=== PATIENT | male | born 1990 ===

== ENCOUNTER 2017-09-01 06:45 | Inpatient (IN) | payer OTHER ==
[2017-09-01] MEDS ORDERED: Lactated Ringer's 1,000 ML IV STA (07:32)
[2017-09-01] MEDS ORDERED: Iohexol 240 (50 ml) ONE (07:39)
[2017-09-01 08:02] LABS: BASO # 0.01 K/mm3 (0.0-2.0); BASO % 0.1 % (0.0-3.0); EOS % 0.1 % (1.5-5.0); GRAN # 10.67 (1.4-6.5); GRAN % 87.9 % (50.0-68.0); HEMOGLOBIN 13.2 g/dL (14.0-18.0); LYMPH # 0.3 (1.2-3.4); LYMPH % 2.6 % (22.0-35.0); MEAN CELL VOLUME 85.5 fl (80.0-105.0); MEAN CORPUSCULAR HEMOGLOBIN 29.1 pg (25.0-35.0); MEAN PLATELET VOLUME 10.6 fl (7.0-11.0); MONO # 1.1 (0.1-0.6); MONO % 9.3 % (1.0-6.0); PLATELET COUNT 178 10^3/uL (120.0-450.0); RBC 4.54 10^6/uL (3.5-6.1); WHITE BLOOD COUNT 12.1 10^3/ul (4.5-11.0)
--- NOTE | 2017-09-01 08:29 | ED PDOC ---
Arrival/HPI - General Chief Complaint: Medical Clearance Time Seen by Provider: 09/01/17 07:32 Historian: Patient - History of Present Illness Narrative History of Present Illness (Text): 09/01/17 08:26 27 year old male, whose past medical history includes MR and questionable kidney problems, who's brought in to the emergency department by his mother for vomiting that began 2 days ago. Patient is non-verbal and offers no complaints. As per mother, patient had a fever of 101 yesterday and went to the PMD. Patient was prescribed antibiotics with no relief. As per mother, denies any blood in urine or blood in stool and also reports patient's behavior is normal. ROS and PE limited due to patient being non-verbal. PMD: Dr. Zunilda Bone [facility] Director: Dr. Sneha Manley. Time/Duration: Other (2 days) Symptom Onset: Sudden Symptom Course: Unchanged Activities at Onset: Light Context: Home Past Medical History - Provider Review Nursing Documentation Reviewed: Yes - Cardiac Hx Cardiac Disorders: No - Pulmonary Hx Respiratory Disorders: No - Neurological Hx Neurological Disorder: No Other/Comment: autism/down's syndrome/non verbal - HEENT Hx HEENT Disorder: No - Renal Hx Renal Failure: Yes - Endocrine/Metabolic Hx Endocrine Disorders: No - Hematological/Oncological Hx Blood Disorders: No - Integumentary Hx Dermatological Disorder: No - Musculoskeletal/Rheumatological Hx Musculoskeletal Disorders: No - Gastrointestinal Hx Gastrointestinal Disorders: No - Genitourinary/Gynecological Hx Genitourinary Disorders: No - Psychiatric Hx Psychophysiologic Disorder: No Hx Substance Use: No - Surgical History Other/Comment: ureteral obs Family/Social History - Physician Review Nursing Documentation Reviewed: Yes Family/Social History: No Known Family HX Smoking Status: Never Smoked Hx Alcohol Use: No Hx Substance Use: No Allergies/Home Meds Allergies/Adverse Reactions: Allergies No Known Allergies Allergy (Verified 09/01/17 07:00) Home Medications: Home Meds Medication Instructions Recorded Confirmed Amoxicillin/Potassium Clav 600 mg PO BID 09/01/17 09/01/17 [Amox-Clav 600-42.9 mg/5 ml Carleen] Sodium Chloride 0.65% [[place] 45 50 ml NS DAILY 09/01/17 09/01/17 Ml] metroNIDAZOLE [Flagyl] 250 mg PO TID 09/01/17 09/01/17 Review of Systems - Physician Review All systems were reviewed & negative as marked: Yes - Review of Systems Systems not reviewed;Unavailable: Other (Non-verbal) Constitutional: Fevers Gastrointestinal: Vomiting Physical Exam - Physical Exam Physical Exam Limitations: Other (non-verbal) Vital Signs Reviewed: Yes Vital Signs Temp Pulse Resp BP Pulse Ox 09/01/17 12:14 103 H 18 89/56 L 97 09/01/17 11:00 106 H 16 108/49 L 100 09/01/17 09:00 104 H 18 86/56 L 100 09/01/17 07:32 78 18 95/56 L 99 09/01/17 07:00 97.4 F L 98 H 18 74/40 L 96 Temperature: Afebrile Blood Pressure: Hypotensive Pulse: Regular Respiratory Rate: Normal Appearance: Positive for: Well-Appearing, Non-Toxic, Comfortable Pain Distress: None Mental Status: Positive for: other (Baseline as per mother) - Systems Exam Head: Present: Atraumatic, Normocephalic Pupils: Present: PERRL Extroacular Muscles: Present: EOMI Conjunctiva: Present: Normal Mouth: Present: Moist Mucous Membranes Respiratory/Chest: Present: Clear to Auscultation, Good Air Exchange. No: Respiratory Distress, Accessory Muscle Use Cardiovascular: Present: Regular Rate and Rhythm, Normal S1, S2. No: Murmurs Abdomen: Present: Normal Bowel Sounds. No: Distention Medical Decision Making ED Course and Treatment: 09/01/17 08:27 Impression: 27 year old male presents as per mother vomiting for the past 2 days associated with a fever. Plan: -- CT ABD PO & IV Contrast -- Labs -- Lactated Ringer's 1,000ml IV -- Pepcid -- Zofran Inj -- Urinalysis -- Urine Culture -- EKG -- Reassess and disposition Progress Notes: 09/01/17 08:39 Discussed lab results with mother who reports questionable kidney problems and has seen a carboy filler 2 days ago, Dr. Sneha Manley. 09/01/17 08:57 EKG shows NSR at 91 BPM with normal axis, rhythms, and intervals in the PAC. Interpreted by me. Discussed case with carboy filler Dr. Eloy Melvin who is aware and agrees with the plan. Discussed case with IR Dr. Maher who is aware and agrees with the plan. 09/01/17 09:[address] Ram Resident who is aware and agrees with the plan. Patient will be admitted for Renal Failure, Hyperkalemia, and UTI. PROCEDURE: CT Abdomen and Pelvis without intravenous contrast Dictator : Xu Singletary MD Report Date : 09/01/2017 10:58:15 IMPRESSION: There is massive hydronephrosis of the right kidney and hydroureter. The right kidney measures 26 cm in height by 14 cm wide by 15 cm AP. The distal ureter measures 2.8 cm in diameter. There is no significant renal cortex seen on the right. 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 There is also severe hydronephrosis of the left kidney. There is a thin rim of cortex measuring approximately 12 mm in thickness. The distal left ureter measures 16 mm in diameter. - Critical Care Critical Care Minutes: 60 minutes - Lab Interpretations Lab Results: 09/01/17 07:45 09/01/17 07:45 Lab Results 09/01/17 09:20: Urine Color Yellow, Urine Appearance Cloudy, Urine pH 7.0, Ur Specific [place] 1.020, Urine Protein 100 H, Urine Glucose (UA) Negative, Urine Ketones Negative, Urine Blood Large H, Urine Nitrate Negative, Urine Bilirubin Negative, Urine Urobilinogen 0.2, Ur Leukocyte Esterase Moderate H, Urine RBC 1 - 3, Urine WBC Tntc, Ur Epithelial Cells 0 - 2, Urine Bacteria Large 09/01/17 07:45: Total Creatine Kinase 27 L 09/01/17 07:45: Sodium 127 L, Potassium 7.4 H*, Chloride 92 L, Carbon Dioxide 17 L, Anion Gap 26 H, BUN 126 H*, Creatinine 11.4 H*, Est GFR ( Amer) 7, Est GFR (Non-Af Amer) 5, Random Glucose 83, Calcium 7.6 L, Total Bilirubin 0.7, AST 21, ALT 29, Alkaline Phosphatase 65, Total Protein 7.5, Albumin 3.4, Globulin 4.2, Albumin/Globulin Ratio 0.8 L, Amylase < 30 L, Lipase 19 L 09/01/17 07:45: WBC 12.1 H, RBC 4.54, Hgb 13.2 L, Hct 38.8 L, MCV 85.5, MCH 29.1 , MCHC 34.0, RDW 14.0, Plt Count 178, MPV 10.6, Gran % 87.9 H, Lymph % (Auto) 2.6 L, [place] % (Auto) 9.3 H, Eos % (Auto) 0.1 L, Baso % (Auto) 0.1, Gran # 10.67 H, Lymph # 0.3 L, [place] # 1.1 H, Eos # 0.0, Baso # 0.01, Neutrophils % (Manual) 54, Band Neutrophils % 28 H*, Lymphocytes % (Manual) 7 L, Monocytes % (Manual) 11 H, Platelet Evaluation Normal I have reviewed the lab results: Yes - RAD Interpretation Radiology Orders: 09/01/17 08:41 ABD & PELVIS W/O PO OR IV CONT [CT] Stat 09/01/17 08:44 CHEST PORTABLE [RAD] Stat - EKG Interpretation Interpreted by ED Physician: Yes Type: 12 lead EKG - Medication Orders Current Medication Orders: Meropenem 500 mg/ Sodium (Chloride) 50 mls @ 100 mls/hr IVPB Q12 TONY PRN Reason: Protocol Stop: 09/08/17 22:01 Sodium Bicarbonate 150 meq/ (Dextrose) 1,150 mls @ 200 mls/hr IV .Q5H45M TONY Pantoprazole Sodium (Protonix Inj) 40 mg IVP DAILY TONY Discontinued Medications Calcium Gluconate (Calcium Gluconate Iv) 1,000 mg IVP ONCE ONE Stop: 09/01/17 09:58 Last Admin: 09/01/17 10:25 Dose: 1,000 mg IVP Administration Document 09/01/17 10:25 JOL (Rec: 09/01/17 10:25 JOL [id number]) Charges for Administration # of IVP Administrations 1 Dextrose (Dextrose 50% Inj) 50 ml IVP STAT STA Stop: 09/01/17 09:58 Last Admin: 09/01/17 10:25 Dose: 50 ml IVP Administration Document 09/01/17 10:25 JOL (Rec: 09/01/17 10:25 JOL [id number]) Charges for Administration # of IVP Administrations 1 Famotidine (Pepcid) 20 mg IVP STAT STA Stop: 09/01/17 07:33 Last Admin: 09/01/17 07:54 Dose: 20 mg IVP Administration Document 09/01/17 07:54 JOL (Rec: 09/01/17 07:54 JOL [id number]) Charges for Administration # of IVP Administrations 1 Lactated Ringer's (Lactated Ringer's) 1,000 mls @ 1,000 mls/hr IV BOLUS STA Stop: 09/01/17 08:31 Last Admin: 09/01/17 07:54 Dose: 1,000 mls/hr eMAR Start Stop Document 09/01/17 07:54 JOL (Rec: 09/01/17 07:54 JOL [id number]) Intravenous Solution Start Date 09/01/17 Start Time 07:54 End Date 09/01/17 End time 08:54 Total Infusion Time 60 Sodium Chloride (Sodium Chloride 0.9%) 1,000 mls @ 999 mls/hr IV .Q1H1M STA Stop: 09/01/17 11:04 Last Admin: 09/01/17 11:20 Dose: 999 mls/hr eMAR Start Stop Document 09/01/17 11:20 JOL (Rec: 09/01/17 11:59 JOL [id number]) Intravenous Solution Start Date 09/01/17 Start Time 11:20 End Date 09/01/17 End time 12:20 Total Infusion Time 60 Ceftriaxone Sodium (Rocephin 1 Gram Ivpb) 1 gm in 100 mls @ 200 mls/hr IVPB STAT STA Stop: 09/01/17 10:43 Last Admin: 09/01/17 11:33 Dose: Meropenem 500 mg/ Sodium (Chloride) 50 mls @ 100 mls/hr IVPB Q12 TONY PRN Reason: Protocol Stop: 09/01/17 11:14 Meropenem 500 mg/ Sodium (Chloride) 100 mls @ 100 mls/hr IVPB Q12 TONY PRN Reason: Protocol Stop: 09/01/17 11:44 Last Admin: 09/01/17 11:34 Dose: 100 mls/hr eMAR Start Stop Document 09/01/17 11:34 JOL (Rec: 09/01/17 11:34 JOL [id number]) Intravenous Solution Start Date 09/01/17 Start Time 11:34 End Date 09/01/17 End time 12:34 Total Infusion Time 60 Vancomycin HCl (Vancomycin 1gm) 1 gm in 250 mls @ 167 mls/hr IVPB STAT STA PRN Reason: Protocol Stop: 09/01/17 15:27 Insulin Human Regular (Humulin R) 6 units IVP STAT STA Stop: 09/01/17 09:58 Last Admin: 09/01/17 10:25 Dose: 6 units IVP Administration Document 09/01/17 10:25 JOL (Rec: 09/01/17 10:25 JOL [id number]) Charges for Administration # of IVP Administrations 1 Ondansetron HCl (Zofran Inj) 4 mg IVP STAT STA Stop: 09/01/17 07:33 Last Admin: 09/01/17 07:54 Dose: 4 mg IVP Administration Document 09/01/17 07:54 JOL (Rec: 09/01/17 07:54 JOL [id number]) Charges for Administration # of IVP Administrations 1 Pneumococcal Polyvalent Vaccine (Pneumovax 23 Vaccine) 0.5 ml IM .ONCE ONE Stop: 09/01/17 14:58 Sodium Bicarbonate (Sodium Bicarbonate 8.4% (50 Meq) Syringe) 50 meq IVP STAT STA Stop: 09/01/17 10:01 Last Admin: 09/01/17 10:25 Dose: 50 meq IVP Administration Document 09/01/17 10:25 JOL (Rec: 09/01/17 10:25 JOL [id number]) Charges for Administration # of IVP Administrations 1 Sodium Polystyrene Sulfonate (Kayexalate Susp) 30 gm PO STAT STA Stop: 09/01/17 09:58 Last Admin: 09/01/17 10:25 Dose: 30 gm - Scribe Statement The provider has reviewed the documentation as recorded by the Paddy Pelaez Provider Scribe Attestation: All medical record entries made by the Scribashley were at my direction and personally dictated by me. I have reviewed the chart and agree that the record accurately reflects my personal performance of the history, physical exam, medical decision making, and the department course for this patient. I have also personally directed, reviewed, and agree with the discharge instructions and disposition. Disposition/Present on Arrival - Present on Arrival Any Indicators Present on Arrival: No History of DVT/PE: No History of Uncontrolled Diabetes: No Urinary Catheter: No History of Decub. Ulcer: No History Surgical Site Infection Following: None - Disposition Have Diagnosis and Disposition been Completed?: Yes Diagnosis: Renal failure, Hyperkalemia, Cystitis Disposition: HOSPITALIZED Disposition Time: 11:00 Condition: SERIOUS
[2017-09-01 08:34] LABS: ALB/GLOB RATIO 0.8 (1.1-1.8); ALBUMIN 3.4 g/dL (3.0-4.8); ALT/SGPT 29 U/L (7-56); AMYLASE < 30 U/L (35-125); AST/SGOT 21 U/L (17-59); BLOOD UREA NITROGEN 126 mg/dL (7-21); CALCIUM 7.6 mg/dL (8.4-10.5); LIPASE 19 U/L (23-300)
[2017-09-01 08:37] LABS: LYMPHOCYTE 7 % (22.0-35.0); MONOCYTE 11 % (1.0-6.0); NEUTROPHIL 54 % (50.0-70.0)
[2017-09-01 08:38] LABS: PLATELET ESTIMATE NORMAL (NORMAL)
[2017-09-01 08:39] LABS: BAND 28 % (0-2)
[2017-09-01 09:26] LABS: GFR AFRICAN-AMERICAN 7; GFR NON-AFRICAN AMERICAN 5
[2017-09-01 09:28] LABS: URINE APPEARANCE CLOUDY (CLEAR); URINE BILIRUBIN NEGATIVE (NEGATIVE); URINE BLOOD LARGE (NEGATIVE); URINE COLOR YELLOW (YELLOW); URINE GLUCOSE (UA) NEGATIVE (NEGATIVE); URINE LEUKOCYTE ESTERASE MODERATE Leu/uL (NEGATIVE); URINE NITRATE NEGATIVE (NEGATIVE); URINE PROTEIN 100 mg/dL (<30 mg/dL); URINE UROBILINOGEN 0.2 E.U./dL (<1 E.U./dL)
[2017-09-01 09:37] LABS: URINE BACTERIA LARGE (NEG); URINE EPITHELIAL CELLS 0 - 2 /hpf (0-5); URINE WBC TNTC /hpf (0-6)
--- NOTE | 2017-09-01 09:53 | RAD ---
HISTORY: r/o infiltrate COMPARISON: No prior. FINDINGS: LUNGS: No active pulmonary disease. PLEURA: No significant pleural effusion identified, no pneumothorax apparent. CARDIOVASCULAR: Normal. OSSEOUS STRUCTURES: No significant abnormalities. VISUALIZED UPPER ABDOMEN: Normal. OTHER FINDINGS: None. IMPRESSION: No active disease.
[2017-09-01] MEDS ORDERED: Insulin Regular 1 UNITS/0.01 ML ML IVP STA (09:57)
[2017-09-01] MEDS ORDERED: Dextrose 50% SYRINGE Inj (50 ml) IVP STA (09:57)
[2017-09-01] MEDS ORDERED: Sod Polystyrene Sulf 15 gm/60 ml Susp PO STA (09:57)
[2017-09-01] MEDS ORDERED: Sodium Bicarbonate (8.4%) 50 Meq Syringe IVP STA (10:00)
[2017-09-01] MEDS ORDERED: Sodium Chloride 0.9% 1,000 ML IV STA ×2 (10:04→21:33)
[2017-09-01] MEDS ORDERED: cefTRIAXone (Rocephin) 1 gm Inj IVPB STA (10:08)
[2017-09-01] MEDS ORDERED: cefTRIAXone 1 GM/100 ML BAG IVPB STA (10:14)
[2017-09-01] MEDS ORDERED: Meropenem 500 MG in Sodium Chloride 0.9% 50 ML IVPB SCH ×2 (10:45→22:00)
[2017-09-01] MEDS ORDERED: Meropenem 500 MG in Sodium Chloride 0.9% 100 ML IVPB SCH (10:45)
--- NOTE | 2017-09-01 10:55 | CP.PCM.CON ---
History of Present Illness - History of Present Illness History of Present Illness: Critical Care Consult Note- Dr. Castro 27M w/ pmhx of Down's, Chronic obstructive uropathy, renal insufficiency presents [place] [facility] w/ nausea, vomiting, and abdominal pain for 2 days. Patient is aphasic, history was received from mother sitting at bedside. Emesis described as dark coffee ground, stool is liquid green. Denies bright red blood per rectum, blood in stool, or emesis. Patient has not had symptoms like this before. 3 days prior, patient was seen by PMD. Medical provider was unable to palpate abdomen due to patient being uncomfortable in too much pain. yesterday patient had a fever of 101.0. Denies current: Chills, chest pain, heart palpitations shortness of breath, numbness/tingling in extremities, vision changes, headaches PMH: Chronic obstructive Uropathy, renal insufficiency PSH: Urology procedure x2 by Dr. Campos (2000) (2017) ALL: NKDA SocialHx: Lives at home w/ mother. Denies ETOH, tobacco, recreational drug use PMD: Dr. Bone- [facility] Nephro: Dr. Darden Urology: Dr. Andres Review of Systems - Review of Systems All systems: reviewed and no additional remarkable complaints except - Constitutional Constitutional: As Per HPI Past Patient History - Past Social History Smoking Status: Never Smoked - CARDIAC Hx Cardiac Disorders: No - PULMONARY Hx Respiratory Disorders: No - NEUROLOGICAL Hx Neurological Disorder: No Other/Comment: autism/down's syndrome/non verbal - HEENT Hx HEENT Problems: No - RENAL Hx Renal Failure: Yes - ENDOCRINE/METABOLIC Hx Endocrine Disorders: No - HEMATOLOGICAL/ONCOLOGICAL Hx Blood Disorders: No - INTEGUMENTARY Hx Dermatological Problems: No - MUSCULOSKELETAL/RHEUMATOLOGICAL Hx Musculoskeletal Disorders: No - GASTROINTESTINAL Hx Gastrointestinal Disorders: No - GENITOURINARY/GYNECOLOGICAL Hx Genitourinary Disorders: No - PSYCHIATRIC Hx Psychophysiologic Disorder: No Hx Substance Use: No - SURGICAL HISTORY Other/Comment: ureteral obs Meds Allergies/Adverse Reactions: Allergies Allergy/AdvReac Type Severity Reaction Status Date / Time No Known Allergies Allergy Verified 09/01/17 07:00 - Medications Medications: Current Medications Sodium Chloride (Sodium Chloride 0.9%) 1,000 mls @ 999 mls/hr IV .Q1H1M STA Stop: 09/01/17 11:04 Meropenem 500 mg/ Sodium (Chloride) 100 mls @ 100 mls/hr IVPB Q12 TONY PRN Reason: Protocol Stop: 09/01/17 11:44 Physical Exam - Constitutional Appears: Non-toxic, No Acute Distress Additional comments: non-verbal - Head Exam Additional comments: frontal bossing - Eye Exam Eye Exam: EOMI - ENT Exam ENT Exam: Mucous Membranes Moist - Neck Exam Neck exam: Positive for: Normal Inspection - Respiratory Exam Respiratory Exam: NORMAL BREATHING PATTERN. absent: Accessory Muscle Use, Respiratory Distress - Cardiovascular Exam Cardiovascular Exam: +S1, +S2. absent: Bradycardia, Tachycardia - GI/Abdominal Exam Additional comments: unable to perform due to patient refusal - Rectal Exam Rectal Exam: Deferred - Extremities Exam Extremities exam: Positive for: normal inspection. Negative for: calf tenderness - Back Exam Additional comments: pt refused - Neurological Exam Neurological exam: Alert - Skin Skin Exam: Intact, Warm Results - Vital Signs Recent Vital Signs: Last Vital Signs Temp 97.4 F L 09/01/17 07:00 Pulse 78 09/01/17 07:32 Resp 18 09/01/17 07:32 BP 95/56 L 09/01/17 07:32 Pulse Ox 99 09/01/17 07:32 - Labs Result Diagrams: 09/01/17 07:45 09/01/17 13:00 Assessment & Plan - Assessment and Plan (Free Text) Assessment: 27M chronic obstructive uropathy, complicated UTI, Urosepsis, hyperkalemia CT Scan: Hydronephrosis of R. Kidney & Hydroureter. L hydronephrosis Plan: Neuro - no focal deficets, moves extremities spontaneously - maintain normothermia Cardio - hemodynamically stable - Maintain MAP > 65 - Repeat EKG to determine no cardiac arrythmia Pulm - maintain Saturation GI - Hyperkalemia- Kayexalate Endocrine: - maintain euglycemia 140-180 Renal - hyperkalemia - temporary dialysis catheter placement by IR - Nephrostomy tube placed by IR ID - c/s Daniela - UTI Merrem Heme - c/s: Dr. Garrett possible AVF creation - Left UE limb restriction
--- NOTE | 2017-09-01 10:59 | CT ---
PROCEDURE: CT Abdomen and Pelvis without intravenous contrast HISTORY: vomiting/abdominal pain with bandemia COMPARISON: None. TECHNIQUE: Without contrast.. Contrast Dose: Radiation dose: Total exam DLP = 536 mGy-cm. This CT exam was performed using one or more of the following dose reduction techniques: Automated exposure control, adjustment of the mA and/or kV according to patient size, and/or use of iterative reconstruction technique. FINDINGS: LOWER THORAX: Unremarkable. LIVER: The right lobe of the liver is compressed by the enlarged right kidney GALLBLADDER AND BILE DUCTS: Unremarkable. PANCREAS: Unremarkable. No gross lesion or ductal dilatation. SPLEEN: Unremarkable. ADRENALS: Unremarkable. No mass. KIDNEYS AND URETERS: There is massive hydronephrosis of the right kidney and hydroureter. The right kidney measures 26 cm in height by 14 cm wide by 15 cm AP. The distal ureter measures 2.8 cm in diameter. There is no significant renal cortex seen on the right. 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 There is also severe hydronephrosis of the left kidney. There is a thin rim of cortex measuring approximately 12 mm in thickness. The distal left ureter measures 16 mm in diameter. VASCULATURE: Unremarkable. No aortic aneurysm. BOWEL: Unremarkable. No obstruction. No gross mural thickening. APPENDIX: Unremarkable. Normal appendix. PERITONEUM: Unremarkable. No free fluid. No free air. LYMPH NODES: Unremarkable. No enlarged lymph nodes. BLADDER: There is a moderate amount of mural thickening in the bladder REPRODUCTIVE: Unremarkable. BONES: No acute fracture. OTHER FINDINGS: Findings were discussed with Dr. Hurley at 11 a.m. IMPRESSION: There is massive hydronephrosis of the right kidney and hydroureter. The right kidney measures 26 cm in height by 14 cm wide by 15 cm AP. The distal ureter measures 2.8 cm in diameter. There is no significant renal cortex seen on the right. 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 There is also severe hydronephrosis of the left kidney. There is a thin rim of cortex measuring approximately 12 mm in thickness. The distal left ureter measures 16 mm in diameter.
[2017-09-01] MEDS ORDERED: Sodium Chloride 0.9% 1,000 ML IV SCH (11:00)
--- NOTE | 2017-09-01 11:37 | CP.PCM.HP ---
History of Present Illness - History of Present Illness History of Present Illness: cc: nausea/vomiting/diarrhea HPI: Patient is a 27yo male with past medical history of Down syndrome, obstructive uropathy, renal insufficiency who presented to [facility] accompanied by his mother with report of abdominal pain associated with nausea and vomiting for 2 days. Patient is nonverbal and history was obtained from mother. Per her reports, patient had multiple episodes of dark-colored emesis and multiple loose bowel movements for 2 days and had been seen by his PMD who had prescribed him augmentin and flagyl with instructions to come to the ER should his condition get worse. She reports that he has had a history of renal insufficiency for many years and was being seen by Dr. Jez Darden ( nephrology) for this issue. She also reports a history of obstruction uropathy for which he had prior urological procedures with Dr. Campos. Due to patient' s nonverbal status, unable to obtain 12point review of systems. Mother reports no prior symptoms like this in the past. PMHx: chronic obstructive uropathy, down syndrome, nonverbal, renal insufficiency PSHx: Urology procedure x2 by Dr. Campos (2000, 2016) Allergies: NKDA Medications: Denies any home medications Social Hx: Lives at home w/ mother who is his primary cylinder inspector and tester; No history of tobacco, alcohol or illicit drug use Family Hx: Mother: Asthma, Hypertension; Father: denies PMD: Dr. Bone- [facility] Nephro: Dr. Darden Urology: Dr. Andres Present on Admission - Present on Admission Any Indicators Present on Admission: No Past Patient History - Past Social History Smoking Status: Never Smoked - CARDIAC Hx Cardiac Disorders: No - PULMONARY Hx Respiratory Disorders: No - NEUROLOGICAL Hx Neurological Disorder: No Other/Comment: autism/down's syndrome/non verbal - HEENT Hx HEENT Problems: No - RENAL Hx Renal Failure: Yes - ENDOCRINE/METABOLIC Hx Endocrine Disorders: No - HEMATOLOGICAL/ONCOLOGICAL Hx Blood Disorders: No - INTEGUMENTARY Hx Dermatological Problems: No - MUSCULOSKELETAL/RHEUMATOLOGICAL Hx Musculoskeletal Disorders: No - GASTROINTESTINAL Hx Gastrointestinal Disorders: No - GENITOURINARY/GYNECOLOGICAL Hx Genitourinary Disorders: No - PSYCHIATRIC Hx Psychophysiologic Disorder: No Hx Substance Use: No - SURGICAL HISTORY Other/Comment: ureteral obs Meds Allergies/Adverse Reactions: Allergies Allergy/AdvReac Type Severity Reaction Status Date / Time No Known Allergies Allergy Verified 09/01/17 07:00 Physical Exam - Head Exam Head Exam: ATRAUMATIC, NORMOCEPHALIC - Eye Exam Eye Exam: EOMI, PERRL - ENT Exam ENT Exam: Mucous Membranes Moist - Respiratory Exam Respiratory Exam: Clear to Auscultation Bilateral. absent: Rales, Rhonchi, Wheezes - Cardiovascular Exam Cardiovascular Exam: RRR, +S1, +S2. absent: Gallop, Rubs - GI/Abdominal Exam GI & Abdominal Exam: Soft, Tenderness. absent: Distended, Firm, Guarding, Rebound - Extremities Exam Extremities exam: Positive for: normal inspection. Negative for: pedal edema - Neurological Exam Neurological exam: Alert Additional comments: nonverbal - Skin Skin Exam: Dry, Intact, Normal Color, Warm Results - Vital Signs Recent Vital Signs: Last Vital Signs Temp 97.4 F L 09/01/17 07:00 Pulse 78 09/01/17 07:32 Resp 18 09/01/17 07:32 BP 95/56 L 09/01/17 07:32 Pulse Ox 99 09/01/17 07:32 - Labs Result Diagrams: 09/01/17 07:45 09/01/17 07:45 Labs: Laboratory Results - last 24 hr 09/01/17 11:22 POC Glucose (mg/dL) 125 H Assessment & Plan - Assessment and Plan (Free Text) Plan: 27yo male with history of renal insufficiency, obstructive uropathy, down syndrome presents with reports of nausea/vomiting/diarrhea found to be in renal failure with multiple electrolyte abnormalities as well as sepsis secondary to UTI 1. End stage renal disease -BUN/Cr is 126/11.4 with no prior baseline for comparison with multiple electrolyte abnormalities -CT Abd/Pelvis reviewed which revealed massive hydronephrosis of the right kidney and hydroureter as well as hydronephrosis of the left kidney; findings consistent with longstanding obstructive uropathy -Case discussed with Dr. Lyons - nephrology; permacath to be placed by Dr. Gunnar POOLE with plan for dialysis either today or tomorrow -Urology consulted for obstructive uropathy - Dr. Andres -Surgery consulted for AV fistula for permanent dialysis -ICU consulted - Dr. Castro -Continue with normal saline @ 100cc/hr -Zelaya catheter insertion -Monitor I's and O's, daily weight -Avoid nephrotoxic agents -Hepatitis panel and PTH pending 2. Hyperkalemia -EKG reviewed; normal sinus rhythm with no acute ST-T wave changes -Patient was given D50, insulin, kayexalate and calcium gluconate for hyperkalemia of 7.1; repeat BMP ordered this afternoon 3. Sepsis secondary to UTI -leukocytosis with bandemia, however afebrile -blood and urine cultures pending -procalcitonin pending -Started on meropenem as per ID recommendations -ID consulted - Dr. Booth -Given fluid bolus in the ED due to hypotension -Started on normal saline @ 100cc/hr -Urology consulted 4. GI/DVT prophylaxis -protonix/SCD's Patient seen and case discussed/reviewed with attending, Dr. Ram
--- NOTE | 2017-09-01 11:39 | CP.PCM.CON ---
History of Present Illness - History of Present Illness History of Present Illness: Initial Nephrology Consultation: Assessment: critical likely ESRD by now with b/l massive hydronephrosis and loss of renal cortex Hyperkalemia and acidosis UTI with hypotension, sepsis hx of MR Plan renal replacement therapy initiation indicated. considering loss of most of renal cortex on imaging and long standing hx of CKD as per mother, don't anticipate significant renal recovery even if obstruction is relieved. d/w mother about need of HD, pros/cons, risks/benefits, she understands and agreed, consented. No ACEI/ARB due to hyperkalemia and low BP Monitor Input/Output, daily weights and renal function with basic metabolic panel urology and ID consulted please consult IR to obtain IV dialysis access (permacath). also surgery eval for AVF placement before d/c will plan for HD hopefully by tomorrow, once access in place medical management of hyperkalemia in meantime IVF resus with normal saline instead of LR britt catheter Check for 25-OH vitamin D, iPTH, phosphorus level, Check Hep B and Hep C serology Dose meds/antibiotics for reduced GFR<10. Avoid fleets enema/magnesium based laxatives. Avoid nephrotoxins/NSAIDs/ iodinated contrast (unless needed emergently) Glycemic control Further work up/management as per primary team Thanks for allowing me to participate in care of your patient. Will follow patient with you. Please call if any Qs. 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 she has been seeing butter grader Dr Darden and urologist as well. pt was brought to ER with c/o fever for 2 days. found to have severe renal failure and hypotension hence renal consulted No obvious episodes of low BP. ROS: pt unable to provide due to MR Physical Examination: General Appearance: Comfortable, in no acute respiratory distress, mostly co- operative . Vitals reviewed and noted as below Head; Atraumatic, normocephalic ENT: no ulcers no thrush. Tongue is midline. Oropharynx: no rash or ulcers. EYES: Pupils are equal, round and reactive to light accommodation. Eye muscles and extraocular movement intact. Sclera is anicteric. Neck; supple no lymphadenopathy, no thyromegaly or bruit Lungs: Normal respiratory rate/effort. Breath sounds bilateral equal and clear Heart: Normal rate. s1s2 normal. No rub or gallop. Extremities: no edema. No varicose veins Neurological: Patient is alert, awake Skin: Warm and dry. Normal turgor. No rash. Palpitation: Normal elasticity for age Abdomen: Abdomen is soft. Bowel sounds +. There is no abdominal tenderness, no guarding/rigidity no organomegaly Psych: no insight MSK: no joint tenderness or swelling. Digits and nails normal, no deformity : palpable kidneys Labs/imaging reviewed. Past medical history, past surgical history, family history, social history, allergy reviewed and noted as below Family hx: no hx of CKD. Rest non-contributory Past Patient History - Past Social History Smoking Status: Never Smoked - CARDIAC Hx Cardiac Disorders: No - PULMONARY Hx Respiratory Disorders: No - NEUROLOGICAL Hx Neurological Disorder: No Other/Comment: autism/down's syndrome/non verbal - HEENT Hx HEENT Problems: No - RENAL Hx Renal Failure: Yes - ENDOCRINE/METABOLIC Hx Endocrine Disorders: No - HEMATOLOGICAL/ONCOLOGICAL Hx Blood Disorders: No - INTEGUMENTARY Hx Dermatological Problems: No - MUSCULOSKELETAL/RHEUMATOLOGICAL Hx Musculoskeletal Disorders: No - GASTROINTESTINAL Hx Gastrointestinal Disorders: No - GENITOURINARY/GYNECOLOGICAL Hx Genitourinary Disorders: No - PSYCHIATRIC Hx Psychophysiologic Disorder: No Hx Substance Use: No - SURGICAL HISTORY Other/Comment: ureteral obs Meds Allergies/Adverse Reactions: Allergies Allergy/AdvReac Type Severity Reaction Status Date / Time No Known Allergies Allergy Verified 09/01/17 07:00 - Medications Medications: Current Medications Meropenem 500 mg/ Sodium (Chloride) 100 mls @ 100 mls/hr IVPB Q12 TONY PRN Reason: Protocol Stop: 09/01/17 11:44 Sodium Chloride (Sodium Chloride 0.9%) 1,000 mls @ 100 mls/hr IV .Q10H TONY Results - Vital Signs Recent Vital Signs: Last Vital Signs Temp 97.4 F L 09/01/17 07:00 Pulse 78 09/01/17 07:32 Resp 18 09/01/17 07:32 BP 95/56 L 09/01/17 07:32 Pulse Ox 99 09/01/17 07:32 - Labs Result Diagrams: 09/01/17 07:45 09/01/17 07:45 Labs: Laboratory Results - last 24 hr 09/01/17 11:22 POC Glucose (mg/dL) 125 H
[2017-09-01 12:38] LABS: VENOUS BLOOD GAS BASE EXCESS -11.1 mmol/L (0.0-2.0); VENOUS BLOOD GAS PO2 41 mm/Hg (30-55)
[2017-09-01 12:44] LABS: VENOUS BLOOD PH 7.19 (7.32-7.43)
--- NOTE | 2017-09-01 13:08 | CP.PCM.CON ---
<Darius Benítez - Last Filed: 09/01/17 21:03> History of Present Illness - History of Present Illness History of Present Illness: Surgery Consult Note. Dr. Garrett History obtained from Mother due patient nonverbal at baseline. 27yo M with PMHx of Down Syndrome, Autism, chronic obstructive uropathy brought in to the ED for evaluation by mother due to nausea, vomiting, decreased appetite, fever and diarrhea at home. He has had multiple dark episodes of emesis with loose bowel movements for the past [address] Abd/Pelvis in the ED with evidence of severe bilateral hydroureter and hydronephrosis, obstructive uropathy. Labs with evidence of severe renal insufficiency and electrolyte abnormalities. Surgery consulted for evaluation for possible AVF during this hospital admission. Patient has been seeing a mold cooler as outpatient (Dr. Darden) who has stated the need for long-term dialysis soon. Patient has also been seeing Urologist, Dr. Chelsy Andres. 12 Point ROS unobtainable due to patient's baseline condition PMHx: Down Syndrome, Autims, Chronic Obstructive Uropathy PSHx: Cystoscopy. Denies abdominal surgeries Social Hx: Lives at home with mother. Denies Tobacco, Denies ETOH, Denies illicit drugs NKDA Review of Systems - Review of Systems Systems not reviewed;Unavailable: Other (Baseline non-verbal due Down Syndrome/ Autism) Past Patient History - Past Social History Smoking Status: Never Smoked - CARDIAC Hx Cardiac Disorders: No - PULMONARY Hx Respiratory Disorders: No - NEUROLOGICAL Hx Neurological Disorder: No Other/Comment: autism/down's syndrome/non verbal - HEENT Hx HEENT Problems: No - RENAL Hx Renal Failure: Yes - ENDOCRINE/METABOLIC Hx Endocrine Disorders: No - HEMATOLOGICAL/ONCOLOGICAL Hx Blood Disorders: No - INTEGUMENTARY Hx Dermatological Problems: No - MUSCULOSKELETAL/RHEUMATOLOGICAL Hx Musculoskeletal Disorders: No - GASTROINTESTINAL Hx Gastrointestinal Disorders: No - GENITOURINARY/GYNECOLOGICAL Hx Genitourinary Disorders: No - PSYCHIATRIC Hx Psychophysiologic Disorder: No Hx Substance Use: No - SURGICAL HISTORY Other/Comment: ureteral obs Meds Allergies/Adverse Reactions: Allergies Allergy/AdvReac Type Severity Reaction Status Date / Time No Known Allergies Allergy Verified 09/01/17 07:00 - Medications Medications: Current Medications Sodium Chloride (Sodium Chloride 0.9%) 1,000 mls @ 100 mls/hr IV .Q10H TONY Pantoprazole Sodium (Protonix Inj) 40 mg IVP DAILY TONY Physical Exam - Constitutional Appears: Non-toxic, No Acute Distress - Head Exam Head Exam: ATRAUMATIC, NORMAL INSPECTION, NORMOCEPHALIC - Eye Exam Eye Exam: EOMI - ENT Exam ENT Exam: Mucous Membranes Moist - Respiratory Exam Respiratory Exam: NORMAL BREATHING PATTERN. absent: Accessory Muscle Use, Respiratory Distress - Cardiovascular Exam Cardiovascular Exam: RRR, +S1, +S2. absent: JVD - GI/Abdominal Exam GI & Abdominal Exam: Guarding (voluntary guarding. Diffuse tenderness to palpation), Soft. absent: Firm, Rigid - Extremities Exam Extremities exam: Positive for: normal inspection. Negative for: calf tenderness - Neurological Exam Neurological exam: Alert Additional comments: baseline non-verbal. Alert, awake - Skin Skin Exam: Dry, Intact, Normal Color, Warm Results - Vital Signs Recent Vital Signs: Last Vital Signs Temp 97.4 F L 09/01/17 07:00 Pulse 103 H 09/01/17 12:14 Resp 18 09/01/17 12:14 BP 89/56 L 09/01/17 12:14 Pulse Ox 97 09/01/17 12:14 - Labs Result Diagrams: 09/01/17 07:45 09/01/17 19:31 Labs: Laboratory Results - last 24 hr 09/01/17 09/01/17 11:22 12:20 pO2 41 VBG pH 7.19 L* VBG pCO2 44.0 VBG HCO3 16.8 L VBG Total CO2 18.2 L VBG O2 Sat (Calc) 77.4 H VBG Base Excess -11.1 L VBG Potassium 5.8 H Sodium 127.0 L Chloride 98.0 Glucose 71 L Lactate 2.6 H FiO2 21.0 POC Glucose (mg/dL) 125 H Venous Blood Potassium 5.8 H Assessment & Plan - Assessment and Plan (Free Text) Assessment: 27yo M with Chronic Renal Insufficiency secondary to obstructive uropathy. Surgery consulted for AVF creation. - Will plan for AVF creation early next week - Continue medical maximization as per Primary, Nephrology, and ICU teams - Temp HD access by IR team - Left arm precautions - f/u vein mapping Further recs as per Dr. Tami Benítez PGY1 surgery pager: [phone] <TamiMarcello - Last Filed: 09/04/17 23:41> Meds - Medications Medications: Current Medications Calcium Acetate (Phoslo) 667 mg PO WM [facility] Last Admin: 09/04/17 16:01 Dose: Not Given Carvedilol (Coreg) 3.125 mg PO BID [facility] Last Admin: 09/04/17 17:13 Dose: Not Given Ergocalciferol (Drisdol 50,000 Intl Units Cap) 1 cap PO Q7D [facility] Last Admin: 09/02/17 09:28 Dose: 1 cap Ferrous Gluconate (Fergon) 324 mg PO TID [facility] Last Admin: 09/04/17 17:19 Dose: 324 mg Dobutamine HCl/Dextrose (Dobutamine/Dextrose 5% 500mg/250ml) 500 mg in 250 mls @ 3.98 mls/hr IV .Q24H PRN; Protocol; 2.5 MCG/KG/MIN PRN Reason: TITRATE PER PROTOCOL Ceftriaxone Sodium (Rocephin 2 Gm Ivpb) 2 gm in 100 mls @ 100 mls/hr IVPB DAILY [facility] PRN Reason: Protocol Last Admin: 09/04/17 13:21 Dose: 100 mls/hr Midodrine (Proamatine) 10 mg PO TID [facility] Last Admin: 09/04/17 17:19 Dose: 10 mg Pantoprazole Sodium (Protonix Inj) 40 mg IVP DAILY [facility] Last Admin: 09/04/17 10:07 Dose: 40 mg Vitamin B Complex/Vit C/Folic Acid (Nephro-Will) 1 tab PO 0800 [facility] Last Admin: 09/04/17 10:06 Dose: 1 tab Results - Vital Signs Recent Vital Signs: Last Vital Signs Temp 97.7 F 09/04/17 16:55 Pulse 92 H 09/04/17 18:00 Resp 20 09/04/17 16:55 BP 109/73 09/04/17 16:55 Pulse Ox 96 09/04/17 16:55 - Labs Result Diagrams: 09/04/17 05:12 09/04/17 05:12 Labs: Laboratory Results - last 24 hr 09/04/17 09/04/17 05:12 05:12 WBC 31.6 H* RBC 3.66 Hgb 10.5 L Hct 30.9 L MCV 84.4 MCH 28.7 MCHC 34.0 RDW 13.8 Plt Count 85 L MPV 11.3 H Gran % 88.4 H Lymph % (Auto) 3.6 L Ballard % (Auto) 7.8 H Eos % (Auto) 0.0 L Baso % (Auto) 0.2 Gran # 27.91 H Lymph # 1.2 Ballard # 2.5 H Eos # 0.0 Baso # 0.05 Sodium 138 Potassium 4.4 Chloride 104 Carbon Dioxide 27 Anion Gap 11 BUN 46 H Creatinine 3.5 H Est GFR ( Amer) 26 Est GFR (Non-Af Amer) 21 Random Glucose 99 Calcium 7.9 L Phosphorus 4.0 Magnesium 1.8 Total Bilirubin 0.3 AST 69 H D ALT 89 H Alkaline Phosphatase 95 Total Protein 4.9 L Albumin 2.0 L Globulin 2.8 Albumin/Globulin Ratio 0.7 L Assessment & Plan - Assessment and Plan (Free Text) Assessment: Patient was seen and examined by me. I agree with assessment and plan as per resident's note.
[2017-09-01 13:47] LABS: CALCIUM 7.1 mg/dL (8.4-10.5)
[2017-09-01] MEDS ORDERED: Vancomycin 1gm in NS 250ml 1 GM/250 ML BAG IVPB STA (13:58)
--- NOTE | 2017-09-01 14:00 | CON ---
DATE: 09/01/2017 HISTORY OF PRESENT ILLNESS: This is a 27-year-old gentleman with history of chronic obstructive uropathy and renal insufficiency who presented to [facility] with nausea, vomiting, and abdominal pain for 2 days. The patient is aphasic, however, most of the history is received from the mother who is at the bedside. Abdominal pain is described by her as sharp diffuse, no alleviating or no aggravating factors. It was getting progressively worse. Emesis is described as bilious. Stool is liquid green. No fever, no chills, no sweats. No constipation. PAST MEDICAL HISTORY: Renal insufficiency and chronic obstructive uropathy. PAST SURGICAL HISTORY: Urology procedure x2 by Dr. Andres. ALLERGIES: NKDA. SOCIAL HISTORY: The patient lives at home with mother. Denies alcohol abuse, tobacco or recreational drug use. MEDICATIONS AT HOME: Flagyl, amoxicillin, and clavulanate. REVIEW OF SYSTEMS: Review of 12-organ system other than mentioned in history of present illness is negative. PHYSICAL EXAMINATION: VITAL SIGNS: Blood pressure 95/56, heart rate 78, temperature 97.4, respiratory rate 18, and oxygen saturations 99% on room air. ENT: Head and neck atraumatic. LUNGS: Clear to auscultation bilaterally. HEART: Regular rate and rhythm. S1 and S2 normal. ABDOMEN: Soft, diffusely tender, but no peritoneal signs. MUSCULOSKELETAL: No C/C/E. NEUROLOGIC: The patient moves all extremities spontaneously. SKIN: Moist. PSYCHIATRIC: The patient is not communicative. LABORATORY DATA: Sodium 127, potassium 7.4, chloride 92, carbon dioxide 17, BUN 126, creatinine 11.4, glucose 125, AST 21, ALT 29, and albumin 3.4. WBC 12.1, hemoglobin 13.2, and platelet count 178. Urine positive for leukocyte esterase, but negative for nitrites, WBCs are too numerous to be counted. The patient received ceftriaxone and was started on 100 mL/hour of normal saline as well. CAT scan of the abdomen and pelvis revealed massive hydronephrosis of the right kidney and hydroureter. The right kidney measures 26 cm in height x 14 cm wide x 15 cm AP. The distal ureter measures 2.8 cm in diameter. There is no significant renal cortex seen in the right. 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 There is also severe hydronephrosis of the left kidney. There is a thin rim of cortex measuring approximately 12 mm in thickness. The distal left ureter measures 16 mm in diameter. ASSESSMENT AND PLAN: This is a 27-year-old gentleman who presented with urinary tract infection/pyelonephritis in the setting of [id number] obstructive uropathy, complicated by significant hyperkalemia and metabolic acidosis. At present time, we will proceed with percutaneous nephrostomy bilaterally. Antibiotics and septic workup were initiated in the Emergency Room. We will continue with fluid resuscitation. We will continue with measures to correct electrolytes. The patient will be going to ICU for further management and monitoring. Blood, urine culture, and procalcitonin were ordered. IR (Dr. Maher), active directory architect Dr. Andres were consulted. I will continue to target euvolemia, euglycemia, and normothermia and oxygen saturation more than 90%. We will avoid lactated Ringer due to concern for hyperkalemia. We will check ABG with lactic acid and we will trend lactic acid level as well. The patient will be on DVT and GI prophylaxis. Primary team called GI consult for nausea, vomiting, and diarrhea. Most likely, those symptoms relate to reactive irritation of GI tract by severely dilated right kidney addendum: Zelaya catheter attempted but only minimal amount of urine obtained from Zelaya. Dr. Maher placed b/l PC nephrostomy to drain infected urine, patient came back to ICU-->hypotensive despite bicarb drip at 200 cc/hr and 2L total IVF bolus. Repeat VBG with lactic acid is pending. Levophed started at 5 mcg/min. Stress dose steroids and vasopressin are added. CVL will be attempted. Meropenem and Vanco were started by ID service. Will repeat BMP ccm time 40 min Otilio Castro MD ANTOINETTE
--- NOTE | 2017-09-01 14:36 | CARD ---
APPROVED REPORT EKG Measurement Heart [id number] HI [id number] <Conclusion> Normal sinus rhythm Normal ECG
[2017-09-01 14:56] VITALS: BMI 22.8
[2017-09-01] MEDS ORDERED: Influenza Vaccine 60 mcg/0.5 mL SYR (4YR UP) IM ONE (14:57)
[2017-09-01] MEDS ORDERED: Pneumococcal 23-Valent Vaccine IM ONE (14:57)
[2017-09-01] MEDS ORDERED: Midazolam 2 MG/2 ML VIAL ONE ×3 (15:05→15:57)
[2017-09-01] MEDS ORDERED: Lidocaine 2% Inj (20ml) ONE (15:05)
[2017-09-01] MEDS ORDERED: HEPARIN SODIUM/NS 2,000 ML IV ONE (15:06)
[2017-09-01] MEDS ORDERED: Iodixanol 320 MG/ML 100 ML BOTTLE IV ONE (15:06)
[2017-09-01] MEDS ORDERED: DiphenhydrAMINE 50 mg/ml Inj ONE (15:30)
--- NOTE | 2017-09-01 15:44 | CP.PCM.CON ---
<Amberly Avitia - Last Filed: 09/01/17 15:44> History of Present Illness - History of Present Illness History of Present Illness: Seen and examined earlier this afternoon in the chart was reviewed. Request for GI consult is for abdominal pain. HPI: This is a 27-year-old male with a past medical history of Down syndrome, patient is accompanied by his mother who gives patients medical history, the patient is nonverbal. The patient has history of chronic renal failure, chronic obstructive uropathy , his mother reports that they recently moved from [place] in April 2017 and prior to leaving he had a cystoscopy that was reported to be normal. The patient recently seen body builder apprentice Dr. Darden,he and had blood work done to follow-up kidney functions. The patient was brought to the emergency room by his mother for complaints of vomiting and diarrhea 2 days. No reports of hematemesis,melena or bright red blood per rectum. The mother denies any hematuria. The patient also had a fever of 101 yesterday and went to PCP, was prescribed antibiotics of Augmentin and Flagyl. Was told to go ER if symptoms worsen. On admission the patient had a CT scan of abdomen and pelvis, report reviewed, [facility]. Findings on CT were right kidney with massive right hydronephrosis and hydroureter, left kidney hydronephrosis, right lower lobe compressed by and large right kidney. Bowel, gallbladder unremarkable, no lymph nodes. PMHx: chronic obstructive uropathy, down syndrome, nonverbal, renal insufficiency PSHx: cystoscopy Allergies: NKDA Medications: reviewed as per MAR Social Hx: Lives at home w/ mother who is his primary audio visual project manager; No history of tobacco, alcohol or illicit drug use Family Hx: Mother: Asthma, Hypertension; Father: denies ROS: Unable to review with patient, nonverbal, see HPI Past Patient History - Past Social History Smoking Status: Never Smoked - CARDIAC Hx Cardiac Disorders: No - PULMONARY Hx Respiratory Disorders: No - NEUROLOGICAL Hx Neurological Disorder: No Other/Comment: autism/down's syndrome/non verbal - HEENT Hx HEENT Problems: No - RENAL Hx Renal Failure: Yes - ENDOCRINE/METABOLIC Hx Endocrine Disorders: No - HEMATOLOGICAL/ONCOLOGICAL Hx Blood Disorders: No - INTEGUMENTARY Hx Dermatological Problems: No - MUSCULOSKELETAL/RHEUMATOLOGICAL Hx Musculoskeletal Disorders: No - GASTROINTESTINAL Hx Gastrointestinal Disorders: No - GENITOURINARY/GYNECOLOGICAL Hx Genitourinary Disorders: No - PSYCHIATRIC Hx Psychophysiologic Disorder: No Hx Substance Use: No - SURGICAL HISTORY Other/Comment: ureteral obs Meds Allergies/Adverse Reactions: Allergies Allergy/AdvReac Type Severity Reaction Status Date / Time No Known Allergies Allergy Verified 09/01/17 07:00 - Medications Medications: Current Medications Meropenem 500 mg/ Sodium (Chloride) 50 mls @ 100 mls/hr IVPB Q12 TONY PRN Reason: Protocol Stop: 09/08/17 22:01 Vancomycin HCl (Vancomycin 1gm) 1 gm in 250 mls @ 167 mls/hr IVPB STAT STA PRN Reason: Protocol Stop: 09/01/17 15:27 Sodium Bicarbonate 150 meq/ (Dextrose) 1,150 mls @ 200 mls/hr IV .Q5H45M TONY Pantoprazole Sodium (Protonix Inj) 40 mg IVP DAILY TONY Physical Exam - Constitutional Appears: No Acute Distress - Eye Exam Eye Exam: Normal appearance. absent: Scleral icterus - ENT Exam ENT Exam: Mucous Membranes Moist - Neck Exam Neck exam: Positive for: Normal Inspection - Respiratory Exam Respiratory Exam: Decreased Breath Sounds, NORMAL BREATHING PATTERN. absent: Rales, Wheezes, Respiratory Distress - Cardiovascular Exam Cardiovascular Exam: +S1, +S2 - GI/Abdominal Exam GI & Abdominal Exam: Normal Bowel Sounds, Soft, Tenderness. absent: Guarding, Rebound - Extremities Exam Extremities exam: Positive for: pedal pulses present. Negative for: calf tenderness, pedal edema - Neurological Exam Neurological exam: Alert (awake alert and nonverbal) - Skin Skin Exam: Dry, Warm Results - Vital Signs Recent Vital Signs: Last Vital Signs Temp 97.4 F L 09/01/17 14:31 Pulse 122 H 09/01/17 14:31 Resp 26 H 09/01/17 14:31 BP 101/44 L 09/01/17 14:31 Pulse Ox 97 09/01/17 12:14 - Labs Result Diagrams: 09/01/17 07:45 09/01/17 13:00 Labs: Laboratory Results - last 24 hr 09/01/17 09/01/17 09/01/17 11:22 12:20 13:00 pO2 41 VBG pH 7.19 L* VBG pCO2 44.0 VBG HCO3 16.8 L VBG Total CO2 18.2 L VBG O2 Sat (Calc) 77.4 H VBG Base Excess -11.1 L VBG Potassium 5.8 H Sodium 127.0 L 132 Chloride 98.0 100 Glucose 71 L Lactate 2.6 H FiO2 21.0 Potassium 5.7 H* D Carbon Dioxide 16 L Anion Gap 21 H BUN 116 H Creatinine 10.2 H* Est GFR ( Amer) 8 Est GFR (Non-Af Amer) 6 POC Glucose (mg/dL) 125 H Random Glucose 68 L Calcium 7.1 L Venous Blood Potassium 5.8 H Assessment & Plan - Assessment and Plan (Free Text) Assessment: Assessment: Chronic renal insufficiency History obstructive uropathy Abdominal pain, likely secondary to severe hydronephrosis/UTI Sepsis Hyperkalemia Diarrhea, rule out C. difficile Plan: Continue GI prophylaxis Renal plan for dialysis, patient is for permanent catheter insertion with IR On IV antibiotics meropenem Request for C. difficile As per renal, ID Thank you for this consult and for allowing us to participate in your patient's care, further recommendations based upon clinical course. Seen and discussed with Dr. Rodriguez. <Lisa Rodriguez V - Last Filed: 09/01/17 22:04> Meds - Medications Medications: Current Medications Ergocalciferol (Drisdol 50,000 Intl Units Cap) 1 cap PO Q7D TONY Hydrocortisone Sodium Succinate (Solu-Cortef) 50 mg IVP Q6H TONY Meropenem 500 mg/ Sodium (Chloride) 50 mls @ 100 mls/hr IVPB Q12 TONY PRN Reason: Protocol Stop: 09/08/17 22:01 Sodium Bicarbonate 150 meq/ (Dextrose) 1,150 mls @ 200 mls/hr IV .Q5H45M TONY Last Admin: 09/01/17 17:27 Dose: 200 mls/hr Vasopressin 20 units/ Dextrose 101 mls @ 9.09 mls/hr IV .Q11H7M TONY; 0.03 U/MIN PRN Reason: Protocol Phenylephrine HCl 40 mg/ (Sodium Chloride) 254 mls @ 38.1 mls/hr IV .Q6H40M PRN ; Protocol; 100 MCG/MIN PRN Reason: TITRATE PER MD ORDER Sodium Chloride (Sodium Chloride 0.9%) 1,000 mls @ 999 mls/hr IV .Q1H1M STA Stop: 09/01/17 22:33 Pantoprazole Sodium (Protonix Inj) 40 mg IVP DAILY TONY Results - Vital Signs Recent Vital Signs: Last Vital Signs Temp 97.4 F L 09/01/17 14:31 Pulse 122 H 09/01/17 14:31 Resp 26 H 09/01/17 14:31 BP 101/44 L 09/01/17 14:31 Pulse Ox 97 09/01/17 12:14 - Labs Result Diagrams: 09/01/17 07:45 09/01/17 19:31 Labs: Laboratory Results - last 24 hr 09/01/17 09/01/17 09/01/17 11:22 12:20 13:00 pO2 41 VBG pH 7.19 L* VBG pCO2 44.0 VBG HCO3 16.8 L VBG Total CO2 18.2 L VBG O2 Sat (Calc) 77.4 H VBG Base Excess -11.1 L VBG Potassium 5.8 H Sodium 127.0 L 132 Chloride 98.0 100 Glucose 71 L Lactate 2.6 H FiO2 21.0 Potassium 5.7 H* D Carbon Dioxide 16 L Anion Gap 21 H BUN 116 H Creatinine 10.2 H* Est GFR ( Amer) 8 Est GFR (Non-Af Amer) 6 POC Glucose (mg/dL) 125 H Random Glucose 68 L Calcium 7.1 L 25-OH Vitamin D Total Venous Blood Potassium 5.8 H Hep Bs Antigen Hep Bs Antibody Hep B Core IgM Ab Hepatitis C Antibody 09/01/17 09/01/17 09/01/17 13:00 13:00 13:00 pO2 VBG pH VBG pCO2 VBG HCO3 VBG Total CO2 VBG O2 Sat (Calc) VBG Base Excess VBG Potassium Sodium Chloride Glucose Lactate FiO2 Potassium Carbon Dioxide Anion Gap BUN Creatinine Est GFR ( Amer) Est GFR (Non-Af Amer) POC Glucose (mg/dL) Random Glucose Calcium 25-OH Vitamin D Total 14.7 L Venous Blood Potassium Hep Bs Antigen Negative Hep Bs Antibody Negative Hep B Core IgM Ab Negative Hepatitis C Antibody Negative 09/01/17 09/01/17 09/01/17 19:31 19:31 21:00 pO2 60 H VBG pH 7.29 L VBG pCO2 28.0 L VBG HCO3 13.5 L VBG Total CO2 14.4 L VBG O2 Sat (Calc) 93.6 H VBG Base Excess -11.6 L VBG Potassium 5.8 H Sodium 131.0 L 130 L Chloride 103.0 104 Glucose 55 L Lactate 2.8 H FiO2 21.0 Potassium 5.7 H* Carbon Dioxide 14 L Anion Gap 18 BUN 117 H Creatinine 9.6 H* Est GFR ( Amer) 8 Est GFR (Non-Af Amer) 7 POC Glucose (mg/dL) 105 Random Glucose 57 L Calcium 6.3 L* 25-OH Vitamin D Total Venous Blood Potassium 5.8 H Hep Bs Antigen Hep Bs Antibody Hep B Core IgM Ab Hepatitis C Antibody Attending/Attestation - Attestation I have personally seen and examined this patient.: Yes I have fully participated in the care of the patient.: Yes I have reviewed all pertinent clinical information: Yes Notes (Text): This is an addendum to GI consult report dictated by Amberly Avitia APN.The patient was seen and examined earlier. Medical records, lab studies, imagings were reviewed. Last 24 hours events reviewed. Agreed with the above treatment plan as outlined in Amberly Avitia APN's notes the with the addition of the following patient was seen in the evaluated earlier in the emergency room Patient's mother was at bedside CT scan was reviewed Discussed with the ER attending and the technical publications manager Follow up the stool studies Continue the antibiotics as per ID Significantly elevated pro-calcitonin level Thank you very much for allowing us to participate in the care of the patient. We'll continue to closely follow up his care and suggest further management based on the clinical course 09/01/17 22:01
[2017-09-01] MEDS ORDERED: Dexmedetomidine HCl 4mcg/ml 400 MCG/100 ML BOTTLE ONE (15:46)
[2017-09-01] MEDS ORDERED: NOREPINEPHRINE BIT/0.9 % NACL 4 MG/250 ML BAG IV ONE (15:56)
[2017-09-01] MEDS ORDERED: Phenylephrine 10 mg/ml Inj ONE (15:59)
[2017-09-01] MEDS: Sodium Bicarbonate 8.4% 150 MEQ in Dextrose 5% In Water 1,000 ML IV SCH (17:27)
--- NOTE | 2017-09-01 17:29 | CP.PCM.CON ---
History of Present Illness - History of Present Illness History of Present Illness: 27 year old male with PMH of mental disability, down syndrome, history of renal failure was brought in by his mother because of 2 days of vomiting and loose bowel movement. As per the mother, the patient also developed fever of 101 F at home. There was no note of coughing, no convulsions, no loss of consciousness. In the ED, there was noted of severe renal failure and CT scan of the abdomen and pelvis is showing enlarged and cystic right kidney. There is also noted of increased WBC's in the urine. He was given 2 doses of PO antibiotics yesterday by his PMD. Infectious Diseases consult is requested to further evaluate and manage. Review of Systems - Review of Systems All systems: reviewed and no additional remarkable complaints except (as per HPI ) Past Patient History - Past Social History Smoking Status: Never Smoked - CARDIAC Hx Cardiac Disorders: No - PULMONARY Hx Respiratory Disorders: No - NEUROLOGICAL Hx Neurological Disorder: No Other/Comment: autism/down's syndrome/non verbal - HEENT Hx HEENT Problems: No - RENAL Hx Renal Failure: Yes - ENDOCRINE/METABOLIC Hx Endocrine Disorders: No - HEMATOLOGICAL/ONCOLOGICAL Hx Blood Disorders: No - INTEGUMENTARY Hx Dermatological Problems: No - MUSCULOSKELETAL/RHEUMATOLOGICAL Hx Musculoskeletal Disorders: No - GASTROINTESTINAL Hx Gastrointestinal Disorders: No - GENITOURINARY/GYNECOLOGICAL Hx Genitourinary Disorders: No - PSYCHIATRIC Hx Psychophysiologic Disorder: No Hx Substance Use: No - SURGICAL HISTORY Other/Comment: ureteral obs Meds Allergies/Adverse Reactions: Allergies Allergy/AdvReac Type Severity Reaction Status Date / Time No Known Allergies Allergy Verified 09/01/17 07:00 - Medications Medications: Current Medications Sodium Chloride (Sodium Chloride 0.9%) 1,000 mls @ 999 mls/hr IV .Q1H1M STA Stop: 09/01/17 11:04 Ceftriaxone Sodium (Rocephin 1 Gram Ivpb) 1 gm in 100 mls @ 200 mls/hr IVPB STAT STA Stop: 09/01/17 10:43 Meropenem 500 mg/ Sodium (Chloride) 50 mls @ 100 mls/hr IVPB Q12 TONY PRN Reason: Protocol Stop: 09/01/17 11:14 Physical Exam - Constitutional Appears: Younger Than Stated Age, Chronically Ill - Head Exam Head Exam: NORMAL INSPECTION - ENT Exam ENT Exam: Mucous Membranes Moist - Neck Exam Neck exam: Negative for: Meningismus - Respiratory Exam Respiratory Exam: Decreased Breath Sounds - Cardiovascular Exam Cardiovascular Exam: +S1, +S2 - GI/Abdominal Exam GI & Abdominal Exam: Soft. absent: Tenderness Results - Vital Signs Recent Vital Signs: Last Vital Signs Temp 97.4 F L 09/01/17 07:00 Pulse 78 09/01/17 07:32 Resp 18 09/01/17 07:32 BP 95/56 L 09/01/17 07:32 Pulse Ox 99 09/01/17 07:32 - Labs Result Diagrams: 09/01/17 07:45 09/01/17 13:00 Assessment & Plan - Assessment and Plan (Free Text) Plan: Assessment Systemic Inflammatory Response Syndrome, consider sepsis due to UTI in a patient with hydronephrosis and hyroureter mental disability down syndrome history of renal failure Plan Gave a dose of IV Vanco and started Merrem pending blood cx, urine cx; reviewed CT A/P; patient to get catheter to relieve hydronephrosis will monitor clinically
[2017-09-01 18:18] LABS: HEPATITIS B SURFACE AG NEGATIVE (NEGATIVE)
[2017-09-01 18:23] LABS: HEPATITIS B CORE AB Negative (NEGATIVE)
[2017-09-01 18:35] LABS: HEPATITIS C ANTIBODY Negative (NEGATIVE)
--- NOTE | 2017-09-01 19:04 | VASCULAR ---
PROCEDURE: 1. Bilateral percutaneous nephrostomy tube placement HISTORY: Chronic bilateral hydronephrosis with renal failure. Possible pyonephrosis. Needs bilateral percutaneous nephrostomy tubes. PHYSICIAN(S): Magno Maher MD. TECHNIQUE: The relative risks and indications of the procedure were explained to the patient's mother and consent obtained. The patient was placed prone on the arteriogram table and the back and flank prepped and draped in the usual sterile fashion. Conscious sedation and monitoring were provided throughout the procedure by a nurse. A single pass with a 21-gauge needle was performed and the left renal pelvis was entered. Slightly turbid urine was aspirated. Contrast was injected and a limited left nephrostogram performed. There is severe left hydronephrosis present. A 2nd puncture site was selected for tube placement. The area was anesthetized with lidocaine. A single puncture with an 18 gauge needle was performed. A 0.035 wire was coiled in the left renal pelvis. Sequential dilatation was performed with placement of 12 [place] left nephrostomy tube. The tube was flushed and secured. Next the right kidney was addressed. A single puncture with a 21 gauge needle was performed. Turbid foul-smelling urine was aspirated. A limited amount of contrast was injected. A second site was selected for tube placement. An 18 gauge needle was advanced into the massively dilated right collecting system. 0.035 guidewire was coiled in the right renal pelvis. The tract was dilated and a 12 [place] right nephrostomy tube placed. The tube was secured. The patient tolerated the procedure well. FINDINGS: There is severe left hydronephrosis and massive right hydronephrosis present. The ureters are not adequately opacified to delineate the point of obstruction. By CT evaluation, the ureters are dilated to the bladder. No obvious obstructing stone or mass is seen. IMPRESSION: 1.Successful bilateral nephrostomy tube placement. 2. Massively dilated right collecting system and severely dilated left collecting system. 3. Right pyonephrosis. Possible left pyonephrosis. Urine specimens were sent for culture
--- NOTE | 2017-09-01 19:08 | PCM.SEPTIC ---
Sepsis Progress Note - Reassessment Type Reassessment Type: Non-invasive reassessment - Non Invasive Reassessment Were the most recent vital sign reviewed: Yes Vital Sign (Latest): Temp Pulse Resp BP Pulse Ox 97.4 F L 122 H 26 H 101/44 L 97 09/01/17 14:31 09/01/17 14:31 09/01/17 14:31 09/01/17 14:31 09/01/17 12:14 Cardiovascular: Yes: Regular Rate, Rhythm Respiratory: Yes: Normal Breath Sounds Capillary Refill: Delayed Pulses: Decreased Radial, Decreased Dorsalis Pedis, Decreased Posterior Tibialis Skin: Normal Color
--- NOTE | 2017-09-01 19:09 | VASCULAR ---
PROCEDURE: Ultrasound fluoroscopically placed temporary right IJ dialysis catheter CLINICAL HISTORY: Renal failure. Sepsis. Needs dialysis PHYSICIAN(S): Magno Maher M.D. TECHNIQUE: The relative risks and indications for the procedure were explained to the patient's mother and consent obtained. The right neck was prepped and draped in the usual sterile fashion. 1% Xylocaine was used to anesthetize the skin and soft tissues. Under direct ultrasound guidance, the right internal jugular vein was punctured with a micropuncture set. A 0.035 guidewire was advanced centrally. Sequential dilatation was performed with placement of a 20 cm temporary dialysis catheter. Both ports aspirate and inject easily. The catheter was secured and flushed. The patient tolerated the procedure well. The tip of the catheter is in the right atrium. IMPRESSION: 1. Ultrasound and fluoroscopically guided temporary right IJ dialysis catheter
[2017-09-01 19:34] LABS: VENOUS BLOOD GAS BASE EXCESS -11.6 mmol/L (0.0-2.0); VENOUS BLOOD GAS PO2 60 mm/Hg (30-55); VENOUS BLOOD PH 7.29 (7.32-7.43)
[2017-09-01 19:48] LABS: CALCIUM 6.3 mg/dL (8.4-10.5)
--- NOTE | 2017-09-01 20:56 | PCM.PROC ---
Procedures Attestation:: I certify that I have explained the specified Operation(s) or Procedure(s), risks, benefits and reasonable alternatives to the Patient and/or other person responsible. The opportunity was given to ask questions and all questions answered - Central Line Placement Left Femoral Triple Lumen Catheter Pt. Placed on Pulse Ox Monitor: Yes Central Line Prep: Chlorhexidine-Alcohol Combination Local Anesthesia Used: Lidocaine 1% Amount of Anesthesia Used (mls): 3 Ultrasound Used for Placement: Yes Central Line Lumen Inserted: triple Central Line Length: 20 cm Post Procedure: Sutured in Place, Good Blood Return, All Ports Aspirated, Flushed, Capped, Sterile Dressing Applied Secured by: Suture Post procedure dressing: Clear vapor permeable, Chlorhexidine disc (Biopatch) Patient Tolerated Procedure: Well, No Complications Immediate Complications: None
[2017-09-01] MEDS: Vasopressin 20 UNITS in Dextrose 5% In Water 100 ML IV SCH (21:00)
[2017-09-01 22:29] LABS: CALCIUM 5.6 mg/dL (8.4-10.5)
[2017-09-02] MEDS: Sodium Bicarbonate 8.4% 150 MEQ in Dextrose 5% In Water 1,000 ML IV SCH (01:31)
[2017-09-02 01:51] LABS: VENOUS BLOOD GAS BASE EXCESS -14.4 mmol/L (0.0-2.0); VENOUS BLOOD GAS PO2 54 mm/Hg (30-55)
[2017-09-02 01:54] LABS: VENOUS BLOOD PH 7.16 (7.32-7.43)
--- NOTE | 2017-09-02 03:00 | CON ---
DATE: 09/01/2017. TIME: 05:23 p.m. CHIEF COMPLAINT/HISTORY OF PRESENT ILLNESS: This is 27-year-old man with Down syndrome, who presents with renal failure, nausea, and vomiting. He has been seen in the past by Dr. Andres. CT scan today demonstrates massive right hydronephrosis and severe left hydronephrosis. The ureters can be traced at the UVJ. The bladder is circumferentially thickened. No obstructing stones are seen. The plan is for bilateral nephrostomy tubes. Given his presentation and possibility for obstructive pyelonephrosis. Very little renal cortex is noted bilaterally. It is uncertain whether the patient will regain significant renal function. Once he has improved, further evaluation of the lower tracts can be performed by Urology as indicated. The temporary dialysis catheter will be placed. If his renal function does not improve, this can be transitioned to a tunnel catheter. The situation was discussed in detail with the patient's mother. Magno Maher MD MTDD
[2017-09-02] MEDS: Vasopressin 20 UNITS in Dextrose 5% In Water 100 ML IV SCH ×3 (06:33→18:22)
[2017-09-02 07:12] LABS: BASO # 0.02 K/mm3 (0.0-2.0); BASO % 0.1 % (0.0-3.0); GRAN # 23.94 (1.4-6.5); GRAN % 95.5 % (50.0-68.0); LYMPH # 0.4 (1.2-3.4); LYMPH % 1.6 % (22.0-35.0); MEAN CELL VOLUME 84.7 fl (80.0-105.0); MEAN CORPUSCULAR HEMOGLOBIN 28.1 pg (25.0-35.0); MEAN CORPUSCULAR HGB CONC 33.1 g/dl (31.0-37.0); MEAN PLATELET VOLUME 11.7 fl (7.0-11.0); MONO # 0.7 (0.1-0.6); MONO % 2.8 % (1.0-6.0); RBC 3.92 10^6/uL (3.5-6.1); RED CELL DISTRIBUTION WIDTH 14.1 % (11.5-14.5)
[2017-09-02 07:26] LABS: INR 1.59 (0.93-1.08); PARTIAL THROMBOPLASTIN TIME 32.4 Seconds (25.1-36.5); PROTHROMBIN TIME 18.4 SECONDS (9.4-12.5)
[2017-09-02 07:30] LABS: VENOUS BLOOD GAS BASE EXCESS -11.3 mmol/L (0.0-2.0); VENOUS BLOOD GAS PO2 58 mm/Hg (30-55)
[2017-09-02 07:33] LABS: VENOUS BLOOD PH 7.17 (7.32-7.43)
[2017-09-02 07:38] LABS: WHITE BLOOD COUNT 25.1 10^3/ul (4.5-11.0)
[2017-09-02] MEDS ORDERED: DOBUTamine 500mg/250ml D5W 500 MG/250 ML BAG IV PRN (07:48)
[2017-09-02] MEDS ORDERED: Albuterol-Ipratrop 3 mg / 0.5 (3 ml) UD ONE (08:03)
[2017-09-02 08:06] LABS: ALB/GLOB RATIO 0.8 (1.1-1.8); CALCIUM 5.8 mg/dL (8.4-10.5); MAGNESIUM 1.2 mg/dL (1.7-2.2)
[2017-09-02 08:12] LABS: VENOUS BLOOD GAS BASE EXCESS -9.3 mmol/L (0.0-2.0); VENOUS BLOOD GAS PO2 36 mm/Hg (30-55); VENOUS BLOOD PH 7.26 (7.32-7.43)
[2017-09-02 08:37] LABS: CALCIUM 5.9 mg/dL (8.4-10.5)
[2017-09-02] MEDS ORDERED: Albuterol-Ipratrop 3 mg / 0.5 (3 ml) UD IH ONE (08:37)
--- NOTE | 2017-09-02 09:18 | PN ---
DATE: 09/02/2017 SUBJECTIVE: The patient is seen and examined at bedside. His mental status unchanged. He is poorly communicative. He is on norepinephrine 15 mcg per minute, vasopressin 0.03 units per minute, bicarb drip was just stopped (the patient has bilateral vascular congestion on chest x-ray). PHYSICAL EXAMINATION: VITAL SIGNS: Heart rate 107, oxygen saturation 96% on room air, respiratory rate 27, blood pressure 95/59. ENT: Head and neck atraumatic. LUNGS: Some wheezes and crackles bilaterally. HEART: Regular rate and rhythm. S1, S2 normal. ABDOMEN: Soft, nontender, nondistended. MUSCULOSKELETAL: Trace bilateral pedal and ankle edema. SKIN: Color moist. PSYCH: The patient has underlying diagnosis of mental retardation. Of note, left percutaneous drainage got 300 mL out and right 900 mL out overnight. Chest x-ray showed increased bilateral vascular congestion. MEDICATIONS: Dobutamine 2.5 mcg/kg/minute (preliminary echocardiogram revealed severe left ventricular systolic dysfunction), hydrocortisone 50 mg IV q. 6 h., meropenem, norepinephrine, Protonix, vasopressin. LABORATORY DATA: WBC 25.1, hemoglobin 11, platelet count 124. Sodium 133, potassium 6.1, BUN 101, creatinine 8.9. Calcium 5.8, AST 160, ALT 82. ASSESSMENT AND PLAN: This is 27-year-old gentleman with history of Down syndrome who was admitted to ICU yesterday with septic shock secondary to urinary tract infection with multiorgan system failure. CT scan of the abdomen, pelvis revealed severe bilateral hydronephrosis, and the patient now is status post bilateral percutaneous nephrostomies. At present time, the patient is on meropenem and received one dose of vancomycin yesterday. He is on hemodynamic support with norepinephrine 15 mcg per minute, vasopressin 0.03 units per minute and stress dose steroids, hydrocortisone 50 mg IV q. 6 h. Septic workup is in progress including blood, urine culture, procalcitonin. The patient was just found to have severe left ventricular systolic dysfunction. Formal echocardiogram, however is pending. If confirmed--cardiology consult will be requested. Ischemic etiology is less likely as patient is 27 yo, but possible, septic cardiomyopathy is more of possibility--nevertheless whether or not to proceed with coronary angio--will be deferred to cardiology service. Dobutamine 2.5 mcg/kg/minute started, IV fluids stopped. The patient's renal insufficiency as well as hyperkalemia worsened again which combined with fluid overload based on chest x-ray and severe left ventricle systolic dysfunction, may necessitate renal replacement therapy at present time. Nephrology consult is on board and timing of initiation thereof will be deferred to Nephrology service. We will continue target blood glucose within 140-180 range according to night sugar trial. We will maintain mean arterial pressure more than 65. We will continue with DVT, GI prophylaxis. We will continue with head of bed elevated more than 35 degrees. Aspiration precaution. Addendum: Patient tolerated HD well, NE weaned down to 5 mcg/min, patient tolerated oral diet well. Formal Echo done, report is pending ccm time 40 min Otilio Castro MD ANTOINETTE
[2017-09-02] MEDS: Ergocalciferol 50,000 Intl Units Cap PO SCH (09:28)
--- NOTE | 2017-09-02 09:30 | RAD ---
HISTORY: critcal- on pressors COMPARISON: 09/01/2017 FINDINGS: LUNGS: Increasing vascular congestion and perihilar infiltrates consistent with CHF. PLEURA: No significant pleural effusion identified, no pneumothorax apparent. CARDIOVASCULAR: Normal. OSSEOUS STRUCTURES: No significant abnormalities. VISUALIZED UPPER ABDOMEN: Normal. OTHER FINDINGS: Right-sided dialysis catheter IMPRESSION: Increasing CHF
--- NOTE | 2017-09-02 10:08 | CP.PCM.PN ---
<Mateo Hinds - Last Filed: 09/02/17 10:05> Subjective - Date & Time of Evaluation Date of Evaluation: 09/02/17 Time of Evaluation: 07:30 - Subjective Subjective: General Surgery - Dr. Garrett Patient seen and examined this AM at bedside. Over night patient noted to have continued hypotensive, tachycardic, diminished renal function. Patient placed on pressors and closely monitored in ICU. Patient has limited communication secondary to downs syndrome and acute illness, unable to obtain ROS. Objective - Vital Signs/Intake and Output Vital Signs (last 24 hours): Temp Pulse Resp BP Pulse Ox 97.4 F L 95 H 24 103/60 100 09/01/17 14:31 09/02/17 02:14 09/02/17 02:14 09/02/17 06:33 09/02/17 02:14 Intake and Output: 09/02/17 09/02/17 06:59 18:59 Intake Total 516 2775 Output Total 1200 Balance 516 1575 - Medications Medications: Current Medications Calcium Acetate (Phoslo) 1,334 mg PO WM [facility] Ergocalciferol (Drisdol 50,000 Intl Units Cap) 1 cap PO Q7D [facility] Last Admin: 09/02/17 09:28 Dose: 1 cap Hydrocortisone Sodium Succinate (Solu-Cortef) 50 mg IVP Q6H [facility] Last Admin: 09/02/17 08:10 Dose: 50 mg Vasopressin 20 units/ Dextrose 101 mls @ 9.09 mls/hr IV .Q11H7M [facility]ON[facility]; 0.03 U/MIN PRN Reason: Protocol Last Admin: 09/02/17 06:33 Dose: 9.09 mls/hr Norepinephrine Bitartrate 8 mg (/ Sodium Chloride) 258 mls @ 7.74 mls/hr IV .Q24H PRN; Protocol; 4 MCG/MIN PRN Reason: TITRATE PER MD ORDER Last Admin: 09/02/17 08:31 Dose: 15 mcg/min, 29.02 mls/hr Dobutamine HCl/Dextrose (Dobutamine/Dextrose 5% 500mg/250ml) 500 mg in 250 mls @ 3.98 mls/hr IV .Q24H PRN; Protocol; 2.5 MCG/KG/MIN PRN Reason: TITRATE PER PROTOCOL Meropenem 500 mg/ Sodium (Chloride) 100 mls @ 100 mls/hr IVPB Q12 [facility] PRN Reason: Protocol Stop: 09/08/17 22:01 Pantoprazole Sodium (Protonix Inj) 40 mg IVP DAILY [facility] Last Admin: 09/02/17 09:28 Dose: 40 mg - Labs Labs: 09/02/17 06:30 09/02/17 08:00 PT 18.4 SECONDS (9.4-12.5) H 09/02/17 06:30 INR 1.59 (0.93-1.08) H 09/02/17 06:30 APTT 32.4 Seconds (25.1-36.5) 09/02/17 06:30 - Head Exam Head Exam: ATRAUMATIC - Eye Exam Eye Exam: EOMI - ENT Exam ENT Exam: Mucous Membranes Moist - Respiratory Exam Respiratory Exam: Wheezes, NORMAL BREATHING PATTERN - Cardiovascular Exam Cardiovascular Exam: REGULAR RHYTHM, +S1, +S2 - GI/Abdominal Exam GI & Abdominal Exam: Soft, Normal Bowel Sounds. absent: Distended, Tenderness - Extremities Exam Extremities Exam: Normal Capillary Refill. absent: Calf Tenderness - Neurological Exam Neurological Exam: Alert, Awake - Psychiatric Exam Additional comments: baseline MR - Skin Skin Exam: Dry, Intact, Normal Color. absent: Rash Assessment and Plan - Assessment and Plan (Free Text) Assessment: 27yo M with down syndrome admitted for urosepsis noted to have chronic renal insufficiency secondary to obstructive uropathy. Patient to have AVF placement with surgical team within next week Plan: - Will plan for AVF creation early next week - Continue medical maximization as per Primary, Nephrology, and ICU teams - Shiley placed by IR - Left arm precautions - GI/DVT prophylaxis - f/u vein mapping - Will discuss with Dr. Tami Hinds PGY1 <Marcello Garrett - Last Filed: 09/04/17 23:46> Objective - Vital Signs/Intake and Output Vital Signs (last 24 hours): Temp Pulse Resp BP Pulse Ox 97.7 F 92 H 20 109/73 96 09/04/17 16:55 09/04/17 18:00 09/04/17 16:55 09/04/17 16:55 09/04/17 16:55 Intake and Output: 09/04/17 09/05/17 18:59 06:59 Intake Total 600 360 Balance 600 360 - Medications Medications: Current Medications Calcium Acetate (Phoslo) 667 mg PO WM [facility] Last Admin: 09/04/17 16:01 Dose: Not Given Carvedilol (Coreg) 3.125 mg PO BID [facility] Last Admin: 09/04/17 17:13 Dose: Not Given Ergocalciferol (Drisdol 50,000 Intl Units Cap) 1 cap PO Q7D [facility] Last Admin: 09/02/17 09:28 Dose: 1 cap Ferrous Gluconate (Fergon) 324 mg PO TID [facility] Last Admin: 09/04/17 17:19 Dose: 324 mg Dobutamine HCl/Dextrose (Dobutamine/Dextrose 5% 500mg/250ml) 500 mg in 250 mls @ 3.98 mls/hr IV .Q24H PRN; Protocol; 2.5 MCG/KG/MIN PRN Reason: TITRATE PER PROTOCOL Ceftriaxone Sodium (Rocephin 2 Gm Ivpb) 2 gm in 100 mls @ 100 mls/hr IVPB DAILY [facility] PRN Reason: Protocol Last Admin: 09/04/17 13:21 Dose: 100 mls/hr Midodrine (Proamatine) 10 mg PO TID [facility] Last Admin: 09/04/17 17:19 Dose: 10 mg Pantoprazole Sodium (Protonix Inj) 40 mg IVP DAILY [facility] Last Admin: 09/04/17 10:07 Dose: 40 mg Vitamin B Complex/Vit C/Folic Acid (Nephro-Will) 1 tab PO 0800 [facility] Last Admin: 09/04/17 10:06 Dose: 1 tab - Labs Labs: 09/04/17 05:12 09/04/17 05:12 PT 18.4 SECONDS (9.4-12.5) H 09/02/17 06:30 INR 1.59 (0.93-1.08) H 09/02/17 06:30 APTT 32.4 Seconds (25.1-36.5) 09/02/17 06:30 Assessment and Plan - Assessment and Plan (Free Text) Plan: Patient was seen and examined by me. I agree with assessment and plan as per resident's note.
--- NOTE | 2017-09-02 11:11 | CP.PCM.PN ---
<Amberly Avitia - Last Filed: 09/02/17 11:11> Subjective - Date & Time of Evaluation Date of Evaluation: 09/02/17 Time of Evaluation: 09:15 - Subjective Subjective: S&E at bedside, chart reviewed. S/P bilateral nephrostomy tubes yesterday. Currently going to get dialysis. Mother at beside, patient is nonverbal, unable to express complaints per mother, no acute distress, awake sitting up in bed. Patient hypotensive and tachycardic, on Dobutamine drip. Objective - Vital Signs/Intake and Output Vital Signs (last 24 hours): Temp Pulse Resp BP Pulse Ox 97.4 F L 95 H 24 103/60 100 09/01/17 14:31 09/02/17 02:14 09/02/17 02:14 09/02/17 06:33 09/02/17 02:14 Intake and Output: 09/02/17 09/02/17 06:59 18:59 Intake Total 516 2775 Output Total 1200 Balance 516 1575 - Medications Medications: Current Medications Calcium Acetate (Phoslo) 1,334 mg PO WM TONY Ergocalciferol (Drisdol 50,000 Intl Units Cap) 1 cap PO Q7D [facility] Last Admin: 09/02/17 09:28 Dose: 1 cap Hydrocortisone Sodium Succinate (Solu-Cortef) 50 mg IVP Q6H [facility] Last Admin: 09/02/17 08:10 Dose: 50 mg Vasopressin 20 units/ Dextrose 101 mls @ 9.09 mls/hr IV .Q11H7M [facility]ON[facility]; 0.03 U/MIN PRN Reason: Protocol Last Admin: 09/02/17 06:33 Dose: 9.09 mls/hr Norepinephrine Bitartrate 8 mg (/ Sodium Chloride) 258 mls @ 7.74 mls/hr IV .Q24H PRN; Protocol; 4 MCG/MIN PRN Reason: TITRATE PER MD ORDER Last Admin: 09/02/17 08:31 Dose: 15 mcg/min, 29.02 mls/hr Dobutamine HCl/Dextrose (Dobutamine/Dextrose 5% 500mg/250ml) 500 mg in 250 mls @ 3.98 mls/hr IV .Q24H PRN; Protocol; 2.5 MCG/KG/MIN PRN Reason: TITRATE PER PROTOCOL Meropenem 500 mg/ Sodium (Chloride) 100 mls @ 100 mls/hr IVPB Q12 [facility] PRN Reason: Protocol Stop: 09/08/17 22:01 Pantoprazole Sodium (Protonix Inj) 40 mg IVP DAILY [facility] Last Admin: 09/02/17 09:28 Dose: 40 mg - Labs Labs: 09/02/17 06:30 09/02/17 08:00 PT 18.4 SECONDS (9.4-12.5) H 09/02/17 06:30 INR 1.59 (0.93-1.08) H 09/02/17 06:30 APTT 32.4 Seconds (25.1-36.5) 09/02/17 06:30 - Constitutional Appears: No Acute Distress - Eye Exam Eye Exam: Normal appearance. absent: Scleral icterus - ENT Exam ENT Exam: Mucous Membranes Dry - Neck Exam Neck Exam: Normal Inspection - Respiratory Exam Respiratory Exam: Clear to Ausculation Bilateral, NORMAL BREATHING PATTERN. absent: Respiratory Distress - Cardiovascular Exam Cardiovascular Exam: +S1, +S2 - GI/Abdominal Exam GI & Abdominal Exam: Soft, Tenderness (nonverbal, but motioning hand away, as per mother he was examined this am and he did not push examiner hand away), Normal Bowel Sounds. absent: Guarding, Rebound - Extremities Exam Extremities Exam: absent: Calf Tenderness - Neurological Exam Neurological Exam: Alert, Awake (nonverbal) - Skin Skin Exam: Dry, Warm Assessment and Plan - Assessment and Plan (Free Text) Assessment: Assessment: Sepsis/urosepsis Chronic Renal Failure, started on dialysis History obstructive uropathy S/p Bilateral Nephrostomy tube Abdominal pain, likely secondary to severe hydronephrosis/UTI Hyperkalemia Diarrhea, rule out C. difficile Plan: Continue GI prophylaxis On IV antibiotics meropenem pending stool C. difficile on Dobutamine drip on Vasopressin urine culture results pending plans for AVF placement, timing as per surgery As per ICU team,renal, ID Seen and discussed with Dr. Rodriguez. <Lisa Rodriguez V - Last Filed: 09/02/17 23:53> Objective - Vital Signs/Intake and Output Vital Signs (last 24 hours): Temp Pulse Resp BP Pulse Ox 97.8 F 96 H 26 H 112/75 98 09/02/17 21:00 09/02/17 22:40 09/02/17 22:40 09/02/17 22:00 09/02/17 22:40 Intake and Output: 09/02/17 09/03/17 18:59 06:59 Intake Total 3920 Output Total 2410 Balance 1510 - Medications Medications: Current Medications Calcium Acetate (Phoslo) 1,334 mg PO WM [facility] Last Admin: 09/02/17 18:25 Dose: 1,334 mg Ergocalciferol (Drisdol 50,000 Intl Units Cap) 1 cap PO Q7D [facility] Last Admin: 09/02/17 09:28 Dose: 1 cap Hydrocortisone Sodium Succinate (Solu-Cortef) 50 mg IVP Q6H [facility] Last Admin: 09/02/17 22:17 Dose: 50 mg Vasopressin 20 units/ Dextrose 101 mls @ 9.09 mls/hr IV .Q11H7M [facility]ONY; 0.03 U/MIN PRN Reason: Protocol Last Admin: 09/02/17 18:22 Dose: Not Given Norepinephrine Bitartrate 8 mg (/ Sodium Chloride) 258 mls @ 7.74 mls/hr IV .Q24H PRN; Protocol; 4 MCG/MIN PRN Reason: TITRATE PER MD ORDER Last Titration: 09/02/17 13:45 Dose: 5 mcg/min, 9.67 mls/hr Dobutamine HCl/Dextrose (Dobutamine/Dextrose 5% 500mg/250ml) 500 mg in 250 mls @ 3.98 mls/hr IV .Q24H PRN; Protocol; 2.5 MCG/KG/MIN PRN Reason: TITRATE PER PROTOCOL Meropenem 500 mg/ Sodium (Chloride) 100 mls @ 100 mls/hr IVPB Q12 [facility] PRN Reason: Protocol Stop: 09/08/17 22:01 Last Admin: 09/02/17 22:07 Dose: 100 mls/hr Pantoprazole Sodium (Protonix Inj) 40 mg IVP DAILY [facility] Last Admin: 09/02/17 09:28 Dose: 40 mg Vitamin B Complex/Vit C/Folic Acid (Nephro-Will) 1 tab PO 0800 [facility] - Labs Labs: 09/02/17 06:30 09/02/17 08:00 PT 18.4 SECONDS (9.4-12.5) H 09/02/17 06:30 INR 1.59 (0.93-1.08) H 09/02/17 06:30 APTT 32.4 Seconds (25.1-36.5) 09/02/17 06:30 Attending/Attestation - Attestation I have personally seen and examined this patient.: Yes I have fully participated in the care of the patient.: Yes I have reviewed all pertinent clinical information, including history, physical exam and plan: Yes Notes (Text): This is an addendum to GI progress report dictated by Amberly Avitia APN.The patient was seen and examined earlier. Medical records, lab studies, imagings were reviewed. Last 24 hours events reviewed. Agreed with the above treatment plan as outlined in Amberly Avitia APN's notes the with the addition of the following patient's mother was at bedside at the time of examination Status post gastrostomy Abdomen soft minimal tenderness on deep palpation Follow-up LFT,stool studies 09/02/17 23:50
--- NOTE | 2017-09-02 11:26 | CP.PCM.PN ---
Subjective - Date & Time of Evaluation Date of Evaluation: 09/02/17 Time of Evaluation: 10:50 - Subjective Subjective: Patient had dialysis catheter placed yesterday as well as bilateral renal catheters. Had to be placed on pressors yesterday and still on pressors. Undergoing dialysis currently. No fevers overnight. Objective - Vital Signs/Intake and Output Vital Signs (last 24 hours): Temp Pulse Resp BP Pulse Ox 97.4 F L 95 H 24 103/60 100 09/01/17 14:31 09/02/17 02:14 09/02/17 02:14 09/02/17 06:33 09/02/17 02:14 Intake and Output: 09/02/17 09/02/17 06:59 18:59 Intake Total 516 2775 Output Total 1200 Balance 516 1575 - Medications Medications: Current Medications Calcium Acetate (Phoslo) 1,334 mg PO WM TONY Ergocalciferol (Drisdol 50,000 Intl Units Cap) 1 cap PO Q7D [facility] Last Admin: 09/02/17 09:28 Dose: 1 cap Hydrocortisone Sodium Succinate (Solu-Cortef) 50 mg IVP Q6H [facility] Last Admin: 09/02/17 08:10 Dose: 50 mg Vasopressin 20 units/ Dextrose 101 mls @ 9.09 mls/hr IV .Q11H7M [facility]ON[facility]; 0.03 U/MIN PRN Reason: Protocol Last Admin: 09/02/17 06:33 Dose: 9.09 mls/hr Norepinephrine Bitartrate 8 mg (/ Sodium Chloride) 258 mls @ 7.74 mls/hr IV .Q24H PRN; Protocol; 4 MCG/MIN PRN Reason: TITRATE PER MD ORDER Last Admin: 09/02/17 08:31 Dose: 15 mcg/min, 29.02 mls/hr Dobutamine HCl/Dextrose (Dobutamine/Dextrose 5% 500mg/250ml) 500 mg in 250 mls @ 3.98 mls/hr IV .Q24H PRN; Protocol; 2.5 MCG/KG/MIN PRN Reason: TITRATE PER PROTOCOL Meropenem 500 mg/ Sodium (Chloride) 100 mls @ 100 mls/hr IVPB Q12 [facility] PRN Reason: Protocol Stop: 09/08/17 22:01 Pantoprazole Sodium (Protonix Inj) 40 mg IVP DAILY [facility] Last Admin: 09/02/17 09:28 Dose: 40 mg - Labs Labs: 09/02/17 06:30 09/02/17 08:00 PT 18.4 SECONDS (9.4-12.5) H 09/02/17 06:30 INR 1.59 (0.93-1.08) H 09/02/17 06:30 APTT 32.4 Seconds (25.1-36.5) 09/02/17 06:30 - Constitutional Appears: Chronically Ill - Head Exam Head Exam: NORMAL INSPECTION - ENT Exam ENT Exam: Mucous Membranes Moist - Neck Exam Neck Exam: absent: Meningismus Additional comments: right IJ dialysis catheter in place - Respiratory Exam Respiratory Exam: Decreased Breath Sounds - Cardiovascular Exam Cardiovascular Exam: +S1, +S2 - GI/Abdominal Exam GI & Abdominal Exam: Soft. absent: Tenderness Additional comments: bilateral renal catheters in place Assessment and Plan - Assessment and Plan (Free Text) Plan: Assessment Systemic Inflammatory Response Syndrome, consider severe sepsis / septic shock due to UTI in a patient with hydronephrosis and hydroureter and acute on chronic renal failure mental disability down syndrome history of renal failure Plan Gave a dose of IV Vanco and continue Merrem pending urine cx; blood cx are negative; reviewed CT A/P; patient to get catheter to relieve hydronephrosis will continue to monitor clinically
--- NOTE | 2017-09-02 11:56 | CP.PCM.PN ---
Subjective - Date & Time of Evaluation Date of Evaluation: 09/02/17 Time of Evaluation: 09:30 - Subjective Subjective: Vimal Kidd PGY1 IM Progress Note for Dr. Ram Service Patient was seen and examined at bedside in ICU. mother is bedside. patient is non-verbal, cannot offer ROS but is at baseline. patient is currently receiving dialysis through R chest catheter. Mother endorses that patient is doing better and has not had n/v/d overnight. Objective - Vital Signs/Intake and Output Vital Signs (last 24 hours): Temp Pulse Resp BP Pulse Ox 97.4 F L 95 H 24 103/60 100 09/01/17 14:31 09/02/17 02:14 09/02/17 02:14 09/02/17 06:33 09/02/17 02:14 Intake and Output: 09/02/17 09/02/17 06:59 18:59 Intake Total 516 2775 Output Total 1200 Balance 516 1575 - Medications Medications: Current Medications Calcium Acetate (Phoslo) 1,334 mg PO WM [facility] Ergocalciferol (Drisdol 50,000 Intl Units Cap) 1 cap PO Q7D [facility] Last Admin: 09/02/17 09:28 Dose: 1 cap Hydrocortisone Sodium Succinate (Solu-Cortef) 50 mg IVP Q6H [facility] Last Admin: 09/02/17 08:10 Dose: 50 mg Vasopressin 20 units/ Dextrose 101 mls @ 9.09 mls/hr IV .Q11H7M [facility]ON[facility]; 0.03 U/MIN PRN Reason: Protocol Last Admin: 09/02/17 06:33 Dose: 9.09 mls/hr Norepinephrine Bitartrate 8 mg (/ Sodium Chloride) 258 mls @ 7.74 mls/hr IV .Q24H PRN; Protocol; 4 MCG/MIN PRN Reason: TITRATE PER MD ORDER Last Admin: 09/02/17 08:31 Dose: 15 mcg/min, 29.02 mls/hr Dobutamine HCl/Dextrose (Dobutamine/Dextrose 5% 500mg/250ml) 500 mg in 250 mls @ 3.98 mls/hr IV .Q24H PRN; Protocol; 2.5 MCG/KG/MIN PRN Reason: TITRATE PER PROTOCOL Meropenem 500 mg/ Sodium (Chloride) 100 mls @ 100 mls/hr IVPB Q12 [facility] PRN Reason: Protocol Stop: 09/08/17 22:01 Pantoprazole Sodium (Protonix Inj) 40 mg IVP DAILY [facility] Last Admin: 09/02/17 09:28 Dose: 40 mg - Labs Labs: 09/02/17 06:30 09/02/17 08:00 PT 18.4 SECONDS (9.4-12.5) H 09/02/17 06:30 INR 1.59 (0.93-1.08) H 09/02/17 06:30 APTT 32.4 Seconds (25.1-36.5) 09/02/17 06:30 - Constitutional Appears: Well, Non-toxic, No Acute Distress, Other (non-verbal) - Head Exam Head Exam: ATRAUMATIC, NORMAL INSPECTION, NORMOCEPHALIC - Eye Exam Eye Exam: EOMI, PERRL - ENT Exam ENT Exam: Mucous Membranes Moist, Normal Exam - Neck Exam Neck Exam: Normal Inspection - Respiratory Exam Respiratory Exam: NORMAL BREATHING PATTERN. absent: Rales, Wheezes, Respiratory Distress - Cardiovascular Exam Cardiovascular Exam: Tachycardia, REGULAR RHYTHM, +S1, +S2 - GI/Abdominal Exam GI & Abdominal Exam: Soft, Tenderness (R sided ), Normal Bowel Sounds. absent: Guarding, Rebound - Extremities Exam Extremities Exam: Full ROM - Back Exam Back Exam: NORMAL INSPECTION Additional comments: b/l nephrostomy tubes in place, draining - Neurological Exam Neurological Exam: Altered (non-verbal) - Psychiatric Exam Psychiatric exam: Normal Affect, Normal Mood - Skin Skin Exam: Normal Color, Warm - Additional Findings Additional findings: TLC in place Assessment and Plan - Assessment and Plan (Free Text) Assessment: 27 yo male with history of renal insufficiency, obstructive uropathy, down syndrome presents with reports of nausea/vomiting/diarrhea found to be in renal failure with multiple electrolyte abnormalities requiring emergent nephrostomy tube placement and dialysis as well as sepsis secondary to UTI requiring vasopressor therapy. In ICU day #2. Plan: 1. End stage renal disease and electorlyte abnormalities requiring dialysis and ICU monitoring - dialysis started via temporary dialysis catheter - nephrostomy tubes places by IR - IR consulted, recs appreciated - Neprhology consulted, recs appreciated - Urology consulted, recs appreciated - Surgery consulted, recs appreciated - ICU consulted, recs appreciated - CT Abd/Pelvis reviewed which revealed massive hydronephrosis of the right kidney and hydroureter as well as hydronephrosis of the left kidney; findings consistent with longstanding obstructive uropathy - continue phoslo for hypocalcemia and disrsdol for vit d deficiency - Zelaya catheter insertion - Monitor I's and O's, daily weight - Avoid nephrotoxic agents - Hepatitis panel and PTH pending 2. Sepsis secondary to UTI - SIRS + criteria (leukocytosis with bandemia and tachycardia, however remains afebrile) - requiring vasopressor therapy: dobutamine 2.5, norepinephrine 4, vasopressor 0.03, and slou-cortef - blood cultures pending - urine culture growing Gram neg moni - procalcitonin elevated - cont meropenem as per ID recommendations - ID consulted, recs appreciated - Urology consulted, recs appreciated 3. abd pain/transaminitis - lipase not elevated - hep panel negative - GI consulted, recs appreciated 4. Hyperkalemia - EKG in ED reviewed; normal sinus rhythm with no acute ST-T wave changes - will continue to monitor for any changes 5. GI/DVT prophylaxis - protonix/SCD's Patient was seen, examined and discussed with attending, Dr. Leanna Kidd PGY1 Pager # [phone]
--- NOTE | 2017-09-02 13:00 | PCM.URO ---
Urology Progress Note - Objective Lab Studies: Reviewed (renal failure and sepsis no gu intervention for now will follow along and discuss stents) Lab Results Last 24 Hours: Laboratory Results - last 24 hr 09/01/17 09/01/17 09/01/17 13:00 13:00 13:00 WBC RBC Hgb Hct MCV MCH MCHC RDW Plt Count MPV Gran % Lymph % (Auto) [place] % (Auto) Eos % (Auto) Baso % (Auto) Gran # Lymph # [place] # Eos # Baso # PT INR APTT pO2 VBG pH VBG pCO2 VBG HCO3 VBG Total CO2 VBG O2 Sat (Calc) VBG Base Excess VBG Potassium Glucose Lactate FiO2 Sodium 132 Potassium 5.7 H* D Chloride 100 Carbon Dioxide 16 L Anion Gap 21 H BUN 116 H Creatinine 10.2 H* Est GFR ( Amer) 8 Est GFR (Non-Af Amer) 6 POC Glucose (mg/dL) Random Glucose 68 L Lactic Acid Calcium 7.1 L Phosphorus Magnesium Total Bilirubin AST ALT Alkaline Phosphatase Total Protein Albumin Globulin Albumin/Globulin Ratio 25-OH Vitamin D Total Venous Blood Potassium Hep Bs Antigen Negative Hep Bs Antibody Negative Hep B Core IgM Ab Negative Hepatitis C Antibody Negative 09/01/17 09/01/17 09/01/17 13:00 19:31 19:31 WBC RBC Hgb Hct MCV MCH MCHC RDW Plt Count MPV Gran % Lymph % (Auto) [place] % (Auto) Eos % (Auto) Baso % (Auto) Gran # Lymph # [place] # Eos # Baso # PT INR APTT pO2 60 H VBG pH 7.29 L VBG pCO2 28.0 L VBG HCO3 13.5 L VBG Total CO2 14.4 L VBG O2 Sat (Calc) 93.6 H VBG Base Excess -11.6 L VBG Potassium 5.8 H Glucose 55 L Lactate 2.8 H FiO2 21.0 Sodium 131.0 L 130 L Potassium 5.7 H* Chloride 103.0 104 Carbon Dioxide 14 L Anion Gap 18 BUN 117 H Creatinine 9.6 H* Est GFR ( Amer) 8 Est GFR (Non-Af Amer) 7 POC Glucose (mg/dL) Random Glucose 57 L Lactic Acid Calcium 6.3 L* Phosphorus Magnesium Total Bilirubin AST ALT Alkaline Phosphatase Total Protein Albumin Globulin Albumin/Globulin Ratio 25-OH Vitamin D Total 14.7 L Venous Blood Potassium 5.8 H Hep Bs Antigen Hep Bs Antibody Hep B Core IgM Ab Hepatitis C Antibody 09/01/17 09/01/17 09/01/17 21:00 22:05 22:05 WBC RBC Hgb Hct MCV MCH MCHC RDW Plt Count MPV Gran % Lymph % (Auto) [place] % (Auto) Eos % (Auto) Baso % (Auto) Gran # Lymph # [place] # Eos # Baso # PT INR APTT pO2 VBG pH VBG pCO2 VBG HCO3 VBG Total CO2 VBG O2 Sat (Calc) VBG Base Excess VBG Potassium Glucose Lactate FiO2 Sodium 132 Potassium 4.6 Chloride 107 Carbon Dioxide 13 L Anion Gap 17 BUN 104 H Creatinine 8.6 H* Est GFR ( Amer) 9 Est GFR (Non-Af Amer) 8 POC Glucose (mg/dL) 105 Random Glucose 65 L Lactic Acid 3.3 H Calcium 5.6 L* Phosphorus Magnesium Total Bilirubin AST ALT Alkaline Phosphatase Total Protein Albumin Globulin Albumin/Globulin Ratio 25-OH Vitamin D Total Venous Blood Potassium Hep Bs Antigen Hep Bs Antibody Hep B Core IgM Ab Hepatitis C Antibody 09/02/17 09/02/17 09/02/17 00:55 06:30 06:30 WBC 25.1 H* D RBC 3.92 Hgb 11.0 L D Hct 33.2 L MCV 84.7 MCH 28.1 MCHC 33.1 RDW 14.1 Plt Count 124 MPV 11.7 H Gran % 95.5 H Lymph % (Auto) 1.6 L [place] % (Auto) 2.8 Eos % (Auto) 0.0 L Baso % (Auto) 0.1 Gran # 23.94 H Lymph # 0.4 L [place] # 0.7 H Eos # 0.0 Baso # 0.02 PT INR APTT pO2 54 VBG pH 7.16 L* VBG pCO2 38.0 L VBG HCO3 13.5 L VBG Total CO2 14.7 L VBG O2 Sat (Calc) 88.6 H VBG Base Excess -14.4 L VBG Potassium 4.9 Glucose 120 H Lactate 4.0 H* FiO2 21.0 Sodium 132.0 133 Potassium 6.1 H* D Chloride 105.0 102 Carbon Dioxide 18 L Anion Gap 20 BUN 101 H Creatinine 8.9 H* Est GFR ( Amer) 9 Est GFR (Non-Af Amer) 7 POC Glucose (mg/dL) Random Glucose 172 H Lactic Acid Calcium 5.8 L* Phosphorus 8.2 H Magnesium 1.2 L Total Bilirubin 1.1 AST 160 H D ALT 82 H Alkaline Phosphatase 45 Total Protein 4.6 L Albumin 2.0 L Globulin 2.6 Albumin/Globulin Ratio 0.8 L 25-OH Vitamin D Total Venous Blood Potassium 4.9 Hep Bs Antigen Hep Bs Antibody Hep B Core IgM Ab Hepatitis C Antibody 09/02/17 09/02/17 09/02/17 06:30 06:30 08:00 WBC RBC Hgb Hct MCV MCH MCHC RDW Plt Count MPV Gran % Lymph % (Auto) [place] % (Auto) Eos % (Auto) Baso % (Auto) Gran # Lymph # [place] # Eos # Baso # PT 18.4 H INR 1.59 H APTT 32.4 pO2 58 H VBG pH 7.17 L* VBG pCO2 47.0 VBG HCO3 17.1 L VBG Total CO2 18.5 L VBG O2 Sat (Calc) 91.7 H VBG Base Excess -11.3 L VBG Potassium 6.3 H* Glucose 180 H Lactate 4.5 H* FiO2 21.0 Sodium 131.0 L 133 Potassium 5.8 H* Chloride 101.0 103 Carbon Dioxide 17 L Anion Gap 19 BUN 101 H Creatinine 8.7 H* Est GFR ( Amer) 9 Est GFR (Non-Af Amer) 7 POC Glucose (mg/dL) Random Glucose 161 H Lactic Acid Calcium 5.9 L* Phosphorus Magnesium Total Bilirubin AST ALT Alkaline Phosphatase Total Protein Albumin Globulin Albumin/Globulin Ratio 25-OH Vitamin D Total Venous Blood Potassium 6.3 H* Hep Bs Antigen Hep Bs Antibody Hep B Core IgM Ab Hepatitis C Antibody 09/02/17 08:00 WBC RBC Hgb Hct MCV MCH MCHC RDW Plt Count MPV Gran % Lymph % (Auto) [place] % (Auto) Eos % (Auto) Baso % (Auto) Gran # Lymph # [place] # Eos # Baso # PT INR APTT pO2 36 VBG pH 7.26 L VBG pCO2 38.0 L VBG HCO3 17.1 L VBG Total CO2 18.3 L VBG O2 Sat (Calc) 73.0 H VBG Base Excess -9.3 L VBG Potassium 5.9 H Glucose 169 H Lactate 4.1 H* FiO2 21.0 Sodium 131.0 L Potassium Chloride 101.0 Carbon Dioxide Anion Gap BUN Creatinine Est GFR ( Amer) Est GFR (Non-Af Amer) POC Glucose (mg/dL) Random Glucose Lactic Acid Calcium Phosphorus Magnesium Total Bilirubin AST ALT Alkaline Phosphatase Total Protein Albumin Globulin Albumin/Globulin Ratio 25-OH Vitamin D Total Venous Blood Potassium 5.9 H Hep Bs Antigen Hep Bs Antibody Hep B Core IgM Ab Hepatitis C Antibody Intake & Output: Intake & Output 09/01/17 09/02/17 09/02/17 18:59 06:59 18:59 Intake Total 9793 601 0154 Output Total 1150 1200 Balance 783 504 7550 Weight 117 lb Intake: IV 7455 487 3096 Left Antecubital 90 90 Right Antecubital 1400 2400 Oral 0 0 Output: Drainage 1150 1200 Left 200 300 Right 950 900 Stool 0 Other: Voiding Method Diaper Vital Signs: Vital Signs - 24 hr 09/01/17 09/01/17 09/01/17 14:31 20:00 20:10 Temperature 97.4 F L Pulse Rate 122 H 131 H 128 H Pulse Rate [ 122 H Apical] Respiratory 26 H 15 19 Rate Blood Pressure 101/44 L O2 Sat by Pulse 100 99 Oximetry 09/01/17 09/01/17 09/01/17 20:20 20:30 20:36 Temperature Pulse Rate 127 H 128 H 121 H Pulse Rate [ Apical] Respiratory 26 H 22 23 Rate Blood Pressure 76/32 L O2 Sat by Pulse 97 95 97 Oximetry 09/01/17 09/01/17 09/01/17 20:40 20:41 20:45 Temperature Pulse Rate 118 H 120 H 118 H Pulse Rate [ Apical] Respiratory 22 23 21 Rate Blood Pressure 69/36 L 63/31 L O2 Sat by Pulse 97 98 97 Oximetry 09/01/17 09/01/17 09/01/17 20:50 20:59 21:00 Temperature Pulse Rate 115 H 117 H Pulse Rate [ Apical] Respiratory 22 32 H Rate Blood Pressure 59/30 L O2 Sat by Pulse 96 96 Oximetry 09/01/17 09/01/17 09/01/17 21:07 21:10 21:14 Temperature Pulse Rate 119 H 122 H 121 H Pulse Rate [ Apical] Respiratory 28 H 16 21 Rate Blood Pressure 70/36 L O2 Sat by Pulse 96 98 95 Oximetry 09/01/17 09/01/1718 21:15 21:20 21:30 Temperature Pulse Rate 120 H 120 H 117 H Pulse Rate [ Apical] Respiratory 21 27 H 21 Rate Blood Pressure 69/36 L 60/35 L O2 Sat by Pulse 94 L 96 Oximetry 09/01/17 09/01/17 09/01/17 21:40 21:45 21:50 Temperature Pulse Rate 123 H 123 H 117 H Pulse Rate [ Apical] Respiratory 20 23 21 Rate Blood Pressure 63/45 L O2 Sat by Pulse 98 97 97 Oximetry 09/01/17 09/01/17 09/01/17 22:00 22:10 22:15 Temperature Pulse Rate 125 H 111 H 108 H Pulse Rate [ Apical] Respiratory 25 H 30 H 22 Rate Blood Pressure 75/39 L 52/28 L O2 Sat by Pulse 95 94 L 94 L Oximetry 09/01/17 09/01/17 09/01/17 22:20 22:30 22:40 Temperature Pulse Rate 90 115 H 112 H Pulse Rate [ Apical] Respiratory 25 H 23 21 Rate Blood Pressure 70/45 L O2 Sat by Pulse 99 94 L 100 Oximetry 09/01/17 09/01/17 09/01/17 22:45 22:50 22:54 Temperature Pulse Rate 116 H 113 H 107 H Pulse Rate [ Apical] Respiratory 24 19 20 Rate Blood Pressure 67/45 L 99/61 L O2 Sat by Pulse 100 100 100 Oximetry 09/01/17 09/01/17 09/01/17 23:00 23:10 23:15 Temperature Pulse Rate 116 H 115 H 120 H Pulse Rate [ Apical] Respiratory 23 27 H 31 H Rate Blood Pressure 78/51 L 98/33 L O2 Sat by Pulse 98 92 L 96 Oximetry 09/01/17 09/01/17 09/01/17 23:20 23:30 23:40 Temperature Pulse Rate 103 H 121 H 109 H Pulse Rate [ Apical] Respiratory 23 27 H 17 Rate Blood Pressure 106/59 L O2 Sat by Pulse 93 L 90 L 94 L Oximetry 09/01/17 09/01/17 09/01/17 23:44 23:45 23:49 Temperature Pulse Rate 100 H 106 H 101 H Pulse Rate [ Apical] Respiratory 22 24 22 Rate Blood Pressure 89/59 L 100/71 O2 Sat by Pulse 94 L 94 L 95 Oximetry 09/01/17 09/02/17 09/02/17 23:50 00:00 00:10 Temperature Pulse Rate 118 H 110 H 116 H Pulse Rate [ Apical] Respiratory 23 23 20 Rate Blood Pressure 94/51 L O2 Sat by Pulse 92 L 91 L 90 L Oximetry 09/02/17 09/02/17 09/02/17 00:16 00:17 00:20 Temperature Pulse Rate 115 H 105 H 115 H Pulse Rate [ Apical] Respiratory 25 H 25 H 24 Rate Blood Pressure 84/30 L O2 Sat by Pulse 96 100 Oximetry 09/02/17 09/02/17 09/02/17 00:30 00:40 00:45 Temperature Pulse Rate 112 H 106 H 101 H Pulse Rate [ Apical] Respiratory 26 H 24 25 H Rate Blood Pressure 86/44 L 108/68 O2 Sat by Pulse 100 100 100 Oximetry 09/02/17 09/02/17 09/02/17 00:50 01:00 01:10 Temperature Pulse Rate 103 H 94 H 108 H Pulse Rate [ Apical] Respiratory 23 22 25 H Rate Blood Pressure 116/68 O2 Sat by Pulse 99 97 91 L Oximetry 09/02/17 09/02/17 09/02/17 01:16 01:20 01:30 Temperature Pulse Rate 113 H 102 H 98 H Pulse Rate [ Apical] Respiratory 27 H 22 24 Rate Blood Pressure 107/60 102/62 O2 Sat by Pulse 89 L 99 98 Oximetry 09/02/17 09/02/17 09/02/17 01:40 01:45 01:50 Temperature Pulse Rate 103 H 103 H 101 H Pulse Rate [ Apical] Respiratory 22 24 23 Rate Blood Pressure 103/69 O2 Sat by Pulse 92 L 93 L 90 L Oximetry 09/02/17 09/02/17 09/02/17 02:00 02:10 02:14 Temperature Pulse Rate 102 H 113 H 95 H Pulse Rate [ Apical] Respiratory 23 21 24 Rate Blood Pressure 116/72 O2 Sat by Pulse 99 88 L 100 Oximetry 09/02/17 09/02/17 02:15 06:33 Temperature Pulse Rate Pulse Rate [ Apical] Respiratory Rate Blood Pressure 103/66 103/60 O2 Sat by Pulse Oximetry
[2017-09-02] MEDS: Meropenem 500 MG in Sodium Chloride 0.9% 100 ML IVPB SCH ×2 (13:08→22:07)
--- NOTE | 2017-09-02 14:39 | CP.PCM.PN ---
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 next HD tomorrow. No ACEI/ARB due to hyperkalemia and low BP Monitor Input/Output, daily weights and renal function with basic metabolic panel urology and ID consulted surgery eval for AVF placement before d/c will start phos binders, nephrovite, weekly vit D Check TSAT/ferritin/phos in AM Dose meds/antibiotics for reduced GFR<10. Avoid fleets enema/magnesium based laxatives. Avoid nephrotoxins/NSAIDs/ iodinated contrast (unless needed emergently) Glycemic control Further work up/management as per primary team Thanks for allowing me to participate in care of your patient. Will follow patient with you. Please call if any Qs. d/w mother and ICU/primary team Dr Olegario Lyons Office: [phone] Chief Complaint; unable reason for consult: renal failure source of Info: mother HPI: Pt is a 27 M with MR and chronic obstructive uropathy and progressive CKD as a result of obstruction, mother was told about need for dialysis in near future. she has been seeing industrial relations officer Dr Darden and urologist as well. pt was brought to ER with c/o fever for 2 days. found to have severe renal failure and hypotension hence renal consulted ROS: pt unable to provide due to MR. overnight events noted. pt now on pressors Physical Examination: General Appearance: Comfortable, in no acute respiratory distress, mostly co- operative . Vitals reviewed and noted as below Head; Atraumatic, normocephalic ENT: no ulcers no thrush. Tongue is midline. Oropharynx: no rash or ulcers. EYES: Pupils are equal, round and reactive to light accommodation. Eye muscles and extraocular movement intact. Sclera is anicteric. Neck; supple no lymphadenopathy, no thyromegaly or bruit Lungs: Normal respiratory rate/effort. Breath sounds bilateral equal and clear Heart: Normal rate. s1s2 normal. No rub or gallop. Extremities: no edema. No varicose veins Neurological: Patient is alert, awake Skin: Warm and dry. Normal turgor. No rash. Palpitation: Normal elasticity for age Abdomen: Abdomen is soft. Bowel sounds +. There is no abdominal tenderness, no guarding/rigidity no organomegaly Psych: no insight MSK: no joint tenderness or swelling. Digits and nails normal, no deformity : palpable kidneys access: neck catheter Labs/imaging reviewed. Past medical history, past surgical history, family history, social history, allergy reviewed and noted as below Family hx: no hx of CKD. Rest non-contributory Objective - Vital Signs/Intake and Output Vital Signs (last 24 hours): Temp Pulse Resp BP Pulse Ox 97.4 F L 95 H 24 103/60 100 09/01/17 14:31 09/02/17 02:14 09/02/17 02:14 09/02/17 06:33 09/02/17 02:14 Intake and Output: 09/02/17 09/02/17 06:59 18:59 Intake Total 516 2775 Output Total 1200 Balance 516 1575 - Medications Medications: Current Medications Calcium Acetate (Phoslo) 1,334 mg PO WM [facility] Last Admin: 09/02/17 13:10 Dose: 1,334 mg Ergocalciferol (Drisdol 50,000 Intl Units Cap) 1 cap PO Q7D [facility] Last Admin: 09/02/17 09:28 Dose: 1 cap Hydrocortisone Sodium Succinate (Solu-Cortef) 50 mg IVP Q6H [facility]ON[facility] Last Admin: 09/02/17 08:10 Dose: 50 mg Vasopressin 20 units/ Dextrose 101 mls @ 9.09 mls/hr IV .Q11H7M TONY; 0.03 U/MIN PRN Reason: Protocol Last Admin: 09/02/17 06:33 Dose: 9.09 mls/hr Norepinephrine Bitartrate 8 mg (/ Sodium Chloride) 258 mls @ 7.74 mls/hr IV .Q24H PRN; Protocol; 4 MCG/MIN PRN Reason: TITRATE PER MD ORDER Last Admin: 09/02/17 08:31 Dose: 15 mcg/min, 29.02 mls/hr Dobutamine HCl/Dextrose (Dobutamine/Dextrose 5% 500mg/250ml) 500 mg in 250 mls @ 3.98 mls/hr IV .Q24H PRN; Protocol; 2.5 MCG/KG/MIN PRN Reason: TITRATE PER PROTOCOL Meropenem 500 mg/ Sodium (Chloride) 100 mls @ 100 mls/hr IVPB Q12 [facility]ONY PRN Reason: Protocol Stop: 09/08/17 22:01 Last Admin: 09/02/17 13:08 Dose: 100 mls/hr Pantoprazole Sodium (Protonix Inj) 40 mg IVP DAILY [facility] Last Admin: 09/02/17 09:28 Dose: 40 mg - Labs Labs: 09/02/17 06:30 09/02/17 08:00 PT 18.4 SECONDS (9.4-12.5) H 09/02/17 06:30 INR 1.59 (0.93-1.08) H 09/02/17 06:30 APTT 32.4 Seconds (25.1-36.5) 09/02/17 06:30
--- NOTE | 2017-09-02 19:11 | CARD ---
APPROVED REPORT EXAM: Two-dimensional and M-mode echocardiogram with Doppler and color Doppler. INDICATION Infection:Rule out subacute bacterial endocarditis PUL. EDEMA 2D DIMENSIONS Left Atrium (2D)3.1 (1.6-4.0cm)IVSd1.2 (0.7-1.1cm) LVDd3.9 (3.9-5.9cm)PWd1.1 (0.7-1.1cm) LVDs3.3 (2.5-4.0cm)FS (%) 16.5 % LVEF (%)35.1 (>50%) M-Mode DIMENSIONS Aortic Root2.80 (2.2-3.7cm)Aortic Cusp Exc.2.00 (1.5-2.0cm) Aortic Valve AoV Peak Pdamsdjp705.0cm/Ace Peak GR.7mmHg Mitral Valve MV E Iqjluhzk895.0cm/sMV A Npvwlnmx07.5cm/sE/A ratio1.6 TDI E/Lateral E'0.0E/Medial E'0.0 Tricuspid Valve TR Peak Yirnvelg016gi/sRAP [id number] Peak Gr.30mmHg [id number] LEFT VENTRICLE The left ventricle is normal size. There is borderline concentric left ventricular hypertrophy. The systolic function is moderately impaired.EF-35% Significant regional wall motion abnormalities noted. There is moderate There is moderate to severe hypokinesis in the apical anterior wall. global hypokinesis of the left ventricle. Transmitral Doppler flow pattern is Grade II-pseudonormal filling dynamics. No left ventricle thrombus noted on this study. There is no ventricular septal defect visualized. There is no left ventricular aneurysm. There is no mass noted in the left ventricle. RIGHT VENTRICLE The right ventricle is normal size. There is normal right ventricular wall thickness. The right ventricular systolic function is normal. ATRIA The left atrium size is normal. The right atrium size is normal. The interatrial septum is intact with no evidence for an atrial septal defect. AORTIC VALVE The aortic valve is calcified but opens well. There is moderate aortic regurgitation. There is no aortic valvular stenosis. There is no aortic valvular vegetation. MITRAL VALVE The mitral valve is thickened but opens well. Mitral regurgitation is mild. There is no mitral valve stenosis. There is no evidence of mitral valve prolapse. TRICUSPID VALVE The tricuspid valve leaflets are thickened , but open well. There is mild tricuspid regurgitation.RVSP-40 mmofHG There is no tricuspid valve stenosis. There is no tricuspid valve prolapse or vegetation. PULMONIC VALVE The pulmonary valve is normal in structure. There is no pulmonic valvular regurgitation. There is no pulmonic valvular stenosis. GREAT VESSELS The aortic root is normal in size. The ascending aorta is normal in size. The pulmonary artery is normal. The IVC is dilated. PERICARDIAL EFFUSION There is moderate left pleural effusion. There is a trace to small pericardial effusion. <Conclusion> The left ventricle is normal size. There is borderline concentric left ventricular hypertrophy. The systolic function is moderately impaired.EF-35% There is moderate aortic regurgitation. Mitral regurgitation is mild. There is mild tricuspid regurgitation.RVSP-40 mmofHG The IVC is dilated. There is a trace to small pericardial effusion. There is moderate left pleural effusion. No Vegetation or tjhroimbus noted,
[2017-09-03] MEDS: Vasopressin 20 UNITS in Dextrose 5% In Water 100 ML IV SCH (03:50)
[2017-09-03 06:31] LABS: IRON 13 ug/dL (45-180)
[2017-09-03 06:42] LABS: TOTAL IRON BINDING CAPACITY 118 ug/dL (261-462)
[2017-09-03 06:54] LABS: % IRON SATURATION 11 % (20-55)
[2017-09-03 06:59] LABS: ALB/GLOB RATIO 0.7 (1.1-1.8); CALCIUM 7.4 mg/dL (8.4-10.5); MAGNESIUM 1.6 mg/dL (1.7-2.2)
--- NOTE | 2017-09-03 08:47 | CP.PCM.PN ---
<Mati Peralta - Last Filed: 09/03/17 08:54> Subjective - Date & Time of Evaluation Date of Evaluation: 09/03/17 Time of Evaluation: 06:50 - Subjective Subjective: Surgery- Dr. Garrett Patient seen and examined at bedside this AM. Patient received hemodialysis from [facility] yesterday with no complications. procedure was tolerated well. Patient is non-verbal, mother at bedside. Resting comfortably. Nephrostomy tubes in place, R drainage purulent, L clear urine. Objective - Vital Signs/Intake and Output Vital Signs (last 24 hours): Temp Pulse Resp BP Pulse Ox 97.9 F 90 21 108/71 89 L 09/03/17 04:00 09/03/17 07:40 09/03/17 07:40 09/03/17 07:00 09/03/17 07:40 Intake and Output: 09/03/17 09/03/17 06:59 18:59 Intake Total 101 Balance 101 - Medications Medications: Current Medications Calcium Acetate (Phoslo) 1,334 mg PO WM [facility] Last Admin: 09/02/17 18:25 Dose: 1,334 mg Ergocalciferol (Drisdol 50,000 Intl Units Cap) 1 cap PO Q7D [facility] Last Admin: 09/02/17 09:28 Dose: 1 cap Hydrocortisone Sodium Succinate (Solu-Cortef) 50 mg IVP Q6H [facility] Last Admin: 09/03/17 02:22 Dose: 50 mg Vasopressin 20 units/ Dextrose 101 mls @ 9.09 mls/hr IV .Q11H7M TONY; 0.03 U/MIN PRN Reason: Protocol Last Admin: 09/03/17 03:50 Dose: 9.09 mls/hr Norepinephrine Bitartrate 8 mg (/ Sodium Chloride) 258 mls @ 7.74 mls/hr IV .Q24H PRN; Protocol; 4 MCG/MIN PRN Reason: TITRATE PER MD ORDER Last Admin: 09/03/17 02:28 Dose: 5 mcg/min, 9.67 mls/hr Dobutamine HCl/Dextrose (Dobutamine/Dextrose 5% 500mg/250ml) 500 mg in 250 mls @ 3.98 mls/hr IV .Q24H PRN; Protocol; 2.5 MCG/KG/MIN PRN Reason: TITRATE PER PROTOCOL Meropenem 500 mg/ Sodium (Chloride) 100 mls @ 100 mls/hr IVPB Q12 [facility] PRN Reason: Protocol Stop: 09/08/17 22:01 Last Admin: 09/02/17 22:07 Dose: 100 mls/hr Pantoprazole Sodium (Protonix Inj) 40 mg IVP DAILY [facility] Last Admin: 09/02/17 09:28 Dose: 40 mg Vitamin B Complex/Vit C/Folic Acid (Nephro-Will) 1 tab PO 0800 [facility] - Labs Labs: 09/02/17 06:30 09/03/17 05:30 PT 18.4 SECONDS (9.4-12.5) H 09/02/17 06:30 INR 1.59 (0.93-1.08) H 09/02/17 06:30 APTT 32.4 Seconds (25.1-36.5) 09/02/17 06:30 - Constitutional Appears: Non-toxic, No Acute Distress - Eye Exam Eye Exam: EOMI. absent: Scleral icterus - ENT Exam ENT Exam: Mucous Membranes Moist - Respiratory Exam Respiratory Exam: absent: Accessory Muscle Use, Respiratory Distress - Cardiovascular Exam Cardiovascular Exam: +S1, +S2. absent: Bradycardia, Tachycardia - GI/Abdominal Exam GI & Abdominal Exam: Guarding, Soft. absent: Distended Additional comments: patient voluntary guard. brief palpation for what patient would allow; abdomen was soft - Exam Additional comments: B/L nephrostomy tubes in place Left femoral central line in place - Neurological Exam Neurological Exam: Alert, Awake - Skin Skin Exam: Intact, Warm Assessment and Plan - Assessment and Plan (Free Text) Assessment: 27M hx of down's syndrome, obstructive uropathy, sepsis, currently started on hemodialysis Plan: - Left arm restriction - Abx per ID - Medical management per ICU team; potential off pressors today - monitor urine output via b/l nephrostomy tubes. - f/u vein mapping for AVF - pending hospital course of patient, plan for AVF next week - further recs per Dr. Jarett Peralta PGY1 <Marcello Garrett - Last Filed: 09/04/17 23:52> Objective - Vital Signs/Intake and Output Vital Signs (last 24 hours): Temp Pulse Resp BP Pulse Ox 97.7 F 92 H 20 109/73 96 09/04/17 16:55 09/04/17 18:00 09/04/17 16:55 09/04/17 16:55 09/04/17 16:55 Intake and Output: 09/04/17 09/05/17 18:59 06:59 Intake Total 600 360 Balance 600 360 - Medications Medications: Current Medications Calcium Acetate (Phoslo) 667 mg PO WM [facility] Last Admin: 09/04/17 16:01 Dose: Not Given Carvedilol (Coreg) 3.125 mg PO BID [facility] Last Admin: 09/04/17 17:13 Dose: Not Given Ergocalciferol (Drisdol 50,000 Intl Units Cap) 1 cap PO Q7D [facility] Last Admin: 09/02/17 09:28 Dose: 1 cap Ferrous Gluconate (Fergon) 324 mg PO TID [facility] Last Admin: 09/04/17 17:19 Dose: 324 mg Dobutamine HCl/Dextrose (Dobutamine/Dextrose 5% 500mg/250ml) 500 mg in 250 mls @ 3.98 mls/hr IV .Q24H PRN; Protocol; 2.5 MCG/KG/MIN PRN Reason: TITRATE PER PROTOCOL Ceftriaxone Sodium (Rocephin 2 Gm Ivpb) 2 gm in 100 mls @ 100 mls/hr IVPB DAILY [facility] PRN Reason: Protocol Last Admin: 09/04/17 13:21 Dose: 100 mls/hr Midodrine (Proamatine) 10 mg PO TID [facility] Last Admin: 09/04/17 17:19 Dose: 10 mg Pantoprazole Sodium (Protonix Inj) 40 mg IVP DAILY [facility] Last Admin: 09/04/17 10:07 Dose: 40 mg Vitamin B Complex/Vit C/Folic Acid (Nephro-Will) 1 tab PO 0800 [facility] Last Admin: 09/04/17 10:06 Dose: 1 tab - Labs Labs: 09/04/17 05:12 09/04/17 05:12 PT 18.4 SECONDS (9.4-12.5) H 09/02/17 06:30 INR 1.59 (0.93-1.08) H 09/02/17 06:30 APTT 32.4 Seconds (25.1-36.5) 09/02/17 06:30 Assessment and Plan - Assessment and Plan (Free Text) Plan: Patient was seen and examined by me. I agree with assessment and plan as per resident's note.
[2017-09-03 08:56] LABS: BASO # 0.03 K/mm3 (0.0-2.0); BASO % 0.1 % (0.0-3.0); GRAN # 24.39 (1.4-6.5); GRAN % 88.5 % (50.0-68.0); HEMOGLOBIN 9.8 g/dL (14.0-18.0); LYMPH # 0.5 (1.2-3.4); LYMPH % 1.9 % (22.0-35.0); MEAN CELL VOLUME 84.6 fl (80.0-105.0); MEAN CORPUSCULAR HEMOGLOBIN 28.5 pg (25.0-35.0); MEAN CORPUSCULAR HGB CONC 33.7 g/dl (31.0-37.0); MEAN PLATELET VOLUME 12.2 fl (7.0-11.0); MONO # 2.6 (0.1-0.6); MONO % 9.5 % (1.0-6.0); RBC 3.44 10^6/uL (3.5-6.1); RED CELL DISTRIBUTION WIDTH 14.1 % (11.5-14.5)
[2017-09-03 09:05] LABS: WHITE BLOOD COUNT 27.6 10^3/ul (4.5-11.0)
[2017-09-03] MEDS: Multivitamin Vitamin B Complex (Nephro-Vite) Tab PO SCH (09:42)
[2017-09-03] MEDS: Meropenem 500 MG in Sodium Chloride 0.9% 100 ML IVPB SCH ×2 (09:44→22:16)
[2017-09-03] MEDS ORDERED: Darbepoetin Alfa 40 mcg/ml Inj IVP ONE (09:49)
--- NOTE | 2017-09-03 11:14 | CP.PCM.PN ---
Subjective - Date & Time of Evaluation Date of Evaluation: 09/03/17 Time of Evaluation: 11:11 - Subjective Subjective: Follow up Nephrology Consultation: Assessment: stablel CKD stage 5 likely ESRD by now with b/l massive hydronephrosis and loss of renal cortex s/p b/l nephrostomy Hyperkalemia and acidosis, hypocalcemia, anemia urosepsis with shock, Klebsiella hx of MR Pulmonary congestion vit D def CHF EF 35% Plan HD today as ordered. 2nd session. pt planned for transfer to floor post HD today , stable for transfer from renal perspective. No ACEI/ARB due to hyperkalemia and low BP Monitor Input/Output, daily weights and renal function with basic metabolic panel urology and ID consulted surgery eval for AVF placement before d/c will start phos binders, nephrovite, weekly vit D, oral fe and aransep 40 mcg on 09/03/17 Dose meds/antibiotics for reduced GFR<10. Avoid fleets enema/magnesium based laxatives. Avoid nephrotoxins/NSAIDs/ iodinated contrast (unless needed emergently) Glycemic control Further work up/management as per primary team. Thanks for allowing me to participate in care of your patient. Will follow patient with you. Please call if any Qs. d/w ICU/primary team Dr Olegario Lyons Office: [phone] Chief Complaint; unable reason for consult: renal failure source of Info: mother HPI: Pt is a 27 M with MR and chronic obstructive uropathy and progressive CKD as a result of obstruction, mother was told about need for dialysis in near future. she has been seeing dietary services manager Dr Darden and urologist as well. pt was brought to ER with c/o fever for 2 days. found to have severe renal failure and hypotension hence renal consulted ROS: pt unable to provide due to MR. overnight events noted. pt off pressor except vasopressin Physical Examination: General Appearance: Comfortable, in no acute respiratory distress, mostly co- operative . Vitals reviewed and noted as below Head; Atraumatic, normocephalic ENT: no ulcers no thrush. Tongue is midline. Oropharynx: no rash or ulcers. EYES: Pupils are equal, round and reactive to light accommodation. Eye muscles and extraocular movement intact. Sclera is anicteric. Neck; supple no lymphadenopathy, no thyromegaly or bruit Lungs: Normal respiratory rate/effort. Breath sounds bilateral equal and clear Heart: Normal rate. s1s2 normal. No rub or gallop. Extremities: no edema. No varicose veins Neurological: Patient is alert, awake Skin: Warm and dry. Normal turgor. No rash. Palpitation: Normal elasticity for age Abdomen: Abdomen is soft. Bowel sounds +. There is no abdominal tenderness, no guarding/rigidity no organomegaly Psych: no insight MSK: no joint tenderness or swelling. Digits and nails normal, no deformity : palpable kidneys. has b/l nephrostomy tubes draining urine access: neck catheter Labs/imaging reviewed. Past medical history, past surgical history, family history, social history, allergy reviewed and noted as below Family hx: no hx of CKD. Rest non-contributory Objective - Vital Signs/Intake and Output Vital Signs (last 24 hours): Temp Pulse Resp BP Pulse Ox 97.9 F 99 H 23 108/79 100 09/03/17 04:00 09/03/17 09:50 09/03/17 09:50 09/03/17 09:00 09/03/17 09:50 Intake and Output: 09/03/17 09/03/17 06:59 18:59 Intake Total 101 Balance 101 - Medications Medications: Current Medications Calcium Acetate (Phoslo) 1,334 mg PO WM [facility] Last Admin: 09/03/17 08:30 Dose: 1,334 mg Ergocalciferol (Drisdol 50,000 Intl Units Cap) 1 cap PO Q7D [facility] Last Admin: 09/02/17 09:28 Dose: 1 cap Ferrous Gluconate (Fergon) 324 mg PO TID [facility] Hydrocortisone Sodium Succinate (Solu-Cortef) 50 mg IVP Q12H [facility] Vasopressin 20 units/ Dextrose 101 mls @ 9.09 mls/hr IV .Q11H7M TONY; 0.03 U/MIN PRN Reason: Protocol Last Admin: 09/03/17 03:50 Dose: 9.09 mls/hr Norepinephrine Bitartrate 8 mg (/ Sodium Chloride) 258 mls @ 7.74 mls/hr IV .Q24H PRN; Protocol; 4 MCG/MIN PRN Reason: TITRATE PER MD ORDER Last Admin: 09/03/17 02:28 Dose: 5 mcg/min, 9.67 mls/hr Dobutamine HCl/Dextrose (Dobutamine/Dextrose 5% 500mg/250ml) 500 mg in 250 mls @ 3.98 mls/hr IV .Q24H PRN; Protocol; 2.5 MCG/KG/MIN PRN Reason: TITRATE PER PROTOCOL Meropenem 500 mg/ Sodium (Chloride) 100 mls @ 100 mls/hr IVPB Q12 TONY PRN Reason: Protocol Stop: 09/08/17 22:01 Last Admin: 09/03/17 09:44 Dose: 100 mls/hr Midodrine (Proamatine) 10 mg PO TID [facility] Last Admin: 09/03/17 09:50 Dose: 10 mg Pantoprazole Sodium (Protonix Inj) 40 mg IVP DAILY [facility] Last Admin: 09/03/17 09:42 Dose: 40 mg Vitamin B Complex/Vit C/Folic Acid (Nephro-Will) 1 tab PO 0800 [facility] Last Admin: 09/03/17 09:42 Dose: 1 tab - Labs Labs: 09/03/17 05:30 09/03/17 05:30 PT 18.4 SECONDS (9.4-12.5) H 09/02/17 06:30 INR 1.59 (0.93-1.08) H 09/02/17 06:30 APTT 32.4 Seconds (25.1-36.5) 09/02/17 06:30
--- NOTE | 2017-09-03 11:22 | CP.PCM.PN ---
Subjective - Date & Time of Evaluation Date of Evaluation: 09/03/17 Time of Evaluation: 10:50 - Subjective Subjective: Patient continues to undergo dialysis but is better today, titrated off pressors. No fevers overnight. Objective - Vital Signs/Intake and Output Vital Signs (last 24 hours): Temp Pulse Resp BP Pulse Ox 97.9 F 90 21 108/71 89 L 09/03/17 04:00 09/03/17 07:40 09/03/17 07:40 09/03/17 07:00 09/03/17 07:40 Intake and Output: 09/03/17 09/03/17 06:59 18:59 Intake Total 101 Balance 101 - Medications Medications: Current Medications Calcium Acetate (Phoslo) 1,334 mg PO WM [facility] Last Admin: 09/02/17 18:25 Dose: 1,334 mg Ergocalciferol (Drisdol 50,000 Intl Units Cap) 1 cap PO Q7D [facility] Last Admin: 09/02/17 09:28 Dose: 1 cap Hydrocortisone Sodium Succinate (Solu-Cortef) 50 mg IVP Q6H [facility] Last Admin: 09/03/17 02:22 Dose: 50 mg Vasopressin 20 units/ Dextrose 101 mls @ 9.09 mls/hr IV .Q11H7M TONY; 0.03 U/MIN PRN Reason: Protocol Last Admin: 09/03/17 03:50 Dose: 9.09 mls/hr Norepinephrine Bitartrate 8 mg (/ Sodium Chloride) 258 mls @ 7.74 mls/hr IV .Q24H PRN; Protocol; 4 MCG/MIN PRN Reason: TITRATE PER MD ORDER Last Admin: 09/03/17 02:28 Dose: 5 mcg/min, 9.67 mls/hr Dobutamine HCl/Dextrose (Dobutamine/Dextrose 5% 500mg/250ml) 500 mg in 250 mls @ 3.98 mls/hr IV .Q24H PRN; Protocol; 2.5 MCG/KG/MIN PRN Reason: TITRATE PER PROTOCOL Meropenem 500 mg/ Sodium (Chloride) 100 mls @ 100 mls/hr IVPB Q12 TONY PRN Reason: Protocol Stop: 09/08/17 22:01 Last Admin: 09/02/17 22:07 Dose: 100 mls/hr Pantoprazole Sodium (Protonix Inj) 40 mg IVP DAILY [facility] Last Admin: 09/02/17 09:28 Dose: 40 mg Vitamin B Complex/Vit C/Folic Acid (Nephro-Will) 1 tab PO 0800 [facility] - Labs Labs: 09/02/17 06:30 09/03/17 05:30 PT 18.4 SECONDS (9.4-12.5) H 09/02/17 06:30 INR 1.59 (0.93-1.08) H 09/02/17 06:30 APTT 32.4 Seconds (25.1-36.5) 09/02/17 06:30 - Constitutional Appears: Chronically Ill - Head Exam Head Exam: NORMAL INSPECTION - Neck Exam Neck Exam: absent: Meningismus Additional comments: right IJ HD catheter in place - Respiratory Exam Respiratory Exam: Decreased Breath Sounds - Cardiovascular Exam Cardiovascular Exam: +S1, +S2 - GI/Abdominal Exam GI & Abdominal Exam: Soft. absent: Tenderness Additional comments: bilateral nephrostomy tubes in place Assessment and Plan - Assessment and Plan (Free Text) Plan: Assessment severe sepsis / septic shock due to UTI from gram negative bacilli in a patient with hydronephrosis and hydroureter and acute on chronic renal failure, S/P nephrostomy tube placement and now on dialysis mental disability down syndrome history of renal failure Plan continue Merrem pending identification and sensitivities of the gram negative bacilli in the urine; blood cx are negative; reviewed CT A/P; will continue to monitor clinically
--- NOTE | 2017-09-03 13:24 | PN ---
DATE: 09/03/2017 SUBJECTIVE: The patient is seen and examined at bedside. He is comfortable. His mental status is at baseline. He is not in respiratory or otherwise distress. Blood pressure 108/65. Norepinephrine stopped. Vasopressin 0.03 units/min continued (but will be stopped soon). The patient is off of dobutamine at present time. OBJECTIVE: VITAL SIGNS: Heart rate 99, respiratory rate 23, oxygen saturation 100% on room air. HEAD AND NECK: Atraumatic. LUNGS: Clear to auscultation bilateral. HEART: Regular rate and rhythm. S1, S2 normal. ABDOMEN: Soft, nontender, nondistended. MUSCULOSKELETAL: Trace bilateral pedal and ankle edema. NEURO: The patient moves all extremities spontaneously. Left percutaneous nephrostomy drain 960 mL of urine. Right percutaneous nephrostomy drain 1450 mL of urine. LABORATORY DATA: WBC 27.6, hemoglobin 9.8, platelet count 19. Sodium 140, potassium 4.7, chloride 106, carbon dioxide 26, BUN 67, creatinine 5.7, glucose 115, AST 138, ALT 99. MEDICATIONS: dobutamine, ferrous sulfate, hydrocortisone 50 mg IV q.6, meropenem, midodrine 10 mg p.o. t.i.d., Protonix, vasopressin, vitamin B complex, vitamin C, and folic acid. ASSESSMENT AND PLAN: This is a 27-year-old gentleman who presented with septic shock secondary to urinary tract infection in the setting of severe obstructive uropathy. Now status post bilateral percutaneous nephrostomies. Urology Service is following the patient as well. The patient was fluid resuscitated. Norepinephrine is weaned off. Currently, the patient is on midodrine p.o. and vasopressin IV. He will be requiring chronic dialysis. The patient also was found to have moderate left ventricular systolic dysfunction. Dr. Wu was requested for consult. The patient is on dobutamine drip 2.5 mcg/kg/minute. The patient appears to be very comfortable. His mental status is at his baseline. He is hemodynamically rivera substantially improved. The patient will be going to telemetry if stable hemodynamically today. We will continue to target euvolemia, euglycemia, normothermia, and oxygen saturation more than 90%. We will continue with deep venous thrombosis and gastrointestinal prophylaxis. We will continue to taper stress dose steroids. We will continue to maintain euvolemia and euglycemia. ccm time 40 min Otilio Castro MD ANTOINETTE
--- NOTE | 2017-09-03 14:26 | CP.PCM.PN ---
<Barrington Hancock - Last Filed: 09/03/17 14:23> Subjective - Date & Time of Evaluation Date of Evaluation: 09/03/17 Time of Evaluation: 10:00 - Subjective Subjective: Dr. Ram Service Patient seen and examined at bedside. Pt is resting comfortably. Family at bedside. Pt is nonverbal - baseline. Pt is in no acute distress. Pressors weaned : NE & dobutamine stopped. Pt is for HD today. Tolerated yesterday's HD well. As per nursing staff, no acute or adverse events overnight. Nephrostomy tubes in place Objective - Vital Signs/Intake and Output Vital Signs (last 24 hours): Temp Pulse Resp BP Pulse Ox 97.9 F 99 H 23 108/79 100 09/03/17 04:00 09/03/17 09:50 09/03/17 09:50 09/03/17 09:00 09/03/17 09:50 Intake and Output: 09/03/17 09/03/17 06:59 18:59 Intake Total 101 Balance 101 - Medications Medications: Current Medications Calcium Acetate (Phoslo) 1,334 mg PO WM [facility] Last Admin: 09/03/17 11:57 Dose: 1,334 mg Ergocalciferol (Drisdol 50,000 Intl Units Cap) 1 cap PO Q7D [facility] Last Admin: 09/02/17 09:28 Dose: 1 cap Ferrous Gluconate (Fergon) 324 mg PO TID [facility] Last Admin: 09/03/17 11:00 Dose: 324 mg Hydrocortisone Sodium Succinate (Solu-Cortef) 50 mg IVP Q12H [facility] Last Admin: 09/03/17 11:58 Dose: Not Given Vasopressin 20 units/ Dextrose 101 mls @ 9.09 mls/hr IV .Q11H7M [facility]; 0.03 U/MIN PRN Reason: Protocol Last Admin: 09/03/17 03:50 Dose: 9.09 mls/hr Norepinephrine Bitartrate 8 mg (/ Sodium Chloride) 258 mls @ 7.74 mls/hr IV .Q24H PRN; Protocol; 4 MCG/MIN PRN Reason: TITRATE PER MD ORDER Last Admin: 09/03/17 02:28 Dose: 5 mcg/min, 9.67 mls/hr Dobutamine HCl/Dextrose (Dobutamine/Dextrose 5% 500mg/250ml) 500 mg in 250 mls @ 3.98 mls/hr IV .Q24H PRN; Protocol; 2.5 MCG/KG/MIN PRN Reason: TITRATE PER PROTOCOL Meropenem 500 mg/ Sodium (Chloride) 100 mls @ 100 mls/hr IVPB Q12 TONY PRN Reason: Protocol Stop: 09/08/17 22:01 Last Admin: 09/03/17 09:44 Dose: 100 mls/hr Midodrine (Proamatine) 10 mg PO TID [facility] Last Admin: 09/03/17 09:50 Dose: 10 mg Pantoprazole Sodium (Protonix Inj) 40 mg IVP DAILY [facility] Last Admin: 09/03/17 09:42 Dose: 40 mg Vitamin B Complex/Vit C/Folic Acid (Nephro-Will) 1 tab PO 0800 [facility] Last Admin: 09/03/17 09:42 Dose: 1 tab - Labs Labs: 09/03/17 05:30 09/03/17 05:30 PT 18.4 SECONDS (9.4-12.5) H 09/02/17 06:30 INR 1.59 (0.93-1.08) H 09/02/17 06:30 APTT 32.4 Seconds (25.1-36.5) 09/02/17 06:30 - Constitutional Appears: No Acute Distress, Chronically Ill - Head Exam Head Exam: ATRAUMATIC, NORMAL INSPECTION, NORMOCEPHALIC - Eye Exam Eye Exam: EOMI, Normal appearance, PERRL Pupil Exam: NORMAL ACCOMODATION, PERRL - ENT Exam ENT Exam: Mucous Membranes Moist - Respiratory Exam Respiratory Exam: Clear to Ausculation Bilateral, NORMAL BREATHING PATTERN - Cardiovascular Exam Cardiovascular Exam: REGULAR RHYTHM, +S1, +S2 - GI/Abdominal Exam GI & Abdominal Exam: Soft, Normal Bowel Sounds. absent: Tenderness - Extremities Exam Extremities Exam: Pedal Edema (trace) - Neurological Exam Neurological Exam: Alert, Awake - Psychiatric Exam Psychiatric exam: Flat Affect - Skin Skin Exam: Dry, Intact, Normal Color, Warm Assessment and Plan - Assessment and Plan (Free Text) Assessment: 27 M with CKD 5/ ESRD, obstructive uropathy, down syndrome presents with reports of nausea/vomiting/diarrhea found to be in renal failure with multiple electrolyte abnormalities requiring emergent nephrostomy tube placements and dialysis as well as sepsis secondary to UTI requiring pressor support, now on midodrine and vasopressin. 1. End stage renal disease and electorlyte abnormalities requiring dialysis and ICU monitoring - dialysis started via temporary dialysis catheter, for HD today - s/p nephrostomy tubes places by IR Dr Maher, draining - Neprhology consulted, Dr. Lyons, 2nd HD session today. will start phos binders , nephrovite, weekly vit D, oral fe and aransep 40 mcg on 09/03/17 - Urology consulted, recs appreciated - Surgery consulted, recs appreciated - ICU consulted, recs appreciated - Monitor I's and O's, daily weight - Avoid nephrotoxic agents - Hepatitis panel negative - Midodrine and vasopressin 2. Sepsis secondary to UTI - requiring vasopressor therapy: weaning off, now on midodrine and vasopressor, and slou-cortef - blood cultures negative - urine culture growing Gram neg moni - procalcitonin elevated - cont meropenem as per ID recommendations - ID consulted, recs appreciated - Urology consulted, recs appreciated 3. abd pain/transaminitis - lipase not elevated - hep panel negative - GI consulted, recs appreciated 4. Hyperkalemia - EKG in ED reviewed; normal sinus rhythm with no acute ST-T wave changes - will continue to monitor for any changes 5. GI/DVT prophylaxis - protonix/SCD's Patient was seen, examined and discussed with attending, Dr. Merlos <Lawrence Merlos - Last Filed: 09/04/17 07:34> Objective - Vital Signs/Intake and Output Vital Signs (last 24 hours): Temp Pulse Resp BP Pulse Ox 98.2 F 102 H 18 121/90 91 L 09/04/17 06:15 09/04/17 06:15 09/04/17 06:15 09/04/17 06:15 09/04/17 06:15 Intake and Output: 09/04/17 09/04/17 06:59 18:59 Intake Total 220 Output Total 450 Balance -230 - Medications Medications: Current Medications Calcium Acetate (Phoslo) 1,334 mg PO WM [facility] Last Admin: 09/03/17 18:21 Dose: 1,334 mg Ergocalciferol (Drisdol 50,000 Intl Units Cap) 1 cap PO Q7D [facility] Last Admin: 09/02/17 09:28 Dose: 1 cap Ferrous Gluconate (Fergon) 324 mg PO TID [facility] Last Admin: 09/03/17 18:21 Dose: 324 mg Hydrocortisone Sodium Succinate (Solu-Cortef) 50 mg IVP Q12H [facility] Last Admin: 09/03/17 22:24 Dose: 50 mg Dobutamine HCl/Dextrose (Dobutamine/Dextrose 5% 500mg/250ml) 500 mg in 250 mls @ 3.98 mls/hr IV .Q24H PRN; Protocol; 2.5 MCG/KG/MIN PRN Reason: TITRATE PER PROTOCOL Meropenem 500 mg/ Sodium (Chloride) 100 mls @ 100 mls/hr IVPB Q12 TONY PRN Reason: Protocol Stop: 09/08/17 22:01 Last Admin: 09/03/17 22:16 Dose: 100 mls/hr Midodrine (Proamatine) 10 mg PO TID [facility] Last Admin: 09/03/17 18:21 Dose: 10 mg Pantoprazole Sodium (Protonix Inj) 40 mg IVP DAILY [facility] Last Admin: 09/03/17 09:42 Dose: 40 mg Vitamin B Complex/Vit C/Folic Acid (Nephro-Will) 1 tab PO 0800 [facility] Last Admin: 09/03/17 09:42 Dose: 1 tab - Labs Labs: 09/04/17 05:12 09/04/17 05:12 PT 18.4 SECONDS (9.4-12.5) H 09/02/17 06:30 INR 1.59 (0.93-1.08) H 09/02/17 06:30 APTT 32.4 Seconds (25.1-36.5) 09/02/17 06:30 Assessment and Plan - Assessment and Plan (Free Text) Plan: discussed w/ resident at length went over meds labs tests xrays plans orders consults reviewed
--- NOTE | 2017-09-03 21:54 | PN ---
DATE: 09/03/2017 SUBJECTIVE: The patient was seen and evaluated earlier today in the ICU. The patient's parents were at bedside. The patient was having dialysis. PHYSICAL EXAMINATION: VITAL SIGNS: Temperature is 99, blood pressure 108/79. HEENT: Atraumatic, anicteric. NECK: Supple. HEART: S1 and S2 heard. LUNGS: Bilateral air entry present. ABDOMEN: Softly distended. Fullness present. Bilateral nephrostomy tubes present. EXTREMITIES: No cyanosis. No clubbing. LABORATORY DATA: WBC count elevated to 27.9, hemoglobin 9.6, hematocrit 29.1, platelets 90. Chemistries showed iron saturation 11%. Magnesium 1.6, BUN 67, creatinine 5.7. AST 138, ALT 99. Hepatitis serology was negative . IMPRESSION: 1. This is a 27-year-old patient with Down's syndrome. Admitted with [id number] renal failure,Bilateral hydro,UTI sepsis, has bilateral nephrostomy tubes now. 2. The patient has elevated WBC count . He is also on steroids, being tapered now. The patient did have episodes of diarrhea in the past, now more stable. We would recommend now he continue the antibiotics as per ID. Steroid dose has slowly been tapered. He will continue to follow up the renal followup. Thank you very much for allowing us to participate in the care of the patient. Lisa Rodriguez MD MTDKaylen
--- NOTE | 2017-09-04 03:06 | CON ---
DATE: 09/03/[address] Magno Wu REASON FOR CONSULTATION: Cardiac evaluation, cardiomyopathy, and Down syndrome. BRIEF CLINICAL HISTORY: This is a 27-year-old male with a past medical history of Down syndrome, obstructive uropathy, renal insufficiency presented to the [facility] [place] with complain of abdominal pain. Workup shows acute kidney injury and hydronephrosis. The patient underwent nephrostomy. Echo shows cardiomyopathy and congestive heart failure. Cardiology consult was called. The patient's family is at the bedside. Information obtained from mother and father. The patient is nonverbal, blink with two eyes and having dialysis, acute renal failure. PAST MEDICAL HISTORY: Significant for Down syndrome, history of obstructive uropathy, but never been dialyze before. Mother says that he has a history of murmur, but no history of documented any cardiac problem PAST SURGICAL HISTORY: Urological procedure done Dr. Andres as per family in 2000 and in 2006. The patient came in with acute kidney failure and the patient had nephrostomy done by Dr. Magno Maher day before yesterday. RECENT CARDIAC WORKUP: The patient had echocardiography done on 09/02/2017 that is yesterday that showed ejection fraction 35%, moderate aortic regurgitation, mild mitral regurgitation, mild tricuspid regurgitation and RV systolic pressure 40. IVC dilated trace, pericardial effusion, moderate left pleural effusion and no vegetation or thrombus noted. MEDICATIONS AT HOME: The patient was taking metronidazole and amoxicillin. CURRENT MEDICATION: The patient was on Dobutrex IV, having the dialysis, midodrine, hydrocortisone, and vasopressin. REVIEW OF SYSTEMS: As per HPI. PHYSICAL EXAMINATION: VITAL SIGNS: As follows; temperature afebrile, heart rate 87, blood pressure 95/64. HEENT: PERRLA, intact. NECK: Supple. No carotid bruits or thyromegaly. CHEST: Clear to auscultation. HEART: S1 and S2 regular. ABDOMEN: Soft. EXTREMITIES: Clubbing and cyanosis negative. LABORATORY DATA: Blood workup as follows; WBC 27.6, hemoglobin 9.8, hematocrit 29.1, and platelet count 90. Chemistry shows sodium 132, potassium 5.8, chloride 103, carbon dioxide 17, anion gap of 19, BUN 101, and creatinine 8.7. IMPRESSION: Acute kidney injury on chronic obstructive uropathy, admitting creatinine 11.4, cardiomyopathy, tricuspid regurgitation, mitral regurgitation, aortic regurgitation, on dialysis and hypotension. The patient was on Dobutrex. Cardiomyopathy and Down syndrome. RECOMMENDATION: Continue dialysis, p.r.n. vasopressin as needed. We will follow once the patient is medically stable, may consider low dose of Coreg and lisinopril, but now currently the patient is on Dobutrex. We will follow with you and we will transfer care to Dr. Magno Wu on Tuesday. Thank you for providing us the opportunity in taking care of the patient, Garret Byrd. Ashlie Arthur MD
[2017-09-04 05:49] LABS: BASO # 0.05 K/mm3 (0.0-2.0); BASO % 0.2 % (0.0-3.0); GRAN # 27.91 (1.4-6.5); GRAN % 88.4 % (50.0-68.0); HEMOGLOBIN 10.5 g/dL (14.0-18.0); LYMPH # 1.2 (1.2-3.4); LYMPH % 3.6 % (22.0-35.0); MEAN CELL VOLUME 84.4 fl (80.0-105.0); MEAN CORPUSCULAR HEMOGLOBIN 28.7 pg (25.0-35.0); MEAN PLATELET VOLUME 11.3 fl (7.0-11.0); MONO # 2.5 (0.1-0.6); MONO % 7.8 % (1.0-6.0); RBC 3.66 10^6/uL (3.5-6.1); RED CELL DISTRIBUTION WIDTH 13.8 % (11.5-14.5)
[2017-09-04 06:04] LABS: WHITE BLOOD COUNT 31.6 10^3/ul (4.5-11.0)
[2017-09-04 06:20] LABS: ALB/GLOB RATIO 0.7 (1.1-1.8); CALCIUM 7.9 mg/dL (8.4-10.5); MAGNESIUM 1.8 mg/dL (1.7-2.2)
[2017-09-04] MEDS: Meropenem 500 MG in Sodium Chloride 0.9% 100 ML IVPB SCH (10:05)
[2017-09-04] MEDS: Multivitamin Vitamin B Complex (Nephro-Vite) Tab PO SCH (10:06)
--- NOTE | 2017-09-04 10:38 | CP.PCM.PN ---
<Patsy Salguero - Last Filed: 09/04/17 10:35> Subjective - Date & Time of Evaluation Date of Evaluation: 09/04/17 Time of Evaluation: 07:00 - Subjective Subjective: GENERAL SURGERY PROGRESS NOTE FOR DR. GARRETT Patient seen and examined at bedside. He is now out of the ICU. Pt is non-verbal , mother at bedside. Had dialysis yesterday. Bilateral nephrostomy tubes in place. Left femoral TLC was removed this AM. Objective - Vital Signs/Intake and Output Vital Signs (last 24 hours): Temp Pulse Resp BP Pulse Ox 98.2 F 102 H 18 121/90 91 L 09/04/17 06:15 09/04/17 06:15 09/04/17 06:15 09/04/17 06:15 09/04/17 06:15 Intake and Output: 09/04/17 09/04/17 06:59 18:59 Intake Total 220 Output Total 450 Balance -230 - Medications Medications: Current Medications Calcium Acetate (Phoslo) 1,334 mg PO WM [facility] Last Admin: 09/04/17 09:00 Dose: 1,334 mg Ergocalciferol (Drisdol 50,000 Intl Units Cap) 1 cap PO Q7D [facility] Last Admin: 09/02/17 09:28 Dose: 1 cap Ferrous Gluconate (Fergon) 324 mg PO TID [facility] Last Admin: 09/04/17 10:06 Dose: 324 mg Hydrocortisone Sodium Succinate (Solu-Cortef) 50 mg IVP DAILY [facility] Last Admin: 09/04/17 10:04 Dose: 50 mg Dobutamine HCl/Dextrose (Dobutamine/Dextrose 5% 500mg/250ml) 500 mg in 250 mls @ 3.98 mls/hr IV .Q24H PRN; Protocol; 2.5 MCG/KG/MIN PRN Reason: TITRATE PER PROTOCOL Meropenem 500 mg/ Sodium (Chloride) 100 mls @ 100 mls/hr IVPB Q12 [facility] PRN Reason: Protocol Stop: 09/08/17 22:01 Last Admin: 09/04/17 10:05 Dose: 100 mls/hr Midodrine (Proamatine) 10 mg PO TID [facility] Last Admin: 09/04/17 10:06 Dose: 10 mg Pantoprazole Sodium (Protonix Inj) 40 mg IVP DAILY [facility] Last Admin: 09/04/17 10:07 Dose: 40 mg Vitamin B Complex/Vit C/Folic Acid (Nephro-Will) 1 tab PO 0800 [facility] Last Admin: 09/04/17 10:06 Dose: 1 tab - Labs Labs: 09/04/17 05:12 09/04/17 05:12 PT 18.4 SECONDS (9.4-12.5) H 09/02/17 06:30 INR 1.59 (0.93-1.08) H 09/02/17 06:30 APTT 32.4 Seconds (25.1-36.5) 09/02/17 06:30 - Constitutional Appears: Non-toxic, No Acute Distress - Respiratory Exam Respiratory Exam: NORMAL BREATHING PATTERN. absent: Respiratory Distress - Cardiovascular Exam Cardiovascular Exam: +S1, +S2 - GI/Abdominal Exam Additional comments: pt would not allow abdominal exam. - Exam Additional comments: Bilateral nephrostomy tubes in place - Neurological Exam Neurological Exam: Alert, Awake. absent: Oriented x3 - Psychiatric Exam Psychiatric exam: Flat Affect - Skin Skin Exam: Normal Color, Warm Assessment and Plan - Assessment and Plan (Free Text) Assessment: 27yo M with PMHx of Down's syndrome, obstructive uropathy, sepsis, currently on hemodialysis - Renal function improving each day - Had dialysis yesterday - Left arm restriction for possible AV fistula when patient more stable - possibly this week - Will follow up vein mapping - Discussed plan with Dr. Tami Salguero PGY-3 <Marcello Garrett - Last Filed: 09/05/17 00:06> Objective - Vital Signs/Intake and Output Vital Signs (last 24 hours): Temp Pulse Resp BP Pulse Ox 97.7 F 92 H 20 109/73 96 09/04/17 16:55 09/04/17 18:00 09/04/17 16:55 09/04/17 16:55 09/04/17 16:55 Intake and Output: 09/04/17 09/05/17 18:59 06:59 Intake Total 600 360 Balance 600 360 - Medications Medications: Current Medications Calcium Acetate (Phoslo) 667 mg PO WM [facility] Last Admin: 09/04/17 16:01 Dose: Not Given Carvedilol (Coreg) 3.125 mg PO BID [facility] Last Admin: 09/04/17 17:13 Dose: Not Given Ergocalciferol (Drisdol 50,000 Intl Units Cap) 1 cap PO Q7D [facility] Last Admin: 09/02/17 09:28 Dose: 1 cap Ferrous Gluconate (Fergon) 324 mg PO TID [facility] Last Admin: 09/04/17 17:19 Dose: 324 mg Dobutamine HCl/Dextrose (Dobutamine/Dextrose 5% 500mg/250ml) 500 mg in 250 mls @ 3.98 mls/hr IV .Q24H PRN; Protocol; 2.5 MCG/KG/MIN PRN Reason: TITRATE PER PROTOCOL Ceftriaxone Sodium (Rocephin 2 Gm Ivpb) 2 gm in 100 mls @ 100 mls/hr IVPB DAILY [facility] PRN Reason: Protocol Last Admin: 09/04/17 13:21 Dose: 100 mls/hr Midodrine (Proamatine) 10 mg PO TID [facility] Last Admin: 09/04/17 17:19 Dose: 10 mg Pantoprazole Sodium (Protonix Inj) 40 mg IVP DAILY [facility] Last Admin: 09/04/17 10:07 Dose: 40 mg Vitamin B Complex/Vit C/Folic Acid (Nephro-Will) 1 tab PO 0800 [facility] Last Admin: 09/04/17 10:06 Dose: 1 tab - Labs Labs: 09/04/17 05:12 09/04/17 05:12 PT 18.4 SECONDS (9.4-12.5) H 09/02/17 06:30 INR 1.59 (0.93-1.08) H 09/02/17 06:30 APTT 32.4 Seconds (25.1-36.5) 09/02/17 06:30 Assessment and Plan - Assessment and Plan (Free Text) Assessment: Patient was seen and examined by me. I agree with assessment and plan as per resident's note.
--- NOTE | 2017-09-04 10:48 | CP.PCM.PN ---
<Barrington Hancock - Last Filed: 09/04/17 10:44> Subjective - Date & Time of Evaluation Date of Evaluation: 09/04/17 Time of Evaluation: 07:00 - Subjective Subjective: Dr Ram Service Patient was seen and examined at bedside. Pt found to be resting comfortably, in no apparent distress, with family at bedside. He has b/l Nephrostomy tubes draining juancho urine. He is tolerating po intake. He tolerated 2 sessions of HD , last session was yesterday. Left fem TLC removed. ROS unavailable as pt is nonverbal. Objective - Vital Signs/Intake and Output Vital Signs (last 24 hours): Temp Pulse Resp BP Pulse Ox 98.2 F 102 H 18 121/90 91 L 09/04/17 06:15 09/04/17 06:15 09/04/17 06:15 09/04/17 06:15 09/04/17 06:15 Intake and Output: 09/04/17 09/04/17 06:59 18:59 Intake Total 220 Output Total 450 Balance -230 - Medications Medications: Current Medications Calcium Acetate (Phoslo) 1,334 mg PO WM [facility] Last Admin: 09/04/17 09:00 Dose: 1,334 mg Ergocalciferol (Drisdol 50,000 Intl Units Cap) 1 cap PO Q7D [facility] Last Admin: 09/02/17 09:28 Dose: 1 cap Ferrous Gluconate (Fergon) 324 mg PO TID [facility] Last Admin: 09/04/17 10:06 Dose: 324 mg Hydrocortisone Sodium Succinate (Solu-Cortef) 50 mg IVP DAILY [facility] Last Admin: 09/04/17 10:04 Dose: 50 mg Dobutamine HCl/Dextrose (Dobutamine/Dextrose 5% 500mg/250ml) 500 mg in 250 mls @ 3.98 mls/hr IV .Q24H PRN; Protocol; 2.5 MCG/KG/MIN PRN Reason: TITRATE PER PROTOCOL Meropenem 500 mg/ Sodium (Chloride) 100 mls @ 100 mls/hr IVPB Q12 [facility] PRN Reason: Protocol Stop: 09/08/17 22:01 Last Admin: 09/04/17 10:05 Dose: 100 mls/hr Midodrine (Proamatine) 10 mg PO TID [facility] Last Admin: 09/04/17 10:06 Dose: 10 mg Pantoprazole Sodium (Protonix Inj) 40 mg IVP DAILY [facility] Last Admin: 09/04/17 10:07 Dose: 40 mg Vitamin B Complex/Vit C/Folic Acid (Nephro-Will) 1 tab PO 0800 [facility] Last Admin: 09/04/17 10:06 Dose: 1 tab - Labs Labs: 09/04/17 05:12 09/04/17 05:12 PT 18.4 SECONDS (9.4-12.5) H 09/02/17 06:30 INR 1.59 (0.93-1.08) H 09/02/17 06:30 APTT 32.4 Seconds (25.1-36.5) 09/02/17 06:30 - Constitutional Appears: No Acute Distress - Eye Exam Eye Exam: EOMI, Normal appearance, PERRL Pupil Exam: NORMAL ACCOMODATION, PERRL - ENT Exam ENT Exam: Mucous Membranes Moist, Normal Exam - Respiratory Exam Respiratory Exam: Clear to Ausculation Bilateral, NORMAL BREATHING PATTERN - Cardiovascular Exam Cardiovascular Exam: REGULAR RHYTHM, +S1, +S2. absent: Murmur - GI/Abdominal Exam GI & Abdominal Exam: Distended, Soft, Normal Bowel Sounds. absent: Tenderness Additional comments: b/l Nephrostomy tubes in place - Extremities Exam Extremities Exam: Pedal Edema - Neurological Exam Neurological Exam: Alert, Altered, Awake, CN II-XII Intact - Psychiatric Exam Psychiatric exam: Normal Affect, Normal Mood - Skin Skin Exam: Dry, Intact, Normal Color, Warm Assessment and Plan - Assessment and Plan (Free Text) Assessment: 27 M with ESRD, obstructive uropathy, down syndrome presents with reports of nausea/vomiting/diarrhea found to be in renal failure with multiple electrolyte abnormalities requiring emergent nephrostomy tube placements and dialysis as well as sepsis secondary to UTI requiring pressor support, now on midodrine and vasopressin, transferred to Med/Surg. On dobutrex. 1. End stage renal disease and electorlyte abnormalities requiring dialysis and ICU monitoring - dialysis started via temporary dialysis catheter, for HD today - s/p nephrostomy tubes places by IR Dr Maher, draining - Neprhology consulted, Dr. Lyons, 2nd HD session yesterday tolerated well. - phos binders, nephrovite, weekly vit D, oral fe and aransep 40 mcg on 09/03/17 - Urology consulted, recs appreciated - Surgery consulted, recs appreciated - ICU consulted, recs appreciated - Monitor I's and O's, daily weight - Avoid nephrotoxic agents - Hepatitis panel negative - Midodrine and vasopressin, Cardiology Consulted, Dr. Wu, Dr. Arthur covering reccs 2. Sepsis secondary to UTI - requiring vasopressor therapy: weaning off, now on midodrine and vasopressor, and slou-cortef - leukocytosis uptrending, steroids are being tapered, episodes of diarrhea previously C.diff uncollected, more stable now. will order Renal US - blood cultures negative - urine culture growing Gram neg moni - procalcitonin elevated - cont meropenem as per ID recommendations - ID consulted, recs appreciated - Urology consulted, recs appreciated 3. abd pain/transaminitis - Dr. Rodriguez consulted, continue medical management - lipase not elevated - hep panel negative - GI consulted, recs appreciated 4. Hyperkalemia - EKG in ED reviewed; normal sinus rhythm with no acute ST-T wave changes - will continue to monitor for any changes 5. GI/DVT prophylaxis - protonix/SCD's Patient was seen, examined and discussed with attending, Dr. Merlos <Lawrence Merlos - Last Filed: 09/05/17 06:50> Objective - Vital Signs/Intake and Output Vital Signs (last 24 hours): Temp Pulse Resp BP Pulse Ox 97.7 F 92 H 20 109/73 96 09/04/17 16:55 09/04/17 18:00 09/04/17 16:55 09/04/17 16:55 09/04/17 16:55 Intake and Output: 09/04/17 09/05/17 18:59 06:59 Intake Total 600 360 Output Total 1080 Balance 600 -720 - Medications Medications: Current Medications Calcium Acetate (Phoslo) 667 mg PO WM [facility] Last Admin: 09/04/17 16:01 Dose: Not Given Carvedilol (Coreg) 3.125 mg PO BID [facility] Last Admin: 09/04/17 17:13 Dose: Not Given Ergocalciferol (Drisdol 50,000 Intl Units Cap) 1 cap PO Q7D [facility] Last Admin: 09/02/17 09:28 Dose: 1 cap Ferrous Gluconate (Fergon) 324 mg PO TID [facility] Last Admin: 09/04/17 17:19 Dose: 324 mg Dobutamine HCl/Dextrose (Dobutamine/Dextrose 5% 500mg/250ml) 500 mg in 250 mls @ 3.98 mls/hr IV .Q24H PRN; Protocol; 2.5 MCG/KG/MIN PRN Reason: TITRATE PER PROTOCOL Ceftriaxone Sodium (Rocephin 2 Gm Ivpb) 2 gm in 100 mls @ 100 mls/hr IVPB DAILY [facility] PRN Reason: Protocol Last Admin: 09/04/17 13:21 Dose: 100 mls/hr Midodrine (Proamatine) 10 mg PO TID [facility] Last Admin: 09/04/17 17:19 Dose: 10 mg Pantoprazole Sodium (Protonix Inj) 40 mg IVP DAILY [facility] Last Admin: 09/04/17 10:07 Dose: 40 mg Vitamin B Complex/Vit C/Folic Acid (Nephro-Will) 1 tab PO 0800 [facility] Last Admin: 09/04/17 10:06 Dose: 1 tab - Labs Labs: 09/04/17 05:12 09/04/17 05:12 PT 18.4 SECONDS (9.4-12.5) H 09/02/17 06:30 INR 1.59 (0.93-1.08) H 09/02/17 06:30 APTT 32.4 Seconds (25.1-36.5) 09/02/17 06:30 Assessment and Plan - Assessment and Plan (Free Text) Plan: discussed at length w/ resident went over meds labs tests xrays consults plans orders reviewed
--- NOTE | 2017-09-04 11:18 | CP.PCM.PN ---
Subjective - Date & Time of Evaluation Date of Evaluation: 09/04/17 Time of Evaluation: 11:16 - Subjective Subjective: Follow up Nephrology Consultation: Assessment: stable CKD stage 5 likely ESRD by now with b/l massive hydronephrosis and loss of renal cortex s/p b/l nephrostomy Hyperkalemia and acidosis, hypocalcemia, anemia urosepsis with shock, Klebsiella hx of MR Pulmonary congestion vit D def CHF EF 35% Plan HD tomorrow as ordered. no acute need today No ACEI/ARB due to hyperkalemia and low BP Monitor Input/Output, daily weights and renal function with basic metabolic panel urology and ID consulted surgery eval for AVF placement before d/c on phos binders, nephrovite, weekly vit D, oral fe and aransep 40 mcg on 09/03/17 repeat renal sonogram Rt nephrotstomy tube clogged due to mucus/drbri, RN asked to flush Dose meds/antibiotics for reduced GFR<10. Avoid fleets enema/magnesium based laxatives. Avoid nephrotoxins/NSAIDs/ iodinated contrast (unless needed emergently) Glycemic control Further work up/management as per primary team. Thanks for allowing me to participate in care of your patient. Will follow patient with you. Please call if any Qs. d/w primary team Dr Olegario Lyons Office: [phone] HPI: Pt is a 27 M with MR and chronic obstructive uropathy and progressive CKD as a result of obstruction, mother was told about need for dialysis in near future. she has been seeing key account executive Dr Darden and urologist as well. pt was brought to ER with c/o fever for 2 days. found to have severe renal failure and hypotension hence renal consulted ROS: pt unable to provide due to MR. overnight events noted. Physical Examination: General Appearance: Comfortable, in no acute respiratory distress, mostly co- operative . Vitals reviewed and noted as below Head; Atraumatic, normocephalic ENT: no ulcers no thrush. Tongue is midline. Oropharynx: no rash or ulcers. EYES: Pupils are equal, round and reactive to light accommodation. Eye muscles and extraocular movement intact. Sclera is anicteric. Neck; supple no lymphadenopathy, no thyromegaly or bruit Lungs: Normal respiratory rate/effort. Breath sounds bilateral equal and clear Heart: Normal rate. s1s2 normal. No rub or gallop. Extremities: no edema. No varicose veins Neurological: Patient is alert, awake Skin: Warm and dry. Normal turgor. No rash. Palpitation: Normal elasticity for age Abdomen: Abdomen is soft. Bowel sounds +. There is no abdominal tenderness, no guarding/rigidity no organomegaly Psych: no insight MSK: no joint tenderness or swelling. Digits and nails normal, no deformity : palpable kidneys. has b/l nephrostomy tubes draining urine access: neck catheter Labs/imaging reviewed. Past medical history, past surgical history, family history, social history, allergy reviewed and noted as below Family hx: no hx of CKD. Rest non-contributory Objective - Vital Signs/Intake and Output Vital Signs (last 24 hours): Temp Pulse Resp BP Pulse Ox 98.2 F 102 H 18 121/90 91 L 09/04/17 06:15 09/04/17 06:15 09/04/17 06:15 09/04/17 06:15 09/04/17 06:15 Intake and Output: 09/04/17 09/04/17 06:59 18:59 Intake Total 220 Output Total 450 Balance -230 - Medications Medications: Current Medications Calcium Acetate (Phoslo) 1,334 mg PO WM [facility] Last Admin: 09/04/17 09:00 Dose: 1,334 mg Ergocalciferol (Drisdol 50,000 Intl Units Cap) 1 cap PO Q7D [facility] Last Admin: 09/02/17 09:28 Dose: 1 cap Ferrous Gluconate (Fergon) 324 mg PO TID [facility] Last Admin: 09/04/17 10:06 Dose: 324 mg Hydrocortisone Sodium Succinate (Solu-Cortef) 50 mg IVP DAILY [facility] Last Admin: 09/04/17 10:04 Dose: 50 mg Dobutamine HCl/Dextrose (Dobutamine/Dextrose 5% 500mg/250ml) 500 mg in 250 mls @ 3.98 mls/hr IV .Q24H PRN; Protocol; 2.5 MCG/KG/MIN PRN Reason: TITRATE PER PROTOCOL Meropenem 500 mg/ Sodium (Chloride) 100 mls @ 100 mls/hr IVPB Q12 [facility] PRN Reason: Protocol Stop: 09/08/17 22:01 Last Admin: 09/04/17 10:05 Dose: 100 mls/hr Midodrine (Proamatine) 10 mg PO TID [facility] Last Admin: 09/04/17 10:06 Dose: 10 mg Pantoprazole Sodium (Protonix Inj) 40 mg IVP DAILY [facility] Last Admin: 09/04/17 10:07 Dose: 40 mg Vitamin B Complex/Vit C/Folic Acid (Nephro-Will) 1 tab PO 0800 [facility] Last Admin: 09/04/17 10:06 Dose: 1 tab - Labs Labs: 09/04/17 05:12 09/04/17 05:12 PT 18.4 SECONDS (9.4-12.5) H 09/02/17 06:30 INR 1.59 (0.93-1.08) H 09/02/17 06:30 APTT 32.4 Seconds (25.1-36.5) 09/02/17 06:30
--- NOTE | 2017-09-04 11:58 | CP.PCM.PN ---
Subjective - Date & Time of Evaluation Date of Evaluation: 09/04/17 Time of Evaluation: 11:20 - Subjective Subjective: Comfortable in bed, no fevers overnight. No vomiting, no diarrhea. Objective - Vital Signs/Intake and Output Vital Signs (last 24 hours): Temp Pulse Resp BP Pulse Ox 98.2 F 102 H 18 121/90 91 L 09/04/17 06:15 09/04/17 06:15 09/04/17 06:15 09/04/17 06:15 09/04/17 06:15 Intake and Output: 09/04/17 09/04/17 06:59 18:59 Intake Total 220 Output Total 450 Balance -230 - Medications Medications: Current Medications Calcium Acetate (Phoslo) 1,334 mg PO WM [facility] Last Admin: 09/03/17 18:21 Dose: 1,334 mg Ergocalciferol (Drisdol 50,000 Intl Units Cap) 1 cap PO Q7D [facility] Last Admin: 09/02/17 09:28 Dose: 1 cap Ferrous Gluconate (Fergon) 324 mg PO TID [facility] Last Admin: 09/03/17 18:21 Dose: 324 mg Hydrocortisone Sodium Succinate (Solu-Cortef) 50 mg IVP DAILY [facility] Dobutamine HCl/Dextrose (Dobutamine/Dextrose 5% 500mg/250ml) 500 mg in 250 mls @ 3.98 mls/hr IV .Q24H PRN; Protocol; 2.5 MCG/KG/MIN PRN Reason: TITRATE PER PROTOCOL Meropenem 500 mg/ Sodium (Chloride) 100 mls @ 100 mls/hr IVPB Q12 [facility] PRN Reason: Protocol Stop: 09/08/17 22:01 Last Admin: 09/03/17 22:16 Dose: 100 mls/hr Midodrine (Proamatine) 10 mg PO TID [facility] Last Admin: 09/03/17 18:21 Dose: 10 mg Pantoprazole Sodium (Protonix Inj) 40 mg IVP DAILY [facility] Last Admin: 09/03/17 09:42 Dose: 40 mg Vitamin B Complex/Vit C/Folic Acid (Nephro-Will) 1 tab PO 0800 [facility] Last Admin: 09/03/17 09:42 Dose: 1 tab - Labs Labs: 09/04/17 05:12 09/04/17 05:12 PT 18.4 SECONDS (9.4-12.5) H 09/02/17 06:30 INR 1.59 (0.93-1.08) H 09/02/17 06:30 APTT 32.4 Seconds (25.1-36.5) 09/02/17 06:30 - Constitutional Appears: Chronically Ill - Head Exam Head Exam: NORMAL INSPECTION - Neck Exam Neck Exam: absent: Meningismus - Respiratory Exam Respiratory Exam: Decreased Breath Sounds Additional comments: right IJ HD catheter in place - Cardiovascular Exam Cardiovascular Exam: +S1, +S2 - GI/Abdominal Exam GI & Abdominal Exam: Soft. absent: Tenderness Additional comments: bilateral nephrostomy tubes in place Assessment and Plan - Assessment and Plan (Free Text) Plan: Assessment severe sepsis / septic shock due to UTI from Klebsiella in a patient with hydronephrosis and hydroureter and acute on chronic renal failure, S/P nephrostomy tube placement and now on dialysis mental disability down syndrome history of renal failure Plan on Merrem and we can de-escalate to Rocephin; blood cx are negative; reviewed CT A/P patient will probably need chronic renal replacement therapy as per Renal continue to trend WBC count will continue to monitor clinically discussed with Dr. Merlos
[2017-09-04] MEDS: cefTRIAXone 2 GM IN NS 2 GM/100 ML BAG IVPB SCH (13:21)
--- NOTE | 2017-09-04 16:16 | US ---
PROCEDURE: HISTORY: hydronephrosiss COMPARISON: TECHNIQUE: FINDINGS: Bilateral echogenic kidneys measuring 8.2 centimeters in the right and 6.1 centimeter on the left. Tiny mid right renal cyst measuring 9 millimeters. No hydronephrosis or gross mass. IMPRESSION: Bilateral small echogenic kidneys compatible with medical renal disease.
--- NOTE | 2017-09-04 16:49 | PN ---
DATE: COVERING PHYSICIAN: Magno Wu MD REASON FOR CONSULTATION: Cardiac evaluation, cardiomyopathy, and Down syndrome. SUBJECTIVE: The patient is lying flat, family is at the bedside, not in apparent distress. OBJECTIVE: GENERAL: Not in apparent distress. VITAL SIGNS: As follows; temperature afebrile, heart rate 88, and blood pressure 121/90. HEENT: PERRLA. Extraocular muscles intact. NECK: Supple. No carotid bruits or thyromegaly. CHEST: Clear to auscultation. HEART: S1 and S2 regular. LABORATORY DATA: Blood workup as follows WBC 31.6, hemoglobin 10.5, hematocrit 30.9, and platelet count 85. Chemistry shows sodium 130, potassium 4.4, chloride 104, carbon dioxide 27, anion gap of 11, BUN 46, and creatinine 3.5. IMPRESSION: Acute kidney injury, obstructive uropathy status post dialysis, and down syndrome. Echo showed ejection fraction 35%, moderate aortic regurgitation, mild mitral regurgitation, mild tricuspid regurgitation, RV systolic pressure 40, moderate left pleural effusion, and trace to small pericardial effusion. RECOMMENDATIONS : We will put low dose of Coreg, off Dobutrex, transfer to the floor, midodrine p.r.n. started by Dr. Castro. We will start low-dose beta-donavan and once the renal function improves, we will start low dose of DHRUV inhibitors for cardiomyopathy. We will transfer care tomorrow to Dr. Magno Wu. Thank you Dr. Merlos for providing us the opportunity in taking care of the patient, Garret Byrd. Ashlie Arthur MD
--- NOTE | 2017-09-04 21:05 | PN ---
DATE: 09/04/2017 SUBJECTIVE: This patient was seen and evaluated today. Much more comfortable on liquid diet. PHYSICAL EXAMINATION: VITAL SIGNS: Afebrile, temperature is 97.7, pulse is 107, blood pressure 109/73, respirations 20, O2 saturation 96%. HEENT: Atraumatic, anicteric. NECK: Supple. HEART: S1, S2 heard. LUNGS: Bilateral air entry present. ABDOMEN: Softly distended. Bowel sounds present. Bilateral nephrostomy tube present. EXTREMITIES: No cyanosis. No clubbing. LABORATORY DATA: WBC count is elevated to 31.6, hemoglobin 10.5, hematocrit 30.9, platelets 85. Chemistries; BUN 46, creatinine 3.5. IMPRESSION AND PLAN: This 27-year-old patient admitted with acute kidney injury on the top of chronic kidney disease, sepsis, urinary tract infection, bilateral hydronephrosis. The patient was initially on steroid which has been discontinued now in addition for sepsis. The patient is on antibiotics as per ID. Continue the antibiotics. Clinically, abdomen appears otherwise no tenderness. No acute pathology. The patient had a history of diarrhea before, now improved. Discussed with the patient's mother who was at bedside. We will also request stool for Clostridium difficile. We will slowly advanced the diet based on the clinical course response. Thank you very much for allowing us to participate in the care of the patient. The patient was on Flagyl and also amoxicillin, on Augmentin before as op. Stool for C. diff will request. Lisa Rodriguez MD [email or web address]
--- NOTE | 2017-09-05 02:06 | CON ---
DATE: 09/04/2017 UROLOGY CONSULT REASON FOR CONSULTATION: Sepsis and renal failure. HISTORY OF PRESENT ILLNESS: Mr. Byrd is a gentleman who has mental retardation. He had come to the office with his family previously. He is now admitted with sepsis, urinary retention, renal failure. Reviewed all the labs that are in the chart. He has actually had percutaneous nephrostolithotomies. The family is very pleasant, not to note of. The patient himself is not able to be compliant or not, but the family is pleasant, but I discussed with them that my concerns for this developing. And my recommendations for a cystostenting, suprapubic catheter versus an indwelling Zelaya catheter and the risks associated with this. The patient has also seen other doctors besides me in this discussion, but it is my definite recommendation prior to today that he should have some kind of drainage in, although this is not sepsis has always been a concern. See below listed plan because the patient apparently had bilateral nephrostomy tubes. PAST MEDICAL/SURGICAL HISTORY: Otherwise, as listed. I have spoken the condition with his mother. Noted. PHYSICAL EXAMINATION: GENERAL: No apparent distress. VITAL SIGNS: Noted. The patient with bilateral nephrostomy tubes draining somewhat purulent material, particularly on the right side. The remainder of his physical exam is otherwise from urology standpoint, essentially not overly remarkable. DIAGNOSES: 1. Renal failure. 2. Sepsis. 3. Urinary retention. 4. Voiding dysfunction. 5. Hydronephrosis. The issue is as follows. The patient is not really able to give a great history. or did voice too many complaints. He is now septic with renal failure. He has nephrostomy tubes in. The function of each tube need to be further be further delineated, which we are going to recommend a renal scan, but in the interim, I am not going to recommend cystostenting until we know that the patient will be able to make a pattern, have compliance and change his stents on a regular basis, and that is some benefit to him. So towards this end, the plan is as follows. PLAN: 1. Antibiotics. 2. Nephrostomy tubes. 3. We will consider cystoscopy and stent exchange or offloading the stent or wire down. Further plan, we will follow, but in the interim, the patient is stable in the ICU but a definitely concerning overall clinical picture and survival. So the plan is as follows. 1. Antibiotics to continue. 2. ICU monitoring. 3. We will consider further treatment. Thank you for the urology consult. Rod Andres MD
[2017-09-05] MEDS: Multivitamin Vitamin B Complex (Nephro-Vite) Tab PO SCH (10:33)
[2017-09-05] MEDS: cefTRIAXone 2 GM IN NS 2 GM/100 ML BAG IVPB SCH (10:34)
[2017-09-05] MEDS ORDERED: Albumin Human 25% (12.5 gm/50 ml) IV ONE (10:56)
--- NOTE | 2017-09-05 11:04 | CP.PCM.PN ---
Subjective - Date & Time of Evaluation Date of Evaluation: 09/05/17 Time of Evaluation: 10:59 - Subjective Subjective: Medicine progress note for Dr. Ram service Patient seen and examined at bedside this morning. No acute overnight events or new complaints reported. Resting comfortably in bed, no acute distress. Patient nonverbal thus ROS unavailable. Objective - Vital Signs/Intake and Output Vital Signs (last 24 hours): Temp Pulse Resp BP Pulse Ox 97.5 F L 86 20 133/89 94 L 09/05/17 09:28 09/05/17 09:28 09/05/17 09:28 09/05/17 09:28 09/05/17 09:28 Intake and Output: 09/05/17 09/05/17 06:59 18:59 Intake Total 360 Output Total 1080 Balance -720 - Medications Medications: Current Medications Albumin Human (Albumin Human 25% (12.5 Gm/50 Ml)) 12.5 gm IV ONCE ONE Stop: 09/05/17 10:57 Calcium Acetate (Phoslo) 667 mg PO WM [facility] Last Admin: 09/05/17 10:33 Dose: 667 mg Carvedilol (Coreg) 3.125 mg PO BID [facility] Last Admin: 09/05/17 10:33 Dose: 3.125 mg Ergocalciferol (Drisdol 50,000 Intl Units Cap) 1 cap PO Q7D [facility] Last Admin: 09/02/17 09:28 Dose: 1 cap Ferrous Gluconate (Fergon) 324 mg PO TID [facility] Last Admin: 09/05/17 10:33 Dose: 324 mg Ceftriaxone Sodium (Rocephin 2 Gm Ivpb) 2 gm in 100 mls @ 100 mls/hr IVPB DAILY [facility] PRN Reason: Protocol Last Admin: 09/05/17 10:34 Dose: 100 mls/hr Midodrine (Proamatine) 10 mg PO TID [facility] Last Admin: 09/05/17 10:33 Dose: 10 mg Pantoprazole Sodium (Protonix Inj) 40 mg IVP DAILY [facility] Last Admin: 09/05/17 10:33 Dose: 40 mg Vitamin B Complex/Vit C/Folic Acid (Nephro-Will) 1 tab PO 0800 [facility] Last Admin: 09/05/17 10:33 Dose: 1 tab - Labs Labs: 09/04/17 05:12 09/04/17 05:12 PT 18.4 SECONDS (9.4-12.5) H 09/02/17 06:30 INR 1.59 (0.93-1.08) H 09/02/17 06:30 APTT 32.4 Seconds (25.1-36.5) 09/02/17 06:30 - Constitutional Appears: No Acute Distress - Head Exam Head Exam: ATRAUMATIC, NORMOCEPHALIC - Eye Exam Eye Exam: EOMI, PERRL - ENT Exam ENT Exam: Mucous Membranes Moist - Respiratory Exam Respiratory Exam: Clear to Ausculation Bilateral. absent: Rales, Rhonchi, Wheezes - Cardiovascular Exam Cardiovascular Exam: RRR, +S1, +S2. absent: Gallop, Rubs, Murmur - GI/Abdominal Exam GI & Abdominal Exam: Soft. absent: Distended, Firm, Guarding, Rigid, Tenderness , Rebound Additional comments: b/l nephrostomy tubes in place - Extremities Exam Extremities Exam: Normal Inspection. absent: Pedal Edema - Neurological Exam Neurological Exam: Alert, Awake - Skin Skin Exam: Dry, Intact, Normal Color, Warm Assessment and Plan - Assessment and Plan (Free Text) Plan: 27 M with ESRD, obstructive uropathy, [facility] to urinary tract infection in the setting of obstructive uropathy. Presently he is s/p bilateral percutaneous nephrostomy tube placement and has had a permacath placed for hemodialysis. Currently being evaluated by surgery for AV fistula placement. 1. End stage renal disease and electrolyte abnormalities requiring dialysis - dialysis started via temporary dialysis catheter, currently on hemodialysis schedule M// - s/p nephrostomy tubes places by IR Dr Maher, draining - Neprhology consulted - Dr. Lyons - phos binders, nephrovite, weekly vit D, oral fe and aransep 40 mcg on 09/03/17 - albumin and protein supplementation - Urology consulted, recs appreciated - Surgery consulted for AV fistula placement prior to discharge - Monitor I's and O's, daily weight - Avoid nephrotoxic agents - Hepatitis panel negative 2. Sepsis secondary to UTI - weaning off pressors, now on midodrine - leukocytosis, however patient has been afebrile - blood cultures negative - urine culture notable for klebsiella - procalcitonin elevated - cont meropenem as per ID recommendations - ID consulted, recs appreciated - Urology consulted, recs appreciated 3. CHF, chronic -Echocardiogram from 09/02 reviewed; LVEF of 35% with boderline concentric LVH, moderate AR, mild MR, mild TR, RSVP of 40mmHg -Dobutrex d/kati per cadiology recommendations -Continue with coreg 3.125 PO BID -Cardiology consulted - Dr. Wu 4. abd pain/transaminitis - Dr. Rodriguez consulted, continue medical management - lipase not elevated - hep panel negative - cdiff pending 5. Hyperkalemia, resolved - EKG in ED reviewed; normal sinus rhythm with no acute ST-T wave changes - will continue to monitor for any changes 6. GI/DVT prophylaxis - protonix/SCD's Patient was seen, examined and discussed with attending,
--- NOTE | 2017-09-05 11:12 | US ---
HISTORY: Cirrhosis. Renal failure. Evaluate upper extremity superficial veins for AV access placement PHYSICIAN(S): Magno Maher MD. FINDINGS: Right upper extremity: Right basilic vein - the right basilic vein in the forearm is very small, measuring 2 mm. The right basilic vein at the elbow is normal measuring 4-5 mm. The right basilic vein above the elbow is large and patent, measuring 7-9 mm. Right cephalic vein - the right cephalic vein at the wrist is normal measuring 2-3 mm. The right cephalic vein in the forearm is large, measuring 3 mm. The right cephalic vein in the upper arm measures 3-5 mm. Left upper extremity: Left basilic vein - the left basilic vein at the wrist measures 3 mm. There is thrombus in the left basilic vein at the elbow. The thrombus extends in the left basilic vein above the elbow. Left cephalic vein- the left cephalic vein at the wrist measures 4 mm. The left cephalic vein in the forearm is large, measuring 5-6 mm. The left cephalic vein above the elbow however is very small measuring in-2 mm. IMPRESSION: 1. The right basilic vein above the elbow is large and patent. 2. The right cephalic vein is patent and fairly normal in the forearm and above the elbow 3. There is occlusive superficial thrombophlebitis in the left basilic vein at the elbow and in the upper arm. 4. The left cephalic vein is atretic above the elbow.
--- NOTE | 2017-09-05 11:43 | PN ---
DATE: 09/05/2017 SUBJECTIVE: The patient is sitting in bed and lying down without shortness of breath. PHYSICAL EXAMINATION: VITAL SIGNS: Blood pressure is 133/89 and heart rate in the 80s. NECK: Negative JVD. LUNGS: No rales noted. HEART: Reveals S1 and S2 with a soft systolic ejection murmur. EXTREMITIES: Without edema. LABORATORY DATA: BUN and creatinine is 46 over 3.5. The sugar is 124. Hemoglobin is 10.5 with a white count 31,000. IMPRESSION: 1. Nausea and vomiting, which is now resolved. 2. Renal insufficiency. 3. Obstructive uropathy. 4. Dilated cardiomyopathy with an ejection fraction of 35%. 6. Aortic insufficiency. 7. History of Down syndrome. PLAN: Given these findings, it is not clear whether the patient was actually in CHF. The only evidence is an x-ray that reported vascular congestion, which may be due to poor inspiration on the film. There is certainly no clinical evidence for CHF at this time. I agree with adding beta blockers at this time. Once his once renal function is better, an DHRUV inhibitor would be appropriate. I have discussed this with the patient's family in detail. Magno Wu MD
--- NOTE | 2017-09-05 14:09 | CP.PCM.PN ---
Subjective - Date & Time of Evaluation Date of Evaluation: 09/05/17 Time of Evaluation: 14:07 - Subjective Subjective: Follow up Nephrology Consultation: Assessment: stable CKD stage 5 likely ESRD by now with b/l massive hydronephrosis and loss of renal cortex s/p b/l nephrostomy Hyperkalemia and acidosis, hypocalcemia, anemia urosepsis with shock, Klebsiella hx of MR Pulmonary congestion vit D def CHF EF 35% Plan HD today ordered No contraindication to ACEI/ARB if tolerated by BP. Monitor Input/Output, daily weights and renal function with basic metabolic panel urology and ID consulted surgery eval for AVF placement before d/c on phos binders, nephrovite, weekly vit D, oral fe and aransep 40 mcg on 09/03/17 IR consult for permacath placement SW consult for outpt HD placement. Dose meds/antibiotics for reduced GFR<10. Avoid fleets enema/magnesium based laxatives. Avoid nephrotoxins/NSAIDs/ iodinated contrast (unless needed emergently) Glycemic control Further work up/management as per primary team. Thanks for allowing me to participate in care of your patient. Will follow patient with you. Please call if any Qs. d/w primary team Dr Olegario Lyons Office: [phone] HPI: Pt is a 27 M with MR and chronic obstructive uropathy and progressive CKD as a result of obstruction, mother was told about need for dialysis in near future. she has been seeing retail client solutions analyst Dr Darden and urologist as well. pt was brought to ER with c/o fever for 2 days. found to have severe renal failure and hypotension hence renal consulted ROS: pt unable to provide due to MR. overnight events noted. Physical Examination: General Appearance: Comfortable, in no acute respiratory distress, mostly co- operative . Vitals reviewed and noted as below Head; Atraumatic, normocephalic ENT: no ulcers no thrush. Tongue is midline. Oropharynx: no rash or ulcers. EYES: Pupils are equal, round and reactive to light accommodation. Eye muscles and extraocular movement intact. Sclera is anicteric. Neck; supple no lymphadenopathy, no thyromegaly or bruit Lungs: Normal respiratory rate/effort. Breath sounds bilateral equal and clear Heart: Normal rate. s1s2 normal. No rub or gallop. Extremities: no edema. No varicose veins Neurological: Patient is alert, awake Skin: Warm and dry. Normal turgor. No rash. Palpitation: Normal elasticity for age Abdomen: Abdomen is soft. Bowel sounds +. There is no abdominal tenderness, no guarding/rigidity no organomegaly Psych: no insight MSK: no joint tenderness or swelling. Digits and nails normal, no deformity : palpable kidneys. has b/l nephrostomy tubes draining urine access: neck catheter Labs/imaging reviewed. Past medical history, past surgical history, family history, social history, allergy reviewed and noted as below Family hx: no hx of CKD. Rest non-contributory Objective - Vital Signs/Intake and Output Vital Signs (last 24 hours): Temp Pulse Resp BP Pulse Ox 97.5 F L 86 20 133/89 94 L 09/05/17 09:28 09/05/17 09:28 09/05/17 09:28 09/05/17 09:28 09/05/17 09:28 Intake and Output: 09/05/17 09/05/17 06:59 18:59 Intake Total 360 Output Total 1080 Balance -720 - Medications Medications: Current Medications Calcium Acetate (Phoslo) 667 mg PO WM [facility] Last Admin: 09/05/17 10:33 Dose: 667 mg Carvedilol (Coreg) 3.125 mg PO BID [facility] Last Admin: 09/05/17 10:33 Dose: 3.125 mg Ergocalciferol (Drisdol 50,000 Intl Units Cap) 1 cap PO Q7D [facility] Last Admin: 09/02/17 09:28 Dose: 1 cap Ferrous Gluconate (Fergon) 324 mg PO TID [facility] Last Admin: 09/05/17 10:33 Dose: 324 mg Ceftriaxone Sodium (Rocephin 2 Gm Ivpb) 2 gm in 100 mls @ 100 mls/hr IVPB DAILY [facility] PRN Reason: Protocol Last Admin: 09/05/17 10:34 Dose: 100 mls/hr Midodrine (Proamatine) 10 mg PO TID [facility] Last Admin: 09/05/17 10:33 Dose: 10 mg Pantoprazole Sodium (Protonix Inj) 40 mg IVP DAILY [facility] Last Admin: 09/05/17 10:33 Dose: 40 mg Vitamin B Complex/Vit C/Folic Acid (Nephro-Will) 1 tab PO 0800 [facility] Last Admin: 09/05/17 10:33 Dose: 1 tab - Labs Labs: 09/04/17 05:12 09/04/17 05:12 PT 18.4 SECONDS (9.4-12.5) H 09/02/17 06:30 INR 1.59 (0.93-1.08) H 09/02/17 06:30 APTT 32.4 Seconds (25.1-36.5) 09/02/17 06:30
[2017-09-05 15:44] LABS: BASO # 0.12 K/mm3 (0.0-2.0); BASO % 0.6 % (0.0-3.0); EOS # 0.2 (0.0-0.7); EOS % 0.9 % (1.5-5.0); GRAN # 16.43 (1.4-6.5); GRAN % 83.6 % (50.0-68.0); HEMOGLOBIN 11.7 g/dL (14.0-18.0); LYMPH # 1.6 (1.2-3.4); LYMPH % 8.2 % (22.0-35.0); MEAN CELL VOLUME 85.2 fl (80.0-105.0); MEAN CORPUSCULAR HEMOGLOBIN 28.5 pg (25.0-35.0); MEAN CORPUSCULAR HGB CONC 33.4 g/dl (31.0-37.0); MONO # 1.3 (0.1-0.6); MONO % 6.7 % (1.0-6.0); PLATELET COUNT 81 10^3/uL (120.0-450.0); RBC 4.11 10^6/uL (3.5-6.1); RED CELL DISTRIBUTION WIDTH 13.7 % (11.5-14.5); WHITE BLOOD COUNT 19.7 10^3/ul (4.5-11.0)
[2017-09-05 16:16] LABS: ALB/GLOB RATIO 0.7 (1.1-1.8); ALBUMIN 1.9 g/dL (3.0-4.8); CALCIUM 7.7 mg/dL (8.4-10.5); MAGNESIUM 1.8 mg/dL (1.7-2.2)
--- NOTE | 2017-09-05 17:44 | CP.PCM.PN ---
Subjective - Date & Time of Evaluation Date of Evaluation: 09/05/17 Time of Evaluation: 12:20 - Subjective Subjective: Comfortable, no fevers. Objective - Vital Signs/Intake and Output Vital Signs (last 24 hours): Temp Pulse Resp BP Pulse Ox 97.5 F L 86 20 133/89 94 L 09/05/17 09:28 09/05/17 09:28 09/05/17 09:28 09/05/17 09:28 09/05/17 09:28 Intake and Output: 09/05/17 09/05/17 06:59 18:59 Intake Total 360 Output Total 1080 Balance -720 - Medications Medications: Current Medications Calcium Acetate (Phoslo) 667 mg PO WM [facility] Last Admin: 09/04/17 16:01 Dose: Not Given Carvedilol (Coreg) 3.125 mg PO BID [facility] Last Admin: 09/04/17 17:13 Dose: Not Given Ergocalciferol (Drisdol 50,000 Intl Units Cap) 1 cap PO Q7D [facility] Last Admin: 09/02/17 09:28 Dose: 1 cap Ferrous Gluconate (Fergon) 324 mg PO TID [facility] Last Admin: 09/04/17 17:19 Dose: 324 mg Dobutamine HCl/Dextrose (Dobutamine/Dextrose 5% 500mg/250ml) 500 mg in 250 mls @ 3.98 mls/hr IV .Q24H PRN; Protocol; 2.5 MCG/KG/MIN PRN Reason: TITRATE PER PROTOCOL Ceftriaxone Sodium (Rocephin 2 Gm Ivpb) 2 gm in 100 mls @ 100 mls/hr IVPB DAILY [facility] PRN Reason: Protocol Last Admin: 09/04/17 13:21 Dose: 100 mls/hr Midodrine (Proamatine) 10 mg PO TID [facility] Last Admin: 09/04/17 17:19 Dose: 10 mg Pantoprazole Sodium (Protonix Inj) 40 mg IVP DAILY [facility] Last Admin: 09/04/17 10:07 Dose: 40 mg Vitamin B Complex/Vit C/Folic Acid (Nephro-Will) 1 tab PO 0800 [facility] Last Admin: 09/04/17 10:06 Dose: 1 tab - Labs Labs: 09/04/17 05:12 09/04/17 05:12 PT 18.4 SECONDS (9.4-12.5) H 09/02/17 06:30 INR 1.59 (0.93-1.08) H 09/02/17 06:30 APTT 32.4 Seconds (25.1-36.5) 09/02/17 06:30 - Constitutional Appears: Chronically Ill - Head Exam Head Exam: NORMAL INSPECTION - Neck Exam Neck Exam: absent: Meningismus - Respiratory Exam Respiratory Exam: Decreased Breath Sounds - Cardiovascular Exam Cardiovascular Exam: +S1, +S2 - GI/Abdominal Exam GI & Abdominal Exam: Soft. absent: Tenderness Additional comments: bilateral nephrostomy tubes in place Assessment and Plan - Assessment and Plan (Free Text) Plan: Assessment severe sepsis / septic shock due to UTI from Klebsiella in a patient with hydronephrosis and hydroureter and acute on chronic renal failure, S/P nephrostomy tube placement and now on dialysis mental disability down syndrome history of renal failure Plan continue Rocephin; blood cx are negative; reviewed CT A/P; complete 10-14 days of antibiotics (day 4 today) patient will probably need chronic renal replacement therapy as per Renal continue to trend WBC count will continue to monitor clinically
[2017-09-06 07:53] LABS: BASO # 0.14 K/mm3 (0.0-2.0); BASO % 0.6 % (0.0-3.0); EOS # 0.2 (0.0-0.7); GRAN % 80.5 % (50.0-68.0); HEMOGLOBIN 12.1 g/dL (14.0-18.0); LYMPH # 2.6 (1.2-3.4); LYMPH % 10.9 % (22.0-35.0); MEAN CELL VOLUME 85.4 fl (80.0-105.0); MEAN CORPUSCULAR HEMOGLOBIN 27.6 pg (25.0-35.0); MEAN CORPUSCULAR HGB CONC 32.4 g/dl (31.0-37.0); MONO # 1.6 (0.1-0.6); PLATELET COUNT 59 10^3/uL (120.0-450.0); RBC 4.38 10^6/uL (3.5-6.1); RED CELL DISTRIBUTION WIDTH 13.6 % (11.5-14.5); WHITE BLOOD COUNT 23.6 10^3/ul (4.5-11.0)
[2017-09-06 08:05] LABS: ALB/GLOB RATIO 0.7 (1.1-1.8); ALBUMIN 2.1 g/dL (3.0-4.8); CALCIUM 7.8 mg/dL (8.4-10.5); MAGNESIUM 1.5 mg/dL (1.7-2.2)
[2017-09-06] MEDS: Multivitamin Vitamin B Complex (Nephro-Vite) Tab PO SCH (08:21)
--- NOTE | 2017-09-06 08:36 | CP.PCM.PN ---
<JeysonDarius - Last Filed: 09/06/17 16:13> Subjective - Date & Time of Evaluation Date of Evaluation: 09/06/17 Time of Evaluation: 07:00 - Subjective Subjective: Surgery Progress note. Dr. Garrett Patient seen and examined at bedside. No acute events reported overnight. Family at bedside, denies any new complaints. 12-point ROS unobtainable due to patient's baseline non-verbal. Objective - Vital Signs/Intake and Output Vital Signs (last 24 hours): Temp Pulse Resp BP Pulse Ox 97.5 F L 82 20 133/89 94 L 09/05/17 09:28 09/05/17 10:00 09/05/17 09:28 09/05/17 09:28 09/05/17 09:28 Intake and Output: 09/06/17 09/06/17 06:59 18:59 Intake Total 100 Output Total 500 Balance -400 - Medications Medications: Current Medications Calcium Acetate (Phoslo) 667 mg PO WM [facility] Last Admin: 09/06/17 08:21 Dose: 667 mg Carvedilol (Coreg) 3.125 mg PO BID [facility] Last Admin: 09/05/17 17:06 Dose: Not Given Ergocalciferol (Drisdol 50,000 Intl Units Cap) 1 cap PO Q7D [facility] Last Admin: 09/02/17 09:28 Dose: 1 cap Ferrous Gluconate (Fergon) 324 mg PO TID [facility] Last Admin: 09/05/17 17:06 Dose: Not Given Ceftriaxone Sodium (Rocephin 2 Gm Ivpb) 2 gm in 100 mls @ 100 mls/hr IVPB DAILY [facility] PRN Reason: Protocol Last Admin: 09/05/17 10:34 Dose: 100 mls/hr Midodrine (Proamatine) 10 mg PO TID [facility] Last Admin: 09/05/17 17:06 Dose: Not Given Pantoprazole Sodium (Protonix Inj) 40 mg IVP DAILY [facility] Last Admin: 09/05/17 10:33 Dose: 40 mg Vitamin B Complex/Vit C/Folic Acid (Nephro-Will) 1 tab PO 0800 [facility] Last Admin: 09/06/17 08:21 Dose: 1 tab - Labs Labs: 09/06/17 07:30 01/09/18 07:30 PT 18.4 SECONDS (9.4-12.5) H 09/02/17 06:30 INR 1.59 (0.93-1.08) H 09/02/17 06:30 APTT 32.4 Seconds (25.1-36.5) 09/02/17 06:30 - Constitutional Appears: Non-toxic, No Acute Distress - Head Exam Head Exam: ATRAUMATIC, NORMAL INSPECTION, NORMOCEPHALIC - Eye Exam Eye Exam: EOMI - ENT Exam ENT Exam: Mucous Membranes Moist - Respiratory Exam Respiratory Exam: NORMAL BREATHING PATTERN. absent: Accessory Muscle Use, Respiratory Distress - GI/Abdominal Exam GI & Abdominal Exam: Soft. absent: Guarding, Rigid, Tenderness - Exam Additional comments: Bilateral nephrostomy tubes in place. Left nephrostomy with good output, yellow , clear urine. Right Nephrostomy with decreased output. - Extremities Exam Extremities Exam: Normal Inspection. absent: Calf Tenderness - Neurological Exam Neurological Exam: Alert, Awake - Skin Skin Exam: Dry, Intact, Normal Color, Warm Assessment and Plan - Assessment and Plan (Free Text) Assessment: 27yo M w/PMHx of Down's syndrome, obstructive uropathy. Here with Sepsis and now on [employer] via temp RIJ dialysis cath. - Last HD yesterday. Creat improving - As per Nephro, patient would still need halfway dialysis - AVF creation would be an elective procedure. Patient would need to be more stable for surgery - Work up Thrombocytopenia - Continue Left arm precautions Further recs as per Dr. Tami Benítez PGY1 surgery pager: [phone] <Marcello Garrett - Last Filed: 09/06/17 16:59> Objective - Vital Signs/Intake and Output Vital Signs (last 24 hours): Temp Pulse Resp BP Pulse Ox 97.5 F L 104 H 20 141/93 H 94 L 09/05/17 09:28 09/06/17 09:56 09/05/17 09:28 09/06/17 09:56 09/05/17 09:28 Intake and Output: 09/06/17 09/06/17 06:59 18:59 Intake Total 100 Output Total 500 Balance -400 - Medications Medications: Current Medications Calcium Acetate (Phoslo) 667 mg PO [facility] Last Admin: 09/06/17 12:25 Dose: 667 mg Carvedilol (Coreg) 6.25 mg PO BID [facility] Ergocalciferol (Drisdol 50,000 Intl Units Cap) 1 cap PO Q7D [facility] Last Admin: 09/02/17 09:28 Dose: 1 cap Famotidine (Pepcid) 20 mg PO DAILY [facility] Ferrous Gluconate (Fergon) 324 mg PO TID [facility] Last Admin: 09/06/17 14:38 Dose: Not Given Ceftriaxone Sodium (Rocephin 2 Gm Ivpb) 2 gm in 100 mls @ 100 mls/hr IVPB DAILY [facility] PRN Reason: Protocol Last Admin: 09/06/17 09:59 Dose: 100 mls/hr Argatroban 250 mg/ Dextrose 252.5 mls @ 6.43 mls/hr IV .Q24H [facility]; 2 MCG/KG/MIN PRN Reason: Protocol Midodrine (Proamatine) 10 mg PO TID [facility] Last Admin: 09/06/17 14:38 Dose: Not Given Vitamin B Complex/Vit C/Folic Acid (Nephro-Will) 1 tab PO 0800 [facility] Last Admin: 09/06/17 08:21 Dose: 1 tab - Labs Labs: 09/06/17 07:30 09/06/17 07:30 PT 18.4 SECONDS (9.4-12.5) H 09/02/17 06:30 INR 1.59 (0.93-1.08) H 09/02/17 06:30 APTT 32.4 Seconds (25.1-36.5) 09/02/17 06:30 Assessment and Plan - Assessment and Plan (Free Text) Assessment: Patient was seen, evaluated and examined by me. I agree with the assessment and plan as per the resident's note.
--- NOTE | 2017-09-06 08:41 | PN ---
DATE: 09/05/2017 SUBJECTIVE: This patient was seen and evaluated earlier today. The patient had a mapping done for a vascular access. OBJECTIVE: VITAL SIGNS: On examination, temperature is 97.5, pulse 82, blood pressure 133/89. HEENT: Atraumatic and anicteric. NECK: Supple. HEART: S1, S2, regular. LUNGS: Bilateral air entry present. ABDOMEN: Softly distended. Bilateral nephrostomy tube placement noticed. EXTREMITIES: No cyanosis. No clubbing. LABORATORY DATA: Hemoglobin shows a downward trend. WBC count is 19.7, hemoglobin 11.7, hematocrit 35, platelets 81. The patient's BUN is 37, creatinine 3.6. Transaminases improving trend. AST 42, ALT 62. IMPRESSION: This is a 27-year-old patient with Down syndrome admitted with acute kidney injury on the top of chronic kidney disease, sepsis, urinary tract infection, bilateral hydronephrosis, status post nephrostomy tube placement. The patient has a Zelaya tube. The patient had steroids. Had a white cell count to rule out C. difficile colitis. Diarrhea has improved. PLAN: Advised, they would request again the stool for C. diff. Advance the diet. Thank you very much for allowing us to participate in the care of the patient. Lisa Rodriguez MD MTDD
[2017-09-06] MEDS: cefTRIAXone 2 GM IN NS 2 GM/100 ML BAG IVPB SCH (09:59)
--- NOTE | 2017-09-06 10:44 | CP.PCM.PN ---
<Edilson Garcia - Last Filed: 09/06/17 10:40> Subjective - Date & Time of Evaluation Date of Evaluation: 09/06/17 Time of Evaluation: 10:40 - Subjective Subjective: Medicine progress note Patient seen and examined at bedside this morning. No acute overnight events or new complaints reported by nursing staff/patients mother. ROS limited due to patient being nonverbal. Patient to be setup for outpatient dialysis prior to discharge. Objective - Vital Signs/Intake and Output Vital Signs (last 24 hours): Temp Pulse Resp BP Pulse Ox 97.5 F L 104 H 20 141/93 H 94 L 09/05/17 09:28 09/06/17 09:56 09/05/17 09:28 09/06/17 09:56 09/05/17 09:28 Intake and Output: 09/06/17 09/06/17 06:59 18:59 Intake Total 100 Output Total 500 Balance -400 - Medications Medications: Current Medications Calcium Acetate (Phoslo) 667 mg PO WM [facility] Last Admin: 09/06/17 08:21 Dose: 667 mg Carvedilol (Coreg) 3.125 mg PO BID [facility] Last Admin: 09/06/17 09:56 Dose: 3.125 mg Ergocalciferol (Drisdol 50,000 Intl Units Cap) 1 cap PO Q7D [facility] Last Admin: 09/02/17 09:28 Dose: 1 cap Famotidine (Pepcid) 20 mg IVP DAILY [facility] Last Admin: 09/06/17 09:57 Dose: 20 mg Ferrous Gluconate (Fergon) 324 mg PO TID [facility] Last Admin: 09/06/17 09:57 Dose: 324 mg Ceftriaxone Sodium (Rocephin 2 Gm Ivpb) 2 gm in 100 mls @ 100 mls/hr IVPB DAILY [facility] PRN Reason: Protocol Last Admin: 09/06/17 09:59 Dose: 100 mls/hr Midodrine (Proamatine) 10 mg PO TID [facility] Last Admin: 09/06/17 09:55 Dose: 10 mg Vitamin B Complex/Vit C/Folic Acid (Nephro-Will) 1 tab PO 0800 [facility] Last Admin: 09/06/17 08:21 Dose: 1 tab - Labs Labs: 09/06/17 07:30 09/06/17 07:30 PT 18.4 SECONDS (9.4-12.5) H 09/02/17 06:30 INR 1.59 (0.93-1.08) H 09/02/17 06:30 APTT 32.4 Seconds (25.1-36.5) 09/02/17 06:30 - Constitutional Appears: No Acute Distress - Head Exam Head Exam: ATRAUMATIC, NORMOCEPHALIC - Eye Exam Eye Exam: EOMI, PERRL - ENT Exam ENT Exam: Mucous Membranes Moist - Respiratory Exam Respiratory Exam: Clear to Ausculation Bilateral. absent: Rales, Rhonchi, Wheezes - Cardiovascular Exam Cardiovascular Exam: RRR, +S1, +S2. absent: Gallop, Rubs - GI/Abdominal Exam GI & Abdominal Exam: Soft. absent: Distended, Firm, Guarding, Rigid, Tenderness , Rebound Additional comments: bilateral nephrostomy tubes draining urine - Neurological Exam Neurological Exam: Alert, Awake - Skin Skin Exam: Dry, Intact, Normal Color, Warm Assessment and Plan - Assessment and Plan (Free Text) Plan: 27 M with ESRD, obstructive uropathy, down syndrome admitted to [facility] for septic shock secondary to urinary tract infection in the setting of obstructive uropathy. Presently he is s/p bilateral percutaneous nephrostomy tube placement. Requires permacath placement prior to discharge. 1. End stage renal disease and electrolyte abnormalities requiring dialysis - dialysis started via temporary dialysis catheter, currently on hemodialysis schedule M// - s/p nephrostomy tubes places by IR Dr Maher, draining; requires permacath placement prior to discharge - Neprhology consulted - Dr. Lyons - phos binders, nephrovite, weekly vit D, oral fe and aransep 40 mcg on 09/03/17 - Urology consulted, recs appreciated - Surgery consulted for AV fistula placement - Monitor I's and O's, daily weight - Avoid nephrotoxic agents - Hepatitis panel negative 2. Sepsis secondary to UTI - weaning off pressors, now on midodrine - leukocytosis, however patient has been afebrile - blood cultures negative - urine culture notable for klebsiella - procalcitonin elevated - continue rocephin 2gm for total of 10-14 days (presently day #5) - ID consulted, recs appreciated - Urology consulted, recs appreciated 3. Thrombocytopenia - Likely secondary to sepsis, unlikely due to HIT given no administration of heparin prior to yesterday however platelets had already been downtrending at this point - will continue to monitor - protonix switched to pepcid 4. CHF, chronic -Echocardiogram from 09/02 reviewed; LVEF of 35% with boderline concentric LVH, moderate AR, mild MR, mild TR, RSVP of 40mmHg -Dobutrex d/kati per cadiology recommendations -Continue with coreg 3.125 PO BID -Cardiology consulted - Dr. Wu 5. abd pain/transaminitis - Dr. Rodriguez consulted, continue medical management - lipase not elevated - hep panel negative - cdiff pending 6. Hyperkalemia, resolved - EKG in ED reviewed; normal sinus rhythm with no acute ST-T wave changes - will continue to monitor for any changes 7. GI/DVT prophylaxis - pepcid/SCD's Patient was seen, examined and discussed with attending, Dr. Watson <Ashlie Watson - Last Filed: 09/06/17 13:59> Objective - Vital Signs/Intake and Output Vital Signs (last 24 hours): Temp Pulse Resp BP Pulse Ox 97.5 F L 104 H 20 141/93 H 94 L 09/05/17 09:28 09/06/17 09:56 09/05/17 09:28 09/06/17 09:56 09/05/17 09:28 Intake and Output: 09/06/17 09/06/17 06:59 18:59 Intake Total 100 Output Total 500 Balance -400 - Medications Medications: Current Medications Calcium Acetate (Phoslo) 667 mg PO WM [facility] Last Admin: 09/06/17 12:25 Dose: 667 mg Carvedilol (Coreg) 6.25 mg PO BID [facility] Ergocalciferol (Drisdol 50,000 Intl Units Cap) 1 cap PO Q7D [facility] Last Admin: 09/02/17 09:28 Dose: 1 cap Famotidine (Pepcid) 20 mg PO DAILY [facility] Ferrous Gluconate (Fergon) 324 mg PO TID [facility] Last Admin: 09/06/17 09:57 Dose: 324 mg Ceftriaxone Sodium (Rocephin 2 Gm Ivpb) 2 gm in 100 mls @ 100 mls/hr IVPB DAILY [facility] PRN Reason: Protocol Last Admin: 09/06/17 09:59 Dose: 100 mls/hr Midodrine (Proamatine) 10 mg PO TID [facility] Last Admin: 09/06/17 09:55 Dose: 10 mg Vitamin B Complex/Vit C/Folic Acid (Nephro-Will) 1 tab PO 0800 [facility] Last Admin: 09/06/17 08:21 Dose: 1 tab - Labs Labs: 09/06/17 07:30 09/06/17 07:30 PT 18.4 SECONDS (9.4-12.5) H 09/02/17 06:30 INR 1.59 (0.93-1.08) H 09/02/17 06:30 APTT 32.4 Seconds (25.1-36.5) 09/02/17 06:30 Attending/Attestation - Attestation I have personally seen and examined this patient.: Yes I have fully participated in the care of the patient.: Yes I have reviewed all pertinent clinical information, including history, physical exam and plan: Yes Notes (Text): 09/06/17 13:52 Patient was seen and examined with medical imaging tech. Family at bed side. 27 yrs old male with PMH of Down syndrome, Obstructive uropathy with sepsis due to K.Pneumonia UTI. and renal failure requiring hemodialysis. Patient is on IV ceftriaxone, his platelet count is dropping, concern for HITS, we will get HITS antibodies and will also get venous doppler of leg to rule out DVT. Case was discussed with Nephrology. Management plan was discussed in detail with patient mother who is at bed side. Education was provided. 09/06/17 13:58
[2017-09-06] MEDS ORDERED: Magnesium Sulfate 1 gm in D5W 1 GM/100 ML BAG IVPB ONE (11:51)
--- NOTE | 2017-09-06 12:45 | CP.PCM.PN ---
<Amberly Avitia - Last Filed: 09/06/17 12:44> Subjective - Date & Time of Evaluation Date of Evaluation: 09/06/17 Time of Evaluation: 10:40 - Subjective Subjective: Seen and examined at the bedside earlier today, mother present. Patient has not had any diarrhea episodes today, on palpation of abdomen nontender. Patient no acute overnight events.patient is nonverbal. Objective - Vital Signs/Intake and Output Vital Signs (last 24 hours): Temp Pulse Resp BP Pulse Ox 97.5 F L 104 H 20 141/93 H 94 L 09/05/17 09:28 09/06/17 09:56 09/05/17 09:28 09/06/17 09:56 09/05/17 09:28 Intake and Output: 09/06/17 09/06/17 06:59 18:59 Intake Total 100 Output Total 500 Balance -400 - Medications Medications: Current Medications Calcium Acetate (Phoslo) 667 mg PO WM [facility] Last Admin: 09/06/17 12:25 Dose: 667 mg Carvedilol (Coreg) 6.25 mg PO BID [facility] Ergocalciferol (Drisdol 50,000 Intl Units Cap) 1 cap PO Q7D [facility] Last Admin: 09/02/17 09:28 Dose: 1 cap Famotidine (Pepcid) 20 mg IVP DAILY [facility] Last Admin: 09/06/17 09:57 Dose: 20 mg Ferrous Gluconate (Fergon) 324 mg PO TID [facility] Last Admin: 09/06/17 09:57 Dose: 324 mg Ceftriaxone Sodium (Rocephin 2 Gm Ivpb) 2 gm in 100 mls @ 100 mls/hr IVPB DAILY [facility] PRN Reason: Protocol Last Admin: 09/06/17 09:59 Dose: 100 mls/hr Magnesium Sulfate/Dextrose (Magnesium Sulfate 1 Gm/100 Ml D5w) 1 gm in 100 mls @ 100 mls/hr IVPB ONCE ONE Stop: 09/06/17 12:50 Midodrine (Proamatine) 10 mg PO TID [facility] Last Admin: 09/06/17 09:55 Dose: 10 mg Vitamin B Complex/Vit C/Folic Acid (Nephro-Will) 1 tab PO 0800 [facility] Last Admin: 09/06/17 08:21 Dose: 1 tab - Labs Labs: 09/06/17 07:30 09/06/17 07:30 PT 18.4 SECONDS (9.4-12.5) H 09/02/17 06:30 INR 1.59 (0.93-1.08) H 09/02/17 06:30 APTT 32.4 Seconds (25.1-36.5) 09/02/17 06:30 - Constitutional Appears: No Acute Distress - Eye Exam Eye Exam: Normal appearance. absent: Scleral icterus - ENT Exam ENT Exam: Mucous Membranes Moist - Respiratory Exam Respiratory Exam: NORMAL BREATHING PATTERN. absent: Respiratory Distress - Cardiovascular Exam Cardiovascular Exam: +S1, +S2 - GI/Abdominal Exam GI & Abdominal Exam: Soft, Normal Bowel Sounds. absent: Guarding, Tenderness, Rebound - Extremities Exam Extremities Exam: absent: Calf Tenderness, Pedal Edema - Neurological Exam Neurological Exam: Alert, Awake - Skin Skin Exam: Dry, Warm Assessment and Plan - Assessment and Plan (Free Text) Assessment: Assessment: Sepsis/urosepsis Chronic Renal Failure, on dialysis History obstructive uropathy S/p Bilateral Nephrostomy tube Resolved Abdominal pain, likely secondary to severe hydronephrosis/UTI Hyperkalemia UTI, (+) K Pnuemoniae Diarrhea, rule out C. difficile Plan: Continue GI prophylaxis On IV antibiotics as per ID repeat stool C. difficile if continued to have diarrhea Permacath insertion prior to discarge diet as tolerated as per ID/renal Spoke to mother at bedside. Seen and discussed with Dr. Rodriguez. <Lisa Rodriguez V - Last Filed: 09/06/17 19:48> Objective - Vital Signs/Intake and Output Vital Signs (last 24 hours): Temp Pulse Resp BP Pulse Ox 97.5 F L 96 H 20 163/111 H 94 L 09/05/17 09:28 09/06/17 17:05 09/05/17 09:28 09/06/17 17:05 09/05/17 09:28 Intake and Output: 09/06/17 09/07/17 18:59 06:59 Output Total 500 500 Balance -500 -500 - Medications Medications: Current Medications Calcium Acetate (Phoslo) 667 mg PO WM [facility] Last Admin: 09/06/17 17:06 Dose: 667 mg Carvedilol (Coreg) 6.25 mg PO BID [facility] Last Admin: 09/06/17 17:05 Dose: 6.25 mg Ergocalciferol (Drisdol 50,000 Intl Units Cap) 1 cap PO Q7D [facility] Last Admin: 09/02/17 09:28 Dose: 1 cap Famotidine (Pepcid) 20 mg PO DAILY [facility] Ferrous Gluconate (Fergon) 324 mg PO TID [facility] Last Admin: 09/06/17 17:06 Dose: 324 mg Ceftriaxone Sodium (Rocephin 2 Gm Ivpb) 2 gm in 100 mls @ 100 mls/hr IVPB DAILY [facility] PRN Reason: Protocol Last Admin: 09/06/17 09:59 Dose: 100 mls/hr Argatroban 250 mg/ Dextrose 252.5 mls @ 6.43 mls/hr IV .Q24H [facility]; 2 MCG/KG/MIN PRN Reason: Protocol Midodrine (Proamatine) 10 mg PO TID [facility] Last Admin: 09/06/17 17:05 Dose: 10 mg Vitamin B Complex/Vit C/Folic Acid (Nephro-Will) 1 tab PO 0800 [facility] Last Admin: 09/06/17 08:21 Dose: 1 tab - Labs Labs: 09/06/17 07:30 09/06/17 07:30 PT 18.4 SECONDS (9.4-12.5) H 09/02/17 06:30 INR 1.59 (0.93-1.08) H 09/02/17 06:30 APTT 41.0 Seconds (25.1-36.5) H 09/06/17 18:28 Attending/Attestation - Attestation I have personally seen and examined this patient.: Yes I have fully participated in the care of the patient.: Yes I have reviewed all pertinent clinical information, including history, physical exam and plan: Yes Notes (Text): This is an addendum to GI progress report dictated by Amberly Avitia APN.The patient was seen and examined earlier. Medical records, lab studies, imagings were reviewed. Last 24 hours events reviewed. Agreed with the above treatment plan as outlined in Amberly Avitia APN's notes the with the addition of the following episodes of loose bowel movements for the stool for C. difficile WBC count still remains elevated.off steroids now Continue antibiotics as per ID 09/06/17 19:44 09/06/17 19:48
--- NOTE | 2017-09-06 13:21 | CP.PCM.PN ---
Subjective - Date & Time of Evaluation Date of Evaluation: 09/06/17 Time of Evaluation: 09:40 - Subjective Subjective: Comfortable, no fevers, no vomiting. Objective - Vital Signs/Intake and Output Vital Signs (last 24 hours): Temp Pulse Resp BP Pulse Ox 97.5 F L 82 20 133/89 94 L 09/05/17 09:28 09/05/17 10:00 09/05/17 09:28 09/05/17 09:28 09/05/17 09:28 Intake and Output: 09/06/17 09/06/17 06:59 18:59 Intake Total 100 Output Total 500 Balance -400 - Medications Medications: Current Medications Calcium Acetate (Phoslo) 667 mg PO WM [facility] Last Admin: 09/06/17 08:21 Dose: 667 mg Carvedilol (Coreg) 3.125 mg PO BID [facility] Last Admin: 09/05/17 17:06 Dose: Not Given Ergocalciferol (Drisdol 50,000 Intl Units Cap) 1 cap PO Q7D [facility] Last Admin: 09/02/17 09:28 Dose: 1 cap Famotidine (Pepcid) 20 mg IVP DAILY [facility] Ferrous Gluconate (Fergon) 324 mg PO TID [facility] Last Admin: 09/05/17 17:06 Dose: Not Given Ceftriaxone Sodium (Rocephin 2 Gm Ivpb) 2 gm in 100 mls @ 100 mls/hr IVPB DAILY [facility] PRN Reason: Protocol Last Admin: 09/05/17 10:34 Dose: 100 mls/hr Midodrine (Proamatine) 10 mg PO TID [facility] Last Admin: 09/05/17 17:06 Dose: Not Given Vitamin B Complex/Vit C/Folic Acid (Nephro-Will) 1 tab PO 0800 [facility] Last Admin: 09/06/17 08:21 Dose: 1 tab - Labs Labs: 09/06/17 07:30 09/06/17 07:30 PT 18.4 SECONDS (9.4-12.5) H 09/02/17 06:30 INR 1.59 (0.93-1.08) H 09/02/17 06:30 APTT 32.4 Seconds (25.1-36.5) 09/02/17 06:30 - Constitutional Appears: Chronically Ill - Head Exam Head Exam: NORMAL INSPECTION - Respiratory Exam Respiratory Exam: Decreased Breath Sounds - Cardiovascular Exam Cardiovascular Exam: +S1, +S2 - GI/Abdominal Exam GI & Abdominal Exam: Soft. absent: Tenderness Additional comments: bilateral nephrostomy tubes in place Assessment and Plan - Assessment and Plan (Free Text) Plan: Assessment severe sepsis / septic shock due to UTI from Klebsiella in a patient with hydronephrosis and hydroureter and acute on chronic renal failure, S/P nephrostomy tube placement and now on dialysis mental disability down syndrome history of renal failure Plan continue Rocephin; blood cx are negative; reviewed CT A/P; complete 10-14 days of antibiotics (day 5 today) patient will probably need chronic renal replacement therapy as per Renal continue to trend WBC count will continue to monitor clinically
--- NOTE | 2017-09-06 15:29 | CP.PCM.PN ---
Subjective - Date & Time of Evaluation Date of Evaluation: 09/06/17 Time of Evaluation: 15:27 - Subjective Subjective: Follow up Nephrology Consultation: Assessment: stable likely ESRD by now with b/l massive hydronephrosis and loss of renal cortex s/p b/l nephrostomy Hyperkalemia and acidosis, hypocalcemia, anemia, hypomagnesmeia urosepsis with shock, Klebsiella hx of MR Pulmonary congestion vit D def CHF EF 35% thrombocytopenia Plan no acute need for HD today. will do 24 hr crcl to assess residual renal function No contraindication to ACEI/ARB if tolerated by BP. Monitor Input/Output, daily weights and renal function with basic metabolic panel urology and ID consulted surgery eval for AVF placement appreciated on phos binders, nephrovite, weekly vit D, oral fe and aransep 40 mcg on 09/03/17 supplement electrolytes as needed Dose meds/antibiotics for reduced GFR<10. Avoid fleets enema/magnesium based laxatives. Avoid nephrotoxins/NSAIDs/ iodinated contrast (unless needed emergently) Glycemic control Further work up/management as per primary team. Thanks for allowing me to participate in care of your patient. Will follow patient with you. Please call if any Qs. d/w primary team and mother Dr Olegario Lyons Office: [phone] HPI: Pt is a 27 M with MR and chronic obstructive uropathy and progressive CKD as a result of obstruction, mother was told about need for dialysis in near future. she has been seeing veterinary manager Dr Darden and urologist as well. pt was brought to ER with c/o fever for 2 days. found to have severe renal failure and hypotension hence renal consulted ROS: pt unable to provide due to MR. overnight events noted. Physical Examination: General Appearance: Comfortable, in no acute respiratory distress, mostly co- operative . Vitals reviewed and noted as below Head; Atraumatic, normocephalic ENT: no ulcers no thrush. Tongue is midline. Oropharynx: no rash or ulcers. EYES: Pupils are equal, round and reactive to light accommodation. Eye muscles and extraocular movement intact. Sclera is anicteric. Neck; supple no lymphadenopathy, no thyromegaly or bruit Lungs: Normal respiratory rate/effort. Breath sounds bilateral equal and clear Heart: Normal rate. s1s2 normal. No rub or gallop. Extremities: no edema. No varicose veins Neurological: Patient is alert, awake Skin: Warm and dry. Normal turgor. No rash. Palpitation: Normal elasticity for age Abdomen: Abdomen is soft. Bowel sounds +. There is no abdominal tenderness, no guarding/rigidity no organomegaly Psych: no insight MSK: no joint tenderness or swelling. Digits and nails normal, no deformity : palpable kidneys. has b/l nephrostomy tubes draining urine access: neck catheter Labs/imaging reviewed. Past medical history, past surgical history, family history, social history, allergy reviewed and noted as below Family hx: no hx of CKD. Rest non-contributory Objective - Vital Signs/Intake and Output Vital Signs (last 24 hours): Temp Pulse Resp BP Pulse Ox 97.5 F L 104 H 20 141/93 H 94 L 09/05/17 09:28 09/06/17 09:56 09/05/17 09:28 09/06/17 09:56 09/05/17 09:28 Intake and Output: 09/06/17 09/06/17 06:59 18:59 Intake Total 100 Output Total 500 Balance -400 - Medications Medications: Current Medications Calcium Acetate (Phoslo) 667 mg PO WM [facility] Last Admin: 09/06/17 12:25 Dose: 667 mg Carvedilol (Coreg) 6.25 mg PO BID [facility] Ergocalciferol (Drisdol 50,000 Intl Units Cap) 1 cap PO Q7D [facility] Last Admin: 09/02/17 09:28 Dose: 1 cap Famotidine (Pepcid) 20 mg PO DAILY [facility] Ferrous Gluconate (Fergon) 324 mg PO TID [facility] Last Admin: 09/06/17 14:38 Dose: Not Given Ceftriaxone Sodium (Rocephin 2 Gm Ivpb) 2 gm in 100 mls @ 100 mls/hr IVPB DAILY [facility] PRN Reason: Protocol Last Admin: 09/06/17 09:59 Dose: 100 mls/hr Midodrine (Proamatine) 10 mg PO TID [facility] Last Admin: 09/06/17 14:38 Dose: Not Given Vitamin B Complex/Vit C/Folic Acid (Nephro-Will) 1 tab PO 0800 [facility] Last Admin: 09/06/17 08:21 Dose: 1 tab - Labs Labs: 09/06/17 07:30 09/06/17 07:30 PT 18.4 SECONDS (9.4-12.5) H 09/02/17 06:30 INR 1.59 (0.93-1.08) H 09/02/17 06:30 APTT 32.4 Seconds (25.1-36.5) 09/02/17 06:30
[2017-09-06] MEDS ORDERED: Argatroban 250 MG in Dextrose 5% In Water 250 ML IV SCH (15:45)
--- NOTE | 2017-09-06 15:58 | PN ---
DATE: 09/06/2017 CARDIOLOGY FOLLOWUP SUBJECTIVE: The patient is comfortable in bed. He is lying in bed, listing to music. OBJECTIVE: VITAL SIGNS: Blood pressure 133/89, heart rate is in the 80s. NECK: Negative JVD. LUNGS: No rales noted. HEART: Reveal S1, S2. EXTREMITIES: Without edema. LABORATORY DATA: Hemoglobin is 12, white count is 23,000. Chemistries; BUN and creatinine is 40 and 2.8. IMPRESSION: 1. No evidence for congestive heart failure. 2. Dilated cardiomyopathy. 3. Renal insufficiency. 4. Aortic insufficiency. 5. Obstructive uropathy. 6. History of Down syndrome. PLAN: Given these findings, the patient is tolerating low-dose Coreg. We will increase the Coreg to 6.25 today. Magno Wu MD
--- NOTE | 2017-09-06 17:03 | US ---
PROCEDURE: Bilateral lower extremity venous duplex Doppler. HISTORY: r/o dvt COMPARISON: None available. TECHNIQUE: Bilateral common femoral, superficial femoral, popliteal and posterior tibial veins were evaluated. Flow was assessed with color Doppler, compressibility, assessment of phasic flow and augmentation response. FINDINGS: COMMON FEMORAL VEIN: Right CFV: Normal flow related signal, compressibility and augmentation response. Left CFV: There is proximal segmental nonocclusive thrombus. SUPERFICIAL FEMORAL VEIN: Right SFV: Normal flow related signal, compressibility and augmentation response. Left SFV: Normal flow related signal, compressibility and augmentation response. POPLITEAL VEIN: Right Popliteal: Normal flow related signal, compressibility and augmentation response. Left Popliteal: Normal flow related signal, compressibility and augmentation response. POSTERIOR TIBIAL VEIN: Right PTV: Normal flow related signal, compressibility and augmentation response. Left PTV: Normal flow related signal, compressibility and augmentation response. OTHER FINDINGS: None. IMPRESSION: 1. No evidence of deep venous thrombosis in the right lower extremity. 2. Segmental nonocclusive thrombus in the proximal left common femoral vein.
[2017-09-06 18:55] LABS: IRON 22 ug/dL (45-180)
[2017-09-06 19:04] LABS: TOTAL IRON BINDING CAPACITY 166 ug/dL (261-462)
[2017-09-06 19:14] LABS: % IRON SATURATION 13 % (20-55)
--- NOTE | 2017-09-06 19:51 | CON ---
DATE: 09/06/2017 REASON FOR CONSULT: Thrombocytopenia and acute DVT. BRIEF CLINICAL HISTORY: The patient is a 27-year-old male with a past medical history significant for Down's syndrome, obstructive uropathy, and renal insufficiency who presented to the Emergency Room initially with complaints of abdominal pain, which showed acute kidney injury as well as hydronephrosis. Echocardiogram also showed a cardiomyopathy and congestive heart failure, but now the patient developed left lower extremity edema and a DVT study was done, which revealed left common femoral vein DVT. Consult is now called as platelets have also dropped from 178,000 to 59,000. There is no active bleeding. No bruising and he has no prior history of DVT as per the mom and no prior history of drop in his platelets. He has known renal insufficiency for which he is being followed up by Dr. Jez Darden as an outpatient and also with Dr. Andres for his known bladder issue. He is nonverbal and unable to communicate any of his problems, history is mainly obtained from the mother. PAST MEDICAL HISTORY: As above, known for Down's syndrome, obstructive uropathy, and no history of dialysis before. PAST SURGICAL HISTORY: Positive for urological procedure with Dr. Andres and a nephrostomy tube done this admission. MEDICATIONS AT HOME: Metronidazole and amoxicillin. He is currently on Dobutrex, midodrine, hydrocortisone, and vasopressin and he started heparin on this admission with hemodialysis. ALLERGIES: NO KNOWN DRUG ALLERGIES. SOCIAL HISTORY: Noncontributory. He is not a smoker. No drunk use. No alcohol abuse. Lives with his mother who is a full-time boatbuilder supervisor. FAMILY HISTORY: Otherwise noncontributory. REVIEW OF SYSTEMS: As per the HPI. PHYSICAL EXAMINATION: VITAL SIGNS: Temperature of 97.5, pulse of 104, respiratory rate of 20, and blood pressure of 141/93. GENERAL: The patient is a young male, lying in bed, and in no acute distress. HEAD AND NECK: Normocephalic and atraumatic. Eyes: Pupils are equal, round, and reactive to light and accommodation. Extraocular muscles are intact. There is some pallor. No icterus is noted. Neck is supple with no adenopathy. No JVD. No thyromegaly. LUNGS: Clear to auscultation bilaterally with no rales or rhonchi. CARDIOVASCULAR: S1 and S2 are heard. ABDOMEN: Positive bowel sounds, soft, nontender, and nondistended. No organomegaly is palpated. EXTREMITIES: There is bilateral lower extremity edema mild. LABORATORY DATA: Reveal a white count of 23.6, hemoglobin 12.1, hematocrit of 37.4, MCV of 85.4, and a platelet count today is 59,000, on admission it was 178,000. White count diff is left shifted. Chemistries reveal a BUN and creatinine of 40 and 2.8. All other electrolytes are within normal limits. He had a PT and INR on admission, which is 18.4 and 1.5 and a PTT of 32.4. ASSESSMENT AND PLAN: A young male with known obstructive uropathy as well as renal insufficiency, now admitted with Escherichia coli sepsis, urosepsis, and getting IV antibiotics and developed acute renal failure and currently getting hemodialysis, now with an acute common femoral deep vein thrombosis as well as drop in platelet count. We would consider HIT workup has been sent by the resident including serotonin antibody and PF4 antibody, await results. In the meantime, switch the patient to argatroban for treatment of deep vein thrombosis, he will be bridged over to Coumadin, hold off on further heparin with hemodialysis. He also needs workup to rule out other causes of thrombocytopenia. We will currently order. Thank you for the consult. We will follow. Salma Hunt MD
[2017-09-06] MEDS: Argatroban 250 MG in Dextrose 5% In Water 250 ML IV SCH (19:54)
--- NOTE | 2017-09-07 07:34 | CP.PCM.PN ---
<Edilson Garcia - Last Filed: 09/07/17 13:31> Subjective - Date & Time of Evaluation Date of Evaluation: 09/07/17 Time of Evaluation: 07:31 - Subjective Subjective: Medicine progress note for hospitalist service Patient seen and examined at bedside. No acute overnight events or new complaints reported. Patient had drop in platelet count yesterday with a concern for HIT. HIT workup sent and lower extremity duplex revealed acute nonocclusive thrombus in the left common femoral vein. Patient started on argatrobran drip and hematology was consulted. ROS limited due to patient's nonverbal status. Objective - Vital Signs/Intake and Output Vital Signs (last 24 hours): Temp Pulse Resp BP Pulse Ox 97.9 F 84 21 127/94 H 99 09/07/17 04:00 09/07/17 07:00 09/07/17 07:00 09/07/17 04:00 09/07/17 07:00 Intake and Output: 09/07/17 09/07/17 06:59 18:59 Intake Total 392.5 Output Total 1100 Balance -707.5 - Medications Medications: Current Medications Calcium Acetate (Phoslo) 667 mg PO WM [facility] Last Admin: 09/06/17 17:06 Dose: 667 mg Carvedilol (Coreg) 6.25 mg PO BID [facility] Last Admin: 09/06/17 17:05 Dose: 6.25 mg Ergocalciferol (Drisdol 50,000 Intl Units Cap) 1 cap PO Q7D [facility] Last Admin: 09/02/17 09:28 Dose: 1 cap Famotidine (Pepcid) 20 mg PO DAILY [facility] Ferrous Gluconate (Fergon) 324 mg PO TID [facility] Last Admin: 09/06/17 17:06 Dose: 324 mg Ceftriaxone Sodium (Rocephin 2 Gm Ivpb) 2 gm in 100 mls @ 100 mls/hr IVPB DAILY [facility] PRN Reason: Protocol Last Admin: 09/06/17 09:59 Dose: 100 mls/hr Argatroban 250 mg/ Dextrose 252.5 mls @ 6.43 mls/hr IV .Q24H [facility]; 2 MCG/KG/MIN PRN Reason: Protocol Last Titration: 09/07/17 01:39 Dose: 3 mcg/kg/min, 9.64 mls/hr Midodrine (Proamatine) 10 mg PO TID [facility] Last Admin: 09/06/17 17:05 Dose: 10 mg Vitamin B Complex/Vit C/Folic Acid (Nephro-Will) 1 tab PO 0800 [facility] Last Admin: 09/06/17 08:21 Dose: 1 tab - Labs Labs: 09/06/17 07:30 09/06/17 07:30 PT 18.4 SECONDS (9.4-12.5) H 09/02/17 06:30 INR 1.59 (0.93-1.08) H 09/02/17 06:30 APTT 53.7 Seconds (25.1-36.5) H 09/07/17 03:10 - Constitutional Appears: No Acute Distress - Head Exam Head Exam: ATRAUMATIC, NORMAL INSPECTION, NORMOCEPHALIC - Eye Exam Eye Exam: EOMI, PERRL - ENT Exam ENT Exam: Mucous Membranes Moist - Respiratory Exam Respiratory Exam: Clear to Ausculation Bilateral. absent: Rales, Rhonchi, Wheezes - Cardiovascular Exam Cardiovascular Exam: RRR, +S1, +S2. absent: Gallop, Rubs, Murmur - GI/Abdominal Exam GI & Abdominal Exam: Soft. absent: Distended, Firm, Guarding, Rigid, Tenderness , Rebound Additional comments: bilateral nephrostomy tubes in place - Neurological Exam Neurological Exam: Alert, Awake - Psychiatric Exam Psychiatric exam: Normal Affect, Normal Mood - Skin Skin Exam: Dry, Intact, Normal Color, Warm Assessment and Plan - Assessment and Plan (Free Text) Plan: 27 M with ESRD, obstructive uropathy, down syndrome admitted to [facility] ([facility]) for septic shock secondary to urinary tract infection in the setting of obstructive uropathy. Presently he is s/p bilateral percutaneous nephrostomy tube placement. Requires permacath placement prior to discharge. 1. End stage renal disease and electrolyte abnormalities requiring dialysis - dialysis started via temporary dialysis catheter, currently on hemodialysis schedule M// - s/p nephrostomy tubes places by IR Dr Maher, [facility]; requires permacath placement prior to discharge - Nephrology consulted - Dr. Lyons - phos binders, nephrovite, weekly vit D, oral fe and aransep 40 mcg on 09/03/17 - Urology consulted, recs appreciated - Surgery consulted for AV fistula placement - Monitor I's and O's, daily weight - Avoid nephrotoxic agents - Hepatitis panel negative 2. Sepsis secondary to UTI - off pressors, now on midodrine - leukocytosis, however patient has been afebrile - blood cultures negative - urine culture notable for klebsiella - procalcitonin elevated - continue rocephin 2gm for total of 10-14 days (presently day #6) - ID consulted, recs appreciated - Urology consulted, recs appreciated 3. Thrombocytopenia - HIT workup sent, pending results - LE duplex revealed acute nonocclusive thrombus in the left common femoral vein - Patient started on argatrobran drip - Hematology consulted - Dr. Hunt 4. CHF, chronic -Echocardiogram from 09/02 reviewed; LVEF of 35% with boderline concentric LVH, moderate AR, mild MR, mild TR, RSVP of 40mmHg -Dobutrex d/kati per cadiology recommendations -Continue with coreg 3.125 PO BID -Cardiology consulted - Dr. Wu 5. abd pain/transaminitis - Dr. Rodriguez consulted, continue medical management - lipase not elevated - hep panel negative - cdiff pending 6. Hyperkalemia, resolved - EKG in ED reviewed; normal sinus rhythm with no acute ST-T wave changes - will continue to monitor for any changes 7. GI/DVT prophylaxis - pepcid/SCD's Patient was seen, examined and discussed with attending, Dr. Watson <Ashlie Watson - Last Filed: 09/07/17 16:36> Objective - Vital Signs/Intake and Output Vital Signs (last 24 hours): Temp Pulse Resp BP Pulse Ox 98 F 84 21 127/94 H 99 09/07/17 15:37 09/07/17 14:00 09/07/17 07:00 09/07/17 04:00 09/07/17 07:00 Intake and Output: 09/07/17 09/07/17 06:59 18:59 Intake Total 392.5 Output Total 1100 Balance -707.5 - Medications Medications: Current Medications Calcium Acetate (Phoslo) 667 mg PO WM [facility] Last Admin: 09/07/17 15:53 Dose: 667 mg Carvedilol (Coreg) 6.25 mg PO BID [facility] Last Admin: 09/07/17 09:33 Dose: 6.25 mg Ergocalciferol (Drisdol 50,000 Intl Units Cap) 1 cap PO Q7D [facility] Last Admin: 09/02/17 09:28 Dose: 1 cap Famotidine (Pepcid) 20 mg PO DAILY [facility] Last Admin: 09/07/17 09:33 Dose: 20 mg Ferrous Gluconate (Fergon) 324 mg PO TID [facility] Last Admin: 09/07/17 15:53 Dose: 324 mg Ceftriaxone Sodium (Rocephin 2 Gm Ivpb) 2 gm in 100 mls @ 100 mls/hr IVPB DAILY [facility] PRN Reason: Protocol Last Admin: 09/07/17 09:31 Dose: 100 mls/hr Argatroban 250 mg/ Dextrose 252.5 mls @ 6.43 mls/hr IV .Q24H [facility]; 2 MCG/KG/MIN PRN Reason: Protocol Last Titration: 09/07/17 01:39 Dose: 3 mcg/kg/min, 9.64 mls/hr Midodrine (Proamatine) 10 mg PO TID [facility] Last Admin: 09/07/17 15:53 Dose: 10 mg Vitamin B Complex/Vit C/Folic Acid (Nephro-Will) 1 tab PO 0800 [facility] Last Admin: 09/07/17 09:34 Dose: 1 tab - Labs Labs: 09/07/17 08:00 09/07/17 15:12 PT 18.4 SECONDS (9.4-12.5) H 09/02/17 06:30 INR 1.59 (0.93-1.08) H 09/02/17 06:30 APTT 64.7 Seconds (25.1-36.5) H 09/07/17 08:19 Attending/Attestation - Attestation I have personally seen and examined this patient.: Yes I have fully participated in the care of the patient.: Yes I have reviewed all pertinent clinical information, including history, physical exam and plan: Yes Notes (Text): 09/07/17 16:34 Patient was seen and examined with ophthalmic medical technician. Family at bed side. 27 yrs old male with PMH of Down syndrome, Obstructive uropathy with sepsis due to K.Pneumonia UTI. and renal failure requiring hemodialysis. Patient is on IV ceftriaxone,He is afebrile.Blood cultures are negative for any growth. Thrombocytopenia and new DVT, concerning for HIT, on Argatroban, we will monitor.Hematology evaluation is appreciated. Patient creatinin clearance is low, will likely need technician terminal and repeater HD, Case was discussed with Nephrology. Management plan was discussed in detail with patient mother who is at bed side. Education was provided.
[2017-09-07] MEDS: cefTRIAXone 2 GM IN NS 2 GM/100 ML BAG IVPB SCH (09:31)
[2017-09-07 09:33] LABS: BASO % 0.5 % (0.0-3.0); EOS # 0.4 (0.0-0.7); EOS % 1.8 % (1.5-5.0); GRAN # 14.93 (1.4-6.5); GRAN % 75.2 % (50.0-68.0); HEMOGLOBIN 11.6 g/dL (14.0-18.0); LYMPH # 3.2 (1.2-3.4); LYMPH % 15.9 % (22.0-35.0); MEAN CELL VOLUME 85.6 fl (80.0-105.0); MEAN CORPUSCULAR HEMOGLOBIN 28.3 pg (25.0-35.0); MONO # 1.3 (0.1-0.6); MONO % 6.6 % (1.0-6.0); PLATELET COUNT 74 10^3/uL (120.0-450.0); RED CELL DISTRIBUTION WIDTH 13.6 % (11.5-14.5); WHITE BLOOD COUNT 19.9 10^3/ul (4.5-11.0)
[2017-09-07] MEDS: Multivitamin Vitamin B Complex (Nephro-Vite) Tab PO SCH (09:34)
[2017-09-07 09:54] LABS: ALB/GLOB RATIO 0.7 (1.1-1.8); ALBUMIN 2.1 g/dL (3.0-4.8); CALCIUM 7.8 mg/dL (8.4-10.5)
--- NOTE | 2017-09-07 10:48 | CP.PCM.PN ---
Subjective - Date & Time of Evaluation Date of Evaluation: 09/07/17 Time of Evaluation: 09:55 - Subjective Subjective: Comfortable in bed, noted that patient has common femoral vein DVT and is in the ICU for Argatroban infusion, especially with acute thrombocytopenia. No fevers overnight. Objective - Vital Signs/Intake and Output Vital Signs (last 24 hours): Temp Pulse Resp BP Pulse Ox 97.5 F L 88 21 136/39 L 94 L 09/05/17 09:28 09/06/17 21:40 09/06/17 21:40 09/06/17 20:00 09/06/17 21:00 Intake and Output: 09/06/17 09/07/17 18:59 06:59 Intake Total 72.5 Output Total 500 500 Balance -500 -427.5 - Medications Medications: Current Medications Calcium Acetate (Phoslo) 667 mg PO WM [facility] Last Admin: 09/06/17 17:06 Dose: 667 mg Carvedilol (Coreg) 6.25 mg PO BID [facility] Last Admin: 09/06/17 17:05 Dose: 6.25 mg Ergocalciferol (Drisdol 50,000 Intl Units Cap) 1 cap PO Q7D [facility] Last Admin: 09/02/17 09:28 Dose: 1 cap Famotidine (Pepcid) 20 mg PO DAILY [facility] Ferrous Gluconate (Fergon) 324 mg PO TID [facility] Last Admin: 09/06/17 17:06 Dose: 324 mg Ceftriaxone Sodium (Rocephin 2 Gm Ivpb) 2 gm in 100 mls @ 100 mls/hr IVPB DAILY [facility] PRN Reason: Protocol Last Admin: 09/06/17 09:59 Dose: 100 mls/hr Argatroban 250 mg/ Dextrose 252.5 mls @ 6.43 mls/hr IV .Q24H [facility]; 2 MCG/KG/MIN PRN Reason: Protocol Last Titration: 09/07/17 01:39 Dose: 3 mcg/kg/min, 9.64 mls/hr Midodrine (Proamatine) 10 mg PO TID [facility] Last Admin: 09/06/17 17:05 Dose: 10 mg Vitamin B Complex/Vit C/Folic Acid (Nephro-Will) 1 tab PO 0800 [facility] Last Admin: 09/06/17 08:21 Dose: 1 tab - Labs Labs: 09/06/17 07:30 09/06/17 07:30 PT 18.4 SECONDS (9.4-12.5) H 09/02/17 06:30 INR 1.59 (0.93-1.08) H 09/02/17 06:30 APTT 53.7 Seconds (25.1-36.5) H 09/07/17 03:10 - Constitutional Appears: Chronically Ill - Head Exam Head Exam: NORMAL INSPECTION - Neck Exam Neck Exam: absent: Meningismus - Respiratory Exam Respiratory Exam: Decreased Breath Sounds - Cardiovascular Exam Cardiovascular Exam: +S1, +S2 - GI/Abdominal Exam GI & Abdominal Exam: Soft. absent: Tenderness Additional comments: bilateral nephrostomy tubes in place Assessment and Plan - Assessment and Plan (Free Text) Plan: Assessment severe sepsis / septic shock due to UTI from Klebsiella in a patient with hydronephrosis and hydroureter and acute on chronic renal failure, S/P nephrostomy tube placement and now on dialysis acute femoral vein DVT acute thrombocytopenia R/O HIT mental disability down syndrome history of renal failure Plan continue Rocephin; blood cx are negative; reviewed CT A/P; complete 10-14 days of antibiotics (day 6 today) patient will probably need chronic renal replacement therapy as per Renal continue to trend WBC count anticoagulation and HIT work up per Hematology will continue to monitor clinically
[2017-09-07 14:14] LABS: FOLATE 7.3 ng/mL
--- NOTE | 2017-09-07 15:10 | CP.PCM.PN ---
<Amberly Avitia - Last Filed: 09/07/17 15:10> Subjective - Date & Time of Evaluation Date of Evaluation: 09/07/17 Time of Evaluation: 10:00 - Subjective Subjective: S&E at bedside, chart reviewed. Transfer to ICU telemetry for concern w/HIT, had low platelets yesterday. Started on Argatroban drip. Mother at bedside, had formed BM yesterday. No signs of discomfort. No overt GI bleeding. Dialysis today. Objective - Vital Signs/Intake and Output Vital Signs (last 24 hours): Temp Pulse Resp BP Pulse Ox 98.3 F 70 21 127/94 H 99 09/07/17 12:00 09/07/17 10:00 09/07/17 07:00 09/07/17 04:00 09/07/17 07:00 Intake and Output: 09/07/17 09/07/17 06:59 18:59 Intake Total 392.5 Output Total 1100 Balance -707.5 - Medications Medications: Current Medications Calcium Acetate (Phoslo) 667 mg PO WM [facility] Last Admin: 09/07/17 09:34 Dose: 667 mg Carvedilol (Coreg) 6.25 mg PO BID [facility] Last Admin: 09/07/17 09:33 Dose: 6.25 mg Ergocalciferol (Drisdol 50,000 Intl Units Cap) 1 cap PO Q7D [facility] Last Admin: 09/02/17 09:28 Dose: 1 cap Famotidine (Pepcid) 20 mg PO DAILY [facility] Last Admin: 09/07/17 09:33 Dose: 20 mg Ferrous Gluconate (Fergon) 324 mg PO TID [facility] Last Admin: 09/07/17 09:34 Dose: 324 mg Ceftriaxone Sodium (Rocephin 2 Gm Ivpb) 2 gm in 100 mls @ 100 mls/hr IVPB DAILY [facility] PRN Reason: Protocol Last Admin: 09/07/17 09:31 Dose: 100 mls/hr Argatroban 250 mg/ Dextrose 252.5 mls @ 6.43 mls/hr IV .Q24H [facility]; 2 MCG/KG/MIN PRN Reason: Protocol Last Titration: 09/07/17 01:39 Dose: 3 mcg/kg/min, 9.64 mls/hr Midodrine (Proamatine) 10 mg PO TID [facility] Last Admin: 09/07/17 09:34 Dose: 10 mg Vitamin B Complex/Vit C/Folic Acid (Nephro-Will) 1 tab PO 0800 [facility] Last Admin: 09/07/17 09:34 Dose: 1 tab - Labs Labs: 09/07/17 08:00 09/07/17 08:00 PT 18.4 SECONDS (9.4-12.5) H 09/02/17 06:30 INR 1.59 (0.93-1.08) H 09/02/17 06:30 APTT 64.7 Seconds (25.1-36.5) H 09/07/17 08:19 - Constitutional Appears: No Acute Distress - Eye Exam Eye Exam: Normal appearance. absent: Scleral icterus - ENT Exam ENT Exam: Mucous Membranes Moist - Neck Exam Neck Exam: Normal Inspection - Respiratory Exam Respiratory Exam: NORMAL BREATHING PATTERN. absent: Respiratory Distress - Cardiovascular Exam Cardiovascular Exam: +S1, +S2 - GI/Abdominal Exam GI & Abdominal Exam: Soft, Normal Bowel Sounds. absent: Distended, Guarding, Tenderness, Rebound - Extremities Exam Extremities Exam: absent: Calf Tenderness - Neurological Exam Neurological Exam: Alert, Awake (nonverbal) - Skin Skin Exam: Dry, Warm Assessment and Plan - Assessment and Plan (Free Text) Assessment: Assessment: Thrombocytopenia/r/o HIT, Left common femoral thrombus Sepsis/urosepsis Chronic Renal Failure, on dialysis History obstructive uropathy S/p Bilateral Nephrostomy tube Resolved Abdominal pain, likely secondary to severe hydronephrosis/UTI UTI, (+) K Pnuemoniae Resolved Diarrhea, rule out C. difficile Plan: Continue GI prophylaxis On IV antibiotics as per ID on Argatroban drip monitor H/H diet as tolerated as per ID/renal hematology following. Spoke to mother at bedside. Seen and discussed with Dr. Rodriguez. <Lisa Rodriguez V - Last Filed: 09/08/17 01:06> Objective - Vital Signs/Intake and Output Vital Signs (last 24 hours): Temp Pulse Resp BP Pulse Ox 99 F 75 15 136/84 96 09/07/17 20:00 09/07/17 23:40 09/07/17 23:40 09/07/17 20:00 09/07/17 23:40 Intake and Output: 09/07/17 09/08/17 18:59 06:59 Intake Total 180 Output Total 700 Balance -700 180 - Medications Medications: Current Medications Calcium Acetate (Phoslo) 667 mg PO WM [facility] Last Admin: 09/07/17 17:26 Dose: 667 mg Carvedilol (Coreg) 6.25 mg PO BID [facility] Last Admin: 09/07/17 17:26 Dose: 6.25 mg Ergocalciferol (Drisdol 50,000 Intl Units Cap) 1 cap PO Q7D [facility] Last Admin: 09/02/17 09:28 Dose: 1 cap Famotidine (Pepcid) 20 mg PO DAILY [facility] Last Admin: 09/07/17 09:33 Dose: 20 mg Ferrous Gluconate (Fergon) 324 mg PO TID [facility] Last Admin: 09/07/17 17:26 Dose: 324 mg Ceftriaxone Sodium (Rocephin 2 Gm Ivpb) 2 gm in 100 mls @ 100 mls/hr IVPB DAILY [facility] PRN Reason: Protocol Last Admin: 09/07/17 09:31 Dose: 100 mls/hr Argatroban 250 mg/ Dextrose 252.5 mls @ 6.43 mls/hr IV .Q24H [facility]; 2 MCG/KG/MIN PRN Reason: Protocol Last Admin: 09/07/17 20:20 Dose: 3 mcg/kg/min, 9.64 mls/hr Midodrine (Proamatine) 10 mg PO TID [facility] Last Admin: 09/07/17 17:26 Dose: 10 mg Vitamin B Complex/Vit C/Folic Acid (Nephro-Will) 1 tab PO 0800 [facility] Last Admin: 09/07/17 09:34 Dose: 1 tab - Labs Labs: 09/07/17 08:00 09/07/17 15:12 PT 18.4 SECONDS (9.4-12.5) H 09/02/17 06:30 INR 1.59 (0.93-1.08) H 09/02/17 06:30 APTT 64.7 Seconds (25.1-36.5) H 09/07/17 08:19 Attending/Attestation - Attestation I have personally seen and examined this patient.: Yes I have fully participated in the care of the patient.: Yes I have reviewed all pertinent clinical information, including history, physical exam and plan: Yes Notes (Text): This is an addendum to GI progress report dictated by Amberly Avitia APN.The patient was seen and examined earlier. Medical records, lab studies, imagings were reviewed. Last 24 hours events reviewed. Agreed with the above treatment plan as outlined in Amberly Avitia APN's notes the with the addition of the following on examination abdomen soft no tenderness Continue the antibiotics as per ID on argatrobran for DVT ?HIT Discussed with the family who were at the bedside 09/08/17 01:04
[2017-09-07 15:32] LABS: URINE CREATININE 44.3 mg/dL
--- NOTE | 2017-09-07 16:08 | CP.PCM.PN ---
Subjective - Date & Time of Evaluation Date of Evaluation: 09/07/17 Time of Evaluation: 16:00 - Subjective Subjective: Follow up Nephrology Consultation: Assessment: stable ESRD by now with b/l massive hydronephrosis and loss of renal cortex s/p b/l nephrostomy possible HIT with left DVT Hyperkalemia and acidosis, hypocalcemia, anemia, hypomagnesmeia urosepsis with shock, Klebsiella hx of MR Pulmonary congestion vit D def CHF EF 35% thrombocytopenia Plan no acute need for HD today. 24 hr crcl: 14. will plan for dialysis tomorrow onwards TTS No contraindication to ACEI/ARB if tolerated by BP. Monitor Input/Output, daily weights and renal function with basic metabolic panel urology and ID consulted surgery eval for AVF placement appreciated on phos binders, nephrovite, weekly vit D, oral fe and aransep 40 mcg on 09/03/17 supplement electrolytes as needed pt on agratroban drip. to plan for permacath placement once okay by heme/onc. Dose meds/antibiotics for reduced GFR<10. Avoid fleets enema/magnesium based laxatives. Avoid nephrotoxins/NSAIDs/ iodinated contrast (unless needed emergently) Glycemic control Further work up/management as per primary team. Thanks for allowing me to participate in care of your patient. Will follow patient with you. Please call if any Qs. d/w primary team and mother Dr Olegario Lyons Office: [phone] HPI: Pt is a 27 M with MR and chronic obstructive uropathy and progressive CKD as a result of obstruction, mother was told about need for dialysis in near future. she has been seeing administrative project coordinator Dr Darden and urologist as well. pt was brought to ER with c/o fever for 2 days. found to have severe renal failure and hypotension hence renal consulted ROS: pt unable to provide due to MR. overnight events noted. Physical Examination: General Appearance: Comfortable, in no acute respiratory distress, mostly co- operative . Vitals reviewed and noted as below Head; Atraumatic, normocephalic ENT: no ulcers no thrush. Tongue is midline. Oropharynx: no rash or ulcers. EYES: Pupils are equal, round and reactive to light accommodation. Eye muscles and extraocular movement intact. Sclera is anicteric. Neck; supple no lymphadenopathy, no thyromegaly or bruit Lungs: Normal respiratory rate/effort. Breath sounds bilateral equal and clear Heart: Normal rate. s1s2 normal. No rub or gallop. Extremities: no edema. No varicose veins Neurological: Patient is alert, awake Skin: Warm and dry. Normal turgor. No rash. Palpitation: Normal elasticity for age Abdomen: Abdomen is soft. Bowel sounds +. There is no abdominal tenderness, no guarding/rigidity no organomegaly Psych: no insight MSK: no joint tenderness or swelling. Digits and nails normal, no deformity : palpable kidneys. has b/l nephrostomy tubes draining urine access: neck catheter [facility] Labs/imaging reviewed. Past medical history, past surgical history, family history, social history, allergy reviewed and noted as below Family hx: no hx of CKD. Rest non-contributory Objective - Vital Signs/Intake and Output Vital Signs (last 24 hours): Temp Pulse Resp BP Pulse Ox 98 F 84 21 127/94 H 99 09/07/17 15:37 09/07/17 14:00 09/07/17 07:00 09/07/17 04:00 09/07/17 07:00 Intake and Output: 09/07/17 09/07/17 06:59 18:59 Intake Total 392.5 Output Total 1100 Balance -707.5 - Medications Medications: Current Medications Calcium Acetate (Phoslo) 667 mg PO WM [facility] Last Admin: 09/07/17 15:53 Dose: 667 mg Carvedilol (Coreg) 6.25 mg PO BID [facility] Last Admin: 09/07/17 09:33 Dose: 6.25 mg Ergocalciferol (Drisdol 50,000 Intl Units Cap) 1 cap PO Q7D [facility] Last Admin: 09/02/17 09:28 Dose: 1 cap Famotidine (Pepcid) 20 mg PO DAILY [facility] Last Admin: 09/07/17 09:33 Dose: 20 mg Ferrous Gluconate (Fergon) 324 mg PO TID [facility] Last Admin: 09/07/17 15:53 Dose: 324 mg Ceftriaxone Sodium (Rocephin 2 Gm Ivpb) 2 gm in 100 mls @ 100 mls/hr IVPB DAILY [facility] PRN Reason: Protocol Last Admin: 09/07/17 09:31 Dose: 100 mls/hr Argatroban 250 mg/ Dextrose 252.5 mls @ 6.43 mls/hr IV .Q24H [facility]; 2 MCG/KG/MIN PRN Reason: Protocol Last Titration: 09/07/17 01:39 Dose: 3 mcg/kg/min, 9.64 mls/hr Midodrine (Proamatine) 10 mg PO TID [facility] Last Admin: 09/07/17 15:53 Dose: 10 mg Vitamin B Complex/Vit C/Folic Acid (Nephro-Will) 1 tab PO 0800 [facility] Last Admin: 09/07/17 09:34 Dose: 1 tab - Labs Labs: 09/07/17 08:00 09/07/17 15:12 PT 18.4 SECONDS (9.4-12.5) H 09/02/17 06:30 INR 1.59 (0.93-1.08) H 09/02/17 06:30 APTT 64.7 Seconds (25.1-36.5) H 09/07/17 08:19
[2017-09-07] MEDS: Argatroban 250 MG in Dextrose 5% In Water 250 ML IV SCH (20:20)
[2017-09-08 07:13] LABS: BASO # 0.07 K/mm3 (0.0-2.0); BASO % 0.6 % (0.0-3.0); EOS # 0.3 (0.0-0.7); EOS % 2.3 % (1.5-5.0); GRAN # 8.36 (1.4-6.5); GRAN % 66.3 % (50.0-68.0); HEMOGLOBIN 11.1 g/dL (14.0-18.0); LYMPH # 2.9 (1.2-3.4); LYMPH % 23.2 % (22.0-35.0); MEAN CELL VOLUME 84.8 fl (80.0-105.0); MEAN CORPUSCULAR HEMOGLOBIN 27.6 pg (25.0-35.0); MEAN CORPUSCULAR HGB CONC 32.6 g/dl (31.0-37.0); MONO % 7.6 % (1.0-6.0); RBC 4.02 10^6/uL (3.5-6.1); RED CELL DISTRIBUTION WIDTH 13.8 % (11.5-14.5); WHITE BLOOD COUNT 12.6 10^3/ul (4.5-11.0)
[2017-09-08 07:20] LABS: INR 2.13 (0.93-1.08); PARTIAL THROMBOPLASTIN TIME 59.7 Seconds (25.1-36.5); PROTHROMBIN TIME 24.9 SECONDS (9.4-12.5)
[2017-09-08 07:40] LABS: ALB/GLOB RATIO 0.6 (1.1-1.8); ALBUMIN 2.2 g/dL (3.0-4.8); CALCIUM 7.6 mg/dL (8.4-10.5)
--- NOTE | 2017-09-08 07:46 | CP.PCM.PN ---
<Edilson Garcia - Last Filed: 09/08/17 07:39> Subjective - Date & Time of Evaluation Date of Evaluation: 09/08/17 Time of Evaluation: 07:39 - Subjective Subjective: Medicine progress note for hospitalist service Patient seen and examined at bedside this morning. No acute overnight events or new complaints reported. 24hr CrCl is low. Patient to be scheduled for HD today. Discussed current workup/results/plan with patient's mother at bedside. ROS limited due to patient nonverbal status. Objective - Vital Signs/Intake and Output Vital Signs (last 24 hours): Temp Pulse Resp BP Pulse Ox 98.3 F 86 21 136/84 86 L 09/08/17 04:00 09/08/17 06:04 09/08/17 06:04 09/07/17 20:00 09/08/17 06:00 Intake and Output: 09/08/17 09/08/17 06:59 18:59 Intake Total 400 Output Total 700 Balance -300 - Medications Medications: Current Medications Calcium Acetate (Phoslo) 667 mg PO WM [facility] Last Admin: 09/07/17 17:26 Dose: 667 mg Carvedilol (Coreg) 6.25 mg PO BID [facility] Last Admin: 09/07/17 17:26 Dose: 6.25 mg Ergocalciferol (Drisdol 50,000 Intl Units Cap) 1 cap PO Q7D [facility] Last Admin: 09/02/17 09:28 Dose: 1 cap Famotidine (Pepcid) 20 mg PO DAILY [facility] Last Admin: 09/07/17 09:33 Dose: 20 mg Ferrous Gluconate (Fergon) 324 mg PO TID [facility] Last Admin: 09/07/17 17:26 Dose: 324 mg Ceftriaxone Sodium (Rocephin 2 Gm Ivpb) 2 gm in 100 mls @ 100 mls/hr IVPB DAILY [facility] PRN Reason: Protocol Last Admin: 09/07/17 09:31 Dose: 100 mls/hr Argatroban 250 mg/ Dextrose 252.5 mls @ 6.43 mls/hr IV .Q24H [facility]; 2 MCG/KG/MIN PRN Reason: Protocol Last Admin: 09/07/17 20:20 Dose: 3 mcg/kg/min, 9.64 mls/hr Midodrine (Proamatine) 10 mg PO TID [facility] Last Admin: 09/07/17 17:26 Dose: 10 mg Vitamin B Complex/Vit C/Folic Acid (Nephro-Will) 1 tab PO 0800 [facility] Last Admin: 09/07/17 09:34 Dose: 1 tab - Labs Labs: 09/08/17 05:50 09/07/17 15:12 PT 24.9 SECONDS (9.4-12.5) H 09/08/17 05:50 INR 2.13 (0.93-1.08) H 09/08/17 05:50 APTT 59.7 Seconds (25.1-36.5) H 09/08/17 05:50 - Constitutional Appears: No Acute Distress - Head Exam Head Exam: ATRAUMATIC, NORMOCEPHALIC - Eye Exam Eye Exam: EOMI, PERRL - ENT Exam ENT Exam: Mucous Membranes Moist - Neck Exam Neck Exam: Normal Inspection - Respiratory Exam Respiratory Exam: absent: Rales, Rhonchi, Wheezes - Cardiovascular Exam Cardiovascular Exam: RRR, +S1, +S2. absent: Gallop, Rubs, Murmur - GI/Abdominal Exam GI & Abdominal Exam: Soft, Normal Bowel Sounds. absent: Distended, Firm, Guarding, Rigid, Tenderness, Rebound - Neurological Exam Neurological Exam: Awake. absent: Oriented x3 - Psychiatric Exam Psychiatric exam: Normal Affect, Normal Mood - Skin Skin Exam: Dry, Intact, Normal Color, Warm Assessment and Plan - Assessment and Plan (Free Text) Plan: 27yo male with ESRD, obstructive uropathy, down syndrome admitted to [facility] for septic shock secondary to urinary tract infection in the setting of obstructive uropathy. Presently he is s/p bilateral percutaneous nephrostomy tube placement and is on argatroban drip for concern for HIT in setting of thrombocytopenia and new DVT 1. End stage renal disease - dialysis started via temporary dialysis catheter, currently on hemodialysis scheduled TTS - s/p nephrostomy tubes places by IR Dr Maher, draining; requires permacath placement prior to discharge - Nephrology consulted - Dr. Lyons - phos binders, nephrovite, weekly vit D, oral fe - Urology consulted, recs appreciated - Surgery consulted for AV fistula placement - Monitor I's and O's, daily weight - Avoid nephrotoxic agents - Hepatitis panel negative 2. Sepsis secondary to UTI - off pressors, now on midodrine - leukocytosis resolving, however patient has been afebrile - blood cultures negative - urine culture notable for klebsiella - procalcitonin elevated - continue rocephin 2gm for total of 10-14 days (presently day #7) - ID consulted, recs appreciated - Urology consulted, recs appreciated 3. Acute DVT in setting of thrombocytopenia - HIT workup sent, pending results - LE duplex revealed acute nonocclusive thrombus in the left common femoral vein - Patient started on argatrobran drip - Hematology consulted - Dr. Hunt 4. CHF, chronic -Echocardiogram from 09/02 reviewed; LVEF of 35% with boderline concentric LVH, moderate AR, mild MR, mild TR, RSVP of 40mmHg -Dobutrex d/kati per cadiology recommendations -Continue with coreg 6.25 PO BID -Cardiology consulted - Dr. Wu 5. abd pain/transaminitis, resolved - Dr. Rodriguez consulted, continue medical management - lipase not elevated - hep panel negative - cdiff pending 6. GI/DVT prophylaxis - pepcid/argatroban Patient was seen, examined and discussed with attending, Dr. Watson <Ashlie Watson - Last Filed: 09/08/17 16:55> Objective - Vital Signs/Intake and Output Vital Signs (last 24 hours): Temp Pulse Resp BP Pulse Ox 98.4 F 84 39 H 140/96 H 86 L 09/08/17 12:00 09/08/17 13:09 09/08/17 13:09 09/08/17 09:53 09/08/17 06:00 Intake and Output: 09/08/17 09/08/17 06:59 18:59 Intake Total 400 Output Total 700 Balance -300 - Medications Medications: Current Medications Calcium Acetate (Phoslo) 667 mg PO WM [facility] Last Admin: 09/08/17 13:31 Dose: 667 mg Carvedilol (Coreg) 6.25 mg PO BID [facility] Last Admin: 09/08/17 09:53 Dose: 6.25 mg Ergocalciferol (Drisdol 50,000 Intl Units Cap) 1 cap PO Q7D [facility] Last Admin: 09/02/17 09:28 Dose: 1 cap Famotidine (Pepcid) 20 mg PO DAILY [facility] Last Admin: 09/08/17 09:54 Dose: 20 mg Ferrous Gluconate (Fergon) 324 mg PO TID [facility] Last Admin: 09/08/17 13:31 Dose: 324 mg Ceftriaxone Sodium (Rocephin 2 Gm Ivpb) 2 gm in 100 mls @ 100 mls/hr IVPB DAILY [facility] PRN Reason: Protocol Last Admin: 09/08/17 09:55 Dose: 100 mls/hr Argatroban 250 mg/ Dextrose 252.5 mls @ 6.43 mls/hr IV .Q24H TONY; 2 MCG/KG/MIN PRN Reason: Protocol Last Admin: 09/07/17 20:20 Dose: 3 mcg/kg/min, 9.64 mls/hr Midodrine (Proamatine) 5 mg PO TID [facility] Stop: 09/10/17 14:01 Last Admin: 09/08/17 13:31 Dose: 5 mg Vitamin B Complex/Vit C/Folic Acid (Nephro-Will) 1 tab PO 0800 [facility] Last Admin: 09/08/17 08:28 Dose: 1 tab - Labs Labs: 09/08/17 05:50 09/08/17 05:50 PT 24.9 SECONDS (9.4-12.5) H 09/08/17 05:50 INR 2.13 (0.93-1.08) H 09/08/17 05:50 APTT 59.7 Seconds (25.1-36.5) H 09/08/17 05:50 Attending/Attestation - Attestation I have personally seen and examined this patient.: Yes I have fully participated in the care of the patient.: Yes I have reviewed all pertinent clinical information, including history, physical exam and plan: Yes Notes (Text): 09/08/17 16:54 Patient was seen and examined with medical terminologist. Family at bed side. Patient remain stable over night. 27 yrs old male with PMH of Down syndrome, Obstructive uropathy with sepsis due to K.Pneumonia UTI. and renal failure requiring hemodialysis. Patient is on IV ceftriaxone,He is afebrile.Blood cultures are negative for any growth. 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 Patient creatinine clearance is low, will likely need terminal operator HD, Case was discussed with Nephrology.Plan for Permanent hemodialysis catheter on Tuesday. Management plan was discussed in detail with patient mother who is at bed side. Education was provided.
[2017-09-08] MEDS: Multivitamin Vitamin B Complex (Nephro-Vite) Tab PO SCH (08:28)
--- NOTE | 2017-09-08 09:04 | PCM.URO ---
Urology Progress Note - Objective Lab Studies: Reviewed (no gu changes following along) Lab Results Last 24 Hours: Laboratory Results - last 24 hr 09/06/17 09/06/17 09/07/17 18:28 18:28 08:00 WBC 19.9 H RBC 4.10 Hgb 11.6 L Hct 35.1 L MCV 85.6 MCH 28.3 MCHC 33.0 RDW 13.6 Plt Count 74 L MPV Gran % 75.2 H Lymph % (Auto) 15.9 L [place] % (Auto) 6.6 H Eos % (Auto) 1.8 Baso % (Auto) 0.5 Gran # 14.93 H Lymph # 3.2 [place] # 1.3 H Eos # 0.4 Baso # 0.10 PT INR APTT Sodium Potassium Chloride Carbon Dioxide Anion Gap BUN Creatinine Est GFR ( Amer) Est GFR (Non-Af Amer) Random Glucose Calcium Ferritin 226.0 Total Bilirubin AST ALT Alkaline Phosphatase Total Protein Total Protein (PEP) 4.7 L Albumin Globulin Albumin/Globulin Ratio Vitamin B12 > 1000 H Folate 7.3 Urine Collection Time Urine Total Volume Creatinine Clearance 09/07/17 09/07/17 09/08/17 08:00 15:12 05:50 WBC 12.6 H D RBC 4.02 Hgb 11.1 L Hct 34.1 L MCV 84.8 MCH 27.6 MCHC 32.6 RDW 13.8 Plt Count 104 L MPV 12.0 H Gran % 66.3 Lymph % (Auto) 23.2 [place] % (Auto) 7.6 H Eos % (Auto) 2.3 Baso % (Auto) 0.6 Gran # 8.36 H Lymph # 2.9 [place] # 1.0 H Eos # 0.3 Baso # 0.07 PT INR APTT Sodium 136 Potassium 4.0 Chloride 101 Carbon Dioxide 28 Anion Gap 11 BUN 49 H Creatinine 3.1 H 3.1 H Est GFR ( Amer) 30 Est GFR (Non-Af Amer) 25 Random Glucose 82 Calcium 7.8 L Ferritin Total Bilirubin 0.2 AST 38 ALT 53 Alkaline Phosphatase 84 Total Protein 5.1 L Total Protein (PEP) Albumin 2.1 L Globulin 3.0 Albumin/Globulin Ratio 0.7 L Vitamin B12 Folate Urine Collection Time 1030 Urine Total Volume 1450 H Creatinine Clearance 14.0 L 09/08/17 09/08/17 05:50 05:50 WBC RBC Hgb Hct MCV MCH MCHC RDW Plt Count MPV Gran % Lymph % (Auto) [place] % (Auto) Eos % (Auto) Baso % (Auto) Gran # Lymph # [place] # Eos # Baso # PT 24.9 H INR 2.13 H APTT 59.7 H Sodium 137 Potassium 4.3 Chloride 102 Carbon Dioxide 27 Anion Gap 13 BUN 63 H Creatinine 3.3 H Est GFR ( Amer) 28 Est GFR (Non-Af Amer) 23 Random Glucose 89 Calcium 7.6 L Ferritin Total Bilirubin 0.2 AST 32 ALT 42 Alkaline Phosphatase 90 Total Protein 5.5 L Total Protein (PEP) Albumin 2.2 L Globulin 3.3 Albumin/Globulin Ratio 0.6 L Vitamin B12 Folate Urine Collection Time Urine Total Volume Creatinine Clearance Intake & Output: Intake & Output 09/07/17 09/08/17 09/08/17 18:59 06:59 18:59 Intake Total 400 Output Total 700 700 Balance -700 -300 Weight 117 lb Intake: IV 300 Right Forearm 120 Oral 100 Output: Drainage 700 700 Left 500 400 Right 200 300 Vital Signs: Vital Signs - 24 hr 09/07/17 09/07/17 09/07/17 09:33 10:00 12:00 Temperature 98.3 F Pulse Rate 85 70 Respiratory Rate Blood Pressure O2 Sat by Pulse Oximetry 09/07/17 09/07/17 09/07/17 14:00 15:37 17:26 Temperature 98 F Pulse Rate 84 84 Respiratory Rate Blood Pressure O2 Sat by Pulse Oximetry 09/07/17 09/07/17 09/07/17 18:00 18:03 18:04 Temperature Pulse Rate 88 85 90 Respiratory 11 L Rate Blood Pressure O2 Sat by Pulse Oximetry 09/07/17 09/07/17 09/07/17 18:05 18:06 18:07 Temperature Pulse Rate 87 88 95 H Respiratory 20 32 H 20 Rate Blood Pressure O2 Sat by Pulse Oximetry 09/07/17 09/07/17 09/07/17 18:09 18:10 18:17 Temperature Pulse Rate 83 88 95 H Respiratory 107 H 21 Rate Blood Pressure O2 Sat by Pulse Oximetry 09/07/17 09/07/17 09/07/17 18:20 18:21 18:22 Temperature Pulse Rate 90 80 74 Respiratory 26 H 26 H 31 H Rate Blood Pressure O2 Sat by Pulse Oximetry 09/07/17 09/07/17 09/07/17 18:25 18:30 18:40 Temperature Pulse Rate 91 H 77 76 Respiratory 26 H 26 H 18 Rate Blood Pressure O2 Sat by Pulse 95 93 L Oximetry 09/07/17 09/07/17 09/07/17 18:50 19:00 19:10 Temperature Pulse Rate 81 74 Respiratory 21 28 H Rate Blood Pressure O2 Sat by Pulse 95 94 L 94 L Oximetry 09/07/17 09/07/17 09/07/17 19:19 19:20 19:30 Temperature Pulse Rate 79 75 68 Respiratory 35 H 47 H Rate Blood Pressure O2 Sat by Pulse 93 L 95 Oximetry 09/07/17 09/07/17 09/07/17 19:40 19:50 20:00 Temperature 99 F Pulse Rate 82 74 73 Respiratory 29 H 25 H Rate Blood Pressure 136/84 O2 Sat by Pulse 96 92 L 93 L Oximetry 09/07/17 09/07/17 09/07/17 20:10 20:20 20:30 Temperature Pulse Rate 73 75 75 Respiratory 24 Rate Blood Pressure O2 Sat by Pulse 92 L 94 L 94 L Oximetry 09/07/17 09/07/17 09/07/17 20:40 20:50 21:10 Temperature Pulse Rate 77 82 97 H Respiratory 20 Rate Blood Pressure O2 Sat by Pulse 95 93 L Oximetry 09/07/17 09/07/17 09/07/17 21:11 21:13 21:20 Temperature Pulse Rate 83 82 82 Respiratory 24 14 18 Rate Blood Pressure O2 Sat by Pulse 96 Oximetry 09/07/17 09/07/17 09/07/17 21:30 21:40 21:42 Temperature Pulse Rate 78 83 81 Respiratory 11 L 21 Rate Blood Pressure O2 Sat by Pulse 89 L 95 Oximetry 09/07/17 09/07/17 09/07/17 21:50 22:00 22:10 Temperature Pulse Rate 81 89 78 Respiratory 18 20 Rate Blood Pressure O2 Sat by Pulse 97 95 90 L Oximetry 09/07/17 09/07/17 09/07/17 22:20 22:30 22:40 Temperature Pulse Rate 70 73 78 Respiratory 17 37 H 30 H Rate Blood Pressure O2 Sat by Pulse 92 L 94 L 93 L Oximetry 09/07/17 09/07/17 09/07/17 22:50 23:00 23:10 Temperature Pulse Rate 75 79 79 Respiratory 24 24 25 H Rate Blood Pressure O2 Sat by Pulse 95 94 L 95 Oximetry 09/07/17 09/07/17 09/07/17 23:20 23:30 23:40 Temperature Pulse Rate 79 75 75 Respiratory 19 19 15 Rate Blood Pressure O2 Sat by Pulse 96 95 96 Oximetry 09/08/17 09/08/17 09/08/17 00:00 02:00 03:05 Temperature 98.3 F Pulse Rate 88 88 89 Respiratory 20 20 Rate Blood Pressure O2 Sat by Pulse 95 Oximetry 09/08/17 09/08/17 09/08/17 03:06 03:07 03:08 Temperature Pulse Rate 94 H 92 H 86 Respiratory 24 23 Rate Blood Pressure O2 Sat by Pulse Oximetry 09/08/17 09/08/17 09/08/17 03:09 03:10 03:11 Temperature Pulse Rate 88 87 88 Respiratory 18 21 22 Rate Blood Pressure O2 Sat by Pulse Oximetry 09/08/17 09/08/17 09/08/17 03:12 03:13 03:14 Temperature Pulse Rate 89 85 84 Respiratory 19 24 Rate Blood Pressure O2 Sat by Pulse Oximetry 09/08/17 09/08/17 09/08/17 03:15 03:16 03:17 Temperature Pulse Rate 84 83 87 Respiratory 23 24 22 Rate Blood Pressure O2 Sat by Pulse Oximetry 09/08/17 09/08/17 09/08/17 03:18 03:19 03:20 Temperature Pulse Rate 80 81 83 Respiratory 29 H 36 H 20 Rate Blood Pressure O2 Sat by Pulse Oximetry 09/08/17 09/08/17 09/08/17 03:21 03:22 03:23 Temperature Pulse Rate 82 92 H 89 Respiratory 27 H 24 26 H Rate Blood Pressure O2 Sat by Pulse Oximetry 09/08/17 09/08/17 09/08/17 03:24 03:25 03:26 Temperature Pulse Rate 93 H 81 88 Respiratory 37 H 26 H 17 Rate Blood Pressure O2 Sat by Pulse Oximetry 09/08/17 09/08/17 09/08/17 03:27 03:28 03:29 Temperature Pulse Rate 89 86 86 Respiratory 25 H 19 19 Rate Blood Pressure O2 Sat by Pulse Oximetry 09/08/17 09/08/17 09/08/17 03:30 03:31 03:32 Temperature Pulse Rate 86 88 81 Respiratory 24 Rate Blood Pressure O2 Sat by Pulse Oximetry 09/08/17 09/08/17 09/08/17 03:33 03:34 03:35 Temperature Pulse Rate 86 82 88 Respiratory 16 38 H Rate Blood Pressure O2 Sat by Pulse Oximetry 09/08/17 09/08/17 09/08/17 03:36 03:37 03:38 Temperature Pulse Rate 88 99 H 90 Respiratory 10 L 85 H Rate Blood Pressure O2 Sat by Pulse Oximetry 09/08/17 09/08/17 09/08/17 03:39 03:40 03:41 Temperature Pulse Rate 89 86 86 Respiratory 32 H 30 H Rate Blood Pressure O2 Sat by Pulse Oximetry 09/08/17 09/08/17 09/08/17 03:42 04:00 05:06 Temperature 98.3 F Pulse Rate 88 86 86 Respiratory 35 H 20 23 Rate Blood Pressure O2 Sat by Pulse 95 Oximetry 09/08/17 09/08/17 09/08/17 05:07 05:08 05:09 Temperature Pulse Rate 83 86 83 Respiratory 29 H 31 H 23 Rate Blood Pressure O2 Sat by Pulse Oximetry 09/08/17 09/08/17 09/08/17 05:10 05:11 05:12 Temperature Pulse Rate 79 88 80 Respiratory 26 H 29 H 33 H Rate Blood Pressure O2 Sat by Pulse Oximetry 09/08/17 09/08/17 09/08/17 05:13 05:14 05:15 Temperature Pulse Rate 84 88 79 Respiratory 28 H 27 H 48 H Rate Blood Pressure O2 Sat by Pulse Oximetry 09/08/17 09/08/17 09/08/17 05:16 05:17 05:18 Temperature Pulse Rate 74 91 H 98 H Respiratory 20 24 21 Rate Blood Pressure O2 Sat by Pulse Oximetry 09/08/17 09/08/17 09/08/17 05:19 05:20 05:21 Temperature Pulse Rate 96 H 97 H 85 Respiratory 28 H 36 H Rate Blood Pressure O2 Sat by Pulse Oximetry 09/08/17 09/08/17 09/08/17 05:22 05:23 05:24 Temperature Pulse Rate 96 H 88 89 Respiratory 19 22 Rate Blood Pressure O2 Sat by Pulse Oximetry 09/08/17 09/08/17 09/08/17 05:25 05:26 05:27 Temperature Pulse Rate 84 89 87 Respiratory 28 H 28 H 37 H Rate Blood Pressure O2 Sat by Pulse Oximetry 09/08/17 09/08/17 09/08/17 05:28 05:29 05:30 Temperature Pulse Rate 88 88 91 H Respiratory 41 H 21 Rate Blood Pressure O2 Sat by Pulse Oximetry 09/08/17 09/08/17 09/08/17 05:31 05:32 05:33 Temperature Pulse Rate 86 86 85 Respiratory 18 25 H 45 H Rate Blood Pressure O2 Sat by Pulse Oximetry 09/08/17 09/08/17 09/08/17 05:34 05:35 05:36 Temperature Pulse Rate 89 87 91 H Respiratory 28 H 24 20 Rate Blood Pressure O2 Sat by Pulse Oximetry 09/08/17 09/08/17 09/08/17 05:37 05:38 05:40 Temperature Pulse Rate 87 89 91 H Respiratory 46 H 30 H 22 Rate Blood Pressure O2 Sat by Pulse 82 L Oximetry 09/08/17 09/08/17 09/08/17 05:49 05:50 05:51 Temperature Pulse Rate 90 89 91 H Respiratory 24 29 H Rate Blood Pressure O2 Sat by Pulse Oximetry 09/08/17 09/08/17 09/08/17 05:52 05:53 05:54 Temperature Pulse Rate 87 91 H 91 H Respiratory 25 H 27 H 20 Rate Blood Pressure O2 Sat by Pulse Oximetry 09/08/17 09/08/17 09/08/17 05:55 05:56 05:57 Temperature Pulse Rate 91 H 88 89 Respiratory 18 37 H 29 H Rate Blood Pressure O2 Sat by Pulse Oximetry 09/08/17 09/08/17 09/08/17 05:58 05:59 06:00 Temperature Pulse Rate 93 H 90 95 H Respiratory 22 22 25 H Rate Blood Pressure O2 Sat by Pulse 86 L Oximetry 09/08/17 09/08/17 09/08/17 06:01 06:02 06:03 Temperature Pulse Rate 87 98 H 88 Respiratory 25 H 30 H 23 Rate Blood Pressure O2 Sat by Pulse Oximetry 09/08/17 09/08/17 06:04 08:00 Temperature 98.2 F Pulse Rate 86 Respiratory 21 Rate Blood Pressure O2 Sat by Pulse Oximetry
[2017-09-08] MEDS: cefTRIAXone 2 GM IN NS 2 GM/100 ML BAG IVPB SCH (09:55)
--- NOTE | 2017-09-08 10:19 | CP.PCM.PN ---
Subjective - Date & Time of Evaluation Date of Evaluation: 09/08/17 Time of Evaluation: 09:50 - Subjective Subjective: Patient is more awake today, no fevers overnight, not in distress, eating but needs semi-solid foods. Objective - Vital Signs/Intake and Output Vital Signs (last 24 hours): Temp Pulse Resp BP Pulse Ox 98.3 F 86 21 136/84 86 L 09/08/17 04:00 09/08/17 06:04 09/08/17 06:04 09/07/17 20:00 09/08/17 06:00 Intake and Output: 09/07/17 09/08/17 18:59 06:59 Intake Total 400 Output Total 700 700 Balance -700 -300 - Medications Medications: Current Medications Calcium Acetate (Phoslo) 667 mg PO WM [facility] Last Admin: 09/07/17 17:26 Dose: 667 mg Carvedilol (Coreg) 6.25 mg PO BID [facility] Last Admin: 09/07/17 17:26 Dose: 6.25 mg Ergocalciferol (Drisdol 50,000 Intl Units Cap) 1 cap PO Q7D [facility] Last Admin: 09/02/17 09:28 Dose: 1 cap Famotidine (Pepcid) 20 mg PO DAILY [facility] Last Admin: 09/07/17 09:33 Dose: 20 mg Ferrous Gluconate (Fergon) 324 mg PO TID [facility] Last Admin: 09/07/17 17:26 Dose: 324 mg Ceftriaxone Sodium (Rocephin 2 Gm Ivpb) 2 gm in 100 mls @ 100 mls/hr IVPB DAILY [facility] PRN Reason: Protocol Last Admin: 09/07/17 09:31 Dose: 100 mls/hr Argatroban 250 mg/ Dextrose 252.5 mls @ 6.43 mls/hr IV .Q24H [facility]; 2 MCG/KG/MIN PRN Reason: Protocol Last Admin: 09/07/17 20:20 Dose: 3 mcg/kg/min, 9.64 mls/hr Midodrine (Proamatine) 10 mg PO TID [facility] Last Admin: 09/07/17 17:26 Dose: 10 mg Vitamin B Complex/Vit C/Folic Acid (Nephro-Will) 1 tab PO 0800 [facility] Last Admin: 09/07/17 09:34 Dose: 1 tab - Labs Labs: 09/07/17 08:00 09/07/17 15:12 PT 18.4 SECONDS (9.4-12.5) H 09/02/17 06:30 INR 1.59 (0.93-1.08) H 09/02/17 06:30 APTT 64.7 Seconds (25.1-36.5) H 09/07/17 08:19 - Constitutional Appears: Non-toxic, Chronically Ill - Head Exam Head Exam: NORMAL INSPECTION - ENT Exam ENT Exam: Mucous Membranes Moist - Neck Exam Neck Exam: absent: Meningismus Additional comments: right IJ HD catheter in place - Respiratory Exam Respiratory Exam: Decreased Breath Sounds - Cardiovascular Exam Cardiovascular Exam: +S1, +S2 - GI/Abdominal Exam GI & Abdominal Exam: Soft. absent: Tenderness Additional comments: bilateral nephrostomy tubes in place Assessment and Plan - Assessment and Plan (Free Text) Plan: Assessment severe sepsis / septic shock due to UTI from Klebsiella in a patient with hydronephrosis and hydroureter and acute on chronic renal failure, S/P nephrostomy tube placement and now on dialysis acute femoral vein DVT acute thrombocytopenia R/O HIT mental disability down syndrome history of renal failure Plan continue Rocephin; blood cx are negative; reviewed CT A/P; complete 10-14 days of antibiotics (day 7 today) patient will probably need chronic renal replacement therapy as per Renal continue to trend WBC count anticoagulation and HIT work up per Hematology patient is planned for further Urology work up and procedures will continue to monitor clinically
--- NOTE | 2017-09-08 12:51 | PN ---
CARDIOLOGY FOLLOWUP SUBJECTIVE: The patient is comfortable sitting in bed without shortness of breath. PHYSICAL EXAMINATION: VITAL SIGNS: Blood pressure is 140/96, heart rate in the 90s. NECK: Negative JVD. LUNGS: Without rales. HEART: With S1, S2. EXTREMITIES: Without edema. LABORATORY DATA: Hemoglobin is 11.1. Chemistries, BUN and creatinine 63 and 3.3. IMPRESSION: 1. Renal insufficiency. 2. Dilated cardiomyopathy. 3. No evidence for congestive heart failure. 4. Sepsis secondary to obstructive uropathy. 5. Mild aortic insufficiency. 6. History of Down syndrome. PLAN: Given these findings, the patient is hemodynamically stable. Magno Wu MD
[2017-09-08 13:00] LABS: ALBUMIN (PEP) 1.7 g/dL (3.8-4.8); ALPHA-1-GLOBULIN (PEP) 0.4 g/dL (0.2-0.3)
--- NOTE | 2017-09-08 13:24 | CP.PCM.PN ---
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 no heparin during HD No contraindication to ACEI/ARB if tolerated by BP. taper off midodrine Monitor Input/Output, daily weights and renal function with basic metabolic panel urology and ID consulted surgery eval for AVF placement appreciated on phos binders, nephrovite, weekly vit D, oral fe and aransep 40 mcg on 09/03/17 supplement electrolytes as needed pt on agratroban drip. to plan for permacath placement once okay by heme/onc. hopefully by early next week SW for outpt HD placemenet Dose meds/antibiotics for dialysis status. Avoid fleets enema/magnesium based laxatives. Avoid nephrotoxins/NSAIDs/ iodinated contrast (unless needed emergently) Glycemic control Further work up/management as per primary team. Thanks for allowing me to participate in care of your patient. Will follow patient with you. Please call if any Qs. 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 she has been seeing marketing operations intern Dr Darden and urologist as well. pt was brought to ER with c/o fever for 2 days. found to have severe renal failure and hypotension hence renal consulted ROS: pt unable to provide due to MR. overnight events noted. Physical Examination: General Appearance: Comfortable, in no acute respiratory distress, mostly co- operative . Vitals reviewed and noted as below Head; Atraumatic, normocephalic ENT: no ulcers no thrush. Tongue is midline. Oropharynx: no rash or ulcers. EYES: Pupils are equal, round and reactive to light accommodation. Eye muscles and extraocular movement intact. Sclera is anicteric. Neck; supple no lymphadenopathy, no thyromegaly or bruit Lungs: Normal respiratory rate/effort. Breath sounds bilateral equal and clear Heart: Normal rate. s1s2 normal. No rub or gallop. Extremities: no edema. No varicose veins Neurological: Patient is alert, awake Skin: Warm and dry. Normal turgor. No rash. Palpitation: Normal elasticity for age Abdomen: Abdomen is soft. Bowel sounds +. There is no abdominal tenderness, no guarding/rigidity no organomegaly Psych: no insight MSK: no joint tenderness or swelling. Digits and nails normal, no deformity : palpable kidneys. has b/l nephrostomy tubes draining urine access: neck catheter [facility] Labs/imaging reviewed. Past medical history, past surgical history, family history, social history, allergy reviewed and noted as below Family hx: no hx of CKD. Rest non-contributory Objective - Vital Signs/Intake and Output Vital Signs (last 24 hours): Temp Pulse Resp BP Pulse Ox 98.2 F 84 39 H 140/96 H 86 L 09/08/17 08:00 09/08/17 13:09 09/08/17 13:09 09/08/17 09:53 09/08/17 06:00 Intake and Output: 09/08/17 09/08/17 06:59 18:59 Intake Total 400 Output Total 700 Balance -300 - Medications Medications: Current Medications Calcium Acetate (Phoslo) 667 mg PO WM [facility] Last Admin: 09/08/17 08:28 Dose: 667 mg Carvedilol (Coreg) 6.25 mg PO BID [facility] Last Admin: 09/08/17 09:53 Dose: 6.25 mg Ergocalciferol (Drisdol 50,000 Intl Units Cap) 1 cap PO Q7D [facility] Last Admin: 09/02/17 09:28 Dose: 1 cap Famotidine (Pepcid) 20 mg PO DAILY [facility] Last Admin: 09/08/17 09:54 Dose: 20 mg Ferrous Gluconate (Fergon) 324 mg PO TID [facility] Last Admin: 09/08/17 09:53 Dose: 324 mg Ceftriaxone Sodium (Rocephin 2 Gm Ivpb) 2 gm in 100 mls @ 100 mls/hr IVPB DAILY [facility] PRN Reason: Protocol Last Admin: 09/08/17 09:55 Dose: 100 mls/hr Argatroban 250 mg/ Dextrose 252.5 mls @ 6.43 mls/hr IV .Q24H [facility]; 2 MCG/KG/MIN PRN Reason: Protocol Last Admin: 09/07/17 20:20 Dose: 3 mcg/kg/min, 9.64 mls/hr Midodrine (Proamatine) 5 mg PO TID [facility] Stop: 09/10/17 14:01 Vitamin B Complex/Vit C/Folic Acid (Nephro-Will) 1 tab PO 0800 [facility] Last Admin: 09/08/17 08:28 Dose: 1 tab - Labs Labs: 09/08/17 05:50 09/08/17 05:50 PT 24.9 SECONDS (9.4-12.5) H 09/08/17 05:50 INR 2.13 (0.93-1.08) H 09/08/17 05:50 APTT 59.7 Seconds (25.1-36.5) H 09/08/17 05:50
--- NOTE | 2017-09-08 16:31 | CP.PCM.PN ---
<Amberly Avitia - Last Filed: 09/08/17 16:29> Subjective - Date & Time of Evaluation Date of Evaluation: 09/08/17 Time of Evaluation: 09:40 - Subjective Subjective: Seen and examined at the bedside earlier today, no acute overnight events reported. Patient continues to have formed stool now, no reports of melena or bright red blood per rectum. No abdominal pain on assessment or reports of nausea or vomiting. Pending dialysis today. Spoke to mother at bedside. Objective - Vital Signs/Intake and Output Vital Signs (last 24 hours): Temp Pulse Resp BP Pulse Ox 98.4 F 84 39 H 140/96 H 86 L 09/08/17 12:00 09/08/17 13:09 09/08/17 13:09 09/08/17 09:53 09/08/17 06:00 Intake and Output: 09/08/17 09/08/17 06:59 18:59 Intake Total 400 Output Total 700 Balance -300 - Medications Medications: Current Medications Calcium Acetate (Phoslo) 667 mg PO WM [facility] Last Admin: 09/08/17 13:31 Dose: 667 mg Carvedilol (Coreg) 6.25 mg PO BID [facility] Last Admin: 09/08/17 09:53 Dose: 6.25 mg Ergocalciferol (Drisdol 50,000 Intl Units Cap) 1 cap PO Q7D [facility] Last Admin: 09/02/17 09:28 Dose: 1 cap Famotidine (Pepcid) 20 mg PO DAILY [facility] Last Admin: 09/08/17 09:54 Dose: 20 mg Ferrous Gluconate (Fergon) 324 mg PO TID [facility] Last Admin: 09/08/17 13:31 Dose: 324 mg Ceftriaxone Sodium (Rocephin 2 Gm Ivpb) 2 gm in 100 mls @ 100 mls/hr IVPB DAILY [facility] PRN Reason: Protocol Last Admin: 09/08/17 09:55 Dose: 100 mls/hr Argatroban 250 mg/ Dextrose 252.5 mls @ 6.43 mls/hr IV .Q24H [facility]; 2 MCG/KG/MIN PRN Reason: Protocol Last Admin: 09/07/17 20:20 Dose: 3 mcg/kg/min, 9.64 mls/hr Midodrine (Proamatine) 5 mg PO TID [facility] Stop: 09/10/17 14:01 Last Admin: 09/08/17 13:31 Dose: 5 mg Vitamin B Complex/Vit C/Folic Acid (Nephro-Will) 1 tab PO 0800 [facility] Last Admin: 09/08/17 08:28 Dose: 1 tab - Labs Labs: 09/08/17 05:50 09/08/17 05:50 PT 24.9 SECONDS (9.4-12.5) H 09/08/17 05:50 INR 2.13 (0.93-1.08) H 09/08/17 05:50 APTT 59.7 Seconds (25.1-36.5) H 09/08/17 05:50 - Constitutional Appears: No Acute Distress - Eye Exam Eye Exam: Normal appearance. absent: Scleral icterus - ENT Exam ENT Exam: Mucous Membranes Moist - Respiratory Exam Respiratory Exam: NORMAL BREATHING PATTERN. absent: Respiratory Distress - Cardiovascular Exam Cardiovascular Exam: +S1, +S2 - GI/Abdominal Exam GI & Abdominal Exam: Soft, Normal Bowel Sounds. absent: Guarding, Tenderness, Rebound Additional comments: bilateral nephrostomy tubes in place draining clear yellow urine - Extremities Exam Extremities Exam: absent: Calf Tenderness - Neurological Exam Neurological Exam: Alert, Awake Additional comments: nonverbal - Skin Skin Exam: Dry, Warm Assessment and Plan - Assessment and Plan (Free Text) Assessment: Assessment: Thrombocytopenia/ concern for HIT, Left common femoral thrombus Sepsis/urosepsis Chronic Renal Failure, on dialysis History obstructive uropathy S/p Bilateral Nephrostomy tube Resolved Abdominal pain, likely secondary to severe hydronephrosis/UTI UTI, (+) K Pnuemoniae Resolved Diarrhea, cdiff negative Plan: Continue GI prophylaxis On IV antibiotics as per ID on Argatroban drip monitor H/H diet as tolerated as per ID/renal hematology following. Seen and discussed with Dr. Rodriguez. <Lisa Rodriguez V - Last Filed: 09/08/17 22:39> Objective - Vital Signs/Intake and Output Vital Signs (last 24 hours): Temp Pulse Resp BP Pulse Ox 98.4 F 86 24 140/96 H 86 L 09/08/17 12:00 09/08/17 19:19 09/08/17 19:19 09/08/17 09:53 09/08/17 06:00 Intake and Output: 09/08/17 09/09/17 18:59 06:59 Intake Total 910 Output Total 1470 Balance -560 - Medications Medications: Current Medications Calcium Acetate (Phoslo) 667 mg PO WM [facility] Last Admin: 09/08/17 18:08 Dose: 667 mg Carvedilol (Coreg) 6.25 mg PO BID [facility] Last Admin: 09/08/17 18:08 Dose: 6.25 mg Ergocalciferol (Drisdol 50,000 Intl Units Cap) 1 cap PO Q7D [facility] Last Admin: 09/02/17 09:28 Dose: 1 cap Famotidine (Pepcid) 20 mg PO DAILY [facility] Last Admin: 09/08/17 09:54 Dose: 20 mg Ferrous Gluconate (Fergon) 324 mg PO TID [facility] Last Admin: 09/08/17 18:08 Dose: 324 mg Ceftriaxone Sodium (Rocephin 2 Gm Ivpb) 2 gm in 100 mls @ 100 mls/hr IVPB DAILY [facility] PRN Reason: Protocol Last Admin: 09/08/17 09:55 Dose: 100 mls/hr Argatroban 250 mg/ Dextrose 252.5 mls @ 6.43 mls/hr IV .Q24H [facility]; 2 MCG/KG/MIN PRN Reason: Protocol Last Admin: 09/08/17 21:20 Dose: Not Given Midodrine (Proamatine) 5 mg PO TID [facility] Stop: 09/10/17 14:01 Last Admin: 09/08/17 18:08 Dose: 5 mg Vitamin B Complex/Vit C/Folic Acid (Nephro-Will) 1 tab PO 0800 [facility] Last Admin: 09/08/17 08:28 Dose: 1 tab - Labs Labs: 09/08/17 05:50 09/08/17 05:50 PT 24.9 SECONDS (9.4-12.5) H 09/08/17 05:50 INR 2.13 (0.93-1.08) H 09/08/17 05:50 APTT 59.7 Seconds (25.1-36.5) H 09/08/17 05:50 Attending/Attestation - Attestation I have personally seen and examined this patient.: Yes I have fully participated in the care of the patient.: Yes I have reviewed all pertinent clinical information, including history, physical exam and plan: Yes Notes (Text): This is an addendum to GI progress report dictated by Amberly Avitia APN.The patient was seen and examined earlier. Medical records, lab studies, imagings were reviewed. Last 24 hours events reviewed. Agreed with the above treatment plan as outlined in Amberly Avitia APN's notes the with the addition of the following stool for C. difficile negative On examination abdomen soft patient family was at bedside Continue antibiotics as per ID 09/08/17 22:36
[2017-09-08] MEDS: Argatroban 250 MG in Dextrose 5% In Water 250 ML IV SCH (21:20)
[2017-09-09 06:17] LABS: BASO # 0.08 K/mm3 (0.0-2.0); BASO % 0.9 % (0.0-3.0); EOS # 0.2 (0.0-0.7); EOS % 2.3 % (1.5-5.0); GRAN # 4.92 (1.4-6.5); GRAN % 56.8 % (50.0-68.0); HEMOGLOBIN 11.1 g/dL (14.0-18.0); LYMPH # 2.8 (1.2-3.4); LYMPH % 32.4 % (22.0-35.0); MEAN CELL VOLUME 85.8 fl (80.0-105.0); MEAN CORPUSCULAR HEMOGLOBIN 27.7 pg (25.0-35.0); MEAN CORPUSCULAR HGB CONC 32.3 g/dl (31.0-37.0); MEAN PLATELET VOLUME 11.7 fl (7.0-11.0); MONO # 0.7 (0.1-0.6); MONO % 7.6 % (1.0-6.0); RBC 4.01 10^6/uL (3.5-6.1); RED CELL DISTRIBUTION WIDTH 13.8 % (11.5-14.5); WHITE BLOOD COUNT 8.7 10^3/ul (4.5-11.0)
[2017-09-09 06:28] LABS: INR 2.06 (0.93-1.08); PARTIAL THROMBOPLASTIN TIME 57.3 Seconds (25.1-36.5); PROTHROMBIN TIME 24.1 SECONDS (9.4-12.5)
[2017-09-09 07:03] LABS: ALB/GLOB RATIO 0.6 (1.1-1.8); ALBUMIN 2.2 g/dL (3.0-4.8); CALCIUM 7.6 mg/dL (8.4-10.5)
--- NOTE | 2017-09-09 08:06 | CP.PCM.PN ---
<Mateo Hinds - Last Filed: 09/12/17 07:14> Subjective - Date & Time of Evaluation Date of Evaluation: 09/09/17 Time of Evaluation: 07:00 - Subjective Subjective: General Surgery - Dr. Garrett Patient seen and examined at bedside in ICU. Patient family at bedside. No acute events reported overnight. Patient is noted to be non-verbal and family does not indicate complaints at this time. Patient continues to be monitored in ICU for suspected HIT. Objective - Vital Signs/Intake and Output Vital Signs (last 24 hours): Temp Pulse Resp BP Pulse Ox 98.4 F 81 15 140/96 H 86 L 09/08/17 12:00 09/09/17 05:25 09/09/17 05:24 09/08/17 09:53 09/08/17 06:00 - Medications Medications: Current Medications Calcium Acetate (Phoslo) 667 mg PO WM [facility] Last Admin: 09/08/17 18:08 Dose: 667 mg Carvedilol (Coreg) 6.25 mg PO BID [facility] Last Admin: 09/08/17 18:08 Dose: 6.25 mg Ergocalciferol (Drisdol 50,000 Intl Units Cap) 1 cap PO Q7D [facility] Last Admin: 09/02/17 09:28 Dose: 1 cap Famotidine (Pepcid) 20 mg PO DAILY [facility] Last Admin: 09/08/17 09:54 Dose: 20 mg Ferrous Gluconate (Fergon) 324 mg PO TID [facility] Last Admin: 09/08/17 18:08 Dose: 324 mg Ceftriaxone Sodium (Rocephin 2 Gm Ivpb) 2 gm in 100 mls @ 100 mls/hr IVPB DAILY [facility] PRN Reason: Protocol Last Admin: 09/08/17 09:55 Dose: 100 mls/hr Argatroban 250 mg/ Dextrose 252.5 mls @ 6.43 mls/hr IV .Q24H [facility]; 2 MCG/KG/MIN PRN Reason: Protocol Last Admin: 09/08/17 21:20 Dose: Not Given Midodrine (Proamatine) 5 mg PO TID [facility] Stop: 09/10/17 14:01 Last Admin: 09/08/17 18:08 Dose: 5 mg Vitamin B Complex/Vit C/Folic Acid (Nephro-Will) 1 tab PO 0800 [facility] Last Admin: 09/08/17 08:28 Dose: 1 tab - Labs Labs: 09/09/17 05:15 09/09/17 05:15 PT 24.1 SECONDS (9.4-12.5) H 09/09/17 05:15 INR 2.06 (0.93-1.08) H 09/09/17 05:15 APTT 57.3 Seconds (25.1-36.5) H 09/09/17 05:15 - Constitutional Appears: Non-toxic, No Acute Distress - Head Exam Head Exam: ATRAUMATIC, NORMAL INSPECTION, NORMOCEPHALIC - Eye Exam Eye Exam: EOMI, PERRL - ENT Exam ENT Exam: Mucous Membranes Moist - Respiratory Exam Respiratory Exam: NORMAL BREATHING PATTERN. absent: Rales, Rhonchi, Wheezes - Cardiovascular Exam Cardiovascular Exam: REGULAR RHYTHM, +S1, +S2 - GI/Abdominal Exam GI & Abdominal Exam: Soft, Normal Bowel Sounds. absent: Distended, Firm, Guarding, Rigid, Tenderness - Exam Additional comments: Bilateral nephrostomy tubes draining clear/yellow urine - Extremities Exam Extremities Exam: Normal Inspection. absent: Calf Tenderness, Pedal Edema - Neurological Exam Neurological Exam: Alert, Awake - Psychiatric Exam Psychiatric exam: Normal Affect - Skin Skin Exam: Dry, Intact, Normal Color, Warm Assessment and Plan - Assessment and Plan (Free Text) Assessment: 27 year old M w/ PMH of Down's syndrome, obstructive uropathy. Patient admitted for sepsis who is now being given dialysis with temporary Right IJ dialysis cath Plan: - Continuing HD, creatinine showing gradual improvement over past few days - Nephro recommending snf dialysis - AVF creation remains elective procedure. Patient would need to be more stable for surgery - Continue medical management of suspected HIT, thrombocytopenia, and renal failure as per primary, - Continue Left arm precautions - Discuss with Dr. Tami Hinds PGY1 <Marcello Garrett - Last Filed: 09/12/17 12:14> Objective - Vital Signs/Intake and Output Vital Signs (last 24 hours): Temp Pulse Resp BP Pulse Ox 97.4 F L 72 16 115/62 100 09/12/17 04:00 09/12/17 04:00 09/12/17 04:00 09/12/17 04:00 09/09/17 20:00 Intake and Output: 09/12/17 09/12/17 06:59 18:59 Intake Total 108 Output Total 920 Balance -812 - Medications Medications: Current Medications Calcium Acetate (Phoslo) 667 mg PO WM [facility] Last Admin: 09/12/17 08:39 Dose: 667 mg Carvedilol (Coreg) 6.25 mg PO BID [facility] Last Admin: 09/12/17 10:37 Dose: 6.25 mg Darbepoetin Jorden (Aranesp) 40 mcg IVP ONCE ONE Stop: 09/13/17 10:02 Ergocalciferol (Drisdol 50,000 Intl Units Cap) 1 cap PO Q7D [facility] Last Admin: 09/09/17 10:14 Dose: 1 cap Famotidine (Pepcid) 20 mg PO DAILY [facility] Last Admin: 09/12/17 10:37 Dose: 20 mg Ferrous Gluconate (Fergon) 324 mg PO TID [facility] Last Admin: 09/12/17 10:37 Dose: 324 mg Ceftriaxone Sodium (Rocephin 2 Gm Ivpb) 2 gm in 100 mls @ 100 mls/hr IVPB DAILY [facility] PRN Reason: Protocol Last Admin: 09/12/17 10:32 Dose: 100 mls/hr Argatroban 250 mg/ Dextrose 252.5 mls @ 6.43 mls/hr IV .Q24H [facility]; 2 MCG/KG/MIN PRN Reason: Protocol Last Admin: 09/11/17 12:10 Dose: 3 mcg/kg/min, 9.64 mls/hr Losartan Potassium (Cozaar) 25 mg PO QPM [facility] Last Admin: 09/11/17 18:06 Dose: 25 mg Vitamin B Complex/Vit C/Folic Acid (Nephro-Will) 1 tab PO 0800 [facility] Last Admin: 09/12/17 08:39 Dose: 1 tab - Labs Labs: 09/12/17 05:48 09/12/17 05:48 PT 18.3 SECONDS (9.4-12.5) H 09/11/17 05:00 INR 1.58 (0.93-1.08) H 09/11/17 05:00 APTT 57.8 Seconds (25.1-36.5) H 09/11/17 11:02 Assessment and Plan - Assessment and Plan (Free Text) Plan: Patient was seen, evaluated and examined by me. I agree with the assessment and plan as per the resident's note.
[2017-09-09] MEDS: Multivitamin Vitamin B Complex (Nephro-Vite) Tab PO SCH (08:49)
--- NOTE | 2017-09-09 10:01 | CP.PCM.PN ---
Subjective - Date & Time of Evaluation Date of Evaluation: 09/09/17 Time of Evaluation: 09:40 - Subjective Subjective: Comfortable in bed, no fevers, not in distress. Objective - Vital Signs/Intake and Output Vital Signs (last 24 hours): Temp Pulse Resp BP Pulse Ox 98.4 F 81 15 140/96 H 86 L 09/08/17 12:00 09/09/17 05:25 09/09/17 05:24 09/08/17 09:53 09/08/17 06:00 Intake and Output: 09/08/17 09/09/17 18:59 06:59 Intake Total 910 Output Total 1470 Balance -560 - Medications Medications: Current Medications Calcium Acetate (Phoslo) 667 mg PO WM [facility] Last Admin: 09/08/17 18:08 Dose: 667 mg Carvedilol (Coreg) 6.25 mg PO BID [facility] Last Admin: 09/08/17 18:08 Dose: 6.25 mg Ergocalciferol (Drisdol 50,000 Intl Units Cap) 1 cap PO Q7D [facility] Last Admin: 09/02/17 09:28 Dose: 1 cap Famotidine (Pepcid) 20 mg PO DAILY [facility] Last Admin: 09/08/17 09:54 Dose: 20 mg Ferrous Gluconate (Fergon) 324 mg PO TID [facility] Last Admin: 09/08/17 18:08 Dose: 324 mg Ceftriaxone Sodium (Rocephin 2 Gm Ivpb) 2 gm in 100 mls @ 100 mls/hr IVPB DAILY [facility] PRN Reason: Protocol Last Admin: 09/08/17 09:55 Dose: 100 mls/hr Argatroban 250 mg/ Dextrose 252.5 mls @ 6.43 mls/hr IV .Q24H [facility]; 2 MCG/KG/MIN PRN Reason: Protocol Last Admin: 09/08/17 21:20 Dose: Not Given Midodrine (Proamatine) 5 mg PO TID [facility] Stop: 09/10/17 14:01 Last Admin: 09/08/17 18:08 Dose: 5 mg Vitamin B Complex/Vit C/Folic Acid (Nephro-Will) 1 tab PO 0800 [facility] Last Admin: 09/08/17 08:28 Dose: 1 tab - Labs Labs: 09/09/17 05:15 09/08/17 05:50 PT 24.1 SECONDS (9.4-12.5) H 09/09/17 05:15 INR 2.06 (0.93-1.08) H 09/09/17 05:15 APTT 57.3 Seconds (25.1-36.5) H 09/09/17 05:15 - Constitutional Appears: Non-toxic, Chronically Ill - Head Exam Head Exam: NORMAL INSPECTION - Neck Exam Neck Exam: absent: Meningismus - Respiratory Exam Respiratory Exam: Decreased Breath Sounds Additional comments: right sided HD catheter in place, intact and clean - Cardiovascular Exam Cardiovascular Exam: +S1, +S2 - GI/Abdominal Exam GI & Abdominal Exam: Soft. absent: Tenderness Additional comments: neprhostomy tubes in place Assessment and Plan - Assessment and Plan (Free Text) Plan: Assessment severe sepsis / septic shock due to UTI from Klebsiella in a patient with hydronephrosis and hydroureter and acute on chronic renal failure, S/P nephrostomy tube placement and now on dialysis acute femoral vein DVT acute thrombocytopenia R/O HIT; slowly improving mental disability down syndrome history of renal failure Plan continue Rocephin; blood cx are negative; reviewed CT A/P; complete 10-14 days of antibiotics (day 8 today) patient will probably need chronic renal replacement therapy as per Renal continue to trend WBC count anticoagulation (argatroban) and HIT work up per Hematology patient is planned for further Urology work up and procedures will continue to monitor clinically
[2017-09-09] MEDS: Ergocalciferol 50,000 Intl Units Cap PO SCH (10:14)
--- NOTE | 2017-09-09 10:48 | CP.PCM.PN ---
<Amberly Avitia - Last Filed: 09/09/17 10:47> Subjective - Date & Time of Evaluation Date of Evaluation: 09/09/17 Time of Evaluation: 08:50 - Subjective Subjective: Seen and examined at the bedside earlier today, mother at bedside. No acute overnight events reported. Patient having formed stools. No reports of nausea , vomiting, or abdominal pain. He remains on Bactroban drip. No reports of overt GI bleed. Status post dialysis yesterday. Patient nonverbal, but smiling in the bed. Objective - Vital Signs/Intake and Output Vital Signs (last 24 hours): Temp Pulse Resp BP Pulse Ox 98.2 F 81 15 140/96 H 86 L 09/09/17 08:00 09/09/17 05:25 09/09/17 05:24 09/08/17 09:53 09/08/17 06:00 - Medications Medications: Current Medications Calcium Acetate (Phoslo) 667 mg PO WM [facility] Last Admin: 09/09/17 08:49 Dose: 667 mg Carvedilol (Coreg) 6.25 mg PO BID [facility] Last Admin: 09/09/17 10:09 Dose: 6.25 mg Ergocalciferol (Drisdol 50,000 Intl Units Cap) 1 cap PO Q7D [facility] Last Admin: 09/09/17 10:14 Dose: 1 cap Famotidine (Pepcid) 20 mg PO DAILY [facility] Last Admin: 09/09/17 10:09 Dose: 20 mg Ferrous Gluconate (Fergon) 324 mg PO TID [facility] Last Admin: 09/09/17 10:09 Dose: 324 mg Ceftriaxone Sodium (Rocephin 2 Gm Ivpb) 2 gm in 100 mls @ 100 mls/hr IVPB DAILY [facility] PRN Reason: Protocol Last Admin: 09/08/17 09:55 Dose: 100 mls/hr Argatroban 250 mg/ Dextrose 252.5 mls @ 6.43 mls/hr IV .Q24H [facility]; 2 MCG/KG/MIN PRN Reason: Protocol Last Admin: 09/08/17 21:20 Dose: Not Given Losartan Potassium (Cozaar) 25 mg PO QPM [facility] Midodrine (Proamatine) 5 mg PO TID [facility] Stop: 09/10/17 14:01 Last Admin: 09/09/17 10:09 Dose: 5 mg Vitamin B Complex/Vit C/Folic Acid (Nephro-Will) 1 tab PO 0800 [facility] Last Admin: 09/09/17 08:49 Dose: 1 tab - Labs Labs: 09/09/17 05:15 09/09/17 05:15 PT 24.1 SECONDS (9.4-12.5) H 09/09/17 05:15 INR 2.06 (0.93-1.08) H 09/09/17 05:15 APTT 57.3 Seconds (25.1-36.5) H 09/09/17 05:15 - Constitutional Appears: No Acute Distress - Eye Exam Eye Exam: Normal appearance. absent: Scleral icterus - ENT Exam ENT Exam: Mucous Membranes Moist - Respiratory Exam Respiratory Exam: Clear to Ausculation Bilateral, NORMAL BREATHING PATTERN. absent: Respiratory Distress - Cardiovascular Exam Cardiovascular Exam: +S1, +S2 - GI/Abdominal Exam GI & Abdominal Exam: Soft, Normal Bowel Sounds. absent: Guarding, Tenderness, Rebound Additional comments: Bilateral nephrostomy tube - Extremities Exam Extremities Exam: absent: Calf Tenderness, Pedal Edema - Neurological Exam Neurological Exam: Alert, Awake, Oriented x3 - Skin Skin Exam: Dry, Warm Assessment and Plan - Assessment and Plan (Free Text) Assessment: Assessment: Thrombocytopenia/ concern for HIT, Left common femoral thrombus Sepsis/urosepsis Chronic Renal Failure, on dialysis History obstructive uropathy S/p Bilateral Nephrostomy tube Resolved Abdominal pain, likely secondary to severe hydronephrosis/UTI UTI, (+) K Pnuemoniae Resolved Diarrhea, cdiff negative Plan: Continue Pepcid On IV antibiotics as per ID on Argatroban drip monitor H/H diet as tolerated as per ID/renal/hematology. as per surgery, AVF when stable Seen and discussed with Dr. Rodriguez. <Lisa Rodriguez V - Last Filed: 09/09/17 19:41> Objective - Vital Signs/Intake and Output Vital Signs (last 24 hours): Temp Pulse Resp BP Pulse Ox 98 F 76 16 120/68 86 L 09/09/17 16:00 09/09/17 18:15 09/09/17 16:22 09/09/17 18:15 09/08/17 06:00 Intake and Output: 09/09/17 09/10/17 18:59 06:59 Intake Total 1156 Output Total 1660 Balance -504 - Medications Medications: Current Medications Calcium Acetate (Phoslo) 667 mg PO WM [facility] Last Admin: 09/09/17 17:53 Dose: 667 mg Carvedilol (Coreg) 6.25 mg PO BID [facility] Last Admin: 09/09/17 18:15 Dose: 6.25 mg Ergocalciferol (Drisdol 50,000 Intl Units Cap) 1 cap PO Q7D [facility] Last Admin: 09/09/17 10:14 Dose: 1 cap Famotidine (Pepcid) 20 mg PO DAILY [facility] Last Admin: 09/09/17 10:09 Dose: 20 mg Ferrous Gluconate (Fergon) 324 mg PO TID [facility] Last Admin: 09/09/17 15:06 Dose: 324 mg Ceftriaxone Sodium (Rocephin 2 Gm Ivpb) 2 gm in 100 mls @ 100 mls/hr IVPB DAILY [facility] PRN Reason: Protocol Last Admin: 09/09/17 11:37 Dose: 100 mls/hr Argatroban 250 mg/ Dextrose 252.5 mls @ 6.43 mls/hr IV .Q24H [facility]; 2 MCG/KG/MIN PRN Reason: Protocol Last Admin: 09/08/17 21:20 Dose: Not Given Losartan Potassium (Cozaar) 25 mg PO QPM [facility] Last Admin: 09/09/17 18:15 Dose: 25 mg Midodrine (Proamatine) 5 mg PO TID [facility] Stop: 09/10/17 14:01 Last Admin: 09/09/17 15:06 Dose: 5 mg Vitamin B Complex/Vit C/Folic Acid (Nephro-Will) 1 tab PO 0800 [facility] Last Admin: 09/09/17 08:49 Dose: 1 tab - Labs Labs: 09/09/17 05:15 09/09/17 05:15 PT 24.1 SECONDS (9.4-12.5) H 09/09/17 05:15 INR 2.06 (0.93-1.08) H 09/09/17 05:15 APTT 57.3 Seconds (25.1-36.5) H 09/09/17 05:15 Attending/Attestation - Attestation I have personally seen and examined this patient.: Yes I have fully participated in the care of the patient.: Yes I have reviewed all pertinent clinical information, including history, physical exam and plan: Yes Notes (Text): This is an addendum to GI progress report dictated by Amberly Avitia APN.The patient was seen and examined earlier. Medical records, lab studies, imagings were reviewed. Last 24 hours events reviewed. Agreed with the above treatment plan as outlined in Amberly Avitia APN's notes the with the addition of the following Tolerating the diet Abdomen soft no tenderness Continue antibiotics as per ID Follow-up the hemoglobin Improved her diarrhea 09/09/17 19:40
[2017-09-09] MEDS: cefTRIAXone 2 GM IN NS 2 GM/100 ML BAG IVPB SCH (11:37)
--- NOTE | 2017-09-09 12:54 | CP.PCM.PN ---
<Edilson Garcia - Last Filed: 09/09/17 12:51> Subjective - Date & Time of Evaluation Date of Evaluation: 09/09/17 Time of Evaluation: 12:51 - Subjective Subjective: Medicine progress note Patient seen and examined at bedside this morning. No acute overnight events per nursing staff. ROS limited due to patient nonverbal status. HIT workup still pending. Platelet count improving, today 130. Continue with argatroban drip at this time. Likely permacath placement on tuesday. Objective - Vital Signs/Intake and Output Vital Signs (last 24 hours): Temp Pulse Resp BP Pulse Ox 98.2 F 78 15 140/96 H 86 L 09/09/17 08:00 09/09/17 07:00 09/09/17 05:24 09/08/17 09:53 09/08/17 06:00 - Medications Medications: Current Medications Calcium Acetate (Phoslo) 667 mg PO WM [facility] Last Admin: 09/09/17 11:40 Dose: 667 mg Carvedilol (Coreg) 6.25 mg PO BID [facility] Last Admin: 09/09/17 10:09 Dose: 6.25 mg Ergocalciferol (Drisdol 50,000 Intl Units Cap) 1 cap PO Q7D [facility] Last Admin: 09/09/17 10:14 Dose: 1 cap Famotidine (Pepcid) 20 mg PO DAILY [facility] Last Admin: 09/09/17 10:09 Dose: 20 mg Ferrous Gluconate (Fergon) 324 mg PO TID [facility] Last Admin: 09/09/17 10:09 Dose: 324 mg Ceftriaxone Sodium (Rocephin 2 Gm Ivpb) 2 gm in 100 mls @ 100 mls/hr IVPB DAILY [facility] PRN Reason: Protocol Last Admin: 09/09/17 11:37 Dose: 100 mls/hr Argatroban 250 mg/ Dextrose 252.5 mls @ 6.43 mls/hr IV .Q24H [facility]; 2 MCG/KG/MIN PRN Reason: Protocol Last Admin: 09/08/17 21:20 Dose: Not Given Losartan Potassium (Cozaar) 25 mg PO QPM [facility] Midodrine (Proamatine) 5 mg PO TID [facility] Stop: 09/10/17 14:01 Last Admin: 09/09/17 10:09 Dose: 5 mg Vitamin B Complex/Vit C/Folic Acid (Nephro-Will) 1 tab PO 0800 [facility] Last Admin: 09/09/17 08:49 Dose: 1 tab - Labs Labs: 09/09/17 05:15 09/09/17 05:15 PT 24.1 SECONDS (9.4-12.5) H 09/09/17 05:15 INR 2.06 (0.93-1.08) H 09/09/17 05:15 APTT 57.3 Seconds (25.1-36.5) H 09/09/17 05:15 - Constitutional Appears: No Acute Distress - Head Exam Head Exam: ATRAUMATIC, NORMAL INSPECTION, NORMOCEPHALIC - Eye Exam Eye Exam: EOMI, PERRL - ENT Exam ENT Exam: Mucous Membranes Moist - Respiratory Exam Respiratory Exam: Clear to Ausculation Bilateral. absent: Rales, Rhonchi, Wheezes - Cardiovascular Exam Cardiovascular Exam: RRR, +S1, +S2. absent: Gallop, Rubs, Murmur - GI/Abdominal Exam GI & Abdominal Exam: Soft. absent: Distended, Firm, Guarding, Rigid, Tenderness , Rebound - Neurological Exam Neurological Exam: Alert, Awake - Psychiatric Exam Psychiatric exam: Normal Affect, Normal Mood - Skin Skin Exam: Dry, Intact, Normal Color, Warm Assessment and Plan - Assessment and Plan (Free Text) Plan: 27yo male with ESRD, obstructive uropathy, down syndrome admitted to the [facility] for septic shock secondary to urinary tract infection in the setting of obstructive uropathy. Presently he is s/p bilateral percutaneous nephrostomy tube placement and is on argatroban drip for concern for HIT in setting of thrombocytopenia and new DVT 1. End stage renal disease - dialysis started via temporary dialysis catheter, currently on hemodialysis scheduled TTS - s/p nephrostomy tubes places by IR Dr Maher, draining; requires permacath placement prior to discharge, likely to be done on Tuesday - Nephrology consulted - Dr. Lyons - phos binders, nephrovite, weekly vit D, oral fe - Urology consulted, recs appreciated - Surgery consulted for AV fistula placement - Monitor I's and O's, daily weight - Avoid nephrotoxic agents - Hepatitis panel negative 2. Sepsis secondary to UTI - off pressors, now on midodrine - afebrile, no leukocytosis - blood cultures negative - urine culture notable for klebsiella - procalcitonin elevated - continue rocephin 2gm for total of 10-14 days (presently day #8) - ID consulted, recs appreciated - Urology consulted, recs appreciated 3. Acute DVT in setting of thrombocytopenia - HIT workup sent, pending results - LE duplex revealed acute nonocclusive thrombus in the left common femoral vein - Patient on argatrobran drip - Hematology consulted - Dr. Hunt 4. CHF, chronic -Echocardiogram from 09/02 reviewed; LVEF of 35% with boderline concentric LVH, moderate AR, mild MR, mild TR, RSVP of 40mmHg -Dobutrex d/kati per cadiology recommendations -Continue with coreg 6.25 PO BID -Cardiology consulted - Dr. Wu 5. abd pain/transaminitis, resolved - Dr. Rodriguez consulted, continue medical management - lipase not elevated - hep panel negative - cdiff pending 6. GI/DVT prophylaxis - pepcid/argatroban Patient was seen, examined and discussed with attending, Dr. Watson <Ashlie Watson - Last Filed: 09/09/17 16:05> Objective - Vital Signs/Intake and Output Vital Signs (last 24 hours): Temp Pulse Resp BP Pulse Ox 98.6 F 89 37 H 140/96 H 86 L 09/09/17 12:00 09/09/17 13:07 09/09/17 13:07 09/08/17 09:53 09/08/17 06:00 - Medications Medications: Current Medications Calcium Acetate (Phoslo) 667 mg PO WM [facility] Last Admin: 09/09/17 11:40 Dose: 667 mg Carvedilol (Coreg) 6.25 mg PO BID [facility] Last Admin: 09/09/17 10:09 Dose: 6.25 mg Ergocalciferol (Drisdol 50,000 Intl Units Cap) 1 cap PO Q7D [facility] Last Admin: 09/09/17 10:14 Dose: 1 cap Famotidine (Pepcid) 20 mg PO DAILY [facility] Last Admin: 09/09/17 10:09 Dose: 20 mg Ferrous Gluconate (Fergon) 324 mg PO TID [facility] Last Admin: 09/09/17 15:06 Dose: 324 mg Ceftriaxone Sodium (Rocephin 2 Gm Ivpb) 2 gm in 100 mls @ 100 mls/hr IVPB DAILY [facility] PRN Reason: Protocol Last Admin: 09/09/17 11:37 Dose: 100 mls/hr Argatroban 250 mg/ Dextrose 252.5 mls @ 6.43 mls/hr IV .Q24H [facility]; 2 MCG/KG/MIN PRN Reason: Protocol Last Admin: 09/08/17 21:20 Dose: Not Given Losartan Potassium (Cozaar) 25 mg PO QPM [facility] Midodrine (Proamatine) 5 mg PO TID [facility] Stop: 09/10/17 14:01 Last Admin: 09/09/17 15:06 Dose: 5 mg Vitamin B Complex/Vit C/Folic Acid (Nephro-Will) 1 tab PO 0800 [facility] Last Admin: 09/09/17 08:49 Dose: 1 tab - Labs Labs: 09/09/17 05:15 09/09/17 05:15 PT 24.1 SECONDS (9.4-12.5) H 09/09/17 05:15 INR 2.06 (0.93-1.08) H 09/09/17 05:15 APTT 57.3 Seconds (25.1-36.5) H 09/09/17 05:15 Attending/Attestation - Attestation I have personally seen and examined this patient.: Yes I have fully participated in the care of the patient.: Yes I have reviewed all pertinent clinical information, including history, physical exam and plan: Yes Notes (Text): 09/09/17 16:03 Patient was seen and examined with product manager medical device. Patient remain stable over night. 27 yrs old male with PMH of Down syndrome, Obstructive uropathy with sepsis due to K.Pneumonia UTI. and renal failure requiring hemodialysis. Patient is on IV ceftriaxone Day # 8, need total 2 weeks of antibiotics,He is afebrile.Blood cultures are negative for any growth. Patient creatinine clearance is low, will likely need intermediate project manager HD, Case was discussed with Nephrology.Plan for Permanent hemodialysis catheter on Tuesday. Thrombocytopenia and new DVT, concerning for HIT, on Argatroban, Platelet count is improving we will monitor.Hematology evaluation is appreciated. Prognosis is guarded
--- NOTE | 2017-09-09 15:14 | CP.PCM.PN ---
Subjective - Date & Time of Evaluation Date of Evaluation: 09/09/17 Time of Evaluation: 15:14 - Subjective Subjective: Follow up Nephrology Consultation: Assessment: stable ESRD by now with b/l massive hydronephrosis and loss of renal cortex s/p b/l nephrostomy possible HIT with left femoral DVT Hyperkalemia and acidosis, hypocalcemia, anemia, hypomagnesmeia urosepsis with shock, Klebsiella hx of MR Pulmonary congestion vit D def CHF EF 35% thrombocytopenia Plan plan for dialysis tomorrow as TTS. no heparin during HD No contraindication to ACEI/ARB if tolerated by BP. taper off midodrine. low dose losartan started Monitor Input/Output, daily weights and renal function with basic metabolic panel urology and ID consulted surgery eval for AVF placement appreciated on phos binders, nephrovite, weekly vit D, oral fe and aransep 40 mcg on 09/03/17 supplement electrolytes as needed pt on agratroban drip. to plan for permacath placement once okay by heme/onc. hopefully by early next week SW for outpt HD placemenet Dose meds/antibiotics for dialysis status. Avoid fleets enema/magnesium based laxatives. Avoid nephrotoxins/NSAIDs/ iodinated contrast (unless needed emergently) Glycemic control Further work up/management as per primary team. Thanks for allowing me to participate in care of your patient. Will follow patient with you. Please call if any Qs. d/w primary team and mother Dr Olegario Lyons Office: [phone] HPI: Pt is a 27 M with MR and chronic obstructive uropathy and progressive CKD as a result of obstruction, mother was told about need for dialysis in near future. she has been seeing patch washer Dr Darden and urologist as well. pt was brought to ER with c/o fever for 2 days. found to have severe renal failure and hypotension hence renal consulted ROS: pt unable to provide due to MR. overnight events noted. Physical Examination: General Appearance: Comfortable, in no acute respiratory distress, mostly co- operative . Vitals reviewed and noted as below Head; Atraumatic, normocephalic ENT: no ulcers no thrush. Tongue is midline. Oropharynx: no rash or ulcers. EYES: Pupils are equal, round and reactive to light accommodation. Eye muscles and extraocular movement intact. Sclera is anicteric. Neck; supple no lymphadenopathy, no thyromegaly or bruit Lungs: Normal respiratory rate/effort. Breath sounds bilateral equal and clear Heart: Normal rate. s1s2 normal. No rub or gallop. Extremities: no edema. No varicose veins Neurological: Patient is alert, awake Skin: Warm and dry. Normal turgor. No rash. Palpitation: Normal elasticity for age Abdomen: Abdomen is soft. Bowel sounds +. There is no abdominal tenderness, no guarding/rigidity no organomegaly Psych: no insight MSK: no joint tenderness or swelling. Digits and nails normal, no deformity : palpable kidneys. has b/l nephrostomy tubes draining urine access: neck catheter [facility] Labs/imaging reviewed. Past medical history, past surgical history, family history, social history, allergy reviewed and noted as below Family hx: no hx of CKD. Rest non-contributory Objective - Vital Signs/Intake and Output Vital Signs (last 24 hours): Temp Pulse Resp BP Pulse Ox 98.6 F 89 37 H 140/96 H 86 L 09/09/17 12:00 09/09/17 13:07 09/09/17 13:07 09/08/17 09:53 09/08/17 06:00 - Medications Medications: Current Medications Calcium Acetate (Phoslo) 667 mg PO WM [facility] Last Admin: 09/09/17 11:40 Dose: 667 mg Carvedilol (Coreg) 6.25 mg PO BID [facility] Last Admin: 09/09/17 10:09 Dose: 6.25 mg Ergocalciferol (Drisdol 50,000 Intl Units Cap) 1 cap PO Q7D [facility] Last Admin: 09/09/17 10:14 Dose: 1 cap Famotidine (Pepcid) 20 mg PO DAILY [facility] Last Admin: 09/09/17 10:09 Dose: 20 mg Ferrous Gluconate (Fergon) 324 mg PO TID [facility] Last Admin: 09/09/17 15:06 Dose: 324 mg Ceftriaxone Sodium (Rocephin 2 Gm Ivpb) 2 gm in 100 mls @ 100 mls/hr IVPB DAILY [facility] PRN Reason: Protocol Last Admin: 09/09/17 11:37 Dose: 100 mls/hr Argatroban 250 mg/ Dextrose 252.5 mls @ 6.43 mls/hr IV .Q24H [facility]; 2 MCG/KG/MIN PRN Reason: Protocol Last Admin: 09/08/17 21:20 Dose: Not Given Losartan Potassium (Cozaar) 25 mg PO QPM [facility] Midodrine (Proamatine) 5 mg PO TID [facility] Stop: 09/10/17 14:01 Last Admin: 09/09/17 15:06 Dose: 5 mg Vitamin B Complex/Vit C/Folic Acid (Nephro-Will) 1 tab PO 0800 [facility] Last Admin: 09/09/17 08:49 Dose: 1 tab - Labs Labs: 09/09/17 05:15 09/09/17 05:15 PT 24.1 SECONDS (9.4-12.5) H 09/09/17 05:15 INR 2.06 (0.93-1.08) H 09/09/17 05:15 APTT 57.3 Seconds (25.1-36.5) H 09/09/17 05:15
[2017-09-10 05:50] LABS: ALB/GLOB RATIO 0.7 (1.1-1.8); ALBUMIN 2.3 g/dL (3.0-4.8)
[2017-09-10 05:54] LABS: HEMOGLOBIN 10.8 g/dL (14.0-18.0); MEAN CELL VOLUME 85.9 fl (80.0-105.0); MEAN CORPUSCULAR HEMOGLOBIN 28.1 pg (25.0-35.0); MEAN CORPUSCULAR HGB CONC 32.7 g/dl (31.0-37.0); RBC 3.84 10^6/uL (3.5-6.1); RED CELL DISTRIBUTION WIDTH 13.7 % (11.5-14.5); WHITE BLOOD COUNT 8.6 10^3/ul (4.5-11.0)
[2017-09-10 05:57] LABS: BASO % 1.9 % (0.0-3.0); EOS % 2.7 % (1.5-5.0); GRAN % 54.5 % (50.0-68.0); LYMPH % 28.4 % (22.0-35.0); MEAN PLATELET VOLUME 12.4 fl (7.0-11.0); MONO % 12.5 % (1.0-6.0)
[2017-09-10 05:58] LABS: BASO # 0.16 K/mm3 (0.0-2.0); EOS # 0.2 (0.0-0.7); GRAN # 4.68 (1.4-6.5); LYMPH # 2.4 (1.2-3.4); MONO # 1.1 (0.1-0.6)
[2017-09-10 06:01] LABS: INR 2.17 (0.93-1.08); PARTIAL THROMBOPLASTIN TIME 59.9 Seconds (25.1-36.5); PROTHROMBIN TIME 25.3 SECONDS (9.4-12.5)
[2017-09-10] MEDS: Argatroban 250 MG in Dextrose 5% In Water 250 ML IV SCH (06:58)
--- NOTE | 2017-09-10 10:30 | PN ---
DATE: SUBJECTIVE: I saw Garret in the Intensive Care Unit, sitting up in bed. He is alert, nonverbal. The mother is with him in a bedside bed, in no acute distress at this time. PHYSICAL EXAMINATION: VITAL SIGNS: He has 97.8 temperature, 78 pulse, 16 respiratory rate, and 100% O2 sat on room air. HEENT: Head is atraumatic and normocephalic. HEART: Regular rate. LUNGS: Decreased breath sounds, but clear. ABDOMEN: Soft. EXTREMITIES: No edema. MEDICATIONS: He is currently on argatroban, Coreg, Cozaar, Drisdol, Fergon, Nephro-Will, Pepcid, PhosLo, ProAmatine, and ceftriaxone. LABORATORY DATA: He has 8.6 white count, 10.8 hemoglobin, 33 hematocrit with a 182 platelets. INR is 2.17. He has a 137 sodium; potassium 4.8; BUN 55; creatinine 3.5, a little bit worse; sugar is 95. Total bilirubin is 0.2, AST is 40, ALT is 38, and alkaline phosphatase is 80. ASSESSMENT AND PLAN: He is being seen by multiple physicians; Renal, the legal records clerk, GI, Infectious Disease, Cardiology, and Urology. He has chronic renal failure, severe sepsis, septic shock, hydronephrosis, Down syndrome, and mental retardation. Check his labs tomorrow. Lawrence Merlos DO
[2017-09-10] MEDS: cefTRIAXone 2 GM IN NS 2 GM/100 ML BAG IVPB SCH (10:52)
[2017-09-10] MEDS: Multivitamin Vitamin B Complex (Nephro-Vite) Tab PO SCH (10:52)
--- NOTE | 2017-09-10 11:51 | PN ---
DATE: 09/10/2017 SUBJECTIVE: The patient is in bed, was seen earlier this morning in room 128, bed 7. No fevers and no chills. PHYSICAL EXAMINATION: VITAL SIGNS: Temperature is 98, blood pressure is 120/80, respiratory rate of 18. HEENT: Unremarkable. NECK: Supple. LUNGS: Have decreased breath sounds. HEART: Normal S1, S2. ABDOMEN: Soft, nontender. LABORATORY DATA: Reveals the patient's white count is 8.6, hemoglobin of 10, platelets of 182. Chemistries reveals BUN of 55, creatinine of 3.5. Procalcitonin is greater than 200. Urinalysis is noted. Hepatitis profile is negative. Microbiology reveals there is Klebsiella species and Klebsiella pneumonia species in the urine relatively sensitive and Klebsiella from the abdominal wound culture and Klebsiella in the abdomen. Review of orders reveals the patient to be on ceftriaxone. ASSESSMENT AND PLAN: A 27-year-old male with severe sepsis, septic shock due to Klebsiella urine as the source, hydronephrosis, hydroureter and [id number] renal failure status post nephrostomy tube placement, now on dialysis with acute femoral vein deep vein thrombosis, acute thrombocytopenia, must rule out heparin-induced thrombocytopenia, slowly improving. The patient with a mental disability, Down syndrome, history of renal failure, on ceftriaxone, complete 10-14 days, today is day #9 of 10-14 days and anticoagulation, argatroban and heparin-induced thrombocytopenia workup as per Hematology and Urology on the case. We will follow with you. The patient's white count is improved now down to 8.6 from 23,000. Bernardino Booth MD
--- NOTE | 2017-09-10 23:26 | CP.PCM.PN ---
Subjective - Date & Time of Evaluation Date of Evaluation: 09/10/17 Time of Evaluation: 13:00 - Subjective Subjective: renal follow up note seen and examined on dialysis Physical Examination: General Appearance: Comfortable, in no acute respiratory distress, mostly co- operative . Head; Atraumatic, normocephalic ENT: no ulcers no thrush. Tongue is midline. EYES: Eye muscles and extraocular movement intact. Sclera is anicteric. Neck; supple Lungs: Normal respiratory rate/effort. Breath sounds bilateral equal and clear Heart: Normal rate. s1s2 normal. No rub or gallop. Extremities: no edema. No varicose veins Neurological: Patient is alert, awake Skin: Warm and dry. Normal turgor. No rash. Palpitation: Normal elasticity for age Abdomen: Abdomen is soft. Bowel sounds +. There is no abdominal tenderness, no guarding/rigidity no organomegaly Psych: no insight MSK: no joint tenderness or swelling. 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 to plan for permacath placement once okay by heme/onc. Objective - Vital Signs/Intake and Output Vital Signs (last 24 hours): Temp Pulse Resp BP Pulse Ox 97.8 F 83 24 122/82 100 09/10/17 20:00 09/10/17 20:00 09/10/17 20:00 09/10/17 20:00 09/09/17 20:00 Intake and Output: 09/10/17 09/11/17 18:59 06:59 Intake Total 1015 Output Total 2701 Balance -1686 - Medications Medications: Current Medications Calcium Acetate (Phoslo) 667 mg PO [facility] Last Admin: 09/10/17 18:32 Dose: 667 mg Carvedilol (Coreg) 6.25 mg PO BID [facility] Last Admin: 09/10/17 18:32 Dose: 6.25 mg Ergocalciferol (Drisdol 50,000 Intl Units Cap) 1 cap PO Q7D [facility] Last Admin: 09/09/17 10:14 Dose: 1 cap Famotidine (Pepcid) 20 mg PO DAILY [facility] Last Admin: 09/10/17 10:52 Dose: 20 mg Ferrous Gluconate (Fergon) 324 mg PO TID [facility] Last Admin: 09/10/17 18:32 Dose: 324 mg Ceftriaxone Sodium (Rocephin 2 Gm Ivpb) 2 gm in 100 mls @ 100 mls/hr IVPB DAILY [facility] PRN Reason: Protocol Last Admin: 09/10/17 10:52 Dose: 100 mls/hr Argatroban 250 mg/ Dextrose 252.5 mls @ 6.43 mls/hr IV .Q24H [facility]; 2 MCG/KG/MIN PRN Reason: Protocol Last Admin: 09/10/17 06:58 Dose: 3 mcg/kg/min, 9.64 mls/hr Losartan Potassium (Cozaar) 25 mg PO QPM [facility] Last Admin: 09/10/17 18:33 Dose: 25 mg Vitamin B Complex/Vit C/Folic Acid (Nephro-Will) 1 tab PO 0800 [facility] Last Admin: 09/10/17 10:52 Dose: 1 tab - Labs Labs: 09/10/17 05:00 09/10/17 05:00 PT 25.3 SECONDS (9.4-12.5) H 09/10/17 05:00 INR 2.17 (0.93-1.08) H 09/10/17 05:00 APTT 59.9 Seconds (25.1-36.5) H 09/10/17 05:00
[2017-09-11 06:15] LABS: INR 1.58 (0.93-1.08); PARTIAL THROMBOPLASTIN TIME 48.7 Seconds (25.1-36.5); PROTHROMBIN TIME 18.3 SECONDS (9.4-12.5)
[2017-09-11 06:23] LABS: ALB/GLOB RATIO 0.6 (1.1-1.8); ALBUMIN 2.4 g/dL (3.0-4.8); CALCIUM 8.1 mg/dL (8.4-10.5)
[2017-09-11 06:35] LABS: HEMOGLOBIN 11.1 g/dL (14.0-18.0); MEAN CELL VOLUME 86.5 fl (80.0-105.0); RBC 3.92 10^6/uL (3.5-6.1); WHITE BLOOD COUNT 7.8 10^3/ul (4.5-11.0)
[2017-09-11 06:36] LABS: EOS % 1.8 % (1.5-5.0); GRAN % 52.2 % (50.0-68.0); LYMPH % 31.5 % (22.0-35.0); MEAN CORPUSCULAR HEMOGLOBIN 28.3 pg (25.0-35.0); MEAN CORPUSCULAR HGB CONC 32.7 g/dl (31.0-37.0); MEAN PLATELET VOLUME 11.5 fl (7.0-11.0); MONO % 12.5 % (1.0-6.0); RED CELL DISTRIBUTION WIDTH 13.8 % (11.5-14.5)
[2017-09-11 06:37] LABS: BASO # 0.16 K/mm3 (0.0-2.0); EOS # 0.1 (0.0-0.7); GRAN # 4.08 (1.4-6.5); LYMPH # 2.5 (1.2-3.4)
--- NOTE | 2017-09-11 08:53 | PN ---
DATE: 09/11/2017 SUBJECTIVE: The patient is in bed in room 128, bed 7. No fevers and no chills. He is comfortable. The patient's family members asleep in a chair next to the patient. PHYSICAL EXAMINATION: VITAL SIGNS: Temperature is 98, blood pressure is 119/60, respiratory rate 20, heart rate of 91. HEENT: Unremarkable. NECK: Supple. LUNGS: Have decreased breath sounds. HEART: Normal S1, S2. ABDOMEN: Soft, nontender. LABORATORY DATA: Reveals the patient to have a white count of 7.8, hemoglobin of 11, platelets of 237. Chemistries reveals a BUN of 37, creatinine of 2.7. Procalcitonin is greater than 200. Urinalysis is noted. Hepatitis profile is negative. Microbiology reveals the Klebsiella in the urine, Klebsiella in the abdominal wound. ASSESSMENT AND PLAN: Review of orders reveals the patient to be on ceftriaxone and a 27-year-old male with severe sepsis with septic shock due to Klebsiella in urine as the source, hydronephrosis, hydroureter and [id number] renal failure, status post nephrostomy tube placement, now on dialysis with acute femoral vein, deep vein thrombosis, acute thrombocytopenia, must rule out heparin-induced thrombocytopenia, slowly improving in a patient with mentally disabled Down syndrome, history of renal failure. Currently, on ceftriaxone day #10, would complete 10-14 days. The patient is also anticoagulation and argatroban and heparin-induced thrombocytopenia, workup as per Hematology. The patient's white count is improved. We will follow closely with you. Bernardino Booth MD
[2017-09-11] MEDS: Multivitamin Vitamin B Complex (Nephro-Vite) Tab PO SCH (11:07)
[2017-09-11] MEDS: cefTRIAXone 2 GM IN NS 2 GM/100 ML BAG IVPB SCH (11:12)
[2017-09-11] MEDS: Argatroban 250 MG in Dextrose 5% In Water 250 ML IV SCH (12:10)
--- NOTE | 2017-09-11 15:17 | PN ---
DATE: 09/11/2017 SUBJECTIVE: I saw Garret in the intensive care unit, sitting up in bed. He is alone in the room. He is nonverbal, but no acute distress. He is on argatroban, Carvedilol, Cozaar, Drisdol, Fergon, Nephro-Will, Pepcid, PhosLo, and Rocephin 2 gm. PHYSICAL EXAMINATION: VITAL SIGNS: He has a 98.4 temp, 91 pulse, 119/63 blood pressure, and 20 respiratory rate. HEENT: Head is atraumatic, normocephalic. HEART: Regular rate. LUNGS: Clear to auscultation. EXTREMITIES: No edema. LABORATORY DATA: He has a 7.8 white count, 11.1 hemoglobin, 32.9 hematocrit with a 237 platelets. 138 sodium, potassium 4.7, BUN 37, creatinine 2.7, very good for him. GFR is 29, sugar is 88, calcium is 8.1, total bilirubin is 0.2. AST is 36, ALT is 43, alkaline phosphatase 71, total protein 6.1. ASSESSMENT AND PLAN: He is being seen by Infectious Disease, GI, Renal, Urology, the plastic finisher, Cardiology. He had numerous problems, severe sepsis, septic shock, hydronephrosis, hydroureter, acute on chronic kidney failure, status post nephrostomy tube, on dialysis, deep vein thrombosis, acute thrombocytopenia, Down syndrome, mentally retarded. Continue with aggressive treatment and care. Lawrence Merlos DO
[2017-09-12 07:46] LABS: ALB/GLOB RATIO 0.6 (1.1-1.8); ALBUMIN 2.4 g/dL (3.0-4.8); CALCIUM 8.3 mg/dL (8.4-10.5)
[2017-09-12 07:55] LABS: HEMOGLOBIN 10.9 g/dL (14.0-18.0); MEAN CELL VOLUME 86.5 fl (80.0-105.0); MEAN CORPUSCULAR HEMOGLOBIN 28.3 pg (25.0-35.0); MEAN CORPUSCULAR HGB CONC 32.7 g/dl (31.0-37.0); MEAN PLATELET VOLUME 11.4 fl (7.0-11.0); RBC 3.85 10^6/uL (3.5-6.1); WHITE BLOOD COUNT 6.1 10^3/ul (4.5-11.0)
[2017-09-12] MEDS: Multivitamin Vitamin B Complex (Nephro-Vite) Tab PO SCH (08:39)
--- NOTE | 2017-09-12 09:27 | PN ---
DATE: SUBJECTIVE: I saw Garret in the intensive care unit. His mother is in the chair next to him. He is sleeping. He is on Argatroban, Coreg, Cozaar, Drisdol, Fergon, Nephro-Will, Pepcid, PhosLo, and Rocephin. PHYSICAL EXAMINATION: VITAL SIGNS: Temperature 97.4, pulse 72, blood pressure 115/62, respiratory rate 16. HEENT: Head is atraumatic, normocephalic. HEART: Regular rate. LUNGS: Decreased breath sounds, but clear. ABDOMEN: Soft. EXTREMITIES: No edema. ASSESSMENT AND PLAN: He has renal failure, severe sepsis, septic shock, hydronephrosis, Down syndrome, and mental retardation. He has white count 7.8, hemoglobin 11.1, and platelets 237. Last INR was 1.58. Sodium 138, potassium 4.7, BUN 37, creatinine 2.7, GFR is 29, calcium is 8.1, total bili is 0.2. AST is 36, ALT is 43, alk phos 71. He is being seen by Infectious Disease, the videotape sales representative, Renal, GI, Cardiology, Urology. He is on day 10 of Rocephin, would complete 10 to 14 days. He is on anticoagulation and Argatroban. Heparin-induced thrombocytopenia workup as per Hematology. Continue aggressive treatment and care. He is clinically fairly stable in the unit. We will continue to follow and check with labs. Lawrence Merlos DO
[2017-09-12] MEDS: cefTRIAXone 2 GM IN NS 2 GM/100 ML BAG IVPB SCH (10:32)
--- NOTE | 2017-09-12 10:57 | PN ---
DATE: 09/12/2017 CARDIOLOGY FOLLOWUP SUBJECTIVE: The patient is awake, alert, sitting in bed, eating well without shortness of breath. PHYSICAL EXAMINATION VITAL SIGNS: Blood pressure is 97 systolic, heart rates in the 70s, normal sinus rhythm. NECK: Negative JVD. LUNGS: Without rales. HEART: S1, S2. EXTREMITIES: Without edema. LABORATORY DATA: Reveals a hemoglobin of 10.9. Chemistries: BUN and creatinine is 56 over 3.5. IMPRESSION: 1. Cardiomyopathy. 2. Renal insufficiency. 3. Urosepsis. 4. History of Down syndrome. PLAN: Given these findings, the patient is hemodynamically stable. No evidence for CHF. Magno Wu MD
--- NOTE | 2017-09-12 11:24 | PN ---
DATE: 09/12/2017 SUBJECTIVE: The patient is in bed, in no acute distress. The patient is seen early this morning. The patient's mother is at the bedside. Patient is doing well. PHYSICAL EXAMINATION: VITAL SIGNS: Temperature is 97, blood pressure is 115/60, respiratory rate of 18. HEENT: Unremarkable. NECK: Supple. LUNGS: Have decreased breath sounds. HEART: Normal S1, S2. ABDOMEN: Soft, nontender. LABORATORY EXAMINATION: Reveals a white count of 6.1, hemoglobin of 10, platelets of 272. BUN of 56, creatinine of 3.5. Procalcitonin is greater than 200. Urine culture is Klebsiella. Abdominal culture is Klebsiella. Review of orders reveals the patient to be on ceftriaxone. ASSESSMENT AND PLAN: A 27-year-old male with severe sepsis, septic shock due to Klebsiella in the urine, hydronephrosis, hydroureter, acute on chronic renal failure, and status post nephrostomy tube placement and dialysis. Patient with acute femoral vein deep venous thrombosis, acute thrombocytopenia, must rule out heparin-induced thrombocytopenia. The patient with mentally disabled Down syndrome, history of renal failure, currently on day #11 of ceftriaxone. We would complete 10-14 days of ceftriaxone.. Bernardino Booth MD
--- NOTE | 2017-09-12 11:55 | CP.PCM.PN ---
Subjective - Date & Time of Evaluation Date of Evaluation: 09/12/17 Time of Evaluation: 11:54 - Subjective Subjective: Follow up Nephrology Consultation: Assessment: stable ESRD by now with b/l massive hydronephrosis and loss of renal cortex s/p b/l nephrostomy left femoral DVT. neg for HIT Hyperkalemia and acidosis, hypocalcemia, anemia, hypomagnesmeia urosepsis with shock, Klebsiella hx of MR Pulmonary congestion vit D def CHF EF 35% thrombocytopenia Plan plan for dialysis tomorrow as TTS. continue with low dose losartan as tolerated by BP. also on coreg Monitor Input/Output, daily weights and renal function with basic metabolic panel urology and ID consulted surgery eval for AVF placement appreciated on phos binders, nephrovite, weekly vit D, oral fe and aransep 40 mcg on 09/03/17 supplement electrolytes as needed pt on agratroban drip. to plan for permacath placement once okay by heme/onc. surgery follow up for AVF placement SW for outpt HD placemenet Dose meds/antibiotics for dialysis status. Avoid fleets enema/magnesium based laxatives. Avoid nephrotoxins/NSAIDs/ iodinated contrast (unless needed emergently) Glycemic control Further work up/management as per primary team. Thanks for allowing me to participate in care of your patient. Will follow patient with you. Please call if any Qs. d/w primary team and mother Dr Olegario Lyons Office: [phone] HPI: Pt is a 27 M with MR and chronic obstructive uropathy and progressive CKD as a result of obstruction, mother was told about need for dialysis in near future. she has been seeing well logging operator mud analysis Dr Darden and urologist as well. pt was brought to ER with c/o fever for 2 days. found to have severe renal failure and hypotension hence renal consulted ROS: pt unable to provide due to MR. overnight events noted. Physical Examination: General Appearance: Comfortable, in no acute respiratory distress, mostly co- operative . Vitals reviewed and noted as below Head; Atraumatic, normocephalic ENT: no ulcers no thrush. Tongue is midline. Oropharynx: no rash or ulcers. EYES: Pupils are equal, round and reactive to light accommodation. Eye muscles and extraocular movement intact. Sclera is anicteric. Neck; supple no lymphadenopathy, no thyromegaly or bruit Lungs: Normal respiratory rate/effort. Breath sounds bilateral equal and clear Heart: Normal rate. s1s2 normal. No rub or gallop. Extremities: no edema. No varicose veins Neurological: Patient is alert, awake Skin: Warm and dry. Normal turgor. No rash. Palpitation: Normal elasticity for age Abdomen: Abdomen is soft. Bowel sounds +. There is no abdominal tenderness, no guarding/rigidity no organomegaly Psych: no insight MSK: no joint tenderness or swelling. Digits and nails normal, no deformity : palpable kidneys. has b/l nephrostomy tubes draining urine access: neck catheter [facility] Labs/imaging reviewed. Past medical history, past surgical history, family history, social history, allergy reviewed and noted as below Family hx: no hx of CKD. Rest non-contributory Objective - Vital Signs/Intake and Output Vital Signs (last 24 hours): Temp Pulse Resp BP Pulse Ox 97.4 F L 72 16 115/62 100 09/12/17 04:00 09/12/17 04:00 09/12/17 04:00 09/12/17 04:00 09/09/17 20:00 Intake and Output: 09/12/17 09/12/17 06:59 18:59 Intake Total 108 Output Total 920 Balance -812 - Medications Medications: Current Medications Calcium Acetate (Phoslo) 667 mg PO [facility] Last Admin: 09/12/17 08:39 Dose: 667 mg Carvedilol (Coreg) 6.25 mg PO BID [facility] Last Admin: 09/12/17 10:37 Dose: 6.25 mg Darbepoetin Jorden (Aranesp) 40 mcg IVP ONCE ONE Stop: 09/13/17 10:02 Ergocalciferol (Drisdol 50,000 Intl Units Cap) 1 cap PO Q7D [facility] Last Admin: 09/09/17 10:14 Dose: 1 cap Famotidine (Pepcid) 20 mg PO DAILY [facility] Last Admin: 09/12/17 10:37 Dose: 20 mg Ferrous Gluconate (Fergon) 324 mg PO TID [facility] Last Admin: 09/12/17 10:37 Dose: 324 mg Ceftriaxone Sodium (Rocephin 2 Gm Ivpb) 2 gm in 100 mls @ 100 mls/hr IVPB DAILY [facility] PRN Reason: Protocol Last Admin: 09/12/17 10:32 Dose: 100 mls/hr Argatroban 250 mg/ Dextrose 252.5 mls @ 6.43 mls/hr IV .Q24H [facility]; 2 MCG/KG/MIN PRN Reason: Protocol Last Admin: 09/11/17 12:10 Dose: 3 mcg/kg/min, 9.64 mls/hr Losartan Potassium (Cozaar) 25 mg PO QPM [facility] Last Admin: 09/11/17 18:06 Dose: 25 mg Vitamin B Complex/Vit C/Folic Acid (Nephro-Will) 1 tab PO 0800 [facility] Last Admin: 09/12/17 08:39 Dose: 1 tab - Labs Labs: 09/12/17 05:48 09/12/17 05:48 PT 18.3 SECONDS (9.4-12.5) H 09/11/17 05:00 INR 1.58 (0.93-1.08) H 09/11/17 05:00 APTT 57.8 Seconds (25.1-36.5) H 09/11/17 11:02
--- NOTE | 2017-09-12 13:46 | CP.PCM.PN ---
Subjective - Date & Time of Evaluation Date of Evaluation: 09/12/17 Time of Evaluation: 09:10 - Subjective Subjective: S&E at bedside, chart reviewed, no acute overnight events, mother at bedside, having formed BM, no overt GI bleeding. Tolerating oral intake. No new complaints. Objective - Vital Signs/Intake and Output Vital Signs (last 24 hours): Temp Pulse Resp BP Pulse Ox 97.4 F L 72 16 115/62 100 09/12/17 04:00 09/12/17 04:00 09/12/17 04:00 09/12/17 04:00 09/09/17 20:00 Intake and Output: 09/12/17 09/12/17 06:59 18:59 Intake Total 108 Output Total 920 Balance -812 - Medications Medications: Current Medications Calcium Acetate (Phoslo) 667 mg PO [facility] Last Admin: 09/12/17 12:57 Dose: 667 mg Carvedilol (Coreg) 6.25 mg PO BID [facility] Last Admin: 09/12/17 10:37 Dose: 6.25 mg Darbepoetin Jorden (Aranesp) 40 mcg IVP ONCE ONE Stop: 09/13/17 10:02 Ergocalciferol (Drisdol 50,000 Intl Units Cap) 1 cap PO Q7D [facility] Last Admin: 09/09/17 10:14 Dose: 1 cap Famotidine (Pepcid) 20 mg PO DAILY [facility] Last Admin: 09/12/17 10:37 Dose: 20 mg Ferrous Gluconate (Fergon) 324 mg PO TID [facility] Last Admin: 09/12/17 10:37 Dose: 324 mg Ceftriaxone Sodium (Rocephin 2 Gm Ivpb) 2 gm in 100 mls @ 100 mls/hr IVPB DAILY [facility] PRN Reason: Protocol Last Admin: 09/12/17 10:32 Dose: 100 mls/hr Argatroban 250 mg/ Dextrose 252.5 mls @ 6.43 mls/hr IV .Q24H [facility]; 2 MCG/KG/MIN PRN Reason: Protocol Last Admin: 09/11/17 12:10 Dose: 3 mcg/kg/min, 9.64 mls/hr Losartan Potassium (Cozaar) 25 mg PO QPM [facility] Last Admin: 09/11/17 18:06 Dose: 25 mg Vitamin B Complex/Vit C/Folic Acid (Nephro-Will) 1 tab PO 0800 [facility] Last Admin: 09/12/17 08:39 Dose: 1 tab - Labs Labs: 09/12/17 05:48 09/12/17 05:48 PT 18.3 SECONDS (9.4-12.5) H 09/11/17 05:00 INR 1.58 (0.93-1.08) H 09/11/17 05:00 APTT 57.8 Seconds (25.1-36.5) H 09/11/17 11:02 - Constitutional Appears: No Acute Distress - Eye Exam Eye Exam: Normal appearance. absent: Scleral icterus - ENT Exam ENT Exam: Mucous Membranes Moist - Neck Exam Neck Exam: Normal Inspection - Respiratory Exam Respiratory Exam: Decreased Breath Sounds, NORMAL BREATHING PATTERN. absent: Rales, Wheezes, Respiratory Distress - Cardiovascular Exam Cardiovascular Exam: +S1, +S2 - GI/Abdominal Exam GI & Abdominal Exam: Soft, Normal Bowel Sounds. absent: Guarding, Tenderness, Rebound Additional comments: bilateral nephrostomy tube, clear urine - Extremities Exam Extremities Exam: absent: Calf Tenderness, Pedal Edema - Neurological Exam Neurological Exam: Alert, Awake, Oriented x3 Assessment and Plan - Assessment and Plan (Free Text) Assessment: Assessment: Thrombocytopenia/ concern for HIT, Left common femoral thrombus Sepsis/urosepsis Chronic Renal Failure, on dialysis History obstructive uropathy S/p Bilateral Nephrostomy tube Resolved Abdominal pain, likely secondary to severe hydronephrosis/UTI UTI, (+) K Pnuemoniae Resolved Diarrhea, cdiff negative Plan: Continue Pepcid On IV antibiotics as per ID on Argatroban drip monitor H/H diet as tolerated as per ID/renal/hematology. as per surgery, AVF when stable No active GI issues at this time and no plans for GI intervention, will currently sign off and please reconsult as needed. Thank you for allowing us to participate in your patient's care. Discussed with Dr. Cornelius, covering rounds for Dr. Rodriguez.
--- NOTE | 2017-09-12 15:22 | CP.PCM.PCO ---
<Darius Benítez - Last Filed: 09/12/17 15:13> Physician Communication Note - Physician Communication Note Physician Communication Note: Continue anticoagulation. Recommend f/u in surgery office in 2-3 month Assessment & Plan - Assessment and Plan (Free Text) Assessment: 27yo M w/ PMH of Down's syndrome, obstructive uropathy. Hospitalization complicated with Left Common Femoral DVT, on argatroban - Surgery consulted for AVF creation - Currently on HD via temporary cath Plan: - Continue HD as per Nephro recs - Continue Anticoagulation as per Hematology recs - Continue Left arm precautions - Due to recent DVT and on anticoagulation, will plan for AVF electively - Recommend f/u at outpatient office in 2-3 months to schedule AVF Further recs as per Dr. Tami Benítez PGY1 surgery pager: [phone] <Marcello Garrett - Last Filed: 09/12/17 16:01> Assessment & Plan - Assessment and Plan (Free Text) Assessment: Patient was seen, evaluated and examined by me. I agree with the assessment and plan as per the resident's note.
[2017-09-12] MEDS: Argatroban 250 MG in Dextrose 5% In Water 250 ML IV SCH (19:06)
--- NOTE | 2017-09-12 23:06 | PN ---
DATE: SUBJECTIVE: I have personally examined this patient and reviewed all the laboratory data. Patient denies any further abdominal pain and diarrhea. He has bilateral nephrostomy tubes for obstructive nephropathy. Continue current management. Christoph Cornelius MD
[2017-09-13 07:05] LABS: HEMOGLOBIN 10.8 g/dL (14.0-18.0); MEAN CELL VOLUME 85.6 fl (80.0-105.0); MEAN CORPUSCULAR HEMOGLOBIN 27.7 pg (25.0-35.0); MEAN CORPUSCULAR HGB CONC 32.3 g/dl (31.0-37.0); MEAN PLATELET VOLUME 10.4 fl (7.0-11.0); RBC 3.9 10^6/uL (3.5-6.1); RED CELL DISTRIBUTION WIDTH 14.2 % (11.5-14.5); WHITE BLOOD COUNT 6.4 10^3/ul (4.5-11.0)
[2017-09-13 07:13] LABS: INR 1.75 (0.93-1.08); PROTHROMBIN TIME 20.4 SECONDS (9.4-12.5)
[2017-09-13 07:14] LABS: PARTIAL THROMBOPLASTIN TIME 57.7 Seconds (25.1-36.5)
[2017-09-13 07:48] LABS: ALB/GLOB RATIO 0.6 (1.1-1.8); ALBUMIN 2.7 g/dL (3.0-4.8); CALCIUM 8.4 mg/dL (8.4-10.5)
[2017-09-13] MEDS: Multivitamin Vitamin B Complex (Nephro-Vite) Tab PO SCH (09:08)
[2017-09-13] MEDS ORDERED: Darbepoetin Alfa 40 mcg/ml Inj IVP ONE (10:01)
[2017-09-13] MEDS: cefTRIAXone 2 GM IN NS 2 GM/100 ML BAG IVPB SCH (10:23)
--- NOTE | 2017-09-13 16:06 | PN ---
DATE: SUBJECTIVE: I saw Garret in his room with his mother present. He apparently slept well. No acute distress. Did not go for walk. He is still on Bactroban, Coreg, Cozaar, Drisdol, Fergon, Nephro-Will, Pepcid, PhosLo and Rocephin 2 g. OBJECTIVE: VITAL SIGNS: He has a 98.1 temperature, 71 pulse, 16 respiratory rate, 99 O2 sat on room air. HEENT: Head is atraumatic, normocephalic. Eyes are open, nonverbal. HEART: Regular rate. LUNGS: Clear to auscultation with decreased breath sounds. ABDOMEN: Soft. EXTREMITIES: No edema. LABORATORY DATA: He had a lab work done. He has a 6.4 white count, 10.8 hemoglobin, 33.4 hematocrit, 330 platelets. INR is 1.75. He has a 139 sodium, potassium 4.6, BUN 66, creatinine 3.8, GFR is 24, sugar is 87, calcium is 8.4, AST is 42, ALT 37, alk phos 78. ASSESSMENT AND PLAN: He is being seen by GI, Surgery, Renal, Infectious Disease, Cardiology and the plodding machine operator. He has severe sepsis; septic shock; hydronephrosis; hydroureter; acute on chronic renal failure, status post nephrostomy tube placement, he is on dialysis; acute femoral vein deep venous thrombosis; and acute thrombocytopenia. He is recommended for a 10-14 days of ceftriaxone as per Infectious Disease. We will continue aggressive treatment and care. Check his labs tomorrow. Discussed with the mother at length. Thank you very much. Lawrence Merlos DO
[2017-09-13] MEDS ORDERED: Argatroban 250 MG in Dextrose 5% In Water 250 ML IV SCH ×2 (17:45→17:58)
--- NOTE | 2017-09-13 18:53 | CP.PCM.PN ---
Subjective - Date & Time of Evaluation Date of Evaluation: 09/13/17 Time of Evaluation: 18:51 - Subjective Subjective: Follow up Nephrology Consultation: Assessment: stable ESRD by now with b/l massive hydronephrosis and loss of renal cortex s/p b/l nephrostomy left femoral DVT. neg for HIT Hyperkalemia and acidosis, hypocalcemia, anemia, hypomagnesmeia urosepsis with shock, Klebsiella hx of MR Pulmonary congestion vit D def CHF EF 35% thrombocytopenia Plan plan for dialysis today as TTS. continue with low dose losartan as tolerated by BP. also on coreg Monitor Input/Output, daily weights and renal function with basic metabolic panel urology and ID consulted surgery eval for AVF placement appreciated on phos binders, nephrovite, weekly vit D, oral fe and aransep 40 mcg on 09/03/17 supplement electrolytes as needed pt on agratroban drip. to plan for permacath placement. IR consulted SW for outpt HD placemenet d/c planning Dose meds/antibiotics for dialysis status. Avoid fleets enema/magnesium based laxatives. Avoid nephrotoxins/NSAIDs/ iodinated contrast (unless needed emergently) Glycemic control Further work up/management as per primary team. Thanks for allowing me to participate in care of your patient. Will follow patient with you. Please call if any Qs. d/w primary team and mother Dr Olegario Lyons Office: [phone] HPI: Pt is a 27 M with MR and chronic obstructive uropathy and progressive CKD as a result of obstruction, mother was told about need for dialysis in near future. she has been seeing implementation specialist payroll Dr Darden and urologist as well. pt was brought to ER with c/o fever for 2 days. found to have severe renal failure and hypotension hence renal consulted ROS: pt unable to provide due to MR. overnight events noted. Physical Examination: seen on HD General Appearance: Comfortable, in no acute respiratory distress, mostly co- operative . Vitals reviewed and noted as below Head; Atraumatic, normocephalic ENT: no ulcers no thrush. Tongue is midline. Oropharynx: no rash or ulcers. EYES: Pupils are equal, round and reactive to light accommodation. Eye muscles and extraocular movement intact. Sclera is anicteric. Neck; supple no lymphadenopathy, no thyromegaly or bruit Lungs: Normal respiratory rate/effort. Breath sounds bilateral equal and clear Heart: Normal rate. s1s2 normal. No rub or gallop. Extremities: no edema. No varicose veins Neurological: Patient is alert, awake Skin: Warm and dry. Normal turgor. No rash. Palpitation: Normal elasticity for age Abdomen: Abdomen is soft. Bowel sounds +. There is no abdominal tenderness, no guarding/rigidity no organomegaly Psych: no insight MSK: no joint tenderness or swelling. Digits and nails normal, no deformity : palpable kidneys. has b/l nephrostomy tubes draining urine access: neck catheter [facility] Labs/imaging reviewed. Past medical history, past surgical history, family history, social history, allergy reviewed and noted as below Family hx: no hx of CKD. Rest non-contributory Objective - Vital Signs/Intake and Output Vital Signs (last 24 hours): Temp Pulse Resp BP Pulse Ox 98 F 85 20 139/68 95 09/13/17 16:00 09/13/17 18:37 09/13/17 18:37 09/13/17 17:41 09/13/17 16:00 Intake and Output: 09/13/17 09/13/17 06:59 18:59 Intake Total 608 714 Output Total 1425 1400 Balance -817 -686 - Medications Medications: Current Medications Calcium Acetate (Phoslo) 667 mg PO WM [facility] Last Admin: 09/13/17 16:16 Dose: 667 mg Carvedilol (Coreg) 6.25 mg PO BID [facility] Last Admin: 09/13/17 17:37 Dose: 6.25 mg Ergocalciferol (Drisdol 50,000 Intl Units Cap) 1 cap PO Q7D [facility] Last Admin: 09/09/17 10:14 Dose: 1 cap Famotidine (Pepcid) 20 mg PO DAILY [facility] Last Admin: 09/13/17 09:08 Dose: 20 mg Ferrous Gluconate (Fergon) 324 mg PO TID [facility] Last Admin: 09/13/17 17:41 Dose: 324 mg Ceftriaxone Sodium (Rocephin 2 Gm Ivpb) 2 gm in 100 mls @ 100 mls/hr IVPB DAILY [facility] PRN Reason: Protocol Last Admin: 09/13/17 10:23 Dose: 100 mls/hr Argatroban 250 mg/ Dextrose 252.5 mls @ 9.64 mls/hr IV .Q24H [facility]; 3 MCG/KG/MIN PRN Reason: Protocol Last Admin: 09/13/17 17:00 Dose: 9.64 mls/hr Losartan Potassium (Cozaar) 25 mg PO QPM [facility] Last Admin: 09/13/17 17:41 Dose: 25 mg Vitamin B Complex/Vit C/Folic Acid (Nephro-Will) 1 tab PO 0800 [facility] Last Admin: 09/13/17 09:08 Dose: 1 tab - Labs Labs: 09/13/17 05:45 09/13/17 05:45 PT 20.4 SECONDS (9.4-12.5) H 09/13/17 05:45 INR 1.75 (0.93-1.08) H 09/13/17 05:45 APTT 57.7 Seconds (25.1-36.5) H 09/13/17 05:45
--- NOTE | 2017-09-13 19:35 | PN ---
DATE: 09/13/2017 SUBJECTIVE: The patient is in bed, in no acute distress, nontoxic. PHYSICAL EXAMINATION: VITAL SIGNS: Temperature is 98, blood pressure is 130/70, respiratory rate of 18. HEENT: Unremarkable. NECK: Supple. LUNGS: Have decreased breath sounds. HEART: Normal S1, S2. ABDOMEN: Soft, nontender. LABORATORY EXAMINATION: Reveals a white count of 6.4, hemoglobin 10, BUN is 66, creatinine of 3.8, and urinalysis is noted. MEDICATIONS: Review of orders reveals the patient to be on ceftriaxone which requires which I will do so. ASSESSMENT AND PLAN: This is a 27-year-old male with severe sepsis, septic shock due to Klebsiella in urine, hydronephrosis, hydroureter, [id number] renal failure, status post nephrostomy tube placement, dialysis, acute femoral vein deep venous thrombosis, acute thrombocytopenia, must rule out heparin-induced thrombocytopenia. The patient with mentally disabled and Down syndrome, day number 12 of ceftriaxone would complete 10 to 14 days. Bernardino Booth MD
--- NOTE | 2017-09-13 20:16 | PN ---
DATE: 09/13/2017 SUBJECTIVE: The patient is comfortable in bed. No shortness of breath. No chest pain. OBJECTIVE: VITAL SIGNS: Stable. NECK: Negative JVD. LUNGS: Without rales. HEART: S1, S2. LABORATORY DATA: Laboratories include a platelet count that is normal. The patient tolerated dialysis. IMPRESSION: 1. Renal insufficiency. 2. History of Down syndrome. 3. Resolution of thrombocytopenia. 4. Urosepsis. 5. Cardiomyopathy. PLAN: Given these findings, the patient is hemodynamically stable. Can transfer to Med-Surg floor. Magno Wu MD
--- NOTE | 2017-09-13 22:51 | PN ---
DATE: ADDENDUM This is an addendum to a progress note performed by MIGNON Bustos. I have personally examined this patient. The patient remains in ICU. He is comfortable. He denies any abdominal pain. He is tolerating solid foods. He continues to receive hemodialysis and has bilateral nephrostomy tubes. No further GI workup is planned at this time. Christoph Cornelius MD
[2017-09-14 00:36] LABS: INR 1.73 (0.93-1.08)
[2017-09-14 06:44] LABS: HEMOGLOBIN 11.3 g/dL (14.0-18.0); MEAN CELL VOLUME 86.8 fl (80.0-105.0); MEAN CORPUSCULAR HEMOGLOBIN 28.1 pg (25.0-35.0); MEAN CORPUSCULAR HGB CONC 32.4 g/dl (31.0-37.0); MEAN PLATELET VOLUME 10.3 fl (7.0-11.0); RBC 4.02 10^6/uL (3.5-6.1); RED CELL DISTRIBUTION WIDTH 14.4 % (11.5-14.5); WHITE BLOOD COUNT 6.8 10^3/ul (4.5-11.0)
[2017-09-14 07:27] LABS: ALB/GLOB RATIO 0.7 (1.1-1.8); ALBUMIN 2.9 g/dL (3.0-4.8); CALCIUM 8.5 mg/dL (8.4-10.5)
[2017-09-14] MEDS: Multivitamin Vitamin B Complex (Nephro-Vite) Tab PO SCH (09:10)
[2017-09-14] MEDS: cefTRIAXone 2 GM IN NS 2 GM/100 ML BAG IVPB SCH (09:18)
--- NOTE | 2017-09-14 12:35 | PN ---
DATE: 09/14/2017 SUBJECTIVE: I saw him resting comfortably in the Intensive Care Unit. His mother is at bedside. He is alert. He is nonverbal, in no acute distress. He has IV running. He is on Bactroban. He has renal insufficiency and Down syndrome. He is mentally retarded. He is nonverbal. He has urosepsis, cardiomyopathy, sepsis, septic shock, hydronephrosis, and chronic renal failure. PHYSICAL EXAMINATION: VITAL SIGNS: He has 98.4 temperature, 71 pulse, and 16 respiratory rate. HEENT: Head is atraumatic and normocephalic. HEART: Regular rate. LUNGS: Clear to auscultation. ABDOMEN: Soft. EXTREMITIES: No edema. LABORATORY DATA: He has 137 sodium, potassium 4.7, BUN 43, creatinine 3, GFR is 26, calcium is 8.5, total bilirubin is 0.3, AST is 47, ALT is 40, and alkaline phosphatase is 77. Total protein is 7.2. He has 6.8 white count, 11.3 hemoglobin, and 34.9 hematocrit with platelets. He is being seen by Renal, GI, Infectious Disease, and Cardiology. Continue with aggressive treatment and care. He has had multiple issues. Discussed with his mother. We will check his labs tomorrow. Lawrence Merlos DO MTDD
[2017-09-14] MEDS: Enoxaparin 60 mg Syringe SC SCH (14:35)
--- NOTE | 2017-09-14 14:53 | CP.PCM.PN ---
Subjective - Date & Time of Evaluation Date of Evaluation: 09/14/17 Time of Evaluation: 14:49 - Subjective Subjective: Follow up Nephrology Consultation: Assessment: stable ESRD by now with b/l massive hydronephrosis and loss of renal cortex s/p b/l nephrostomy left femoral DVT. neg for HIT Hyperkalemia and acidosis, hypocalcemia, anemia, hypomagnesmeia urosepsis with shock, Klebsiella hx of MR Pulmonary congestion vit D def CHF EF 35% thrombocytopenia Plan plan for dialysis tomorrow as TTS. continue with low dose losartan MWF as tolerated by BP. also on coreg Monitor Input/Output, daily weights and renal function with basic metabolic panel urology and ID consulted surgery eval for AVF placement appreciated on phos binders, nephrovite, weekly vit D, oral fe and aransep 40 mcg weekly supplement electrolytes as needed pt on agratroban drip. to plan for permacath placement. IR consulted SW for outpt HD placemenet d/c planning Dose meds/antibiotics for dialysis status. Avoid fleets enema/magnesium based laxatives. Avoid nephrotoxins/NSAIDs/ iodinated contrast (unless needed emergently) Glycemic control Further work up/management as per primary team. Thanks for allowing me to participate in care of your patient. Will follow patient with you. Please call if any Qs. d/w primary team and mother Dr Olegario Lyons Office: [phone] HPI: Pt is a 27 M with MR and chronic obstructive uropathy and progressive CKD as a result of obstruction, mother was told about need for dialysis in near future. she has been seeing granite cutter Dr Darden and urologist as well. pt was brought to ER with c/o fever for 2 days. found to have severe renal failure and hypotension hence renal consulted ROS: pt unable to provide due to MR. overnight events noted. Physical Examination: General Appearance: Comfortable, in no acute respiratory distress, mostly co- operative . Vitals reviewed and noted as below Head; Atraumatic, normocephalic ENT: no ulcers no thrush. Tongue is midline. Oropharynx: no rash or ulcers. EYES: Pupils are equal, round and reactive to light accommodation. Eye muscles and extraocular movement intact. Sclera is anicteric. Neck; supple no lymphadenopathy, no thyromegaly or bruit Lungs: Normal respiratory rate/effort. Breath sounds bilateral equal and clear Heart: Normal rate. s1s2 normal. No rub or gallop. Extremities: no edema. No varicose veins Neurological: Patient is alert, awake Skin: Warm and dry. Normal turgor. No rash. Palpitation: Normal elasticity for age Abdomen: Abdomen is soft. Bowel sounds +. There is no abdominal tenderness, no guarding/rigidity no organomegaly Psych: no insight MSK: no joint tenderness or swelling. Digits and nails normal, no deformity : palpable kidneys. has b/l nephrostomy tubes draining urine access: neck catheter [facility] Labs/imaging reviewed. Past medical history, past surgical history, family history, social history, allergy reviewed and noted as below Family hx: no hx of CKD. Rest non-contributory Objective - Vital Signs/Intake and Output Vital Signs (last 24 hours): Temp Pulse Resp BP Pulse Ox 98.4 F 80 19 144/54 L 95 09/14/17 04:00 09/14/17 14:10 09/14/17 14:10 09/14/17 09:00 09/13/17 16:00 - Medications Medications: Current Medications Calcium Acetate (Phoslo) 667 mg PO WM [facility] Last Admin: 09/14/17 14:38 Dose: 667 mg Carvedilol (Coreg) 6.25 mg PO BID [facility] Last Admin: 09/14/17 09:00 Dose: 6.25 mg Enoxaparin Sodium (Lovenox) 50 mg SC DAILY [facility] PRN Reason: Protocol Last Admin: 09/14/17 14:35 Dose: 50 mg Ergocalciferol (Drisdol 50,000 Intl Units Cap) 1 cap PO Q7D [facility] Last Admin: 09/09/17 10:14 Dose: 1 cap Famotidine (Pepcid) 20 mg PO DAILY [facility] Last Admin: 09/14/17 09:00 Dose: 20 mg Ferrous Gluconate (Fergon) 324 mg PO TID [facility] Last Admin: 09/14/17 14:34 Dose: 324 mg Ceftriaxone Sodium (Rocephin 2 Gm Ivpb) 2 gm in 100 mls @ 100 mls/hr IVPB DAILY [facility] PRN Reason: Protocol Last Admin: 09/14/17 09:18 Dose: 100 mls/hr Losartan Potassium (Cozaar) 25 mg PO MWF [facility] Vitamin B Complex/Vit C/Folic Acid (Nephro-Will) 1 tab PO 0800 [facility] Last Admin: 09/14/17 09:10 Dose: 1 tab Warfarin Sodium (Coumadin) 5 mg PO 1800 [facility] PRN Reason: Protocol - Labs Labs: 09/14/17 06:00 09/14/17 06:00 PT 20.0 SECONDS (9.4-12.5) H 09/14/17 00:10 INR 1.73 (0.93-1.08) H 09/14/17 00:10 APTT 58.2 Seconds (25.1-36.5) H 09/14/17 06:00
--- NOTE | 2017-09-14 19:53 | PN ---
DATE: 09/14/2017 SUBJECTIVE: The patient is seen earlier this morning in ICU 128, bed 7. No fever. No chills. PHYSICAL EXAMINATION: VITAL SIGNS: Temperature is 98, blood pressure is 120/70, respiratory rate of 16. HEENT: Unremarkable. NECK: Supple. LUNGS: Have decreased breath sounds. HEART: Normal S1, S2. ABDOMEN: Soft, nontender. LABORATORY EXAMINATION: Reveals a white count of 6.8, hemoglobin of 11, platelets of 359. BUN of 43 and creatinine of 3.0. Hepatitis profile is negative. Klebsiella is noted in the cultures. The patient is on ceftriaxone. ASSESSMENT AND PLAN: A 27-year-old male with severe sepsis; septic shock due to Klebsiella in urine; hydronephrosis; hydroureter; acute on chronic renal failure, status post nephrostomy tube placement, on dialysis; acute femoral vein deep vein thrombosis; acute thrombocytopenia in a patient who is disabled and down syndrome, day #13 of ceftriaxone, will complete 10 to 14 days. Bernardino Booth MD
[2017-09-15 06:50] LABS: MEAN CELL VOLUME 86.5 fl (80.0-105.0); MEAN CORPUSCULAR HEMOGLOBIN 28.1 pg (25.0-35.0); MEAN CORPUSCULAR HGB CONC 32.4 g/dl (31.0-37.0); MEAN PLATELET VOLUME 9.7 fl (7.0-11.0); RBC 3.92 10^6/uL (3.5-6.1); RED CELL DISTRIBUTION WIDTH 14.4 % (11.5-14.5)
[2017-09-15 07:16] LABS: INR 1.14 (0.93-1.08); PROTHROMBIN TIME 13.1 SECONDS (9.4-12.5)
[2017-09-15] MEDS: Multivitamin Vitamin B Complex (Nephro-Vite) Tab PO SCH (09:00)
[2017-09-15 09:56] LABS: ALB/GLOB RATIO 0.7 (1.1-1.8); ALBUMIN 2.8 g/dL (3.0-4.8); CALCIUM 8.8 mg/dL (8.4-10.5)
[2017-09-15] MEDS: cefTRIAXone 2 GM IN NS 2 GM/100 ML BAG IVPB SCH (10:11)
[2017-09-15] MEDS: Enoxaparin 60 mg Syringe SC SCH (10:15)
--- NOTE | 2017-09-15 12:35 | PN ---
DATE: SUBJECTIVE: I saw him with his mother in the Intensive Care Unit. He is alert, but nonverbal. He is in no acute distress at this time. PHYSICAL EXAMINATION: GENERAL: He is alert. He is nonverbal, comfortable. VITAL SIGNS: Temperature 98.2, 70 pulse, 107/73 blood pressure, and 16 respiratory rate. HEART: Regular rate. LUNGS: Clear to auscultation. ABDOMEN: Soft. EXTREMITIES: No edema. PLAN: Continue with aggressive treatment and care. He is going to continue with his medications. He is currently on Coreg, Coumadin, Cozaar, Fergon, Lovenox, Nephro-Will, Pepcid, PhosLo, and Rocephin. I believe he is off the argatroban as per his consults, which are Infectious Disease, Renal, GI, and Cardiology. Hopefully, he can get out of Intensive Care Unit today. Garret Byrd who has got multiple issues sepsis, septic shock, chronic renal failure, Down syndrome, and mentally retarded. Lawrence Merlos DO
--- NOTE | 2017-09-15 15:17 | CP.PCM.PN ---
Subjective - Date & Time of Evaluation Date of Evaluation: 09/15/17 Time of Evaluation: 15:15 - Subjective Subjective: Follow up Nephrology Consultation: Assessment: stable ESRD by now with b/l massive hydronephrosis and loss of renal cortex s/p b/l nephrostomy left femoral DVT. neg for HIT Hyperkalemia and acidosis, hypocalcemia, anemia, hypomagnesmeia urosepsis with shock, Klebsiella hx of MR Pulmonary congestion vit D def CHF EF 35% thrombocytopenia Plan Plan for dialysis today as TTS. continue with low dose losartan MWF as tolerated by BP. also on coreg Monitor Input/Output, daily weights and renal function with basic metabolic panel urology and ID consulted surgery eval for AVF placement appreciated on phos binders, nephrovite, weekly vit D, oral fe and aransep 40 mcg weekly supplement electrolytes as needed plan for permacath placement. IR consulted, plan for tomorrow AM SW for outpt HD placemenet d/c planning. stable from renal perspective once has permacath Dose meds/antibiotics for dialysis status. Avoid fleets enema/magnesium based laxatives. Avoid nephrotoxins/NSAIDs/ iodinated contrast (unless needed emergently) Glycemic control Further work up/management as per primary team. Thanks for allowing me to participate in care of your patient. Will follow patient with you. Please call if any Qs. d/w primary team and mother Dr Olegario Lyons Office: [phone] HPI: Pt is a 27 M with MR and chronic obstructive uropathy and progressive CKD as a result of obstruction, mother was told about need for dialysis in near future. she has been seeing gas worker Dr Darden and urologist as well. pt was brought to ER with c/o fever for 2 days. found to have severe renal failure and hypotension hence renal consulted ROS: pt unable to provide due to MR. overnight events noted. Physical Examination: seen on HD General Appearance: Comfortable, in no acute respiratory distress, mostly co- operative . Vitals reviewed and noted as below Head; Atraumatic, normocephalic ENT: no ulcers no thrush. Tongue is midline. Oropharynx: no rash or ulcers. EYES: Pupils are equal, round and reactive to light accommodation. Eye muscles and extraocular movement intact. Sclera is anicteric. Neck; supple no lymphadenopathy, no thyromegaly or bruit Lungs: Normal respiratory rate/effort. Breath sounds bilateral equal and clear Heart: Normal rate. s1s2 normal. No rub or gallop. Extremities: no edema. No varicose veins Neurological: Patient is alert, awake Skin: Warm and dry. Normal turgor. No rash. Palpitation: Normal elasticity for age Abdomen: Abdomen is soft. Bowel sounds +. There is no abdominal tenderness, no guarding/rigidity no organomegaly Psych: no insight MSK: no joint tenderness or swelling. Digits and nails normal, no deformity : palpable kidneys. has b/l nephrostomy tubes draining urine access: neck catheter [facility] Labs/imaging reviewed. Past medical history, past surgical history, family history, social history, allergy reviewed and noted as below Family hx: no hx of CKD. Rest non-contributory Objective - Vital Signs/Intake and Output Vital Signs (last 24 hours): Temp Pulse Resp BP Pulse Ox 98.2 F 70 16 107/73 95 09/14/17 20:00 09/15/17 10:14 09/15/17 03:24 09/15/17 10:14 09/13/17 16:00 Intake and Output: 09/15/17 09/15/17 06:59 18:59 Output Total 300 Balance -300 - Medications Medications: Current Medications Calcium Acetate (Phoslo) 667 mg PO WM [facility] Last Admin: 09/15/17 09:00 Dose: 667 mg Carvedilol (Coreg) 6.25 mg PO BID [facility] Last Admin: 09/15/17 10:14 Dose: 6.25 mg Enoxaparin Sodium (Lovenox) 50 mg SC DAILY [facility] PRN Reason: Protocol Last Admin: 09/15/17 10:15 Dose: 50 mg Ergocalciferol (Drisdol 50,000 Intl Units Cap) 1 cap PO Q7D [facility] Famotidine (Pepcid) 20 mg PO DAILY [facility] Last Admin: 09/15/17 10:14 Dose: 20 mg Ferrous Gluconate (Fergon) 324 mg PO TID [facility] Last Admin: 09/15/17 14:55 Dose: Not Given Ceftriaxone Sodium (Rocephin 2 Gm Ivpb) 2 gm in 100 mls @ 100 mls/hr IVPB DAILY [facility] PRN Reason: Protocol Last Admin: 09/15/17 10:11 Dose: 100 mls/hr Losartan Potassium (Cozaar) 25 mg PO MWF [facility] Vitamin B Complex/Vit C/Folic Acid (Nephro-Will) 1 tab PO 0800 [facility] Last Admin: 09/15/17 09:00 Dose: 1 tab Warfarin Sodium (Coumadin) 5 mg PO 1800 [facility] PRN Reason: Protocol Last Admin: 09/14/17 18:33 Dose: 5 mg - Labs Labs: 09/15/17 06:00 09/15/17 06:00 PT 13.1 SECONDS (9.4-12.5) H 09/15/17 06:00 INR 1.14 (0.93-1.08) H 09/15/17 06:00 APTT 58.2 Seconds (25.1-36.5) H 09/14/17 06:00
--- NOTE | 2017-09-15 21:09 | PN ---
DATE: 09/15/2017 SUBJECTIVE: The patient is seen in the ICU this morning. Doing well. No fevers. No chills. Family member at the bedside. PHYSICAL EXAMINATION: VITAL SIGNS: Temperature is 98, blood pressure is 114/60, and respiratory rate of 16. HEENT: Unremarkable. NECK: Supple. LUNGS: Have decreased breath sounds. HEART: Normal S1 and S2. ABDOMEN: Soft and nontender. LABORATORY EXAMINATION: Reveals the patient's white count of 5000, BUN of 69, and creatinine of 3.7. Urinalysis is noted and serology is noted. ASSESSMENT AND PLAN: This is a 27-year-old male with severe sepsis and septic shock due to Klebsiella in urine; hydronephrosis; hydroureter; acute on chronic renal failure, today is day #14 for acute renal failure, status post nephrostomy tube and acute femoral vein and deep vein thrombosis. We will discontinue the antibiotic after today's last dose, day #14. The patient received the last dose at 12 noon, we will discontinue antibiotic, and no further antibiotics indicated. Bernardino Booth MD
[2017-09-16 07:07] LABS: HEMOGLOBIN 10.5 g/dL (14.0-18.0); MEAN CELL VOLUME 87.5 fl (80.0-105.0); MEAN CORPUSCULAR HEMOGLOBIN 27.9 pg (25.0-35.0); MEAN CORPUSCULAR HGB CONC 31.8 g/dl (31.0-37.0); MEAN PLATELET VOLUME 9.7 fl (7.0-11.0); RBC 3.77 10^6/uL (3.5-6.1); RED CELL DISTRIBUTION WIDTH 14.6 % (11.5-14.5); WHITE BLOOD COUNT 5.2 10^3/ul (4.5-11.0)
[2017-09-16 07:10] LABS: INR 1.37 (0.93-1.08); PROTHROMBIN TIME 15.9 SECONDS (9.4-12.5)
[2017-09-16 07:37] LABS: ALB/GLOB RATIO 0.6 (1.1-1.8); CALCIUM 8.7 mg/dL (8.4-10.5)
[2017-09-16] MEDS: Multivitamin Vitamin B Complex (Nephro-Vite) Tab PO SCH (09:14)
[2017-09-16] MEDS ORDERED: Ergocalciferol 50,000 Intl Units Cap PO SCH (10:00)
--- NOTE | 2017-09-16 10:21 | CP.PCM.PN ---
Subjective - Date & Time of Evaluation Date of Evaluation: 09/16/17 Time of Evaluation: 09:20 - Subjective Subjective: Comfortable in bed, still with nephrostomy tubes in place, no vomiting, no diarrhea, no fevers overnight. Objective - Vital Signs/Intake and Output Vital Signs (last 24 hours): Temp Pulse Resp BP Pulse Ox 97.3 F L 72 18 100/70 95 09/16/17 06:00 09/16/17 06:05 09/16/17 06:05 09/16/17 06:00 09/13/17 16:00 Intake and Output: 09/15/17 09/16/17 18:59 06:59 Intake Total 870 Output Total 1775 575 Balance -905 -575 - Medications Medications: Current Medications Calcium Acetate (Phoslo) 667 mg PO WM [facility] Last Admin: 09/15/17 17:37 Dose: 667 mg Carvedilol (Coreg) 6.25 mg PO BID [facility] Last Admin: 09/15/17 17:38 Dose: 6.25 mg Enoxaparin Sodium (Lovenox) 50 mg SC DAILY [facility] PRN Reason: Protocol Last Admin: 09/15/17 10:15 Dose: 50 mg Ergocalciferol (Drisdol 50,000 Intl Units Cap) 1 cap PO Q7D [facility] Famotidine (Pepcid) 20 mg PO DAILY [facility] Last Admin: 09/15/17 10:14 Dose: 20 mg Ferrous Gluconate (Fergon) 324 mg PO TID [facility] Last Admin: 09/15/17 17:37 Dose: 324 mg Losartan Potassium (Cozaar) 25 mg PO [facility] [place] Vitamin B Complex/Vit C/Folic Acid (Nephro-Will) 1 tab PO 0800 [facility] Last Admin: 09/15/17 09:00 Dose: 1 tab Warfarin Sodium (Coumadin) 5 mg PO 1800 [facility] PRN Reason: Protocol Last Admin: 09/15/17 17:37 Dose: 5 mg - Labs Labs: 09/15/17 06:00 09/15/17 06:00 PT 13.1 SECONDS (9.4-12.5) H 09/15/17 06:00 INR 1.14 (0.93-1.08) H 09/15/17 06:00 APTT 58.2 Seconds (25.1-36.5) H 09/14/17 06:00 - Constitutional Appears: Non-toxic, Chronically Ill - Head Exam Head Exam: NORMAL INSPECTION - Neck Exam Neck Exam: absent: Meningismus - Respiratory Exam Respiratory Exam: Decreased Breath Sounds - Cardiovascular Exam Cardiovascular Exam: +S1, +S2 - GI/Abdominal Exam GI & Abdominal Exam: Soft. absent: Tenderness Additional comments: nephrostomy tubes in place Assessment and Plan - Assessment and Plan (Free Text) Plan: Assessment S/P severe sepsis due to UTI from Klebsiella in a patient with hydronephrosis and hydroureter and acute on chronic renal failure, S/P nephrostomy tube placement and now on dialysis (ESRD) acute femoral vein DVT S/P acute thrombocytopenia mental disability down syndrome history of renal failure Plan S/P 14 days of Rocephin - continue to monitor off antibiotics since he is at risk for nosocomial infections patient will need chronic renal replacement therapy as per Renal follow up further Urology work up and procedures will continue to monitor clinically
[2017-09-16] MEDS ORDERED: Midazolam 2 MG/2 ML VIAL ONE (10:58)
[2017-09-16] MEDS ORDERED: Etomidate 40 MG/20 ML ML IV ONE (10:59)
[2017-09-16] MEDS ORDERED: Flumazenil 0.1 mg/ml Inj (5ml) IVP ONE (10:59)
[2017-09-16] MEDS ORDERED: Propofol 10 mg/ml Inj (20 ML) ONE (11:00)
[2017-09-16] MEDS ORDERED: HEPARIN SODIUM/NS 1,000 ML IV ONE (12:03)
[2017-09-16] MEDS ORDERED: Lidocaine 2% Inj (20ml) ONE (12:03)
[2017-09-16] MEDS ORDERED: Sodium Chloride 0.9% 1,000 ML IV SCH (13:15)
--- NOTE | 2017-09-16 16:19 | CP.PCM.PN ---
Subjective - Date & Time of Evaluation Date of Evaluation: 09/16/17 Time of Evaluation: 16:18 - Subjective Subjective: Follow up Nephrology Consultation: Assessment: stable ESRD by now with b/l massive hydronephrosis and loss of renal cortex s/p b/l nephrostomy left femoral DVT. neg for HIT Hyperkalemia and acidosis, hypocalcemia, anemia, hypomagnesmeia urosepsis with shock, Klebsiella hx of MR Pulmonary congestion vit D def CHF EF 35% thrombocytopenia Plan Plan for dialysis tomorrow as TTS. continue with low dose losartan MWF as tolerated by BP. also on coreg Monitor Input/Output, daily weights and renal function with basic metabolic panel urology and ID consulted surgery eval for AVF placement appreciated on phos binders, nephrovite, weekly vit D, oral fe and aransep 40 mcg weekly supplement electrolytes as needed SW for outpt HD placement d/c planning. stable from renal perspective Dose meds/antibiotics for dialysis status. Avoid fleets enema/magnesium based laxatives. Avoid nephrotoxins/NSAIDs/ iodinated contrast (unless needed emergently) Glycemic control Further work up/management as per primary team. Thanks for allowing me to participate in care of your patient. Will follow patient with you. Please call if any Qs. d/w primary team and father Dr Olegario Lyons Office: [phone] HPI: Pt is a 27 M with MR and chronic obstructive uropathy and progressive CKD as a result of obstruction, mother was told about need for dialysis in near future. she has been seeing facility maintenance helper Dr Darden and urologist as well. pt was brought to ER with c/o fever for 2 days. found to have severe renal failure and hypotension hence renal consulted ROS: pt unable to provide due to MR. overnight events noted. Physical Examination: General Appearance: Comfortable, in no acute respiratory distress, mostly co- operative . Vitals reviewed and noted as below Head; Atraumatic, normocephalic ENT: no ulcers no thrush. Tongue is midline. Oropharynx: no rash or ulcers. EYES: Pupils are equal, round and reactive to light accommodation. Eye muscles and extraocular movement intact. Sclera is anicteric. Neck; supple no lymphadenopathy, no thyromegaly or bruit Lungs: Normal respiratory rate/effort. Breath sounds bilateral equal and clear Heart: Normal rate. s1s2 normal. No rub or gallop. Extremities: no edema. No varicose veins Neurological: Patient is alert, awake Skin: Warm and dry. Normal turgor. No rash. Palpitation: Normal elasticity for age Abdomen: Abdomen is soft. Bowel sounds +. There is no abdominal tenderness, no guarding/rigidity no organomegaly Psych: no insight MSK: no joint tenderness or swelling. Digits and nails normal, no deformity : palpable kidneys. has b/l nephrostomy tubes draining urine access: permacath Labs/imaging reviewed. Past medical history, past surgical history, family history, social history, allergy reviewed and noted as below Family hx: no hx of CKD. Rest non-contributory Objective - Vital Signs/Intake and Output Vital Signs (last 24 hours): Temp Pulse Resp BP Pulse Ox 98.4 F 69 16 91/52 L 98 09/16/17 13:46 09/16/17 13:46 09/16/17 13:46 09/16/17 13:46 09/16/17 13:46 Intake and Output: 09/16/17 09/16/17 06:59 18:59 Intake Total 175 Output Total 575 50 Balance -575 125 - Medications Medications: Current Medications Calcium Acetate (Phoslo) 667 mg PO WM [facility] Last Admin: 09/16/17 14:35 Dose: 667 mg Carvedilol (Coreg) 6.25 mg PO BID [facility] Last Admin: 09/16/17 09:15 Dose: 6.25 mg Enoxaparin Sodium (Lovenox) 50 mg SC DAILY [facility] PRN Reason: Protocol Last Admin: 09/15/17 10:15 Dose: 50 mg Ergocalciferol (Drisdol 50,000 Intl Units Cap) 1 cap PO Q7D [facility] Last Admin: 09/16/17 14:34 Dose: 1 cap Famotidine (Pepcid) 20 mg PO DAILY [facility] Last Admin: 09/16/17 09:15 Dose: 20 mg Ferrous Gluconate (Fergon) 324 mg PO TID [facility] Last Admin: 09/16/17 14:35 Dose: 324 mg Losartan Potassium (Cozaar) 25 mg PO MWF [facility] Last Admin: 09/16/17 09:14 Dose: 25 mg Vitamin B Complex/Vit C/Folic Acid (Nephro-Will) 1 tab PO 0800 [facility] Last Admin: 09/16/17 09:14 Dose: 1 tab Warfarin Sodium (Coumadin) 5 mg PO 1800 [facility] PRN Reason: Protocol Last Admin: 09/15/17 17:37 Dose: 5 mg - Labs Labs: 09/16/17 06:25 09/16/17 06:25 PT 15.9 SECONDS (9.4-12.5) H 09/16/17 06:25 INR 1.37 (0.93-1.08) H 09/16/17 06:25 APTT 58.2 Seconds (25.1-36.5) H 09/14/17 06:00
--- NOTE | 2017-09-16 16:43 | PN ---
DATE: SUBJECTIVE: I saw Garret is in the Intensive Care Unit. His mother is with him at bedside. He is sitting up in bed. He is nonverbal. He has got Down's syndrome and mental retardation. He is also going to go for catheterization today with Dr. Magno Maher to put in a cath, so we have access, I believe for dialysis. He is in no acute distress at this time. He is here for sepsis, septic shock, chronic renal failure, Down's syndrome, and mental retardation. PHYSICAL EXAMINATION: VITAL SIGNS: Temperature 97.3, 72 pulse, 100/70 blood pressure, 16 respiratory rate, and 98% O2 saturation on room air. HEENT: Head is atraumatic and normocephalic. HEART: Regular rate. LUNGS: Clear to auscultation. ABDOMEN: Soft. EXTREMITIES: No edema. MEDICATIONS: He is on Coreg, Coumadin, Cozaar, Drisdol, Fergon, Lovenox, Nephro-Will, Pepcid, and PhosLo. LABORATORY DATA: He has a 5.2 white count, 10.5 hemoglobin, 33 hematocrit with a 346 of platelets. His INR is 1.37. He has 137 sodium, potassium 4.7, BUN 39, creatinine 3, GFR is 26, random sugar is 87, calcium is 8.7, total bilirubin is 0.2, AST is 55, ALT is 40, and alkaline phosphatase is 74. ASSESSMENT AND PLAN: He has multiple problems. He is being seen by multiple physicians Infectious Disease, Renal, Vascular, GI, and Cardiology. He has severe sepsis, septic shock, hydronephrosis, hydroureter, acute on chronic renal failure, status post nephrostomy tube, deep vein thrombosis. The will be off the antibiotics at this time. Hopefully, in the next 24 to 48 hours, we could possibly discharge him, if it is okay with the other physicians. Lawrence Merlos DO
--- NOTE | 2017-09-16 18:18 | VASCULAR ---
PROCEDURE: Ultrasound and fluoroscopic tunneled right IJ dialysis catheter. CLINICAL HISTORY: ESRD. Needs tunneled dialysis catheter PHYSICIAN(S): Magno Maher M.D. TECHNIQUE: The relative risks and indications for the procedure were explained to the patient's mother and informed written consent obtained. The patient was placed supine on the arteriography table and the right neck/chest was prepped and draped in the usual sterile fashion. The temporary right IJ dialysis catheter was removed and hemostasis obtained. 1% Xylocaine was used to anesthetize the skin and soft tissues at the puncture site. Conscious sedation and monitoring were provided throughout the procedure by a nurse. Under direct ultrasound guidance, the rightinternal jugular vein was punctured with a micropuncture set. A 0.035 Glidewire was advanced into the IVC. Sequential dilatation was performed with subsequent placement of a 24 cmCannon II catheter with its tip in the right atrium. A retrograde tunnel below the right clavicle was performed. The catheter was trimmed and the hub attached. Both ports aspirate and inject easily. The catheter was secured and a dressing applied. The patient tolerated the procedure well. IMPRESSION: 1. Ultrasound and fluoroscopically placed right IJ tunneled dialysis catheter.
[2017-09-17 07:18] LABS: HEMOGLOBIN 10.1 g/dL (14.0-18.0); MEAN CELL VOLUME 86.5 fl (80.0-105.0); MEAN CORPUSCULAR HEMOGLOBIN 27.3 pg (25.0-35.0); MEAN CORPUSCULAR HGB CONC 31.6 g/dl (31.0-37.0); MEAN PLATELET VOLUME 9.9 fl (7.0-11.0); RBC 3.7 10^6/uL (3.5-6.1); RED CELL DISTRIBUTION WIDTH 14.5 % (11.5-14.5); WHITE BLOOD COUNT 4.9 10^3/ul (4.5-11.0)
[2017-09-17 07:43] LABS: ALB/GLOB RATIO 0.7 (1.1-1.8); ALBUMIN 2.9 g/dL (3.0-4.8)
[2017-09-17 07:51] LABS: CALCIUM 8.2 mg/dL (8.4-10.5)
[2017-09-17 08:41] VITALS: PULSE 79
[2017-09-17 09:46] VITALS: BP 102/60; RESP 18; TEMP 97.8; O2SAT 95
--- NOTE | 2017-09-17 10:45 | CP.PCM.PN ---
Subjective - Date & Time of Evaluation Date of Evaluation: 09/17/17 Time of Evaluation: 09:30 - Subjective Subjective: Follow up Nephrology Consultation: Assessment: stable ESRD by now with b/l massive hydronephrosis and loss of renal cortex s/p b/l nephrostomy left femoral DVT. neg for HIT Hyperkalemia and acidosis, hypocalcemia, anemia, hypomagnesmeia urosepsis with shock, Klebsiella hx of MR Pulmonary congestion vit D def CHF EF 35% thrombocytopenia Plan Seen on HD continue TTS. BP stable surgery eval for AVF placement appreciated on phos binders nephrovite weekly vit D oral fe aransep 40 mcg weekly S: Seen on hd no complaints pe: +s1+s2 no edema Objective - Vital Signs/Intake and Output Vital Signs (last 24 hours): Temp Pulse Resp BP Pulse Ox 97.8 F 79 18 102/60 95 09/17/17 08:00 09/17/17 08:00 09/17/17 08:00 09/17/17 08:00 09/17/17 08:00 Intake and Output: 09/17/17 09/17/17 06:59 18:59 Intake Total 1120 Output Total 685 Balance 435 - Medications Medications: Current Medications Calcium Acetate (Phoslo) 667 mg PO WM [facility] Last Admin: 09/16/17 18:14 Dose: 667 mg Carvedilol (Coreg) 6.25 mg PO BID [facility] Last Admin: 09/16/17 18:14 Dose: 6.25 mg Enoxaparin Sodium (Lovenox) 50 mg SC DAILY [facility] PRN Reason: Protocol Last Admin: 09/15/17 10:15 Dose: 50 mg Ergocalciferol (Drisdol 50,000 Intl Units Cap) 1 cap PO Q7D [facility] Last Admin: 09/16/17 14:34 Dose: 1 cap Famotidine (Pepcid) 20 mg PO DAILY [facility] Last Admin: 09/16/17 09:15 Dose: 20 mg Ferrous Gluconate (Fergon) 324 mg PO TID [facility] Last Admin: 09/16/17 18:15 Dose: 324 mg Losartan Potassium (Cozaar) 25 mg PO MWF [facility] Last Admin: 09/16/17 09:14 Dose: 25 mg Vitamin B Complex/Vit C/Folic Acid (Nephro-Will) 1 tab PO 0800 [facility] Last Admin: 09/16/17 09:14 Dose: 1 tab Warfarin Sodium (Coumadin) 5 mg PO 1800 [facility] PRN Reason: Protocol Last Admin: 09/16/17 18:14 Dose: 5 mg - Labs Labs: 09/17/17 07:00 09/17/17 07:00 PT 15.9 SECONDS (9.4-12.5) H 09/16/17 06:25 INR 1.37 (0.93-1.08) H 09/16/17 06:25 APTT 58.2 Seconds (25.1-36.5) H 09/14/17 06:00
[2017-09-17] MEDS: Multivitamin Vitamin B Complex (Nephro-Vite) Tab PO SCH (10:56)
--- NOTE | 2017-09-17 22:32 | PN ---
DATE: 09/17/2017 SUBJECTIVE: The patient is seen earlier this morning in dialysis. Doing well, no fever and no chills. PHYSICAL EXAMINATION: VITAL SIGNS: Temperature is 98, blood pressure is 112/70, respiratory rate of 16. HEENT: Unremarkable. NECK: Supple. LUNGS: Have decreased breath sounds. HEART: Normal S1, S2. ABDOMEN: Soft. LABORATORY EXAMINATION: Reveals a white count of 4.9, hemoglobin of 10, platelets of 317. Chemistries reveals a BUN of 56 and creatinine of 3.7. Urinalysis is noted. ASSESSMENT AND PLAN: A 27-year-old male with status post severe sepsis due to urinary tract infection with Klebsiella in the urine; hydronephrosis; hydroureter; acute on chronic renal failure, status post nephrostomy tube placement now on dialysis; end-stage renal disease with acute femoral vein deep venous thrombosis; status post thrombocytopenia; mental disability; and Down syndrome. Complete a 14 days of ceftriaxone. Possible discharge today. We will follow with you. Bernardino Booth MD
--- NOTE | 2017-09-18 06:13 | DS ---
HISTORY OF PRESENT ILLNESS: This is a nice young man who has Down syndrome, mental retardation, now on hemodialysis, access was placed the other day, he has been on dialysis on Tuesday, , and Tuesday. He had dialysis today. He has got severe sepsis. He was in the Intensive Care Unit on Bactroban for a while, chronic renal failure, multiple medical problems besides his Down and his mental retardation. He will go home today with the family. Followup with primary care and hemodialysis. MEDICATIONS: The medications will be going home on are; Aranesp at dialysis, Coreg, Coumadin, Cozaar, Fergon, Nephro-Will, Pepcid, and PhosLo. Discussed this with the nurse. He had a 1.37 INR. He has got Coumadin to go home with. LABORATORY DATA: He has a 138 sodium, potassium 4.3, BUN 66, creatinine 3, GFR is 26, calcium is 8.2, total bili is 0.2, AST is 39, ALT is 35, alk phos 67. White count is 4.9, hemoglobin 10.1, hematocrit 32, and platelets of 217. ASSESSMENT AND PLAN: As far as Renal and Infectious Disease, he could be discharged. He will go home today. Lawrence Merlos DO
== END 2017-09-17 16:50 | disposition home or self-care (01) | DRG 871 ==
LOC: ED 06:45 → ERH 10:10 → CCU 12:47 → 3RNO 09-04 06:08 → ICU 09-06 16:29 → IMCU 09-16 10:29 → ICU 09-16 10:34 → IMCU 09-16 10:41 → ICU 09-16 11:17 → 5RNO 09-16 14:12 → 5RSO 09-16 17:10
PROVIDERS: ADMIT Internal Medicine; ATTEND Family Medicine
PROC: 0T9430Z Drainage of Left Kidney Pelvis with Drainage Device, Percutaneous Approach (ICD-10-PCS; principal; 2017-09-01)
PROC: 0T9330Z Drainage of Right Kidney Pelvis with Drainage Device, Percutaneous Approach (ICD-10-PCS; 2017-09-01)
PROC: 05HM33Z Insertion of Infusion Device into Right Internal Jugular Vein, Percutaneous Approach (ICD-10-PCS; 2017-09-01)
PROC: B543ZZA Ultrasonography of Right Jugular Veins, Guidance (ICD-10-PCS; 2017-09-01)
PROC: B513ZZA Fluoroscopy of Right Jugular Veins, Guidance (ICD-10-PCS; 2017-09-01)
PROC: 06HY33Z Insertion of Infusion Device into Lower Vein, Percutaneous Approach (ICD-10-PCS; 2017-09-01)
PROC: B54CZZA Ultrasonography of Left Lower Extremity Veins, Guidance (ICD-10-PCS; 2017-09-01)
PROC: 5A1D70Z Performance of Urinary Filtration, Intermittent, Less than 6 Hours Per Day (ICD-10-PCS; 2017-09-02)
PROC: 5A1D70Z Performance of Urinary Filtration, Intermittent, Less than 6 Hours Per Day (ICD-10-PCS; 2017-09-03)
PROC: 5A1D70Z Performance of Urinary Filtration, Intermittent, Less than 6 Hours Per Day (ICD-10-PCS; 2017-09-04)
PROC: 5A1D70Z Performance of Urinary Filtration, Intermittent, Less than 6 Hours Per Day (ICD-10-PCS; 2017-09-07)
PROC: 5A1D70Z Performance of Urinary Filtration, Intermittent, Less than 6 Hours Per Day (ICD-10-PCS; 2017-09-08)
PROC: 5A1D70Z Performance of Urinary Filtration, Intermittent, Less than 6 Hours Per Day (ICD-10-PCS; 2017-09-10)
PROC: 5A1D70Z Performance of Urinary Filtration, Intermittent, Less than 6 Hours Per Day (ICD-10-PCS; 2017-09-13)
PROC: 5A1D70Z Performance of Urinary Filtration, Intermittent, Less than 6 Hours Per Day (ICD-10-PCS; 2017-09-15)
PROC: 05HM33Z Insertion of Infusion Device into Right Internal Jugular Vein, Percutaneous Approach (ICD-10-PCS; 2017-09-16)
PROC: B543ZZA Ultrasonography of Right Jugular Veins, Guidance (ICD-10-PCS; 2017-09-16)
PROC: B513ZZA Fluoroscopy of Right Jugular Veins, Guidance (ICD-10-PCS; 2017-09-16)
PROC: 5A1D70Z Performance of Urinary Filtration, Intermittent, Less than 6 Hours Per Day (ICD-10-PCS; 2017-09-17)
DX: A41.51 Sepsis due to Escherichia coli [E. coli] (principal); R65.21 Severe sepsis with septic shock; N17.9 Acute kidney failure, unspecified; D69.6 Thrombocytopenia, unspecified; E87.2 Acidosis; I82.412 Acute embolism and thrombosis of left femoral vein; I42.0 Dilated cardiomyopathy; N18.6 End stage renal disease; E83.42 Hypomagnesemia; E83.51 Hypocalcemia; N13.8 Other obstructive and reflux uropathy; F84.0 Autistic disorder; N13.6 Pyonephrosis; R47.01 Aphasia; N30.90 Cystitis, unspecified without hematuria; E87.5 Hyperkalemia; I08.3 Combined rheumatic disorders of mitral, aortic and tricuspid valves; I50.9 Heart failure, unspecified; Q90.9 Down syndrome, unspecified; B96.1 Klebsiella pneumoniae [K. pneumoniae] as the cause of diseases classified elsewhere; D64.9 Anemia, unspecified; F79 Unspecified intellectual disabilities; E55.9 Vitamin D deficiency, unspecified; Z79.01 Long term (current) use of anticoagulants; Z82.49 Family history of ischemic heart disease and other diseases of the circulatory system; Z82.5 Family history of asthma and other chronic lower respiratory diseases; Z99.2 Dependence on renal dialysis; I80.8 Phlebitis and thrombophlebitis of other sites

== ENCOUNTER 2017-09-21 11:03 | Emergency (ER) | payer OTHER ==
[2017-09-21 11:03] VITALS: BMI 22.9
--- NOTE | 2017-09-21 11:46 | ED PDOC ---
Arrival/HPI - General Chief Complaint: Male Genitourinary Time Seen by Provider: 09/21/17 11:40 Historian: Parent (mother) - History of Present Illness Narrative History of Present Illness (Text): 09/21/17 11:43 This 27 yo male with pmh renal failure, on dialysis, b/l nephrostomy, down syndrome, is brought to this ED by mother for evaluation right nephrostomy hematuria since this morning. mother stated patient was uncomfortable last night and during sleep time. Patient is non-verbal, unable to complain of pain. Mother denies fever, n/v, sob, cp, chills, abdominal pain, or other somatic complains. Time/Duration: Other (see hpi) Context: Home Past Medical History - Provider Review Nursing Documentation Reviewed: Yes - Infectious Disease Hx of Infectious Diseases: None - Cardiac Hx Hypertension: Yes - Pulmonary Hx Respiratory Disorders: No - Neurological Hx Neurological Disorder: No Other/Comment: autism/down's syndrome/non verbal - HEENT Hx HEENT Disorder: No - Renal Hx Renal Disorder: Yes Hx Dialysis: Yes (T, Th, Sat) Hx Renal Failure: Yes Other/Comment: Nephrostomy bag - Endocrine/Metabolic Hx Endocrine Disorders: No - Hematological/Oncological Hx Blood Disorders: No - Integumentary Hx Dermatological Disorder: No - Musculoskeletal/Rheumatological Hx Musculoskeletal Disorders: No - Gastrointestinal Hx Gastrointestinal Disorders: No - Genitourinary/Gynecological Hx Genitourinary Disorders: No - Psychiatric Hx Psychophysiologic Disorder: No Hx Substance Use: No - Surgical History Other/Comment: ureteral obs Family/Social History - Physician Review Nursing Documentation Reviewed: Yes Family/Social History: Other (noncontributory) Smoking Status: Never Smoked Hx Alcohol Use: No Hx Substance Use: No Allergies/Home Meds Allergies/Adverse Reactions: Allergies No Known Allergies Allergy (Verified 09/21/17 11:22) Home Medications: Home Meds Medication Instructions Recorded Confirmed Calcium Acetate [Phoslo] 667 mg PO DAILY 09/21/17 09/21/17 Famotidine [Pepcid] 20 mg PO DAILY 09/21/17 09/21/17 Ferrous Gluconate [Fergon] 240 mg PO TID 09/21/17 09/21/17 Vit B Cmplx 3/Folic AC/C/Biot 1 tab PO DAILY 09/21/17 09/21/17 [Anne Marie-Will Rx Tablet] Review of Systems - Review of Systems Systems not reviewed;Unavailable: Other (as per mother) Constitutional: Normal Eyes: Normal ENT: Normal Respiratory: Normal Cardiovascular: Normal Gastrointestinal: Normal Genitourinary Male: Hematuria Musculoskeletal: Normal Skin: Normal Neurological: Normal Endocrine: Normal Hemo/Lymphatic: Normal Psychiatric: Normal Physical Exam Vital Signs Temp Pulse Resp BP Pulse Ox 09/21/17 13:20 98.2 F 86 18 124/71 97 Temperature: Afebrile Blood Pressure: Normal Pulse: Regular Respiratory Rate: Normal Appearance: Positive for: Well-Appearing, Non-Toxic, Comfortable Pain Distress: None - Systems Exam Head: Present: Atraumatic, Normocephalic Pupils: Present: PERRL Extroacular Muscles: Present: EOMI Conjunctiva: Present: Normal Mouth: Present: Moist Mucous Membranes Neck: Present: Normal Range of Motion Respiratory/Chest: Present: Clear to Auscultation, Good Air Exchange. No: Respiratory Distress, Accessory Muscle Use Cardiovascular: Present: Regular Rate and Rhythm, Normal S1, S2. No: Murmurs Abdomen: Present: Normal Bowel Sounds, Other ((+) nephrostomy b/l. (+) mild hematuria right nephrostomy. left is normal. no cellulitis or drainage surrounding nephrostomy b/l). No: Tenderness, Distention, Peritoneal Signs, Rebound Back: Present: Normal Inspection Upper Extremity: Present: Normal Inspection, Normal ROM. No: Cyanosis, Edema Lower Extremity: Present: Normal Inspection, Normal ROM. No: Edema Neurological: Present: GCS=15, CN II-XII Intact Skin: Present: Warm, Dry, Normal Color. No: Rashes Psychiatric: Present: Alert Medical Decision Making ED Course and Treatment: 09/21/17 14:55 Re-evaluation. Patient feels better. Discussed results and plan with patient' s mother who expresses understanding. All questions answered and there is agreement with the plan to discharge home with instructions. Patient stable for discharge. Return if symptoms persist or worsen I recommended mother to have patient revaluated with his doctor in 1-2 days. To return to emergency if symptoms worsen. To call Dr. Andres Urologist for revaluation. To return to emergency if patient develops fever, decreased appetite, or worsening symptoms. Re-evaluation Time: 14:57 Reassessment Condition: Re-examined, Improved - Lab Interpretations Lab Results: 09/21/17 12:15 09/21/17 12:15 Lab Results 09/21/17 12:15: Sodium 134, Potassium 4.3, Chloride 93 L, Carbon Dioxide 32, Anion Gap 13, BUN 28 H, Creatinine 3.1 H, Est GFR ( Amer) 30, Est GFR ( Non-Af Amer) 25, Random Glucose 85, Calcium 8.9, Total Bilirubin 0.3, AST 36, ALT 33, Alkaline Phosphatase 69, Total Protein 7.7, Albumin 3.2, Globulin 4.5, Albumin/Globulin Ratio 0.7 L 09/21/17 12:15: Urine Color Light brown, Urine Appearance Cloudy, Urine pH 7.5, Ur Specific [place] 1.020, Urine Protein >=300 H, Urine Glucose (UA) Negative, Urine Ketones Negative, Urine Blood Large H, Urine Nitrate Negative, Urine Bilirubin Negative, Urine Urobilinogen 0.2, Ur Leukocyte Esterase Large H, Urine RBC Tntc, Urine WBC Tntc, Urine Bacteria Large 09/21/17 12:15: WBC 5.0, RBC 3.90, Hgb 10.9 L, Hct 33.9 L, MCV 86.9, MCH 27.9, MCHC 32.2, RDW 14.3, Plt Count 306, MPV 9.3, Gran % 49.5 L, Lymph % (Auto) 35.2 H, [place] % (Auto) 9.1 H, Eos % (Auto) 4.8, Baso % (Auto) 1.4, Gran # 2.45, Lymph # 1.7, [place] # 0.5, Eos # 0.2, Baso # 0.07 I have reviewed the lab results: Yes Interpretation: No clinic. lab abnormalty - RAD Interpretation Narrative RAD Interpretations (Text): 09/21/17 14:57 PROCEDURE: CT Abdomen and Pelvis without intravenous contrast HISTORY: right nephrostomy with hematuria Relevant interventional procedure(s): Bilateral nephrostomy catheters identified. COMPARISON: 09/01/2017 CT abdomen and pelvis 09/04/2017 renal ultrasound TECHNIQUE: Unenhanced study. Neither oral nor intravenous contrast administered. Radiation dose: Total exam DLP = 442.96 mGy-cm. This CT exam was performed using one or more of the following dose reduction techniques: Automated exposure control, adjustment of the mA and/or kV according to patient size, and/or use of iterative reconstruction technique. FINDINGS: LOWER THORAX: Trace pericardial effusion which is incompletely visualized. LIVER: Unremarkable. No gross lesion or ductal dilatation. GALLBLADDER AND BILE DUCTS: Unremarkable. PANCREAS: Unremarkable. No gross lesion or ductal dilatation. SPLEEN: Unremarkable. ADRENALS: Unremarkable. No mass. KIDNEYS AND URETERS: Bilateral nephrostomy catheters have resulted in the question of bilateral hydronephrosis identified previously. No appreciable hydronephrosis or hydroureter. No perinephric collections are identified. VASCULATURE: Unremarkable. No aortic aneurysm. BOWEL: Constipation, fecal impaction without obstruction. APPENDIX: Unremarkable. Normal appendix. PERITONEUM: Unremarkable. No free fluid. No free air. LYMPH NODES: Unremarkable. No enlarged lymph nodes. BLADDER: Thickening of the urinary bladder wall which is incompletely visualize partially obscured by streak artifact from drainage catheter apparatus. REPRODUCTIVE: Unremarkable. BONES: No acute fracture. OTHER FINDINGS: None. IMPRESSION: Status post by the lateral placement of nephrostomy catheters was successful resolution hydronephrosis identified on prior CT scan 09/01/2017. Low volume urinary bladder resulting in thickening of the bladder wall, a finding seen previously. Cystitis should be considered. Additional benign and/or incidental findings described above. Radiology Orders: 09/21/17 11:48 ABD & PELVIS W/O PO OR IV CONT [CT] Stat - Medication Orders Current Medication Orders: Discontinued Medications Ceftriaxone Sodium (Rocephin 1 Gram Ivpb) 1 gm in 100 mls @ 200 mls/hr IVPB STAT STA PRN Reason: Protocol Stop: 09/21/17 14:27 Last Admin: 09/21/17 14:34 Dose: 200 mls/hr eMAR Start Stop Document 09/21/17 14:34 SF (Rec: 09/21/17 14:34 SF [id number]) Intravenous Solution Start Date 09/21/17 Start Time 14:34 End Date 09/21/17 End time 15:05 Total Infusion Time 31 Disposition/Present on Arrival - Present on Arrival Any Indicators Present on Arrival: No History of DVT/PE: No History of Uncontrolled Diabetes: No Urinary Catheter: No History of Decub. Ulcer: No History Surgical Site Infection Following: None - Disposition Have Diagnosis and Disposition been Completed?: Yes Diagnosis: Acute cystitis with hematuria Disposition: HOME/ ROUTINE Disposition Time: 14:58 Patient Plan: Discharge Patient Problems: Current Active Problems Problem Status Onset Acute cystitis with hematuria Acute Condition: IMPROVED Discharge Instructions (ExitCare): Urinary Tract Infection in Men (ED) Additional Instructions: Call private doctor in 2 days for follow up visit. make sure to call Dr. Andres for revaluation as well. Take medication as instructed. Return to emergency if you develop fever, or worsen symptoms. Prescriptions: Cefdinir [Omnicef] 300 mg PO BID #20 cap Referrals: Shilpa Costa MD [Primary Care Provider] - Follow up with primary Garrett Andres MD [Staff Provider] - Follow up with primary Forms: [employer] Connect (Sudanese)
[2017-09-21 12:34] LABS: BASO # 0.07 K/mm3 (0.0-2.0); BASO % 1.4 % (0.0-3.0); EOS # 0.2 (0.0-0.7); EOS % 4.8 % (1.5-5.0); GRAN # 2.45 (1.4-6.5); GRAN % 49.5 % (50.0-68.0); HEMOGLOBIN 10.9 g/dL (14.0-18.0); LYMPH # 1.7 (1.2-3.4); LYMPH % 35.2 % (22.0-35.0); MEAN CELL VOLUME 86.9 fl (80.0-105.0); MEAN CORPUSCULAR HEMOGLOBIN 27.9 pg (25.0-35.0); MEAN CORPUSCULAR HGB CONC 32.2 g/dl (31.0-37.0); MEAN PLATELET VOLUME 9.3 fl (7.0-11.0); MONO # 0.5 (0.1-0.6); MONO % 9.1 % (1.0-6.0); RBC 3.9 10^6/uL (3.5-6.1); RED CELL DISTRIBUTION WIDTH 14.3 % (11.5-14.5)
[2017-09-21 12:51] LABS: PH,URINE 7.5 (4.7-8.0); URINE BILIRUBIN NEGATIVE (NEGATIVE); URINE BLOOD LARGE (NEGATIVE); URINE GLUCOSE (UA) NEGATIVE (NEGATIVE); URINE LEUKOCYTE ESTERASE LARGE Leu/uL (NEGATIVE); URINE NITRATE NEGATIVE (NEGATIVE); URINE PROTEIN >=300 mg/dL (<30 mg/dL); URINE UROBILINOGEN 0.2 E.U./dL (<1 E.U./dL)
[2017-09-21 12:58] LABS: URINE APPEARANCE CLOUDY (CLEAR); URINE COLOR LIGHT BROWN (YELLOW)
[2017-09-21 13:01] LABS: URINE RBC TNTC /hpf (0-2); URINE WBC TNTC /hpf (0-6)
[2017-09-21 13:02] LABS: URINE BACTERIA LARGE (NEG)
[2017-09-21 13:20] VITALS: RESP 18; TEMP 98.2
--- NOTE | 2017-09-21 13:24 | CT ---
PROCEDURE: CT Abdomen and Pelvis without intravenous contrast HISTORY: right nephrostomy with hematuria Relevant interventional procedure(s): Bilateral nephrostomy catheters identified. COMPARISON: 09/01/2017 CT abdomen and pelvis 09/04/2017 renal ultrasound TECHNIQUE: Unenhanced study. Neither oral nor intravenous contrast administered. Radiation dose: Total exam DLP = 442.96 mGy-cm. This CT exam was performed using one or more of the following dose reduction techniques: Automated exposure control, adjustment of the mA and/or kV according to patient size, and/or use of iterative reconstruction technique. FINDINGS: LOWER THORAX: Trace pericardial effusion which is incompletely visualized. LIVER: Unremarkable. No gross lesion or ductal dilatation. GALLBLADDER AND BILE DUCTS: Unremarkable. PANCREAS: Unremarkable. No gross lesion or ductal dilatation. SPLEEN: Unremarkable. ADRENALS: Unremarkable. No mass. KIDNEYS AND URETERS: Bilateral nephrostomy catheters have resulted in the question of bilateral hydronephrosis identified previously. No appreciable hydronephrosis or hydroureter. No perinephric collections are identified. VASCULATURE: Unremarkable. No aortic aneurysm. BOWEL: Constipation, fecal impaction without obstruction. APPENDIX: Unremarkable. Normal appendix. PERITONEUM: Unremarkable. No free fluid. No free air. LYMPH NODES: Unremarkable. No enlarged lymph nodes. BLADDER: Thickening of the urinary bladder wall which is incompletely visualize partially obscured by streak artifact from drainage catheter apparatus. REPRODUCTIVE: Unremarkable. BONES: No acute fracture. OTHER FINDINGS: None. IMPRESSION: Status post by the lateral placement of nephrostomy catheters was successful resolution hydronephrosis identified on prior CT scan 09/01/2017. Low volume urinary bladder resulting in thickening of the bladder wall, a finding seen previously. Cystitis should be considered. Additional benign and/or incidental findings described above.
[2017-09-21] MEDS ORDERED: cefTRIAXone 1 gm 1 GM/100 ML BAG IVPB STA (13:58)
[2017-09-21 14:26] LABS: ALB/GLOB RATIO 0.7 (1.1-1.8); ALBUMIN 3.2 g/dL (3.0-4.8); CALCIUM 8.9 mg/dL (8.4-10.5)
[2017-09-21 15:52] VITALS: BP 125/75; PULSE 82; O2SAT 99
== END 2017-09-21 15:52 | disposition home or self-care (01) ==
LOC: ED 11:03
DX: N30.01 Acute cystitis with hematuria (principal); I10 Essential (primary) hypertension; Q90.9 Down syndrome, unspecified; Z99.2 Dependence on renal dialysis; F84.0 Autistic disorder
CPT/HCPCS: 74176; 80053; 81001; 85025; 87086; 96365; 99285; J0696

== ENCOUNTER 2017-10-06 17:39 | Emergency (ER) | payer OTHER ==
[2017-10-06 18:07] VITALS: BMI 20.1
[2017-10-06 18:13] VITALS: RESP 18; TEMP 98.8
--- NOTE | 2017-10-06 18:47 | ED PDOC ---
Arrival/HPI - General Chief Complaint: Medical Clearance Time Seen by Provider: 10/06/17 18:20 Historian: Parent - History of Present Illness Narrative History of Present Illness (Text): 10/06/17 18:37 27yo male with PMHx of renal failure, on dialysis, nephrostomy tubes and down syndrome bib the mother for complaint of purulent discharge in the urinary bag and discharge on the dressing since this morning. Mother states he saw the Urologist last week and the tube was supposed to be change, but the hospital didn't have an opening and was told that they will be called to schedule for the tube change. Denies fever, nausea, vomiting, back pain, any other complaint. Past Medical History - Provider Review Nursing Documentation Reviewed: Yes - Infectious Disease Hx of Infectious Diseases: None - Cardiac Hx Hypertension: Yes - Pulmonary Hx Respiratory Disorders: No - Neurological Hx Neurological Disorder: No Other/Comment: autism/down's syndrome/non verbal - HEENT Hx HEENT Disorder: No - Renal Hx Renal Disorder: Yes Hx Dialysis: Yes (T, Th, Sat) Hx Renal Failure: Yes Other/Comment: Nephrostomy bag - Endocrine/Metabolic Hx Endocrine Disorders: No - Hematological/Oncological Hx Blood Disorders: No - Integumentary Hx Dermatological Disorder: No - Musculoskeletal/Rheumatological Hx Musculoskeletal Disorders: No - Gastrointestinal Hx Gastrointestinal Disorders: No - Genitourinary/Gynecological Hx Genitourinary Disorders: No - Psychiatric Hx Psychophysiologic Disorder: No Hx Substance Use: No - Surgical History Other/Comment: ureteral obs - Anesthesia Hx Anesthesia Reactions: No Hx Malignant Hyperthermia: No Family/Social History - Physician Review Nursing Documentation Reviewed: Yes Family/Social History: Unknown Family HX Smoking Status: Never Smoked Hx Alcohol Use: No Hx Substance Use: No Allergies/Home Meds Allergies/Adverse Reactions: Allergies No Known Allergies Allergy (Verified 09/21/17 11:22) Home Medications: Home Meds Medication Instructions Recorded Confirmed Calcium Acetate [Phoslo] 667 mg PO TID 09/21/17 10/06/17 Famotidine [Pepcid] 20 mg PO DAILY 09/21/17 10/06/17 Ferrous Gluconate [Fergon] 240 mg PO TID 09/21/17 10/06/17 Vit B Cmplx 3/Folic AC/C/Biot 1 tab PO DAILY 09/21/17 10/06/17 [Anne Marie-Will Rx Tablet] Review of Systems - Physician Review All systems were reviewed & negative as marked: Yes - Review of Systems Constitutional: Normal Eyes: Normal ENT: Normal Respiratory: Normal Cardiovascular: Normal Gastrointestinal: Normal Genitourinary Male: Urinary Output Changes (Discharge in urine) Musculoskeletal: Normal Skin: Normal Neurological: Normal Endocrine: Normal Hemo/Lymphatic: Normal Psychiatric: Normal Physical Exam Vital Signs Reviewed: Yes Vital Signs Temp Pulse Resp BP Pulse Ox 10/06/17 21:04 72 18 99/52 L 98 10/06/17 17:40 98.8 F 97 H 18 96/61 L 100 Temperature: Afebrile Blood Pressure: Normal Pulse: Regular Respiratory Rate: Normal Appearance: Positive for: Well-Appearing, Non-Toxic, Comfortable Pain Distress: None Mental Status: Positive for: Alert and Oriented X 3 - Systems Exam Head: Present: Atraumatic, Normocephalic Pupils: Present: PERRL Extroacular Muscles: Present: EOMI Conjunctiva: Present: Normal Mouth: Present: Moist Mucous Membranes Neck: Present: Normal Range of Motion Respiratory/Chest: Present: Clear to Auscultation, Good Air Exchange. No: Respiratory Distress, Accessory Muscle Use Cardiovascular: Present: Regular Rate and Rhythm, Normal S1, S2. No: Murmurs Abdomen: Present: Normal Bowel Sounds. No: Tenderness, Distention, Peritoneal Signs Genitourinary Male: Present: Other (B/L nephrostomy tube are noted in place with stained dressing. Whitish substances noted in the bag) Back: Present: Normal Inspection Upper Extremity: Present: Normal Inspection. No: Cyanosis, Edema Lower Extremity: Present: Normal Inspection. No: Edema Neurological: Present: GCS=15, CN II-XII Intact, Speech Normal Skin: Present: Warm, Dry, Normal Color. No: Rashes Psychiatric: Present: Alert, Oriented x 3, Normal Insight, Normal Concentration Medical Decision Making ED Course and Treatment: 10/06/17 21:46 PT in ED for stated history. He was hemodynamically stable. Lab was remarkable. Moderate Milka and WBC's was noted in UA. Case was DW Dr. Chelsy andres, pt's Urologist. He recommends that pt be DC home with Doxycyline and advised to call his office tomorrow. states he planned to do cystoscopy last week, but not sal what happened. He plan to do cyscospoy. - Lab Interpretations Lab Results: 10/06/17 19:15 10/06/17 19:15 Lab Results 10/06/17 20:40: Urine Color Yellow, Urine Appearance Cloudy, Urine pH 7.0, Ur Specific [place] 1.020, Urine Protein >=300 H, Urine Glucose (UA) Negative, Urine Ketones Negative, Urine Blood Moderate H, Urine Nitrate Negative, Urine Bilirubin Negative, Urine Urobilinogen 0.2, Ur Leukocyte Esterase Moderate H, Urine RBC 20 - 25, Urine WBC 25 - 30, Ur Epithelial Cells 0 - 2, Amorphous Sediment Small, Urine Bacteria Many, Urine Other Uyeast 10/06/17 19:15: Sodium 140, Potassium 3.6, Chloride 96 L, Carbon Dioxide 32, Anion Gap 16, BUN 10, Creatinine 2.1 H, Est GFR ( Amer) 47, Est GFR (Non- Af Amer) 39, Random Glucose 100, Calcium 8.8, Total Bilirubin 0.3, AST 45, ALT 45, Alkaline Phosphatase 63, Total Protein 7.7, Albumin 3.4, Globulin 4.3, Albumin/Globulin Ratio 0.8 L 10/06/17 19:15: PT 42.0 H, INR 3.59 H*, APTT 51.4 H 10/06/17 19:15: WBC 5.5, RBC 3.90, Hgb 10.9 L, Hct 34.0 L, MCV 87.2, MCH 27.9, MCHC 32.1, RDW 15.1 H, Plt Count 215, MPV 8.9, Gran % 51.4, Lymph % (Auto) 36.9 H, [place] % (Auto) 8.4 H, Eos % (Auto) 1.5, Baso % (Auto) 1.8, Gran # 2.81, Lymph # (Auto) 2.0, [place] # (Auto) 0.5, Eos # (Auto) 0.1, Baso # (Auto) 0.10 - Medication Orders Current Medication Orders: Discontinued Medications Doxycycline Hyclate (Doryx) 100 mg PO STAT STA PRN Reason: Protocol Stop: 10/06/17 21:43 Disposition/Present on Arrival - Present on Arrival Any Indicators Present on Arrival: No History of DVT/PE: No History of Uncontrolled Diabetes: No Urinary Catheter: No History of Decub. Ulcer: No History Surgical Site Infection Following: None - Disposition Have Diagnosis and Disposition been Completed?: Yes Diagnosis: UTI (urinary tract infection) Disposition: HOME/ ROUTINE Disposition Time: 21:45 Patient Plan: Discharge Patient Problems: Current Active Problems Problem Status Onset UTI (urinary tract infection) Acute Condition: STABLE Discharge Instructions (ExitCare): Urinary Tract Infection in Men (ED) Additional Instructions: Follow up with Urologist, Dr. Andres tomorrow Return to ED for any new or worsening symptoms Prescriptions: Doxycycline Hyclate 100 mg PO BID #14 capsule Referrals: Garrett Andres MD [Staff Provider] - Follow up with primary Forms: [email or web address] (Ecuadorean)
[2017-10-06 19:32] LABS: BASO # 0.1 K/mm3 (0.0-2.0); BASO % 1.8 % (0.0-3.0); EOS # 0.1 (0.0-0.7); EOS % 1.5 % (1.5-5.0); GRAN # 2.81 (1.4-6.5); GRAN % 51.4 % (50.0-68.0); HEMOGLOBIN 10.9 g/dL (14.0-18.0); LYMPH % 36.9 % (22.0-35.0); MEAN CELL VOLUME 87.2 fl (80.0-105.0); MEAN CORPUSCULAR HEMOGLOBIN 27.9 pg (25.0-35.0); MEAN CORPUSCULAR HGB CONC 32.1 g/dl (31.0-37.0); MEAN PLATELET VOLUME 8.9 fl (7.0-11.0); MONO # 0.5 (0.1-0.6); MONO % 8.4 % (1.0-6.0); RBC 3.9 10^6/uL (3.5-6.1); RED CELL DISTRIBUTION WIDTH 15.1 % (11.5-14.5); WHITE BLOOD COUNT 5.5 10^3/ul (4.5-11.0)
[2017-10-06 19:55] LABS: PARTIAL THROMBOPLASTIN TIME 51.4 Seconds (25.1-36.5)
[2017-10-06 19:57] LABS: ALB/GLOB RATIO 0.8 (1.1-1.8); ALBUMIN 3.4 g/dL (3.0-4.8); CALCIUM 8.8 mg/dL (8.4-10.5)
[2017-10-06 20:08] LABS: INR 3.59 (0.93-1.08)
[2017-10-06 20:54] LABS: URINE BILIRUBIN NEGATIVE (NEGATIVE); URINE BLOOD MODERATE (NEGATIVE); URINE GLUCOSE (UA) NEGATIVE (NEGATIVE); URINE LEUKOCYTE ESTERASE MODERATE Leu/uL (NEGATIVE); URINE NITRATE NEGATIVE (NEGATIVE); URINE PROTEIN >=300 mg/dL (<30 mg/dL); URINE UROBILINOGEN 0.2 E.U./dL (<1 E.U./dL)
[2017-10-06 20:56] LABS: URINE APPEARANCE CLOUDY (CLEAR); URINE COLOR YELLOW (YELLOW)
[2017-10-06 20:59] LABS: URINE EPITHELIAL CELLS 0 - 2 /hpf (0-5); URINE RBC 20 - 25 /hpf (0-2); URINE WBC 25 - 30 /hpf (0-6)
[2017-10-06 21:00] LABS: URINE AMORPHOUS SEDIMENT SMALL; URINE BACTERIA MANY (NEG)
[2017-10-06 21:05] VITALS: BP 99/52; PULSE 72; O2SAT 98
== END 2017-10-06 22:00 | disposition home or self-care (01) ==
LOC: ED 17:39
DX: N39.0 Urinary tract infection, site not specified (principal); I12.0 Hypertensive chronic kidney disease with stage 5 chronic kidney disease or end stage renal disease; N18.6 End stage renal disease; Z99.2 Dependence on renal dialysis

== ENCOUNTER 2017-11-23 07:41 | Day surgery (SDC) | payer OTHER ==
[2017-11-23 07:42] VITALS: BMI 20.1
--- NOTE | 2017-11-23 08:13 | ED PDOC ---
Arrival/HPI - General Chief Complaint: Male Genitourinary Time Seen by Provider: 11/23/17 08:02 Historian: Patient, Parent - History of Present Illness Narrative History of Present Illness (Text): you were treated in the ED today for hx Down-Syndrome, non-verbal, long standing indwelling urinary cathethers and both sides nephrostomy tubes in the back with recurrent urine infections and was called by Dr. Andres for procedure , but otherwise without any nausea/vomiting/headache/dizziness/difficulty breathing/chest pain/abdomen pain/numbness/tingling/loss of limb function/pain with urination. 11/23/17 08:10 Symptom Onset: Other (no symptoms) Quality: Other (no pain) Past Medical History - Provider Review Nursing Documentation Reviewed: Yes - Travel History Have you recently traveled outside [place] w/in the past 3 mons?: No - Infectious Disease Hx of Infectious Diseases: None - Cardiac Hx Hypertension: Yes - Pulmonary Hx Respiratory Disorders: No - Neurological Hx Neurological Disorder: No - HEENT Hx HEENT Disorder: No - Renal Hx Renal Disorder: Yes Hx Dialysis: Yes (T, Th, Sat) Type of Dialysis Access: Right Chest Date of Last Dialysis Treatment: 11/22/17 Hx Renal Failure: Yes Other/Comment: Nephrostomy bag - Endocrine/Metabolic Hx Endocrine Disorders: No - Hematological/Oncological Hx Blood Disorders: No - Integumentary Hx Dermatological Disorder: No - Musculoskeletal/Rheumatological Hx Musculoskeletal Disorders: No - Gastrointestinal Hx Gastrointestinal Disorders: No - Genitourinary/Gynecological Hx Genitourinary Disorders: No - Psychiatric Hx Psychophysiologic Disorder: No Hx Substance Use: No - Surgical History Other/Comment: ureteral obs - Anesthesia Hx Anesthesia Reactions: No Hx Malignant Hyperthermia: No Family/Social History - Physician Review Nursing Documentation Reviewed: Yes Family/Social History: No Known Family HX Smoking Status: Never Smoked Hx Alcohol Use: No Hx Substance Use: No Allergies/Home Meds Allergies/Adverse Reactions: Allergies No Known Allergies Allergy (Verified 11/23/17 08:06) Home Medications: Home Meds Medication Instructions Recorded Confirmed Calcium Acetate [Phoslo] 667 mg PO DAILY 09/21/17 11/22/17 Famotidine [Pepcid] 20 mg PO DAILY 09/21/17 11/22/17 Ferrous Gluconate [Fergon] 240 mg PO TID 09/21/17 11/22/17 Vit B Cmplx 3/Folic AC/C/Biot 1 tab PO DAILY 09/21/17 11/22/17 [Anne Marie-Will Rx Tablet] Carvedilol [Coreg] 3.125 mg PO BID PRN 11/22/17 Warfarin [Coumadin] 1 mg PO ACL 11/22/17 Warfarin [Coumadin] 2.5 mg PO ACL 11/22/17 Review of Systems - Review of Systems Constitutional: Normal Eyes: Normal ENT: Normal Respiratory: Normal Cardiovascular: Normal Gastrointestinal: Normal Genitourinary Male: Normal Musculoskeletal: Normal Skin: Normal Neurological: Normal Endocrine: Normal Hemo/Lymphatic: Normal Psychiatric: Normal Physical Exam Vital Signs Reviewed: Yes Vital Signs Temp Pulse Resp BP Pulse Ox 11/23/17 08:00 98.3 F 82 18 102/72 97 Temperature: Afebrile Blood Pressure: Normal Pulse: Regular Respiratory Rate: Normal Appearance: Positive for: Well-Appearing, Non-Toxic, Comfortable Pain Distress: None Mental Status: Positive for: other (alert, baseline mental status) - Systems Exam Head: Present: Atraumatic, Normocephalic Pupils: Present: PERRL Extroacular Muscles: Present: EOMI Conjunctiva: Present: Normal Ears: Present: Normal Mouth: Present: Moist Mucous Membranes Pharnyx: Present: Normal Nose (External): Present: Atraumatic Nose (Internal): Present: Normal Inspection Neck: Present: Normal Range of Motion Respiratory/Chest: Present: Clear to Auscultation, Good Air Exchange Cardiovascular: Present: Regular Rate and Rhythm Abdomen: No: Tenderness, Distention, Normal Bowel Sounds, Peritoneal Signs, Rebound, Guarding, McBurney's Point Tender, Rovsing's Sign Present, Hernias, Feeding Tubes, Ostomy Tubes, Mass/Organomegaly, Scars, Other Genitourinary Male: Present: Other (nephrostomy tubes and penile catheter in place without redness.) Back: Present: Other (b/l nephrostomy tubee in place without redness.) Upper Extremity: Present: Normal Inspection Lower Extremity: Present: Normal Inspection Neurological: Present: CN II-XII Intact, Motor Func Grossly Intact, Other ( baseline mental status) Skin: Present: Warm, Normal Color Psychiatric: Present: Alert, Normal Insight, Other (baseline) Medical Decision Making ED Course and Treatment: you were treated in the ED today for hx Down-Syndrome, non-verbal, long standing indwelling urinary cathethers and both sides nephrostomy tubes in the back with recurrent urine infections and was called by Dr. Andres for procedure , but otherwise without any nausea/vomiting/headache/dizziness/difficulty breathing/chest pain/abdomen pain/numbness/tingling/loss of limb function/pain with urination. breathing comfortably, comfortable with mother, alert, no abdomen tenderness, good strength/sensation, posterior nephrostomy tubes and penile catheter in place without redness. 11/23/17 08:13 11/23/17 09:38 d/w Dr. Andres who stated give dose of rocephin and pt to go for procedure/ nephrostomy same day surgery. Reassessment Condition: Re-examined, Improved - Lab Interpretations Lab Results: 11/23/17 08:40 11/23/17 08:40 Lab Results 11/23/17 08:40: Urine Color Yellow, Urine Appearance Cloudy, Urine pH >=9.0, Ur Specific [place] 1.020, Urine Protein >=300 H, Urine Glucose (UA) Negative, Urine Ketones Negative, Urine Blood Large H, Urine Nitrate Negative, Urine Bilirubin Negative, Urine Urobilinogen 0.2, Ur Leukocyte Esterase Large H, Urine RBC 10 - 15, Urine WBC 10 - 15, Ur Epithelial Cells 0 - 2, Urine Bacteria Many 11/23/17 08:40: Blood Type Pending, Antibody Screen Pending, BBK History Checked No verified bt 11/23/17 08:40: Sodium 137, Potassium 3.7, Chloride 94 L, Carbon Dioxide 31, Anion Gap 16, BUN 45 H, Creatinine 5.0 H, Est GFR ( Amer) 17, Est GFR ( Non-Af Amer) 14, Random Glucose 81, Calcium 9.3, Total Bilirubin 0.3, AST 67 H D , ALT 89 H, Alkaline Phosphatase 70, Total Protein 8.9 H, Albumin 4.2, Globulin 4.8, Albumin/Globulin Ratio 0.9 L 11/23/17 08:40: PT 14.9 H, INR 1.29 H, APTT 32.8 11/23/17 08:40: WBC 5.5, RBC 4.32, Hgb 12.8 L, Hct 38.5 L, MCV 89.1, MCH 29.6, MCHC 33.2, RDW 17.3 H, Plt Count 225, MPV 9.1, Gran % 56.9, Lymph % (Auto) 32.1 , [place] % (Auto) 7.4 H, Eos % (Auto) 2.2, Baso % (Auto) 1.4, Gran # 3.14, Lymph # (Auto) 1.8, [place] # (Auto) 0.4, Eos # (Auto) 0.1, Baso # (Auto) 0.08 I have reviewed the lab results: Yes - RAD Interpretation Radiology Orders: 11/23/17 08:29 CHEST PORTABLE [RAD] Stat - EKG Interpretation Interpreted by ED Physician: Yes (NSR, flipped t waves avr) Type: 12 lead EKG - Medication Orders Current Medication Orders: Ceftriaxone Sodium (Rocephin 1 Gram Ivpb) 1 gm in 100 mls @ 100 mls/hr IVPB STAT STA PRN Reason: Protocol Stop: 11/23/17 10:23 Disposition/Present on Arrival - Present on Arrival Any Indicators Present on Arrival: No History of DVT/PE: No History of Uncontrolled Diabetes: No Urinary Catheter: No History of Decub. Ulcer: No History Surgical Site Infection Following: None - Disposition Have Diagnosis and Disposition been Completed?: Yes Diagnosis: Attention to nephrostomy Disposition: HOSPITALIZED Disposition Time: 09:39 Patient Problems: Current Active Problems Problem Status Onset Attention to nephrostomy Acute Condition: STABLE Forms: [employer] ([place] Arabian)
[2017-11-23 09:07] LABS: BASO # 0.08 K/mm3 (0.0-2.0); BASO % 1.4 % (0.0-3.0); EOS # 0.1 (0.0-0.7); EOS % 2.2 % (1.5-5.0); GRAN # 3.14 (1.4-6.5); GRAN % 56.9 % (50.0-68.0); HEMOGLOBIN 12.8 g/dL (14.0-18.0); LYMPH # 1.8 (1.2-3.4); LYMPH % 32.1 % (22.0-35.0); MEAN CELL VOLUME 89.1 fl (80.0-105.0); MEAN CORPUSCULAR HEMOGLOBIN 29.6 pg (25.0-35.0); MEAN CORPUSCULAR HGB CONC 33.2 g/dl (31.0-37.0); MEAN PLATELET VOLUME 9.1 fl (7.0-11.0); MONO # 0.4 (0.1-0.6); MONO % 7.4 % (1.0-6.0); PH,URINE >=9.0 (4.7-8.0); RBC 4.32 10^6/uL (3.5-6.1); RED CELL DISTRIBUTION WIDTH 17.3 % (11.5-14.5); URINE BILIRUBIN NEGATIVE (NEGATIVE); URINE BLOOD LARGE (NEGATIVE); URINE GLUCOSE (UA) NEGATIVE (NEGATIVE); URINE LEUKOCYTE ESTERASE LARGE Leu/uL (NEGATIVE); URINE PROTEIN >=300 mg/dL (<30 mg/dL); URINE UROBILINOGEN 0.2 E.U./dL (<1 E.U./dL); WHITE BLOOD COUNT 5.5 10^3/ul (4.5-11.0)
[2017-11-23 09:09] LABS: URINE APPEARANCE CLOUDY (CLEAR); URINE COLOR YELLOW (YELLOW)
[2017-11-23 09:15] LABS: URINE BACTERIA MANY (NEG); URINE EPITHELIAL CELLS 0 - 2 /hpf (0-5)
[2017-11-23 09:17] LABS: ALB/GLOB RATIO 0.9 (1.1-1.8); ALBUMIN 4.2 g/dL (3.0-4.8); CALCIUM 9.3 mg/dL (8.4-10.5)
[2017-11-23 09:19] LABS: INR 1.29 (0.93-1.08); PARTIAL THROMBOPLASTIN TIME 32.8 Seconds (25.1-36.5); PROTHROMBIN TIME 14.9 SECONDS (9.4-12.5)
[2017-11-23] MEDS ORDERED: cefTRIAXone 1 gm 1 GM/100 ML BAG IVPB STA (09:24)
--- NOTE | 2017-11-23 09:37 | RAD ---
HISTORY: 27yoM, preop COMPARISON: 09/02/2017 FINDINGS: LUNGS: No active pulmonary disease. PLEURA: No significant pleural effusion identified, no pneumothorax apparent. CARDIOVASCULAR: Normal. OSSEOUS STRUCTURES: No significant abnormalities. VISUALIZED UPPER ABDOMEN: Normal. OTHER FINDINGS: Right internal jugular dialysis catheter IMPRESSION: No active disease.
[2017-11-23] MEDS ORDERED: Iohexol 240 (50 ml) ONE (09:51)
[2017-11-23] MEDS ORDERED: cefTRIAXone (Rocephin) 1 gm Inj ONE (09:51)
[2017-11-23] MEDS ORDERED: Lidocaine 1% Inj (20ml) ONE (11:39)
[2017-11-23] MEDS ORDERED: Propofol 10 mg/ml Inj (20 ML) ONE (11:39)
[2017-11-23] MEDS ORDERED: cefTRIAXone (Rocephin) 1 gm Inj IVPB ONE (12:05)
[2017-11-23] MEDS ORDERED: Iohexol 240 (50 ml) IVP ONE (12:10)
[2017-11-23] MEDS ORDERED: HYDROmorphone 0.5 mg/0.5 ml ISec IVP PRN (12:22)
[2017-11-23] MEDS ORDERED: Sodium Chloride 0.9% 1,000 ML IV SCH (12:30)
[2017-11-23 13:38] VITALS: PULSE 69; RESP 20; TEMP 97.4
[2017-11-23 13:45] VITALS: BP 117/60; O2SAT 99
--- NOTE | 2017-11-23 14:47 | RAD ---
PROCEDURE: Cystogram HISTORY: CYSTOGRAM COMPARISON: TECHNIQUE: Fluoroscopy was provided in the operating room. 2.2 seconds of fluoro time. 0.38 mGy cumulative dose. Five images FINDINGS: Bilateral ureteral stents. Contrast in the bladder IMPRESSION: As above
--- NOTE | 2017-11-23 19:27 | CARD ---
APPROVED REPORT EKG Measurement Heart [id number] IN [id number] <Conclusion> Normal sinus rhythm Normal ECG
--- NOTE | 2017-12-02 10:47 | PN ---
DATE: IMMEDIATE POSTOPERATIVE NOTE See history and physical and operative note, this is a postoperative note. The patient is currently in the recovery room, resting comfortably. He is status post Zelaya catheter change and cystogram, and removal of nephrostomy tube. Vital signs are within normal limits. The diagnoses are urinary retention, renal failure and voiding dysfunction. The plans are as follows we are going to try to insert a cystostomy tube. I need to stop a few minutes for this. Further plans, we will follow. Rod Andres MD
--- NOTE | 2017-12-05 09:13 | OP ---
PROCEDURE DATE: 11/23/2017 UROLOGY OPERATIVE REPORT This is an emergency surgical procedure. PREOPERATIVE DIAGNOSES: Urinary retention, renal fat pad, functioning Zelaya catheter, nephrostomy tube. POSTOPERATIVE DIAGNOSES: Urinary retention, renal fat pad, functioning Zelaya catheter, nephrostomy tube. PROCEDURE: Removal and insertion of a Zelaya catheter, removal of bilateral nephrostomy tubes, and cystogram. ESTIMATED BLOOD LOSS: Less than 10 mL. COMPLICATIONS: There are no complications. At the termination of procedure, the patient has double J-stent in good location and a new Zelaya catheter indwelling that is working well. Plan eventually for a cystostomy tube. INDICATIONS FOR PROCEDURE: Patient presented to the emergency room as an emergency with a nonfunctioning catheter. We discussed options with the mother. We would like to eventually put in cystostomy tube with completion of Coumadin. The mother continues to provide major care for the patient. The timing of treatment is very difficult with his dialysis treatment, 3 days a week. Patient through the emergency room. We are going to change the catheter, but would not able to do a cystostomy tube. DESCRIPTION OF PROCEDURE: The urology operative findings are listed as above. Otherwise unremarkable. The patient was brought to the OR and placed on the table. We obtained consent from the mother. We then grabbed the patient in the usual fashion. Timeout was called to confirm the patient. The patient was given sedation anesthesia. With the patient in a supine position. Now in lithotomy position, we removed the old catheter and inserted a new catheter, irrigated it gently, irrigated while in good location. We then confirmed our position with a cystogram. We also removed both nephrostomy tubes, bilateral double J stent. Overall, the patient tolerated the procedure well without complication. We applied dry sterile dressings in both nephrostomy tube site. The patient tolerated the procedure well without complications. Rod Andres MD
--- NOTE | 2017-12-05 09:17 | HP ---
UROLOGY ADMISSION HISTORY AND PHYSICAL REASON FOR ADMISSION: Emergency admission for hematuria. HISTORY OF PRESENT ILLNESS: Garret Byrd is a very pleasant 27-year-old young gentleman with Down syndrome, who is taken care of by his mother, who is now being admitted through the emergency room as an emergency with hematuria and voiding dysfunction. His history is as follows. I thought that we admit the patient in for various reasons, maternal reasons, such as being noncompliant and just difficulty with situation, the patient was not able to have all his routine monitoring. He then presented here most recently at which time, he had bilateral nephrostomy tubes put in. His kidneys are tremendously enlarged, see the previously dictated notes, and he has bilateral nephrostomy tubes. We were able to place stents in and we left him with stents. See the plans as below and he has stents and nephrostomy tubes. He is now having difficulty with this. We are also planning but not to get Coumadin eventually and placing a cystostomy tube instead of a Zelaya catheter. Hoping that this will make easier maintenance, but he is on Coumadin, so we are not going to be able to do that today. Meanwhile, his mother told me that he is having difficulty with the catheter, so bringing him into the hospital now through the emergency room, we are going to bring him up to the OR, we are going to change the catheter. While there, we are also planning to remove the nephrostomy tube. I will plan to get x-rays to confirm everything. PAST MEDICAL/SURGICAL HISTORY: As listed on the chart. As mentioned above, Down syndrome and multiple medical issues as noted. REVIEW OF SYSTEMS: Listed above. SOCIAL HISTORY: His mother cares for him, brings him everywhere. She has been involved with his care as well as the father that also periodically calls me to discuss further options. MEDICATIONS: See chart. ALLERGIES: . PHYSICAL EXAMINATION: GENERAL: A relatively short- statured gentleman, appearing young. LUNGS: Clear. HEART: Normal. ABDOMEN: Soft. His both nephrostomy tubes are in place. The catheter now that is in place we just spoke to evaluate, but it looks like it is draining adequately. DIAGNOSES: 1. Renal failure. 2. A dialysis patient. 3. Massive hydronephrosis. 4. Nonfunctioning kidneys. 5. Urinary retention. PLAN: The patient does make urine and therefore we would like to preserve whatever amounts of urine output is benefitted by the kidney, so the plan for today is as follows. He has a nonfunctioning catheter. We are going to plan to bring him to the OR and change the catheter. He certainly needs some sedation just to change the catheter. We will treat him gently as well. I reassured the mother. Plan for today is emergently to change in catheter and remove the nephrostomy tube and do x-rays. See the operative note below. Eventually, we will stop the Coumadin and try to do a cystostomy tube. Further plans will follow and we would just maintain him on change of the cystostomy tube, and I discussed with the mother in detail further plans. We are going to change the catheter every 6 weeks and change the ureteral stent every 12 weeks. Rod Andres MD
== END 2017-11-23 14:50 | disposition home or self-care (01) ==
LOC: ED 07:41 → MERGE 09:38 → SDS 09:38
PROVIDERS: ATTEND Urology
DX: Z43.6 Encounter for attention to other artificial openings of urinary tract (principal); N39.0 Urinary tract infection, site not specified; B95.2 Enterococcus as the cause of diseases classified elsewhere; B96.5 Pseudomonas (aeruginosa) (mallei) (pseudomallei) as the cause of diseases classified elsewhere; I12.9 Hypertensive chronic kidney disease with stage 1 through stage 4 chronic kidney disease, or unspecified chronic kidney disease; N18.9 Chronic kidney disease, unspecified; Q90.9 Down syndrome, unspecified; Z99.2 Dependence on renal dialysis; Z79.01 Long term (current) use of anticoagulants; R33.9 Retention of urine, unspecified; N13.30 Unspecified hydronephrosis
CPT/HCPCS: 50389; 71045; 74430; 80053; 81001; 85025; 85610; 85730; 86850; 86900; 87086; 87181; 93005; 99284; J0696; J1170; J2405; J2704; J2765; J7040; J7120; Q9966

== ENCOUNTER 2017-12-07 15:39 | Inpatient (IN) | payer OTHER ==
[2017-12-07 16:14] VITALS: BMI 21.3
[2017-12-07 17:09] LABS: VENOUS BLOOD GAS BASE EXCESS 3.4 mmol/L (0.0-2.0); VENOUS BLOOD GAS PO2 51 mm/Hg (30-55); VENOUS BLOOD PH 7.35 (7.32-7.43)
[2017-12-07 17:10] LABS: BASO # 0.07 K/mm3 (0.0-2.0); BASO % 0.9 % (0.0-3.0); EOS # 0.2 (0.0-0.7); EOS % 2.4 % (1.5-5.0); GRAN # 4.34 (1.4-6.5); GRAN % 54.7 % (50.0-68.0); HEMOGLOBIN 12.5 g/dL (14.0-18.0); LYMPH # 2.6 (1.2-3.4); LYMPH % 32.6 % (22.0-35.0); MEAN CELL VOLUME 87.4 fl (80.0-105.0); MEAN CORPUSCULAR HEMOGLOBIN 29.8 pg (25.0-35.0); MEAN CORPUSCULAR HGB CONC 34.1 g/dl (31.0-37.0); MONO # 0.8 (0.1-0.6); MONO % 9.4 % (1.0-6.0); PH,URINE 8.5 (4.7-8.0); RBC 4.2 10^6/uL (3.5-6.1); URINE BILIRUBIN NEGATIVE (NEGATIVE); URINE BLOOD MODERATE (NEGATIVE); URINE GLUCOSE (UA) NEGATIVE (NEGATIVE); URINE LEUKOCYTE ESTERASE MODERATE Leu/uL (NEGATIVE); URINE PROTEIN 100 mg/dL (<30 mg/dL); URINE UROBILINOGEN 0.2 E.U./dL (<1 E.U./dL); WHITE BLOOD COUNT 7.9 10^3/ul (4.5-11.0)
[2017-12-07 17:13] LABS: URINE APPEARANCE TURBID (CLEAR); URINE COLOR YELLOW (YELLOW)
[2017-12-07 17:15] LABS: URINE BACTERIA MOD (NEG); URINE RBC 20 - 25 /hpf (0-2); URINE WBC TNTC /hpf (0-6)
[2017-12-07 17:34] LABS: ALB/GLOB RATIO 0.8 (1.1-1.8); ALBUMIN 4.1 g/dL (3.0-4.8); CALCIUM 9.5 mg/dL (8.4-10.5)
--- NOTE | 2017-12-07 18:01 | ED PDOC ---
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) - HEENT Hx HEENT Disorder: No - Renal Hx Dialysis: Yes (T, TH, SAT) Date of Last Dialysis Treatment: 12/06/17 Other/Comment: B/L NEPHROSTOMY TUBES - Endocrine/Metabolic Hx Endocrine Disorders: No - Hematological/Oncological Hx Blood Disorders: No - Integumentary Hx Dermatological Disorder: Yes Hx Eczema: Yes - Musculoskeletal/Rheumatological Hx Musculoskeletal Disorders: No - Gastrointestinal Hx Gastrointestinal Disorders: No - Genitourinary/Gynecological Hx Genitourinary Disorders: Yes Other/Comment: KIM - Psychiatric Hx Psychophysiologic Disorder: No Hx Substance Use: No - Surgical History Hx Vascular Access Device: Yes Other/Comment: CYSTOSCOPY. NEPHROSTOMY TUBES, YISEL. - Anesthesia Hx Anesthesia Reactions: No Hx Malignant Hyperthermia: No - Suicidal Assessment Feels Threatened In Home Enviroment: No Family/Social History Family/Social History: No Known Family HX Smoking Status: Never Smoked Hx Alcohol Use: No Hx Substance Use: No Allergies/Home Meds Allergies/Adverse Reactions: Allergies No Known Allergies Allergy (Verified 12/07/17 15:54) Home Medications: Home Meds Medication Instructions Recorded Confirmed Ferrous Gluconate [Fergon] 240 mg PO TID 09/21/17 12/07/17 Carvedilol [Coreg] 3.125 mg PO BID 10/17/17 12/07/17 Famotidine [Pepcid] 20 mg PO DAILY 10/17/17 12/07/17 Warfarin [Coumadin] 3.5 mg PO ACL 11/22/17 12/07/17 Vit B Cmplx 3/Folic AC/C/Biot 1 tab PO DAILY 12/07/17 12/07/17 [Anne Marie-Will Rx Tablet] Physical Exam Vital Signs Temp Pulse Resp BP Pulse Ox 12/07/17 15:58 97.8 F 106 H 17 101/68 98 Medical Decision Making ED Course and Treatment: 12/07/17 17:[address] Andres. Patient's CT shows bilateral nephrosis. However patient has stents in both ureters to keep open since nephrostomy tubes were removed. - Lab Interpretations Microbiology Results: Microbiology Results 12/07/17 16:51 Blood-Venous Blood Culture - Preliminary NO GROWTH AFTER 24 HOURS 12/07/17 14:21 Blood-Venous Blood Culture - Preliminary NO GROWTH AFTER 24 HOURS 12/07/17 16:51 Urine,Kim Urine Culture - Preliminary Gram Negative Hao Lab Results: 12/07/17 16:51 12/07/17 16:51 Lab Results 12/07/17 16:51: Urine Color Yellow, Urine Appearance Turbid, Urine pH 8.5, Ur Specific [place] 1.020, Urine Protein 100 H, Urine Glucose (UA) Negative, Urine Ketones Negative, Urine Blood Moderate H, Urine Nitrate Negative, Urine Bilirubin Negative, Urine Urobilinogen 0.2, Ur Leukocyte Esterase Moderate H, Urine RBC 20 - 25, Urine WBC Tntc, Ur Epithelial Cells 6 - 8, Urine Bacteria Mod 12/07/17 16:51: Sodium 134, Chloride 91 L, Potassium 4.0, Carbon Dioxide 28, Anion Gap 19, BUN 68 H, Creatinine 7.1 H, Est GFR ( Amer) 11, Est GFR ( Non-Af Amer) 9, Random Glucose 87, Calcium 9.5, Total Bilirubin 0.1 L, AST 45, ALT 48, Alkaline Phosphatase 68, Total Protein 9.0 H, Albumin 4.1, Globulin 4.9 , Albumin/Globulin Ratio 0.8 L 12/07/17 16:51: pO2 51, VBG pH 7.35, VBG pCO2 55.0, VBG HCO3 30.4 H, VBG Total CO2 32.1 H, VBG O2 Sat (Calc) 87.1 H, VBG Base Excess 3.4 H, VBG Potassium 4.0, Sodium 132.0, Chloride 96.0 L, Glucose 88, Lactate 1.0, FiO2 21.0, Venous Blood Potassium 4.0 12/07/17 16:51: WBC 7.9 D, RBC 4.20, Hgb 12.5 L, Hct 36.7 L, MCV 87.4, MCH 29.8 , MCHC 34.1, RDW 17.0 H, Plt Count 211, MPV 9.0, Gran % 54.7, Lymph % (Auto) 32.6, [place] % (Auto) 9.4 H, Eos % (Auto) 2.4, Baso % (Auto) 0.9, Gran # 4.34, Lymph # (Auto) 2.6, [place] # (Auto) 0.8 H, Eos # (Auto) 0.2, Baso # (Auto) 0.07 - RAD Interpretation Radiology Orders: 12/07/17 16:45 ABD & PELVIS W/O PO OR IV CONT [CT] Stat - Medication Orders Current Medication Orders: Carvedilol (Coreg) 3.125 mg PO QPM [facility] Last Admin: 12/08/17 17:11 Dose: Not Given Non-Admin Reason: BP Parameters Not Met MAR Pulse and Blood Pressure Document 12/08/17 17:11 EP (Rec: 12/08/17 17:11 [id number] Blood Pressure Blood Pressure (100/60-150/90) 96/64 Famotidine (Pepcid) 20 mg PO DAILY [facility] Last Admin: 12/08/17 10:44 Dose: Not Given Non-Admin Reason: Patient in Dialysis Piperacillin Sod/Tazobactam Sod (Zosyn 2.25 Gm In 0.9% 100 Ml) 2.25 gm in 100 mls @ 100 mls/hr IVPB Q6 TONY PRN Reason: Protocol Stop: 12/16/17 12:01 Last Admin: 12/08/17 13:04 Dose: Not Given Non-Admin Reason: Patient in Dialysis Vitamin B Complex/Vit C/Folic Acid (Nephro-Will) 1 tab PO DAILY [facility] Last Admin: 12/08/17 10:43 Dose: Not Given Non-Admin Reason: Patient in Dialysis Warfarin Sodium (Coumadin) 2.5 mg PO 1800 TONY PRN Reason: Protocol Discontinued Medications Carvedilol (Coreg) 3.125 mg PO BID [facility] Last Admin: 12/08/17 10:43 Dose: Not Given Non-Admin Reason: Patient in Dialysis Ferrous Gluconate (Fergon) 324 mg PO TID [facility] Last Admin: 12/08/17 10:43 Dose: Not Given Non-Admin Reason: Patient in Dialysis Vancomycin HCl (Vancomycin 1gm) 1 gm in 250 mls @ 167 mls/hr IVPB STAT STA PRN Reason: Protocol Stop: 12/07/17 19:34 Last Admin: 12/07/17 18:54 Dose: 167 mls/hr eMAR Start Stop Document 12/07/17 18:54 MS (Rec: 12/07/17 18:54 MS [id number]) Intravenous Solution Start Date 12/07/17 Start Time 18:54 End Date 12/07/17 End time 20:24 Total Infusion Time 90 Piperacillin Sod/Tazobactam Sod (Zosyn 3.375 In Ns 100ml) 100 mls @ 200 mls/hr IVPB STAT STA PRN Reason: Protocol Stop: 12/07/17 18:34 Last Admin: 12/07/17 18:25 Dose: 200 mls/hr eMAR Start Stop Document 12/07/17 18:25 MS (Rec: 12/07/17 18:26 MS [id number]) Intravenous Solution Start Date 12/07/17 Start Time 18:26 End Date 12/07/17 End time 18:56 Total Infusion Time 30 Piperacillin Sod/Tazobactam Sod (Zosyn 2.25 Gm In 0.9% 100 Ml) 2.25 gm in 100 mls @ 100 mls/hr IVPB Q8H TONY PRN Reason: Protocol Stop: 12/15/17 19:31 Last Admin: 12/08/17 03:01 Dose: 100 mls/hr eMAR Start Stop Document 12/08/17 03:01 BN (Rec: 12/08/17 03:01 BN [id number]) Intravenous Solution Start Date 12/08/17 Start Time 03:01 - Scribe Statement The provider has reviewed the documentation as recorded by the Scribe Disposition/Present on Arrival - Present on Arrival Any Indicators Present on Arrival: No History of DVT/PE: No History of Uncontrolled Diabetes: No Urinary Catheter: No History of Decub. Ulcer: No History Surgical Site Infection Following: None - Disposition Have Diagnosis and Disposition been Completed?: Yes Diagnosis: UTI (urinary tract infection), ESRD (end stage renal disease) on dialysis, Acute kidney injury Disposition: HOSPITALIZED Disposition Time: 18:05 Patient Plan: Admission Patient Problems: Current Active Problems Problem Status Onset Acute kidney injury Acute ESRD (end stage renal disease) on dialysis Acute UTI (urinary tract infection) Acute Condition: GOOD
[2017-12-07] MEDS ORDERED: Piperacillin/Tazobact 3.375 gm 100 ML IVPB STA (18:05)
[2017-12-07] MEDS ORDERED: Vancomycin 1gm in NS 250ml 1 GM/250 ML BAG IVPB STA (18:05)
--- NOTE | 2017-12-07 19:42 | PCM.URO ---
Urology Progress Note - Objective Lab Studies: Reviewed (dx: hematuria, retention plans: britt, antibiotics) Vital Signs: Vital Signs - 24 hr 12/07/17 19:32 Pulse Rate 92 H Respiratory 16 Rate Blood Pressure 112/68 O2 Sat by Pulse 99 Oximetry
[2017-12-07] MEDS: Piperacillin/Tazobact 2.25gm 2.25 GM/100 ML BAG IVPB SCH (19:59)
--- NOTE | 2017-12-07 21:04 | CT ---
EXAM: CT Abdomen and Pelvis Without Intravenous Contrast EXAM DATE/TIME: 12/07/2017 4:45 PM CLINICAL HISTORY: The patient age is 27 years old and is male; Screening exam; Other: ? Hydronephrosis; Prior surgery; Surgery type: B/l nephrostomy tubes - cystoscopy - vascular access device; Additional info: ? Hydronephrosis Facility exam id and description: Ct abdpelscon abd pelvis w/o po or iv cont TECHNIQUE: Axial computed tomography images of the abdomen and pelvis without intravenous contrast. All CT scans at this facility use one or more dose reduction techniques, viz.: automated exposure control; ma/kV adjustment per patient size (including targeted exams where dose is matched to indication; i.e. head); or iterative reconstruction technique. Coronal and sagittal reformatted images were created and reviewed. COMPARISON: CT - ABD PELVIS W/O PO OR IV CONT 2017-09-21 13:00 FINDINGS: Lung bases: Bronchiectasis is visualized within the left lower lobe of the lung. Heart: There is a small pericardial effusion again visualized. ABDOMEN: Liver: Unremarkable. No mass. Gallbladder and bile ducts: The gallbladder is contracted, with mild stable wall thickening. Pancreas: Normal contour. No ductal dilation. Spleen: No splenomegaly. Adrenals: No mass. Kidneys and ureters: There is abnormal morphology of the bilateral kidneys, with hydronephrosis and cortical atrophy. There is mild progressive dilatation of the renal collecting systems compared to the prior study. Distal hydroureter is visualized bilaterally. There is interval removal of the nephrostomy tubes. Bilateral ureteral stents are visualized. Stomach and bowel: There is moderate fecal material within the colon. Appendix: The appendix is incompletely visualized. The visualized appendix is nondistended. PELVIS: Bladder: There is nonspecific wall thickening of the bladder again visualized. Cystitis is within the differential, although additional pathology cannot be excluded. A Zelaya catheter is identified within the bladder Reproductive: Unremarkable as visualized. ABDOMEN and PELVIS: Intraperitoneal space: No free air. Bones/joints: There is mild angulation of the thoracic spine. Soft tissues: Subareolar density is visualized bilaterally, consistent with gynecomastia. Vasculature: No abdominal aortic aneurysm. Lymph nodes: Small retroperitoneal and intrapelvic lymph nodes are visualized, without significant lymphadenopathy. Tubes, lines and devices: Leads are catheters are visualized within the right heart. IMPRESSION: 1. There is abnormal morphology of the bilateral kidneys, with hydronephrosis and cortical atrophy. There is mild progressive dilatation of the renal collecting systems compared to the prior study. Distal hydroureter is visualized bilaterally. 2. There is nonspecific wall thickening of the bladder again visualized. Cystitis is within the differential, although additional pathology cannot be excluded. 3. The gallbladder is contracted, with mild stable wall thickening. Clinical correlation is recommended. 4. Bronchiectasis is visualized within the left lower lobe of the lung. 5. There is a small pericardial effusion again visualized. 6. Additional CT findings described above.
--- NOTE | 2017-12-07 23:43 | HP ---
HISTORY OF PRESENT ILLNESS: I was called down to the ER to see Garret. I had seen him in the past in another admission. He is a nice young 27-year-old man with a past medical history of Down syndrome, autism, and he is nonverbal, but his eyes are wide opened. He smiles at you. He comes in with a history of having bilateral nephrostomy tubes placed, having cystoscopy with Dr. Andres, urologist and now the Zelaya stopped draining urine. So, they brought him to the ER. We will get Dr. Andres in to help us. He also is on dialysis. We will get Dr. Lyons, his teenage program director involved and he is having UTI, we will get the Infectious Disease doctor put him on IV antibiotics. He is comfortable, sitting in bed. PAST MEDICAL HISTORY: Hypertension, Down syndrome, autism, nonverbal. He has dialysis on Tuesday, , and Tuesday. He had bilateral nephrostomy tubes. He has had cystoscopies. He has eczema, Zelaya catheter. SOCIAL HISTORY: He never smoked, no alcohol, no drugs. ALLERGIES: NO KNOWN DRUG ALLERGIES. He is here with his mother who takes very good care of him history lead caregiver. MEDICATIONS: He is on iron, Coreg, Pepcid, Coumadin, and vitamins. REVIEW OF SYSTEMS: He is comfortable in bed, no acute issues that I could see except the Zelaya catheter is not working. PHYSICAL EXAMINATION: VITAL SIGNS: He has a 97.8 temperature, 106 pulse, 17 respiratory rate, 101/68 blood pressure, 98% O2 sat. HEENT: Head is atraumatic, normocephalic. His eyes are wide opened. Throat is moist. NECK: Supple. HEART: Regular rate. LUNGS: Decreased breath sounds, but clear to auscultation. ABDOMEN: Soft. He has nephrostomy tubes in place. Positive bowel sounds. He has Zelaya catheter in place. EXTREMITIES: No edema. SKIN: For the most part, is intact. He has a history of eczema. LABORATORY DATA: He has a urine, which shows moderate blood, moderate leukocytes, moderate bacteria. He has 134 sodium, potassium is 4, BUN is 68, creatinine 7.1. He is on dialysis. GFR is 9. Sugar is 87. Calcium is 9.5. Total bilirubin is 0.1, AST is 45, ALT is 48, alkaline phosphatase 68, total protein is 9, albumin is 4.1, globulin is 4.9, lactate was 1, pO2 was 51. He has 7.9 white count, 12.5 hemoglobin, 36.7 hematocrit with 211 platelets. He is on consults with Renal, Infectious Disease, and Urology. He will be on IV antibiotics, his regular medications. We will check his labs tomorrow and he is here for clogged tubes in the genitourinary area. Hopefully, this will improve. Lawrence Merlos DO ANTOINETTE
[2017-12-08] MEDS: Piperacillin/Tazobact 2.25gm 2.25 GM/100 ML BAG IVPB SCH ×4 (03:01→23:42)
[2017-12-08 07:03] LABS: HEMOGLOBIN 11.4 g/dL (14.0-18.0); MEAN CELL VOLUME 87.4 fl (80.0-105.0); MEAN CORPUSCULAR HEMOGLOBIN 29.2 pg (25.0-35.0); MEAN CORPUSCULAR HGB CONC 33.4 g/dl (31.0-37.0); MEAN PLATELET VOLUME 9.2 fl (7.0-11.0); RBC 3.9 10^6/uL (3.5-6.1); RED CELL DISTRIBUTION WIDTH 17.3 % (11.5-14.5); WHITE BLOOD COUNT 6.6 10^3/ul (4.5-11.0)
[2017-12-08 07:15] LABS: INR 1.44 (0.93-1.08)
[2017-12-08 07:16] LABS: INR 1.49 (0.93-1.08); PROTHROMBIN TIME 16.7 SECONDS (9.4-12.5); PROTHROMBIN TIME 17.3 SECONDS (9.4-12.5)
[2017-12-08 07:20] LABS: ALB/GLOB RATIO 0.8 (1.1-1.8); ALBUMIN 3.7 g/dL (3.0-4.8); CALCIUM 8.8 mg/dL (8.4-10.5)
[2017-12-08] MEDS: Multivitamin Vitamin B Complex (Nephro-Vite) Tab PO SCH (10:43)
--- NOTE | 2017-12-08 11:20 | CP.PCM.CON ---
History of Present Illness - History of Present Illness History of Present Illness: 27 year old male with PMH of severe sepsis due to UTI from Klebsiella in a patient with hydronephrosis and hydroureter and acute on chronic renal failure, S/P nephrostomy tube placement and now on dialysis (ESRD), history of acute femoral vein DVT, , mental disability, down syndrome was brought in to [facility] because of decreased urine output from the Britt catheter that the patient has. There is note of pyuria also in the urinalysis. There is no note of fever, no vomiting, no loss of consciousness, no diarrhea, no convulsions as per the mother. Infectious diseases consult is requested to further evaluate and manage. Review of Systems - Review of Systems Systems not reviewed;Unavailable: Other (patient with down syndrome, difficult communication) Past Patient History - Infectious Disease Hx of Infectious Diseases: None - Past Medical History & Family History Past Medical History?: Yes - Past Social History Smoking Status: Never Smoked - CARDIAC Hx Cardiac Disorders: Yes Hx Hypertension: Yes - PULMONARY Hx Respiratory Disorders: No - NEUROLOGICAL Hx Neurological Disorder: Yes (DOWN'S SYNDROME AUTISM NON VERBAL) - HEENT Hx HEENT Problems: No - RENAL Hx [place] [facility] [place] of Last Dialysis Treatment: 12/06/17 Hx Renal Failure: Yes Other/Comment: B/L NEPHROSTOMY TUBES inserted 08/2017, removed and cysto, pt has britt to leg bag, hx urethral obstruction - ENDOCRINE/METABOLIC Hx Endocrine Disorders: No - HEMATOLOGICAL/ONCOLOGICAL Hx Blood Disorders: No - INTEGUMENTARY Hx Dermatological Problems: Yes Hx Eczema: Yes - MUSCULOSKELETAL/RHEUMATOLOGICAL Hx Musculoskeletal Disorders: No Hx Falls: No Hx Unsteady Gait: Yes (uses a w/ch) - GASTROINTESTINAL Hx Gastrointestinal Disorders: No - GENITOURINARY/GYNECOLOGICAL Hx Genitourinary Disorders: Yes (cystitis, retention, hydronephrosis) Hx Hematuria: Yes Hx Urinary Tract Infection: Yes Other/Comment: BRITT - PSYCHIATRIC Hx Psychophysiologic Disorder: No Hx Substance Use: No - SURGICAL HISTORY Other/Comment: CYSTOSCOPY rcw hd cath. NEPHROSTOMY TUBES, YISEL. - ANESTHESIA Hx Anesthesia Reactions: No Hx Malignant Hyperthermia: No Meds Allergies/Adverse Reactions: Allergies Allergy/AdvReac Type Severity Reaction Status Date / Time No Known Allergies Allergy Verified 12/07/17 15:54 - Medications Medications: Current Medications Carvedilol (Coreg) 3.125 mg PO BID TONY Famotidine (Pepcid) 20 mg PO DAILY TONY Ferrous Gluconate (Fergon) 240 mg PO TID TONY Piperacillin Sod/Tazobactam Sod (Zosyn 2.25 Gm In 0.9% 100 Ml) 2.25 gm in 100 mls @ 100 mls/hr IVPB Q8H TONY PRN Reason: Protocol Stop: 12/08/17 04:29 Last Admin: 12/07/17 19:59 Dose: Not Given Vitamin B Complex/Vit C/Folic Acid (Nephro-Will) 1 tab PO DAILY TONY Warfarin Sodium (Coumadin) 2.5 mg PO 1800 TONY PRN Reason: Protocol Physical Exam - Constitutional Appears: Chronically Ill - Head Exam Head Exam: NORMAL INSPECTION - ENT Exam ENT Exam: Mucous Membranes Moist - Neck Exam Neck exam: Negative for: Meningismus - Respiratory Exam Respiratory Exam: Decreased Breath Sounds - Cardiovascular Exam Cardiovascular Exam: +S1, +S2 - GI/Abdominal Exam GI & Abdominal Exam: Soft. absent: Tenderness Results - Vital Signs Recent Vital Signs: Last Vital Signs Temp 98 F 12/07/17 22:20 Pulse 87 12/07/17 22:20 Resp 20 12/07/17 22:20 BP 115/75 12/07/17 22:20 Pulse Ox 99 12/07/17 19:32 - Labs Result Diagrams: 12/08/17 06:15 12/08/17 06:15 Assessment & Plan - Assessment and Plan (Free Text) Plan: Assessment consider UTI in this patient with chronic Britt catheter use (complicated UTI) S/P severe sepsis due to UTI from Klebsiella in a patient with hydronephrosis and hydroureter and acute on chronic renal failure, S/P nephrostomy tube placement and now on dialysis (ESRD) history of acute femoral vein DVT mental disability down syndrome Plan started patient on Zosyn based on his most recent urine cx (10/2017) of Pseudomonas and E. faecalis and will follow up blood and urine cx follow up further Urology work up and procedures will monitor clinically
--- NOTE | 2017-12-08 15:17 | CP.PCM.CON ---
History of Present Illness - History of Present Illness History of Present Illness: Nephrology Consultation: Assessment: stable UTI ESRD on HD via permacath (TTS) hx of b/l massive hydronephrosis and loss of renal cortex s/p b/l nephrostomy left femoral DVT. neg for HIT/hypercoag work up Anemia, hx of MR vit D def with secondary hyperparathyroidism chronic systolic CHF with LVEF 35% Plan Plan for dialysis today as TTS. continue with nephrovite 1 tab/day continue with low dose coreg, not on RAAS donavan due to low BP Monitor Input/Output, daily weights and renal function with basic metabolic panel urology and ID consulted pt on systemic a/c with oral coumadin Dose meds/antibiotics for dialysis status. Avoid fleets enema/magnesium based laxatives. Avoid nephrotoxins/NSAIDs Glycemic control Further work up/management as per primary team. Thanks for allowing me to participate in care of your patient. Will follow patient with you. Please call if any Qs. d/w primary team Dr Olegario Lyons Office: [phone] HPI: Pt is a 27 M with MR and chronic obstructive uropathy and progressive CKD as a result of obstruction, now ESRD on HD (TTS), CHF, DVT came with decreased output from nephrostomy tube and being treated for UTI renal consult for ESRD management ROS: pt unable to provide due to MR. overnight events noted. Physical Examination: General Appearance: Comfortable, in no acute respiratory distress Vitals reviewed and noted as below Head; Atraumatic, normocephalic ENT: no ulcers no thrush. Tongue is midline. Oropharynx: no rash or ulcers. EYES: Pupils are equal, round and reactive to light accommodation. Eye muscles and extraocular movement intact. Sclera is anicteric. Neck; supple no lymphadenopathy, no thyromegaly or bruit Lungs: Normal respiratory rate/effort. Breath sounds bilateral equal and clear Heart: Normal rate. s1s2 normal. No rub or gallop. Extremities: no edema. No varicose veins Neurological: Patient is alert, awake, has severe MR, non communicative, non verbal Skin: Warm and dry. Normal turgor. No rash. Palpitation: Normal elasticity for age Abdomen: unable as pt now allowing Psych: no insight MSK: no joint tenderness or swelling. Digits and nails normal, no deformity : has nephrostomy tubes draining urine access: permacath Labs/imaging reviewed. Past medical history, past surgical history, family history, social history, allergy reviewed and noted as below Family hx: no hx of CKD. Rest non-contributory Past Patient History - Infectious Disease Hx of Infectious Diseases: None - Past Medical History & Family History Past Medical History?: Yes - Past Social History Smoking Status: Never Smoked - CARDIAC Hx Cardiac Disorders: Yes Hx Hypertension: Yes - PULMONARY Hx Respiratory Disorders: No - NEUROLOGICAL Hx Neurological Disorder: Yes (DOWN'S SYNDROME AUTISM NON VERBAL) - HEENT Hx HEENT Problems: No - RENAL Hx Dialysis: Yes (T, TH, SAT at [facility] [place]) Date of Last Dialysis Treatment: 12/06/17 Hx Renal Failure: Yes Other/Comment: B/L NEPHROSTOMY TUBES inserted 08/2017, removed and cysto, pt has britt to leg bag, hx urethral obstruction - ENDOCRINE/METABOLIC Hx Endocrine Disorders: No - HEMATOLOGICAL/ONCOLOGICAL Hx Blood Disorders: No - INTEGUMENTARY Hx Dermatological Problems: Yes Hx Eczema: Yes - MUSCULOSKELETAL/RHEUMATOLOGICAL Hx Musculoskeletal Disorders: No Hx Falls: No Hx Unsteady Gait: Yes (uses a w/ch) - GASTROINTESTINAL Hx Gastrointestinal Disorders: No - GENITOURINARY/GYNECOLOGICAL Hx Genitourinary Disorders: Yes (cystitis, retention, hydronephrosis) Hx Hematuria: Yes Hx Urinary Tract Infection: Yes Other/Comment: BRITT - PSYCHIATRIC Hx Psychophysiologic Disorder: No Hx Substance Use: No - SURGICAL HISTORY Other/Comment: CYSTOSCOPY rcw hd cath. NEPHROSTOMY TUBES, YISEL. - ANESTHESIA Hx Anesthesia Reactions: No Hx Malignant Hyperthermia: No Meds Allergies/Adverse Reactions: Allergies Allergy/AdvReac Type Severity Reaction Status Date / Time No Known Allergies Allergy Verified 12/07/17 15:54 - Medications Medications: Current Medications Carvedilol (Coreg) 3.125 mg PO QPM TONY Famotidine (Pepcid) 20 mg PO DAILY [facility] Last Admin: 12/08/17 10:44 Dose: Not Given Piperacillin Sod/Tazobactam Sod (Zosyn 2.25 Gm In 0.9% 100 Ml) 2.25 gm in 100 mls @ 100 mls/hr IVPB Q6 TONY PRN Reason: Protocol Stop: 12/16/17 12:01 Last Admin: 12/08/17 13:04 Dose: Not Given Vitamin B Complex/Vit C/Folic Acid (Nephro-Will) 1 tab PO DAILY TONY Last Admin: 12/08/17 10:43 Dose: Not Given Warfarin Sodium (Coumadin) 2.5 mg PO 1800 TONY PRN Reason: Protocol Results - Vital Signs Recent Vital Signs: Last Vital Signs Temp 97.3 F L 12/08/17 07:44 Pulse 93 H 12/08/17 07:44 Resp 18 12/08/17 07:44 BP 108/66 12/08/17 07:44 Pulse Ox 98 12/08/17 07:44 - Labs Result Diagrams: 12/08/17 06:15 12/08/17 06:15 Labs: Laboratory Results - last 24 hr 12/08/17 12/08/17 12/08/17 06:15 06:15 06:15 WBC 6.6 RBC 3.90 Hgb 11.4 L Hct 34.1 L MCV 87.4 MCH 29.2 MCHC 33.4 RDW 17.3 H Plt Count 206 MPV 9.2 PT 17.3 H INR 1.49 H Sodium 136 Potassium 3.8 Chloride 96 L Carbon Dioxide 26 Anion Gap 18 BUN 77 H Creatinine 7.7 H* Est GFR ( Amer) 10 Est GFR (Non-Af Amer) 9 Random Glucose 89 Calcium 8.8 Total Bilirubin 0.2 AST 52 ALT 36 Alkaline Phosphatase 60 Total Protein 8.3 Albumin 3.7 Globulin 4.6 Albumin/Globulin Ratio 0.8 L 12/08/17 06:15 WBC RBC Hgb Hct MCV MCH MCHC RDW Plt Count MPV PT 16.7 H INR 1.44 H Sodium Potassium Chloride Carbon Dioxide Anion Gap BUN Creatinine Est GFR ( Amer) Est GFR (Non-Af Amer) Random Glucose Calcium Total Bilirubin AST ALT Alkaline Phosphatase Total Protein Albumin Globulin Albumin/Globulin Ratio
--- NOTE | 2017-12-08 15:50 | PN ---
DATE: 12/08/2017 SUBJECTIVE: I see him sitting up in bed. He is eating his breakfast. There is flow in the Zelaya bag. His mother is at the bedside. MEDICATIONS: He is on Coreg, Coumadin, Fergon, Nephro-Will, Pepcid and Zosyn. PHYSICAL EXAMINATION GENERAL: He is alert and smiling, nonverbal. VITAL SIGNS: He has 97.3 temperature, 93 pulse, 108/66 blood pressure, 18 respiratory rate, 98% O2 sat on room air. HEENT: Head is atraumatic, normocephalic. HEART: Regular rate. LUNGS: Clear to auscultation. ABDOMEN: Soft, nontender. There is clear yellow urine in the Zelaya bag. EXTREMITIES: No edema. LABORATORY DATA: He has 6.6 white count, 11.4 hemoglobin, 34.1 hematocrit, 206 platelets. Sodium 136, potassium 3.8, BUN 77, creatinine 7.7 and he is on dialysis, GFR is sugar is 89, calcium is 8.8. Total bilirubin is 0.2, AST is 52, ALT is 36, alkaline phosphatase is 60, total protein is 8.3. His urine was positive. He was seen by Urology already and he had a CAT scan of the abdomen and pelvis. There is hydronephrosis. There is also dilatation of the renal collecting systems, bladder wall thickening. Persistent small pericardial effusion, now being increased since the last time. Still waiting for Renal, I think he needs dialysis and Infectious Disease evaluation. We will continue aggressive treatment and care and when I cannot, discharge him home. He was here for urinary retention, hydronephrosis and urinary tract infection. Lawrence Merlos DO ANTOINETTE
[2017-12-08 17:17] VITALS: TEMP 98
--- NOTE | 2017-12-08 23:17 | PCM.URO ---
Urology Progress Note - General General: No Complaints, Tolerating Diet - Subjective Abdominal Pain: No Flank Pain: No Nausea: No Vomiting: No Voiding Well: No (catheter in place) Hematuria: No Dsypnea: No Chest Pain: No Fever & Chills: No Other: Hd BM - Objective Lab Studies: Reviewed (creat-7.7) Lab Results Last 24 Hours: Laboratory Results - last 24 hr 12/08/17 12/08/17 12/08/17 06:15 06:15 06:15 WBC 6.6 RBC 3.90 Hgb 11.4 L Hct 34.1 L MCV 87.4 MCH 29.2 MCHC 33.4 RDW 17.3 H Plt Count 206 MPV 9.2 PT 17.3 H INR 1.49 H Sodium 136 Potassium 3.8 Chloride 96 L Carbon Dioxide 26 Anion Gap 18 BUN 77 H Creatinine 7.7 H* Est GFR ( Amer) 10 Est GFR (Non-Af Amer) 9 Random Glucose 89 Calcium 8.8 Total Bilirubin 0.2 AST 52 ALT 36 Alkaline Phosphatase 60 Total Protein 8.3 Albumin 3.7 Globulin 4.6 Albumin/Globulin Ratio 0.8 L 12/08/17 06:15 WBC RBC Hgb Hct MCV MCH MCHC RDW Plt Count MPV PT 16.7 H INR 1.44 H Sodium Potassium Chloride Carbon Dioxide Anion Gap BUN Creatinine Est GFR ( Amer) Est GFR (Non-Af Amer) Random Glucose Calcium Total Bilirubin AST ALT Alkaline Phosphatase Total Protein Albumin Globulin Albumin/Globulin Ratio Intake & Output: Intake & Output 12/08/17 12/08/17 12/09/17 06:59 18:59 06:59 Intake Total 60 120 360 Output Total 140 400 150 Balance -80 -280 210 Weight 102 lb Intake: Oral 60 120 360 Output: Urine 140 400 150 Urethral (Zelaya) 140 400 150 Other: Voiding Method Indwelling Catheter # Bowel Movements 1 0 Vital Signs: Vital Signs - 24 hr 12/08/17 12/08/17 12/08/17 07:44 17:11 17:16 Temperature 97.3 F L 98 F Pulse Rate 93 H 84 Respiratory 18 20 Rate Blood Pressure 108/66 96/64 L 89/49 L O2 Sat by Pulse 98 100 Oximetry - Physical Exam Abdominal Exam: Soft, Non-Tender, Non-Distended Back: No CVA Tenderness Genitalia: Without Inflammation Urinary Catheter Draining Well: Yes Urine Color: Clear, Yellow - Plan Additional Information: Imp: renal failure. Hydronephrosis. Down's syndrome with mental retardation. Hx of UTI. P/Rec: as per ID and nephrology. Ureteral stents in place. Discussed with family at bedside - Date & Time of Note Date: 12/08/17 Time: 18:30
[2017-12-09] MEDS: Piperacillin/Tazobact 2.25gm 2.25 GM/100 ML BAG IVPB SCH ×2 (06:04→11:08)
[2017-12-09 06:59] LABS: HEMOGLOBIN 11.1 g/dL (14.0-18.0); MEAN CELL VOLUME 87.5 fl (80.0-105.0); MEAN CORPUSCULAR HGB CONC 33.1 g/dl (31.0-37.0); MEAN PLATELET VOLUME 8.9 fl (7.0-11.0); RBC 3.83 10^6/uL (3.5-6.1); RED CELL DISTRIBUTION WIDTH 17.1 % (11.5-14.5); WHITE BLOOD COUNT 4.6 10^3/ul (4.5-11.0)
[2017-12-09 07:18] LABS: ALB/GLOB RATIO 0.8 (1.1-1.8); ALBUMIN 3.5 g/dL (3.0-4.8); CALCIUM 8.3 mg/dL (8.4-10.5)
[2017-12-09 07:49] VITALS: BP 103/61; PULSE 80; RESP 16; O2SAT 95
[2017-12-09] MEDS: Multivitamin Vitamin B Complex (Nephro-Vite) Tab PO SCH (09:55)
--- NOTE | 2017-12-09 13:07 | DS ---
HISTORY OF PRESENT ILLNESS: He is sitting up in bed comfortable. He will be discharged today. He will have increase in his Coumadin to 5 mg a day. He will have Levaquin 500 mg every other day for 4 pills worth. He will go on his Coreg, his vitamin, his Pepcid and I discussed with the Infectious Disease doctor and the mother and follow up in 1 week. He will also get a recheck of the INR in 1 week that is why increasing the Coumadin to 4 mg. His urine is running very well after the Zelaya stopped. Lawrence Merlos DO
--- NOTE | 2017-12-09 14:44 | CP.PCM.PN ---
Subjective - Date & Time of Evaluation Date of Evaluation: 12/09/17 Time of Evaluation: 10:00 - Subjective Subjective: Nephrology Consultation: Assessment: stable UTI ESRD on HD via permacath (TTS) hx of b/l massive hydronephrosis and loss of renal cortex s/p b/l nephrostomy left femoral DVT. neg for HIT/hypercoag work up Anemia, hx of MR vit D def with secondary hyperparathyroidism chronic systolic CHF with LVEF 35% Plan Plan for dialysis tomorrow as TTS. continue with nephrovite 1 tab/day continue with low dose coreg, not on RAAS donavan due to low BP urology and ID consult appreciated pt on systemic a/c with oral coumadin Dose meds/antibiotics for dialysis status. Avoid fleets enema/magnesium based laxatives. Avoid nephrotoxins/NSAIDs Glycemic control Further work up/management as per primary team. pt stable for d/c from renal perspective when planned Thanks for allowing me to participate in care of your patient. Will follow patient with you. Please call if any Qs. d/w mother Dr Olegario Lyons Office: [phone] HPI: Pt is a 27 M with MR and chronic obstructive uropathy and progressive CKD as a result of obstruction, now ESRD on HD (TTS), CHF, DVT came with decreased output from nephrostomy tube and being treated for UTI renal consult for ESRD management ROS: pt unable to provide due to MR. overnight events noted. Physical Examination: General Appearance: Comfortable, in no acute respiratory distress Vitals reviewed and noted as below Head; Atraumatic, normocephalic ENT: no ulcers no thrush. Tongue is midline. Oropharynx: no rash or ulcers. EYES: Pupils are equal, round and reactive to light accommodation. Eye muscles and extraocular movement intact. Sclera is anicteric. Neck; supple no lymphadenopathy, no thyromegaly or bruit Lungs: Normal respiratory rate/effort. Breath sounds bilateral equal and clear Heart: Normal rate. s1s2 normal. No rub or gallop. Extremities: no edema. No varicose veins Neurological: Patient is alert, awake, has severe MR, non communicative, non verbal Skin: Warm and dry. Normal turgor. No rash. Palpitation: Normal elasticity for age Abdomen: unable as pt now allowing Psych: no insight MSK: no joint tenderness or swelling. Digits and nails normal, no deformity : has nephrostomy tubes draining urine access: permacath Labs/imaging reviewed. Past medical history, past surgical history, family history, social history, allergy reviewed and noted as below Family hx: no hx of CKD. Rest non-contributory Objective - Vital Signs/Intake and Output Vital Signs (last 24 hours): Temp Pulse Resp BP Pulse Ox 98 F 80 16 103/61 95 12/09/17 07:48 12/09/17 07:48 12/09/17 07:48 12/09/17 07:48 12/09/17 07:48 Intake and Output: 12/09/17 12/09/17 06:59 18:59 Intake Total 480 Output Total 250 Balance 230 - Labs Labs: 12/09/17 06:40 12/09/17 06:40 PT 17.3 SECONDS (9.4-12.5) H 12/08/17 06:15 INR 1.49 (0.93-1.08) H 12/08/17 06:15
--- NOTE | 2017-12-09 16:15 | DS ---
HISTORY OF PRESENT ILLNESS: Hopefully a discharge summary on Garret Byrd. I am hoping to discharge Garret today, sitting up in bed. He is currently on Coreg, Coumadin, Nephro-Will, Pepcid and Zosyn. His has got clear yellow urine draining nicely. He has no acute distress to look at him. He is smiling at me. PHYSICAL EXAMINATION: VITAL SIGNS: 98 temp, 80 pulse, 103/61 blood pressure, 16 respiratory rate, 95% O2 sat on room air. He had dialysis yesterday. HEENT: His head is atraumatic, normocephalic. HEART: Regular rate. LUNGS: Clear to auscultation. ABDOMEN: Soft. EXTREMITIES: No edema. GENITOURINARY: Zelaya catheter has got bright yellow clear urine. LABORATORY DATA: He has a 4.6 white count, 11.1 hemoglobin, 33.5 hematocrit with 189 platelets. INR is 1.44. He is on Coumadin. I will increase the Coumadin. He has a 137 sodium, potassium 3.8, BUN is 41, creatinine is 5 after dialysis, GFR is 14, sugar is 92, calcium is 8.3, total bili is 0.1. AST is 555, ALT is 36, ALT is 58, alk phos is 58, total protein 7.6. Urine with moderate leukocytes, moderate bacteria. He is being seen by Renal, Infectious Disease and Urology. I will increase his Coumadin to 3.5. Continue with the Coreg and his vitamins and his Pepcid. He is already on IV antibiotics. I can switch him to p.o. antibiotics. I will try and discharge him later today. I will discuss that with Infectious Disease and hopefully we can discharge Garret Byrd later today. Lawrence Merlos DO
--- NOTE | 2017-12-09 17:11 | CP.PCM.PN ---
Subjective - Date & Time of Evaluation Date of Evaluation: 12/09/17 Time of Evaluation: 10:35 - Subjective Subjective: Comfortable, no fevers, not in distress, afebrile. Objective - Vital Signs/Intake and Output Vital Signs (last 24 hours): Temp Pulse Resp BP Pulse Ox 98 F 80 16 103/61 95 12/09/17 07:48 12/09/17 07:48 12/09/17 07:48 12/09/17 07:48 12/09/17 07:48 Intake and Output: 12/09/17 12/09/17 06:59 18:59 Intake Total 480 Output Total 250 Balance 230 - Medications Medications: Current Medications Carvedilol (Coreg) 3.125 mg PO QPM [facility] Last Admin: 12/08/17 17:11 Dose: Not Given Famotidine (Pepcid) 20 mg PO DAILY [facility] Last Admin: 12/08/17 10:44 Dose: Not Given Piperacillin Sod/Tazobactam Sod (Zosyn 2.25 Gm In 0.9% 100 Ml) 2.25 gm in 100 mls @ 100 mls/hr IVPB Q6 [facility] PRN Reason: Protocol Stop: 12/16/17 12:01 Last Admin: 12/09/17 06:04 Dose: 100 mls/hr Vitamin B Complex/Vit C/Folic Acid (Nephro-Will) 1 tab PO DAILY [facility] Last Admin: 12/08/17 10:43 Dose: Not Given Warfarin Sodium 2.5 mg/ (Warfarin Sodium 1 mg) 3.5 mg PO 1800 [facility] - Labs Labs: 12/09/17 06:40 12/09/17 06:40 PT 17.3 SECONDS (9.4-12.5) H 12/08/17 06:15 INR 1.49 (0.93-1.08) H 12/08/17 06:15 - Constitutional Appears: Chronically Ill - Head Exam Head Exam: NORMAL INSPECTION - Respiratory Exam Respiratory Exam: Decreased Breath Sounds - Cardiovascular Exam Cardiovascular Exam: +S1, +S2 - GI/Abdominal Exam GI & Abdominal Exam: Soft. absent: Tenderness Assessment and Plan - Assessment and Plan (Free Text) Plan: Assessment UTI with Pseudomonas aeruginosa in this patient with chronic Zelaya catheter use (complicated UTI) S/P severe sepsis due to UTI from Klebsiella in a patient with hydronephrosis and hydroureter and acute on chronic renal failure, S/P nephrostomy tube placement and now on dialysis (ESRD) history of acute femoral vein DVT mental disability down syndrome Plan on Zosyn day 3 - will recommend that the patient can be switched to PO LEvaquin , renally-adjusted to complete 10-14 days total antibiotics (day 3 today) discussed with Dr. Merlos
== END 2017-12-09 13:17 | disposition home or self-care (01) | DRG 698 ==
LOC: ED 15:39 → ERH 18:00 → 5RNO 19:48
PROVIDERS: ADMIT Family Medicine; ATTEND Family Medicine
PROC: 5A1D70Z Performance of Urinary Filtration, Intermittent, Less than 6 Hours Per Day (ICD-10-PCS; principal; 2017-12-08)
DX: T83.511A Infection and inflammatory reaction due to indwelling urethral catheter, initial encounter (principal); A41.9 Sepsis, unspecified organism; R65.20 Severe sepsis without septic shock; N18.6 End stage renal disease; F84.0 Autistic disorder; I13.2 Hypertensive heart and chronic kidney disease with heart failure and with stage 5 chronic kidney disease, or end stage renal disease; I50.22 Chronic systolic (congestive) heart failure; N13.30 Unspecified hydronephrosis; N17.9 Acute kidney failure, unspecified; N25.81 Secondary hyperparathyroidism of renal origin; N39.0 Urinary tract infection, site not specified; R33.9 Retention of urine, unspecified; B96.1 Klebsiella pneumoniae [K. pneumoniae] as the cause of diseases classified elsewhere; E55.9 Vitamin D deficiency, unspecified; D64.9 Anemia, unspecified; L30.9 Dermatitis, unspecified; Q90.9 Down syndrome, unspecified; Z99.2 Dependence on renal dialysis; Y84.6 Urinary catheterization as the cause of abnormal reaction of the patient, or of later complication, without mention of misadventure at the time of the procedure; Z86.718 Personal history of other venous thrombosis and embolism; Z93.6 Other artificial openings of urinary tract status; Z79.01 Long term (current) use of anticoagulants

== ENCOUNTER 2018-01-11 09:03 | Emergency (ER) | payer OTHER ==
[2018-01-11 09:30] VITALS: BMI 20.2
[2018-01-11 09:34] VITALS: O2SAT 100
--- NOTE | 2018-01-11 11:09 | ED PDOC ---
Arrival/HPI - General Chief Complaint: Male Genitourinary Time Seen by Provider: 01/11/18 09:24 Historian: Patient - History of Present Illness Narrative History of Present Illness (Text): 01/11/18 11:07 27yo male with Past medical history of down syndrome , ESRD with indwelling Kim referred to Emergency department by Dr. andres for Kim change and possible UTI. The mother by the bedside, [facility] patient was supposed to see Dr. andres in 6weeks for Kim change, but was reschedule. [facility] patient started touching his private part and his urine became cloudy. [facility] she spoke with Dr. andres and was referred to Emergency department for Kim change. she denies fever, chills, abdominal pain, vomiting, hematuria, any other complaint. 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) - HEENT Hx HEENT Disorder: No - Renal Hx Dialysis: Yes (T, TH, SAT) Date of Last Dialysis Treatment: 12/06/17 Other/Comment: B/L NEPHROSTOMY TUBES - Endocrine/Metabolic Hx Endocrine Disorders: No - Hematological/Oncological Hx Blood Disorders: No - Integumentary Hx Dermatological Disorder: Yes Hx Eczema: Yes - Musculoskeletal/Rheumatological Hx Musculoskeletal Disorders: No - Gastrointestinal Hx Gastrointestinal Disorders: No - Genitourinary/Gynecological Hx Genitourinary Disorders: Yes Other/Comment: KIM - Psychiatric Hx Psychophysiologic Disorder: No Hx Substance Use: No - Surgical History Hx Vascular Access Device: Yes Other/Comment: CYSTOSCOPY. NEPHROSTOMY TUBES, YISEL. - Anesthesia Hx Anesthesia Reactions: No Hx Malignant Hyperthermia: No - Suicidal Assessment Feels Threatened In Home Enviroment: No Family/Social History - Physician Review Nursing Documentation Reviewed: Yes Family/Social History: Unknown Family HX Smoking Status: Never Smoked Hx Alcohol Use: No Hx Substance Use: No Allergies/Home Meds Allergies/Adverse Reactions: Allergies No Known Allergies Allergy (Verified 12/07/17 15:54) Home Medications: Home Meds Medication Instructions Recorded Confirmed Vit B Cmplx 3/Folic AC/C/Biot 1 tab PO DAILY 12/07/17 01/11/18 [Anne Marie-Will Rx Tablet] Review of Systems - Physician Review All systems were reviewed & negative as marked: Yes - Review of Systems Constitutional: Normal Eyes: Normal ENT: Normal Respiratory: Normal Cardiovascular: Normal Gastrointestinal: Normal Genitourinary Male: Other (Cloudy urine) Musculoskeletal: Normal Skin: Normal Neurological: Normal Endocrine: Normal Hemo/Lymphatic: Normal Psychiatric: Normal Physical Exam Vital Signs Reviewed: Yes Vital Signs Temp Pulse Resp BP Pulse Ox 01/11/18 12:46 98.9 F 88 19 118/71 100 01/11/18 11:04 86 18 116/65 100 01/11/18 09:28 98.1 F 96 H 17 118/69 100 Temperature: Afebrile Blood Pressure: Normal Pulse: Regular Respiratory Rate: Normal Appearance: Positive for: Well-Appearing, Non-Toxic, Comfortable Pain Distress: None Mental Status: Positive for: Alert and Oriented X 3 - Systems Exam Head: Present: Atraumatic, Normocephalic Pupils: Present: PERRL Extroacular Muscles: Present: EOMI Conjunctiva: Present: Normal Mouth: Present: Moist Mucous Membranes Neck: Present: Normal Range of Motion Respiratory/Chest: Present: Clear to Auscultation, Good Air Exchange. No: Respiratory Distress, Accessory Muscle Use Cardiovascular: Present: Regular Rate and Rhythm, Normal S1, S2. No: Murmurs Abdomen: Present: Other (Soft). No: Tenderness, Distention, Peritoneal Signs, Rebound, Guarding, McBurney's Point Tender, Rovsing's Sign Present Genitourinary Male: Present: Other (Kim noted in place) Back: Present: Normal Inspection Upper Extremity: Present: Normal Inspection. No: Cyanosis, Edema Lower Extremity: Present: Normal Inspection. No: Edema Neurological: Present: GCS=15, CN II-XII Intact, Speech Normal Skin: Present: Warm, Dry, Normal Color. No: Rashes Psychiatric: Present: Alert, Oriented x 3, Normal Insight, Normal Concentration Medical Decision Making ED Course and Treatment: 01/11/18 20:08 PT presented for stated history. He was afebrile and hemodynamically stable in Emergency department. His Kim was changed in Emergency department. He was treated with Keflex for UTI. Case was DW Dr. Andres. He states he will talk with pt's mother. States he will replace the Kim in 3months. Result and plan was DW the pt's mother and she expressed understanding. - Lab Interpretations Lab Results: Lab Results 01/11/18 12:16: Urine Color Light yellow, Urine Appearance Cloudy, Urine pH 6.5 , Ur Specific [place] 1.020, Urine Protein >=300 H, Urine Glucose (UA) Negative , Urine Ketones Negative, Urine Blood Moderate H, Urine Nitrate Negative, Urine Bilirubin Negative, Urine Urobilinogen 0.2, Ur Leukocyte Esterase Large H, Urine RBC Tntc, Urine WBC Tntc, Ur Epithelial Cells None, Amorphous Sediment Few , Urine Bacteria Large, Urine Other Uyeast - Medication Orders Current Medication Orders: Discontinued Medications Cephalexin Monohydrate (Keflex) 500 mg PO STAT STA PRN Reason: Protocol Stop: 01/11/18 12:31 Last Admin: 01/11/18 12:45 Dose: 500 mg Disposition/Present on Arrival - Present on Arrival Any Indicators Present on Arrival: No History of DVT/PE: No History of Uncontrolled Diabetes: No Urinary Catheter: No History of Decub. Ulcer: No History Surgical Site Infection Following: None - Disposition Have Diagnosis and Disposition been Completed?: Yes Diagnosis: UTI (urinary tract infection) Disposition: HOME/ ROUTINE Disposition Time: 12:35 Patient Plan: Discharge Condition: STABLE Discharge Instructions (ExitCare): Urinary Tract Infections in Adults Additional Instructions: Follow up with your Urologist Return to Emergency department for any new symptoms Prescriptions: Cephalexin [Keflex] 500 mg PO TID #21 capsule Forms: [employer] (Kyrgyz)
[2018-01-11 12:25] LABS: PH,URINE 6.5 (4.7-8.0); URINE BILIRUBIN NEGATIVE (NEGATIVE); URINE BLOOD MODERATE (NEGATIVE); URINE GLUCOSE (UA) NEGATIVE (NEGATIVE); URINE LEUKOCYTE ESTERASE LARGE Leu/uL (NEGATIVE); URINE PROTEIN >=300 mg/dL (<30 mg/dL); URINE UROBILINOGEN 0.2 E.U./dL (<1 E.U./dL)
[2018-01-11 12:28] LABS: URINE APPEARANCE CLOUDY (CLEAR); URINE COLOR LIGHT YELLOW (YELLOW)
[2018-01-11 12:35] LABS: URINE AMORPHOUS SEDIMENT FEW; URINE BACTERIA LARGE (NEG); URINE RBC TNTC /hpf (0-2); URINE WBC TNTC /hpf (0-6)
[2018-01-11 12:48] VITALS: BP 118/71; PULSE 88; RESP 19; TEMP 98.9
== END 2018-01-11 12:48 | disposition home or self-care (01) ==
LOC: ED 09:03
DX: N39.0 Urinary tract infection, site not specified (principal); I12.0 Hypertensive chronic kidney disease with stage 5 chronic kidney disease or end stage renal disease; N18.6 End stage renal disease; Z99.2 Dependence on renal dialysis; Q90.9 Down syndrome, unspecified

== ENCOUNTER 2018-01-19 17:23 | Emergency (ER) | payer OTHER ==
[2018-01-19 17:23] VITALS: BMI 20.2
[2018-01-19 18:08] VITALS: BP 110/63
--- NOTE | 2018-01-19 18:12 | ED PDOC ---
Arrival/HPI - General Chief Complaint: Abnormal Skin Integrity Time Seen by Provider: 01/19/18 17:57 Historian: Parent - History of Present Illness Narrative History of Present Illness (Text): 01/19/18 18:09 27yo male with PMHx of down's syndrome, mental retardation, ESRD with indwelling oley bib the mother for evaluation of penile rash x 2days. Mother states she noticed he has been scratching himself and she noticed rash on the penis that she thinks disappeared. Denies redness, any other complaint. 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) - HEENT Hx HEENT Disorder: No - Renal Hx Dialysis: Yes (T, TH, TUE) Date of Last Dialysis Treatment: 12/06/17 Other/Comment: B/L NEPHROSTOMY TUBES - Endocrine/Metabolic Hx Endocrine Disorders: No - Hematological/Oncological Hx Blood Disorders: No - Integumentary Hx Dermatological Disorder: Yes Hx Eczema: Yes - Musculoskeletal/Rheumatological Hx Musculoskeletal Disorders: No - Gastrointestinal Hx Gastrointestinal Disorders: No - Genitourinary/Gynecological Hx Genitourinary Disorders: Yes Other/Comment: KIM - Psychiatric Hx Psychophysiologic Disorder: No Hx Substance Use: No - Surgical History Hx Vascular Access Device: Yes Other/Comment: CYSTOSCOPY. NEPHROSTOMY TUBES, YISEL. - Anesthesia Hx Anesthesia Reactions: No Hx Malignant Hyperthermia: No - Suicidal Assessment Feels Threatened In Home Enviroment: No Family/Social History - Physician Review Nursing Documentation Reviewed: Yes Family/Social History: Unknown Family HX Smoking Status: Never Smoked Hx Alcohol Use: No Hx Substance Use: No Allergies/Home Meds Allergies/Adverse Reactions: Allergies No Known Allergies Allergy (Verified 01/19/18 18:00) Home Medications: Home Meds Medication Instructions Recorded Confirmed Vit B Cmplx 3/Folic AC/C/Biot 1 tab PO DAILY 12/07/17 01/11/18 [Anne Marie-Will Rx Tablet] Review of Systems - Physician Review All systems were reviewed & negative as marked: Yes - Review of Systems Constitutional: Normal Eyes: Normal ENT: Normal Respiratory: Normal Cardiovascular: Normal Gastrointestinal: Normal Genitourinary Male: Other (Penile rash) Musculoskeletal: Normal Skin: Rash (Penile rash) Neurological: Normal Endocrine: Normal Hemo/Lymphatic: Normal Psychiatric: Normal Physical Exam Vital Signs Reviewed: Yes Vital Signs Temp Pulse Resp BP Pulse Ox 01/19/18 18:07 97.4 F L 78 20 110/63 94 L Temperature: Afebrile Blood Pressure: Normal Pulse: Regular Respiratory Rate: Normal Appearance: Positive for: Well-Appearing, Non-Toxic, Comfortable Pain Distress: None Mental Status: Positive for: Alert and Oriented X 3 - Systems Exam Head: Present: Atraumatic, Normocephalic Pupils: Present: PERRL Extroacular Muscles: Present: EOMI Conjunctiva: Present: Normal Mouth: Present: Moist Mucous Membranes Neck: Present: Normal Range of Motion Respiratory/Chest: Present: Clear to Auscultation, Good Air Exchange. No: Respiratory Distress, Accessory Muscle Use Cardiovascular: Present: Regular Rate and Rhythm, Normal S1, S2. No: Murmurs Abdomen: No: Tenderness, Distention, Peritoneal Signs Genitourinary Male: Present: Other (No rash noted on the penis). No: Penile Discharge, Penile Swelling Back: Present: Normal Inspection Upper Extremity: Present: Normal Inspection. No: Cyanosis, Edema Lower Extremity: Present: Normal Inspection. No: Edema Neurological: Present: GCS=15, CN II-XII Intact, Speech Normal Skin: Present: Warm, Dry, Normal Color. No: Rashes Psychiatric: Present: Alert, Oriented x 3, Normal Insight, Normal Concentration Medical Decision Making ED Course and Treatment: 01/19/18 18:48 Pt present for stated history. He was not in any distress. Exam was benign. Pt was also seen in ED by Dr. Hurley who also did not see any rash. Mother was re assured. Rx of bacitracine was given . He sees Dr. Andres and was advised to f/u with the Urologist. Disposition/Present on Arrival - Present on Arrival Any Indicators Present on Arrival: No History of DVT/PE: No History of Uncontrolled Diabetes: No Urinary Catheter: No History of Decub. Ulcer: No History Surgical Site Infection Following: None - Disposition Have Diagnosis and Disposition been Completed?: Yes Diagnosis: Normal physical examination Disposition: HOME/ ROUTINE Disposition Time: 18:15 Patient Plan: Discharge Patient Problems: Current Active Problems Problem Status Onset Normal physical examination Acute Condition: STABLE Additional Instructions: Follow up with your Doctor/Urologist Return to ED for any new symptoms Prescriptions: Bacitracin Ointment [Bacitracin] 30 gm TOP BID #1 tube Referrals: Garrett Andres MD [Staff Provider] - Follow up with primary Forms: [facility] (Guatemalan)
[2018-01-19 19:48] VITALS: PULSE 70; RESP 18; TEMP 97.7; O2SAT 97
== END 2018-01-19 18:50 | disposition home or self-care (01) ==
LOC: ED 17:23
DX: Z00.00 Encounter for general adult medical examination without abnormal findings (principal)

== ENCOUNTER 2018-02-09 10:20 | Emergency (ER) | payer OTHER ==
[2018-02-09 10:20] VITALS: BMI 20.2
--- NOTE | 2018-02-09 12:39 | RAD ---
HISTORY: fever COMPARISON: 11/23/2017 FINDINGS: LUNGS: Evaluation limited due to obscuring of the right lung apex by the patient's mandible. No pulmonary infiltrate. PLEURA: No significant pleural effusion identified, no pneumothorax apparent. CARDIOVASCULAR: Tunneled central venous dialysis catheter noted. OSSEOUS STRUCTURES: No significant abnormalities. VISUALIZED UPPER ABDOMEN: Normal. OTHER FINDINGS: None. IMPRESSION: No active disease.
--- NOTE | 2018-02-09 13:10 | ED PDOC ---
Arrival/HPI - General Time Seen by Provider: 02/09/18 12:11 Historian: Patient - History of Present Illness Narrative History of Present Illness (Text): 02/09/18 13:05 27 year old male, whose past medical history includes down syndrome, UTI's, and a chronic kim catheter, who presents to the emergency department complaining of vomiting since yesterday. Patient's mother notes patient had dialysis treatment scheduled for this morning but due to vomiting pr did not go. Patient' s mother also notes patient has a decreased appetite and his kim bag is cloudy. Patient denies any fever, chills, chest pain, shortness of breath, diarrhea, headache, dizziness, or any other complaints. HPI and ROS limited due to patient's down syndrome. 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) - HEENT Hx HEENT Disorder: No - Renal Hx Dialysis: Yes (T, TH, SAT) Date of Last Dialysis Treatment: 12/06/17 Other/Comment: B/L NEPHROSTOMY TUBES - Endocrine/Metabolic Hx Endocrine Disorders: No - Hematological/Oncological Hx Blood Disorders: No - Integumentary Hx Dermatological Disorder: Yes Hx Eczema: Yes - Musculoskeletal/Rheumatological Hx Musculoskeletal Disorders: No - Gastrointestinal Hx Gastrointestinal Disorders: No - Genitourinary/Gynecological Hx Genitourinary Disorders: Yes Other/Comment: KIM - Psychiatric Hx Psychophysiologic Disorder: No Hx Substance Use: No - Surgical History Hx Vascular Access Device: Yes Other/Comment: CYSTOSCOPY. NEPHROSTOMY TUBES, YISEL. - Anesthesia Hx Anesthesia Reactions: No Hx Malignant Hyperthermia: No - Suicidal Assessment Feels Threatened In Home Enviroment: No Family/Social History - Physician Review Nursing Documentation Reviewed: Yes Family/Social History: Unknown Family HX Smoking Status: Never Smoked Hx Alcohol Use: No Hx Substance Use: No Allergies/Home Meds Allergies/Adverse Reactions: Allergies No Known Allergies Allergy (Verified 01/19/18 18:00) Home Medications: Home Meds Medication Instructions Recorded Confirmed Vit B Cmplx 3/Folic AC/C/Biot 1 tab PO DAILY 12/07/17 01/11/18 [Anne Marie-Will Rx Tablet] Review of Systems - Patients Enrolled in [employer] [X]: A conversation was conducted with the primary medical doctor. - Review of Systems Systems not reviewed;Unavailable: Other (Down Syndrome) Gastrointestinal: Vomiting, Appetite Changes (decreased appetite). absent: Abdominal Pain Genitourinary Male: Urinary Output Changes Skin: Normal. absent: Rash Physical Exam Vital Signs Temp Pulse Resp BP Pulse Ox 02/09/18 19:38 98.8 F 86 18 105/55 L 100 02/09/18 18:23 98 H 17 107/59 L 98 02/09/18 16:14 96 H 17 103/54 L 99 02/09/18 12:42 98.4 F 95 H 19 106/62 100 - Systems Exam Head: Present: Atraumatic, Normocephalic Pupils: Present: PERRL Extroacular Muscles: Present: EOMI Conjunctiva: Present: Normal Mouth: Present: Moist Mucous Membranes Neck: Present: Normal Range of Motion. No: Meningeal Signs, MIDLINE TENDERNESS Respiratory/Chest: Present: Clear to Auscultation, Good Air Exchange. No: Respiratory Distress, Accessory Muscle Use Cardiovascular: Present: Regular Rate and Rhythm, Normal S1, S2. No: Murmurs Abdomen: No: Tenderness, Distention, Peritoneal Signs Genitourinary Male: Present: Other (Kim Catheter) Back: Present: Normal Inspection. No: CVA Tenderness, Midline Tenderness Upper Extremity: Present: Normal Inspection. No: Cyanosis, Edema Lower Extremity: Present: Normal Inspection. No: Edema Neurological: Present: GCS=15, CN II-XII Intact, Speech Normal Skin: Present: Warm, Dry, Normal Color. No: Rashes Psychiatric: Present: Alert, Oriented x 3, Normal Insight, Normal Concentration Medical Decision Making ED Course and Treatment: 02/09/18 13:14 Impression: 27 year old male presents to the emergency department complaining of vomiting since yesterday. Plan: -- VBG -- EKG -- Labs -- Urinalysis -- Blood Culture -- Urine Culture -- Reassess and disposition Progress Notes: 02/09/18 16:16 EKG reviewed, shows NSR at 94 bpm. no hypercute T waves. Nonspecific ST wave changes in V3. 02/09/18 16:36 Patient transferred to [facility] for UTI and dialysis under Dr. Merlos. - Lab Interpretations Lab Results: 02/09/18 13:30 02/09/18 13:30 Lab Results 02/09/18 16:14: Urine Color Yellow, Urine Appearance Turbid, Urine pH 7.0, Ur Specific [place] 1.020, Urine Protein >=300 H, Urine Glucose (UA) Negative, Urine Ketones Negative, Urine Blood Large H, Urine Nitrate Negative, Urine Bilirubin Negative, Urine Urobilinogen 0.2, Ur Leukocyte Esterase Large H, Urine RBC 15 - 20, Urine WBC Tntc, Ur Epithelial Cells 0 - 2, Urine Bacteria Mod 02/09/18 13:30: pO2 36, VBG pH 7.31 L, VBG pCO2 57.0, VBG HCO3 28.7 H, VBG Total CO2 30.4 H, VBG O2 Sat (Calc) 71.7 H, VBG Base Excess 1.2, VBG Potassium 4.0, Sodium 135.0, Chloride 97.0 L, Glucose 107, Lactate 1.0, FiO2 21.0, Venous Blood Potassium 4.0 02/09/18 13:30: Sodium 138, Chloride 94 L, Potassium 3.9, Carbon Dioxide 27, Anion Gap 21 H, BUN 82 H, Creatinine 7.8 H* D, Est GFR ( Amer) 10, Est GFR (Non-Af Amer) 9, Random Glucose 105, Calcium 8.6 02/09/18 13:30: PT 17.4 H, INR 1.51 H, APTT 31.5 02/09/18 13:30: WBC 12.6 H D, RBC 4.24, Hgb 13.0 L, Hct 38.0 L, MCV 89.6, MCH 30.7, MCHC 34.2, RDW 16.2 H, Plt Count 225, MPV 9.3, Gran % 85.0 H, Lymph % ( Auto) 7.0 L, [place] % (Auto) 7.6 H, Eos % (Auto) 0.2 L, Baso % (Auto) 0.2, Gran # 10.69 H, Lymph # (Auto) 0.9 L, [place] # (Auto) 1.0 H, Eos # (Auto) 0.0, Baso # ( Auto) 0.03 I have reviewed the lab results: Yes Interpretation: Abnormal lab values (leukocytosis, pyuria) - RAD Interpretation Radiology Orders: 02/09/18 12:13 X-RAY [CHEST PORTABLE] [RAD] Stat - Medication Orders Current Medication Orders: Discontinued Medications Sodium Chloride (Sodium Chloride 0.9%) 250 mls @ 999 mls/hr IV .Q16M STA Stop: 02/09/18 15:54 Last Admin: 02/09/18 15:40 Dose: 999 mls/hr eMAR Start Stop Document 02/09/18 15:40 SF (Rec: 02/09/18 16:25 SF [email or web address] Intravenous Solution Start Date 02/09/18 Start Time 15:40 End Date 02/09/18 End time 15:55 Total Infusion Time 15 - PA / CD REACTOR OPERATOR / Resident Statement MD/DO has reviewed & agrees with the documentation as recorded. - Scribe Statement The provider has reviewed the documentation as recorded by the Scribe Naomi Lynn All medical record entries made by the Scribe were at my direction and personally dictated by me. I have reviewed the chart and agree that the record accurately reflects my personal performance of the history, physical exam, medical decision making, and the department course for this patient. I have also personally directed, reviewed, and agree with the discharge instructions and disposition. Disposition/Present on Arrival - Present on Arrival Any Indicators Present on Arrival: No History of DVT/PE: No History of Uncontrolled Diabetes: No Urinary Catheter: No History of Decub. Ulcer: No History Surgical Site Infection Following: None - Disposition Have Diagnosis and Disposition been Completed?: Yes Diagnosis: UTI (urinary tract infection) Disposition: Transfer [facility] Disposition Time: 03:00 Patient Plan: Transfer To (to [facility] for HD (not available at [facility] Patient Problems: Current Active Problems Problem Status Onset UTI (urinary tract infection) Acute Condition: IMPROVED Discharge Instructions (ExitCare): Urinary Tract Infections in Adults
[2018-02-09 14:12] LABS: VENOUS BLOOD GAS BASE EXCESS 1.2 mmol/L (0.0-2.0); VENOUS BLOOD GAS PO2 36 mm/Hg (30-55); VENOUS BLOOD PH 7.31 (7.32-7.43)
[2018-02-09 14:13] LABS: BASO # 0.03 K/mm3 (0.0-2.0); BASO % 0.2 % (0.0-3.0); EOS % 0.2 % (1.5-5.0); GRAN # 10.69 (1.4-6.5); LYMPH # 0.9 (1.2-3.4); MEAN CELL VOLUME 89.6 fl (80.0-105.0); MEAN CORPUSCULAR HEMOGLOBIN 30.7 pg (25.0-35.0); MEAN CORPUSCULAR HGB CONC 34.2 g/dl (31.0-37.0); MEAN PLATELET VOLUME 9.3 fl (7.0-11.0); MONO % 7.6 % (1.0-6.0); RBC 4.24 10^6/uL (3.5-6.1); RED CELL DISTRIBUTION WIDTH 16.2 % (11.5-14.5); WHITE BLOOD COUNT 12.6 10^3/ul (4.5-11.0)
[2018-02-09 14:21] LABS: CALCIUM 8.6 mg/dL (8.4-10.5)
[2018-02-09 14:37] LABS: INR 1.51 (0.93-1.08); PARTIAL THROMBOPLASTIN TIME 31.5 Seconds (25.1-36.5); PROTHROMBIN TIME 17.4 SECONDS (9.4-12.5)
[2018-02-09] MEDS ORDERED: Sodium Chloride 0.9% 1,000 ML IV STA (15:38)
[2018-02-09] MEDS ORDERED: Sodium Chloride 0.9% 250 ML IV STA (15:39)
[2018-02-09 16:37] LABS: URINE BILIRUBIN NEGATIVE (NEGATIVE); URINE BLOOD LARGE (NEGATIVE); URINE GLUCOSE (UA) NEGATIVE (NEGATIVE); URINE LEUKOCYTE ESTERASE LARGE Leu/uL (NEGATIVE); URINE PROTEIN >=300 mg/dL (<30 mg/dL); URINE UROBILINOGEN 0.2 E.U./dL (<1 E.U./dL)
[2018-02-09 16:39] LABS: URINE APPEARANCE TURBID (CLEAR); URINE COLOR YELLOW (YELLOW)
[2018-02-09 16:41] LABS: URINE RBC 15 - 20 /hpf (0-2); URINE WBC TNTC /hpf (0-6)
[2018-02-09 16:42] LABS: URINE BACTERIA MOD (NEG); URINE EPITHELIAL CELLS 0 - 2 /hpf (0-5)
[2018-02-09 19:40] VITALS: BP 105/55; PULSE 86; RESP 18; TEMP 98.8; O2SAT 100
--- NOTE | 2018-02-09 22:35 | CARD ---
APPROVED REPORT EKG Measurement Heart [id number] <Conclusion> Normal sinus rhythm Normal ECG
== END 2018-02-09 20:01 | disposition short-term general hospital (02) ==
LOC: ED 10:20
DX: N39.0 Urinary tract infection, site not specified (principal); I12.0 Hypertensive chronic kidney disease with stage 5 chronic kidney disease or end stage renal disease; N18.6 End stage renal disease; Z99.2 Dependence on renal dialysis
CPT/HCPCS: 71045; 80048; 81001; 82803; 85025; 85610; 85730; 87040; 87086; 93005; 99285; J7040

== ENCOUNTER 2018-03-02 17:29 | Emergency (ER) | payer OTHER ==
[2018-03-02 18:07] VITALS: BMI 20.9
[2018-03-02 18:53] LABS: BASO # 0.09 K/mm3 (0.0-2.0); BASO % 1.5 % (0.0-3.0); EOS # 0.1 (0.0-0.7); GRAN # 3.67 (1.4-6.5); GRAN % 60.7 % (50.0-68.0); HEMOGLOBIN 12.6 g/dL (14.0-18.0); LYMPH # 1.8 (1.2-3.4); LYMPH % 29.3 % (22.0-35.0); MEAN CELL VOLUME 89.4 fl (80.0-105.0); MEAN CORPUSCULAR HEMOGLOBIN 30.4 pg (25.0-35.0); MEAN CORPUSCULAR HGB CONC 34.1 g/dl (31.0-37.0); MEAN PLATELET VOLUME 9.1 fl (7.0-11.0); MONO # 0.4 (0.1-0.6); MONO % 6.5 % (1.0-6.0); RBC 4.14 10^6/uL (3.5-6.1); RED CELL DISTRIBUTION WIDTH 15.5 % (11.5-14.5)
[2018-03-02 18:58] LABS: ALBUMIN 4.5 g/dL (3.0-4.8); CALCIUM 8.6 mg/dL (8.4-10.5)
[2018-03-02 19:01] LABS: INR 1.93 (0.93-1.08); PROTHROMBIN TIME 22.3 SECONDS (9.4-12.5)
[2018-03-02 19:03] LABS: PH,URINE 7.5 (4.7-8.0); URINE APPEARANCE TURBID (CLEAR); URINE BILIRUBIN NEGATIVE (NEGATIVE); URINE BLOOD TRACE-INTACT (NEGATIVE); URINE COLOR YELLOW (YELLOW); URINE GLUCOSE (UA) NEGATIVE (NEGATIVE); URINE LEUKOCYTE ESTERASE LARGE Leu/uL (NEGATIVE); URINE PROTEIN 30 mg/dL (<30 mg/dL); URINE UROBILINOGEN 0.2 E.U./dL (<1 E.U./dL)
[2018-03-02 19:04] LABS: URINE BACTERIA MANY (NEG); URINE RBC 0 - 2 /hpf (0-2); URINE WBC 15 - 20 /hpf (0-6)
--- NOTE | 2018-03-02 19:24 | ED PDOC ---
Arrival/HPI - General Chief Complaint: Male Genitourinary Time Seen by Provider: 03/02/18 18:05 Historian: Patient - History of Present Illness Narrative History of Present Illness (Text): 03/02/18 19:21 27-year-old Down syndrome male with a history of end-stage renal disease on dialysis, with prior history of bilateral nephrostomy tubes presents today sent in by his primary care physician Dr. Allen for admission for VRE urinary tract infection. Patient is nonverbal and per the patient's mother the patient has been eating well. She states that he still urinates. She states that he has not related any pain to her. She denies any fevers at home. She states that the patient is currently on Macrobid for urinary tract infection and received a phone call today from the primary care physician alerting her that the patient had VRE in the urine culture. Past Medical History - Provider Review Nursing Documentation Reviewed: Yes - Travel History Have you recently traveled outside [place] w/in the past 3 mons?: No - Infectious Disease Hx of Infectious Diseases: VRE - Cardiac Hx Cardiac Disorders: Yes Hx Hypertension: Yes - Pulmonary Hx Respiratory Disorders: No - Neurological Hx Neurological Disorder: Yes (DOWN'S SYNDROME AUTISM NON VERBAL) - HEENT Hx HEENT Disorder: No - Renal Hx Renal Disorder: Yes Date of Last Dialysis Treatment: 03/02/18 - Endocrine/Metabolic Hx Endocrine Disorders: No - Hematological/Oncological Hx Blood Disorders: No - Integumentary Hx Dermatological Disorder: Yes Hx Eczema: Yes - Musculoskeletal/Rheumatological Hx Musculoskeletal Disorders: No Hx Falls: Yes - Gastrointestinal Hx Gastrointestinal Disorders: No - Genitourinary/Gynecological Hx Genitourinary Disorders: Yes Other/Comment: KIM - Psychiatric Hx Psychophysiologic Disorder: No Hx Substance Use: No - Surgical History Hx Vascular Access Device: Yes Other/Comment: CYSTOSCOPY. NEPHROSTOMY TUBES, YISEL. - Anesthesia Hx Anesthesia: Yes Hx Anesthesia Reactions: No Hx Malignant Hyperthermia: No - Suicidal Assessment Feels Threatened In Home Enviroment: No Family/Social History - Physician Review Nursing Documentation Reviewed: Yes Family/Social History: Unknown Family HX Smoking Status: Never Smoked Hx Alcohol Use: No Hx Substance Use: No Allergies/Home Meds Allergies/Adverse Reactions: Allergies No Known Allergies Allergy (Verified 02/09/18 20:46) Home Medications: Home Meds Medication Instructions Recorded Confirmed Vit B Cmplx /Folic AC/C/Biot 1 tab PO DAILY 12/07/17 03/02/18 [Anne Marie-Will Rx Tablet] Ferrous Gluconate [Ferate] 240 mg PO TID 02/09/18 03/02/18 Review of Systems - Review of Systems Constitutional: absent: Fatigue, Fevers Respiratory: absent: SOB, Cough Gastrointestinal: absent: Abdominal Pain, Diarrhea, Vomiting Genitourinary Male: absent: Dysuria Musculoskeletal: absent: Arthralgias Physical Exam Vital Signs Reviewed: Yes Vital Signs Temp Pulse Resp BP Pulse Ox 03/02/18 17:34 97.6 F 106 H 18 113/75 95 Temperature: Afebrile Blood Pressure: Normal Pulse: Tachycardic Respiratory Rate: Normal Appearance: Positive for: Well-Appearing, Non-Toxic, Comfortable Pain Distress: None Mental Status: Positive for: other (alert) - Systems Exam Head: Present: Atraumatic Mouth: Present: Moist Mucous Membranes Neck: Present: Normal Range of Motion Respiratory/Chest: Present: Clear to Auscultation, Good Air Exchange. No: Respiratory Distress, Accessory Muscle Use Cardiovascular: Present: Regular Rate and Rhythm, Normal S1, S2. No: Murmurs Abdomen: No: Tenderness, Distention, Peritoneal Signs, Rebound, Guarding Back: Present: Normal Inspection. No: CVA Tenderness, Midline Tenderness, Paraspinal Tenderness Neurological: Present: GCS=15, Speech Normal Skin: Present: Warm, Dry, Normal Color Psychiatric: Present: Alert Medical Decision Making ED Course and Treatment: 03/02/18 19:25 27yr old male with hx of ESRD on dialysis with VRE UTI. completed dialysis prior to arrival in er. cbc; wnl cmp; bun; 20 cr; 2.8 UA: + wbcs 15-20 blood and urine cultures pending case discussed with dr. Churchill at [facility]; will transfer for VRE UTI admission. dialysis unavailable at this facility. call placed to patients Psych Therapist dr. arango. consent signed by patients mother. impression: VRE UTI transfer to [facility]; accepting physician - Lab Interpretations Lab Results: 03/02/18 18:31 03/02/18 18:31 Lab Results 03/02/18 18:45: Urine Color Yellow, Urine Appearance Turbid, Urine pH 7.5, Ur Specific [place] 1.010, Urine Protein 30 H, Urine Glucose (UA) Negative, Urine Ketones Negative, Urine Blood Trace-intact H, Urine Nitrate Negative, Urine Bilirubin Negative, Urine Urobilinogen 0.2, Ur Leukocyte Esterase Large H, Urine RBC 0 - 2, Urine WBC 15 - 20, Urine Bacteria Many 03/02/18 18:31: PT 22.3 H, INR 1.93 H, APTT 52.0 H 03/02/18 18:31: WBC 6.0 D, RBC 4.14, Hgb 12.6 L, Hct 37.0 L, MCV 89.4, MCH 30.4 , MCHC 34.1, RDW 15.5 H, Plt Count 213, MPV 9.1, Gran % 60.7, Lymph % (Auto) 29.3, [place] % (Auto) 6.5 H, Eos % (Auto) 2.0, Baso % (Auto) 1.5, Gran # 3.67, Lymph # (Auto) 1.8, [place] # (Auto) 0.4, Eos # (Auto) 0.1, Baso # (Auto) 0.09 03/02/18 18:31: Sodium 140, Potassium 3.5 L, Chloride 92 L, Carbon Dioxide 35 H , Anion Gap 16, BUN 20, Creatinine 2.8 H, Est GFR ( Amer) 34, Est GFR ( Non-Af Amer) 28, Random Glucose 119 H, Calcium 8.6, Total Bilirubin 0.3, AST 81 H D, ALT 99 H, Alkaline Phosphatase 82, Total Protein 9.2 H, Albumin 4.5, Globulin 4.7, Albumin/Globulin Ratio 1.0 L - Medication Orders Current Medication Orders: Linezolid (Zyvox 600mg/300ml D5w) 600 mg in 300 mls @ 200 mls/hr IVPB STAT STA PRN Reason: Protocol Stop: 03/02/18 21:12 Discontinued Medications Linezolid (Zyvox 600mg/300ml D5w) 600 mg in 300 mls @ 200 mls/hr IVPB Q12 TONY PRN Reason: Protocol Stop: 03/02/18 23:29 Disposition/Present on Arrival - Present on Arrival Any Indicators Present on Arrival: No History of DVT/PE: No History of Uncontrolled Diabetes: No Urinary Catheter: Yes History of Decub. Ulcer: No History Surgical Site Infection Following: None - Disposition Have Diagnosis and Disposition been Completed?: Yes Diagnosis: UTI (urinary tract infection), ESRD (end stage renal disease) on dialysis, VRE (vancomycin-resistant Enterococci) infection Disposition: Transfer [facility] Disposition Time: 19:30 Patient Plan: Transfer To ([facility]; accepting physician dr. Churchill) Condition: FAIR Forms: Remote ([employer])
[2018-03-02] MEDS ORDERED: Linezolid 600 mg in D5W 300 ml 600 MG/300 ML BAG IVPB STA (19:44)
[2018-03-02] MEDS ORDERED: Linezolid 600 mg in D5W 300 ml 600 MG/300 ML BAG IVPB SCH (22:00)
[2018-03-02 22:17] VITALS: BP 133/63; PULSE 87; RESP 16; TEMP 98.5; O2SAT 99
== END 2018-03-02 22:31 | disposition short-term general hospital (02) ==
LOC: ED 17:29
DX: N39.0 Urinary tract infection, site not specified (principal); I12.0 Hypertensive chronic kidney disease with stage 5 chronic kidney disease or end stage renal disease; N18.6 End stage renal disease; Z99.2 Dependence on renal dialysis; Q90.9 Down syndrome, unspecified; A49.01 Methicillin susceptible Staphylococcus aureus infection, unspecified site; Z16.21 Resistance to vancomycin
CPT/HCPCS: 80053; 81001; 85025; 85610; 85730; 87040; 87086; 87181; 96365; 99284; J2020

== ENCOUNTER 2018-05-12 23:04 | Inpatient (IN) | payer OTHER ==
[2018-05-12] MEDS ORDERED: Acetaminophen 650mg/20.3ml solution UD PO STA (23:58)
--- NOTE | 2018-05-13 00:13 | ED PDOC ---
Arrival/HPI <Shawn Coffman - Last Filed: 05/13/18 02:58> - General Historian: Patient - History of Present Illness Symptom Onset: Gradual Symptom Course: Unchanged Activities at Onset: Light Context: Home <Gabbi Stinson PA-C - Last Filed: 05/16/18 15:41> - General Chief Complaint: Fever Time Seen by Provider: 05/12/18 23:35 - History of Present Illness Narrative History of Present Illness (Text): 05/13/18 00:10 27 year old male, whose past medical history includes downs syndrome, autism, urinary catheter, and dialysis, had dialysis yesterday, who presents to the Emergency department complaining of a fever and cough. Patient's mother states fever was 102 at home. Full HPI and ROS unavailable due to patient's non-verbal behavior. Of note, patient was just seen by his urologist today and had his kim changed. PMD Anna (Gabbi Stinson PA-C) Past Medical History - Provider Review Nursing Documentation Reviewed: Yes - Infectious Disease Hx of Infectious Diseases: None - Tetanus Immunization Tetanus Immunization: Unknown - Cardiac Hx Cardiac Disorders: Yes Hx Hypertension: Yes - Pulmonary Hx Respiratory Disorders: No - Neurological Hx Neurological Disorder: Yes (DOWN'S SYNDROME AUTISM NON VERBAL) - HEENT Hx HEENT Disorder: No - Renal Hx Renal Disorder: Yes (on dialysis T--) - Endocrine/Metabolic Hx Endocrine Disorders: No - Hematological/Oncological Hx Blood Disorders: No - Integumentary Hx Dermatological Disorder: Yes Hx Eczema: Yes - Musculoskeletal/Rheumatological Hx Musculoskeletal Disorders: No - Gastrointestinal Hx Gastrointestinal Disorders: No - Genitourinary/Gynecological Hx Genitourinary Disorders: Yes Other/Comment: KIM since aug 2017. last changed Mar 31, 2018 - Psychiatric Hx Psychophysiologic Disorder: No Hx Substance Use: No - Surgical History Hx Vascular Access Device: Yes Other/Comment: CYSTOSCOPY. NEPHROSTOMY TUBES, YISEL.- removed. kidney stent ? - Anesthesia Hx Anesthesia: Yes Hx Anesthesia Reactions: No Hx Malignant Hyperthermia: No - Suicidal Assessment Feels Threatened In Home Enviroment: No <Gabbi Stinson PA-C - Last Filed: 05/16/18 15:41> Family/Social History - Physician Review Nursing Documentation Reviewed: Yes Family/Social History: Unknown Family HX Smoking Status: Never Smoked Hx Alcohol Use: No Hx Substance Use: No <Gabbi Stinson PA-C - Last Filed: 05/16/18 15:41> Allergies/Home Meds <AugustusShawn - Last Filed: 05/13/18 02:58> <Gabbi Stinson PA-C - Last Filed: 05/16/18 15:41> Allergies/Adverse Reactions: Allergies No Known Allergies Allergy (Verified 05/12/18 23:11) Home Medications: Home Meds Medication Instructions Recorded Confirmed Vit B Comp No.3/Folic/C/Biotin 1 tab PO DAILY 12/07/17 04/21/18 [Anne Marie-Will Rx Tablet] Calcium Acetate 667 mg PO DAILY 04/21/18 04/21/18 Folic Acid/Vit B Complex and C 1 tab PO DAILY 04/21/18 04/21/18 [Anne Marie-Will Tablet] Review of Systems - Review of Systems Systems not reviewed;Unavailable: Acuity of Condition <Gabbi Stinson PA-C - Last Filed: 05/16/18 15:41> Physical Exam Vital Signs Reviewed: Yes Temperature: Afebrile Blood Pressure: Normal Pulse: Tachycardic Respiratory Rate: Normal Appearance: Positive for: Well-Appearing, Non-Toxic, Comfortable Pain Distress: None Mental Status: Positive for: Alert and Oriented X 3 - Systems Exam Head: Present: Atraumatic, Normocephalic Pupils: Present: PERRL Extroacular Muscles: Present: EOMI Conjunctiva: Present: Normal Mouth: Present: Moist Mucous Membranes Neck: Present: Normal Range of Motion Respiratory/Chest: Present: Clear to Auscultation, Good Air Exchange. No: Respiratory Distress, Accessory Muscle Use Cardiovascular: Present: Regular Rate and Rhythm, Normal S1, S2. No: Murmurs Abdomen: No: Tenderness, Distention, Peritoneal Signs Back: Present: Normal Inspection Upper Extremity: Present: Normal Inspection. No: Cyanosis, Edema Lower Extremity: Present: Normal Inspection. No: Edema Neurological: Present: GCS=15, CN II-XII Intact, Speech Normal Skin: Present: Warm, Dry, Normal Color. No: Rashes Psychiatric: Present: Alert, Oriented x 3, Normal Insight, Normal Concentration <Gabbi Stinson PA-C - Last Filed: 05/16/18 15:41> Vital Signs Temp Pulse Resp BP Pulse Ox 05/13/18 02:15 93 H 18 91/42 L 98 05/13/18 01:00 101.1 F H 94 H 91/44 L 98 05/13/18 00:18 102.5 F H 05/12/18 23:37 102.5 F H 05/12/18 23:19 99.5 F 100 H 19 110/60 98 Medical Decision Making <Shawn Coffman - Last Filed: 05/13/18 02:58> <Gabbi Stinson PA-C - Last Filed: 05/16/18 15:41> ED Course and Treatment: 05/13/18 03:02 Case was discussed with .Accepts to his service./Dmitry/ on consult. (Shawn Coffman) 05/13/18 00:14 Impression: 27 year old male presents to the emergency department complaining of fever and cough. Plan: -- labs -- CXR -- Tylenol -- Blood Culture -- Urine Culture -- UA -- Reassess and disposition Progress Notes: Labs reviewed : wbc 11, UA +large leuks with 25-30 wbcs in the urine CXR : NAD, as read by GIULIANO Cipro 400 mg IV ordered. Rocephin 1 g IV ordered. (Gabbi Stinson PA-C) - Lab Interpretations Microbiology Results: Microbiology Results 05/13/18 00:26 Blood Blood Culture - Preliminary NO GROWTH AFTER 3 DAYS 05/12/18 23:48 Blood Blood Culture - Preliminary NO GROWTH AFTER 3 DAYS 05/13/18 00:11 Urine Urine Culture - Final No Growth (<1,000 CFU/ML) Lab Results: 05/13/18 00:25 05/13/18 00:25 Lab Results 05/13/18 12:20: HIV 1&2 Ag/Ab, 4th Gen Nonreactive 05/13/18 02:05: pO2 44, VBG pH 7.39, VBG pCO2 44.0, VBG HCO3 26.6, VBG Total CO2 28.0, VBG O2 Sat (Calc) 82.5 H, VBG Base Excess 1.2, VBG Potassium 3.6, Glucose 102, Lactate 1.0, FiO2 21.0, Sodium 132.0, Chloride 95.0 L, Venous Blood Potassium 3.6 05/13/18 00:25: WBC 11.5 H D, RBC 3.95, Hgb 11.6 L, Hct 35.1 L, MCV 88.9, MCH 29.4, MCHC 33.0, RDW 16.3 H, Plt Count 241, MPV 9.9, Gran % 78.0 H, Lymph % ( Auto) 10.8 L, [place] % (Auto) 9.9 H, Eos % (Auto) 0.7 L, Baso % (Auto) 0.6, Gran # 8.99 H, Lymph # (Auto) 1.3, [place] # (Auto) 1.1 H, Eos # (Auto) 0.1, Baso # ( Auto) 0.07 05/13/18 00:25: Sodium 134, Potassium 3.8, Chloride 94 L, Carbon Dioxide 27, Anion Gap 17, BUN 64 H, Creatinine 7.0 H, Est GFR ( Amer) 12, Est GFR ( Non-Af Amer) 10, Random Glucose 113 H, Calcium 8.3 L, Total Bilirubin 0.4, AST 56, ALT 101 H, Alkaline Phosphatase 64, Total Protein 7.4, Albumin 3.7, Globulin 3.8, Albumin/Globulin Ratio 1.0 L 05/13/18 00:11: Urine Color Light yellow, Urine Appearance Turbid, Urine pH 6.5 , Ur Specific [place] 1.025, Urine Protein >=300 H, Urine Glucose (UA) Negative , Urine Ketones Negative, Urine Blood Moderate H, Urine Nitrate Negative, Urine Bilirubin Negative, Urine Urobilinogen 0.2, Ur Leukocyte Esterase Large H, Urine RBC Tntc, Urine WBC 25 - 30, Ur Epithelial Cells 3 - 4, Urine Bacteria Mod - RAD Interpretation Radiology Orders: 05/12/18 23:57 CHEST TWO VIEWS (PA/LAT) [RAD] Stat - Medication Orders Current Medication Orders: Calcium Acetate (Phoslo) 667 mg PO DAILY [facility] Last Admin: 05/16/18 09:40 Dose: 667 mg Carvedilol (Coreg) 3.125 mg PO [facility] Cefpodoxime Proxetil (Vantin) 100 mg PO DAILY [facility] PRN Reason: Protocol Stop: 05/21/18 11:46 Famotidine (Pepcid) 20 mg PO DAILY [facility] Last Admin: 05/16/18 09:40 Dose: 20 mg Non-Formulary Medication (Folic Acid/Vit B Complex And C [Anne Marie-Will Tablet]) 1 tab PO DAILY [facility] Last Admin: 05/16/18 09:34 Dose: Vitamin B Complex/Vit C/Folic Acid (Nephro-Will) 1 tab PO DAILY [facility] Last Admin: 05/16/18 09:40 Dose: 1 tab Warfarin Sodium (Coumadin) 4 mg PO 1800 [facility] Last Admin: 05/15/18 17:06 Dose: 4 mg Discontinued Medications Acetaminophen (Tylenol 650mg/20.3ml Solution Ud) 975 mg PO STAT STA Stop: 05/12/18 23:59 Last Admin: 05/13/18 00:18 Dose: 975 mg MAR Pain/Vitals Document 05/13/18 00:18 OCS (Rec: 05/13/18 00:18 OCS [id number]) Pain Reassessment Is This A Pain ReAssessment? No Sleep Is patient sleeping during reassessment? No Presence of Pain Presence of Pain No Vitals Temperature (97.6 F-99.6 F) 102.5 F Temperature Source Rectal Carvedilol (Coreg) 3.125 mg PO DAILY [facility] Carvedilol (Coreg) 3.125 mg PO DAILY [facility] Last Admin: 05/16/18 09:32 Dose: Not Given Non-Admin Reason: BP Parameters Not Met MAR Pulse and Blood Pressure Document 05/16/18 09:32 BIR (Rec: 05/16/18 09:33 BIR [id number]) Pulse Pulse Rate (60-90) 66 Blood Pressure Blood Pressure (100/60-150/90) 90/58 Ciprofloxacin (Cipro 400mg/200ml Dsw) 400 mg in 200 mls @ 133.3 mls/hr IVPB STAT STA PRN Reason: Protocol Stop: 05/13/18 03:52 Ceftriaxone Sodium (Rocephin 1 Gram Ivpb) 1 gm in 100 mls @ 200 mls/hr IVPB STAT STA PRN Reason: Protocol Stop: 05/13/18 03:13 Last Admin: 05/13/18 03:07 Dose: 200 mls/hr eMAR Start Stop Document 05/13/18 03:07 OCS (Rec: 05/13/18 03:09 OCS [id number]) Intravenous Solution Start Date 05/13/18 Start Time 03:08 End Date 05/13/18 End time 03:38 Total Infusion Time 30 Cefepime HCl (Maxipime 1gm) 1 gm in 100 mls @ 100 mls/hr IVPB Q24H [facility] PRN Reason: Protocol Stop: 05/22/18 11:46 Last Admin: 05/16/18 11:22 Dose: 100 mls/hr eMAR Start Stop Document 05/16/18 11:22 BIR (Rec: 05/16/18 11:22 BIR [id number]) Intravenous Solution Start Date 05/16/18 Start Time 11:22 End Date 05/16/18 End time 12:30 Total Infusion Time 68 Sodium Chloride (Sodium Chloride 0.9%) 250 mls @ 500 mls/hr IV .Q30M ONE Stop: 05/14/18 07:59 Last Admin: 05/14/18 07:10 Dose: 500 mls/hr eMAR Start Stop Document 05/14/18 07:10 HEATHER (Rec: 05/14/18 07:34 HEATHER [id number]) Intravenous Solution Start Date 05/14/18 Start Time 07:10 End Date 05/14/18 End time 07:40 Total Infusion Time 30 Non-Formulary Medication (Calcium Acetate [Calcium Acetate]) 667 mg PO DAILY [facility] Vitamin B Complex/Vit C/Folic Acid (Nephro-Will) 1 tab PO DAILY [facility] Warfarin Sodium (Coumadin) 4 mg PO DAILY [facility] PRN Reason: Protocol - PA / LEAD NURSE / Resident Statement NOEMÍ has reviewed & agrees with the documentation as recorded. / has examined the patient and agrees with the treatment plan. <Shawn Coffman - Last Filed: 05/13/18 02:58> - PA / LEAD NURSE / Resident Statement NOEMÍ has reviewed & agrees with the documentation as recorded. - Scribe Statement The provider has reviewed the documentation as recorded by the Scribe <Gabbi Stinson PA-C - Last Filed: 05/16/18 15:41> - Scribe Statement Naomi Lynn All medical record entries made by the Scribe were at my direction and personally dictated by me. I have reviewed the chart and agree that the record accurately reflects my personal performance of the history, physical exam, medical decision making, and the department course for this patient. I have also personally directed, reviewed, and agree with the discharge instructions and disposition. (Gabbi Stinson PA-C) Disposition/Present on Arrival - Present on Arrival Any Indicators Present on Arrival: No History of DVT/PE: No History of Uncontrolled Diabetes: No Urinary Catheter: Yes History of Decub. Ulcer: No - Disposition Have Diagnosis and Disposition been Completed?: Yes Disposition Time: 02:59 Patient Plan: Observation <Shawn Coffman - Last Filed: 05/13/18 02:58> - Present on Arrival Any Indicators Present on Arrival: Yes History of DVT/PE: No History of Uncontrolled Diabetes: No Urinary Catheter: Yes (kim cath) History of Decub. Ulcer: No History Surgical Site Infection Following: None - Disposition Have Diagnosis and Disposition been Completed?: Yes <Gabbi Stinson PA-C - Last Filed: 05/16/18 15:41> - Disposition Diagnosis: UTI (urinary tract infection), Fever, Down syndrome Disposition: HOSPITALIZED Patient Problems: Current Active Problems Problem Status Onset Down syndrome Acute Fever Acute UTI (urinary tract infection) Acute Condition: FAIR
[2018-05-13 01:15] LABS: BASO # 0.07 K/mm3 (0.0-2.0); BASO % 0.6 % (0.0-3.0); EOS # 0.1 (0.0-0.7); EOS % 0.7 % (1.5-5.0); GRAN # 8.99 (1.4-6.5); HEMOGLOBIN 11.6 g/dL (14.0-18.0); LYMPH # 1.3 (1.2-3.4); LYMPH % 10.8 % (22.0-35.0); MEAN CELL VOLUME 88.9 fl (80.0-105.0); MEAN CORPUSCULAR HEMOGLOBIN 29.4 pg (25.0-35.0); MEAN PLATELET VOLUME 9.9 fl (7.0-11.0); MONO # 1.1 (0.1-0.6); MONO % 9.9 % (1.0-6.0); RBC 3.95 10^6/uL (3.5-6.1); RED CELL DISTRIBUTION WIDTH 16.3 % (11.5-14.5); WHITE BLOOD COUNT 11.5 10^3/ul (4.5-11.0)
[2018-05-13 01:20] LABS: PH,URINE 6.5 (4.7-8.0); URINE BILIRUBIN NEGATIVE (NEGATIVE); URINE BLOOD MODERATE (NEGATIVE); URINE GLUCOSE (UA) NEGATIVE (NEGATIVE); URINE LEUKOCYTE ESTERASE LARGE Leu/uL (NEGATIVE); URINE PROTEIN >=300 mg/dL (<30 mg/dL); URINE UROBILINOGEN 0.2 E.U./dL (<1 E.U./dL)
[2018-05-13 01:21] LABS: URINE APPEARANCE TURBID (CLEAR); URINE COLOR LIGHT YELLOW (YELLOW)
[2018-05-13 01:24] LABS: ALBUMIN 3.7 g/dL (3.0-4.8); CALCIUM 8.3 mg/dL (8.4-10.5)
[2018-05-13 01:41] LABS: URINE BACTERIA MOD (NEG); URINE RBC TNTC /hpf (0-2); URINE WBC 25 - 30 /hpf (0-6)
[2018-05-13] MEDS ORDERED: Ciprofloxacin 400mg/200ml D5W 400 MG/200 ML BAG IVPB STA (02:22)
[2018-05-13 02:35] LABS: VENOUS BLOOD GAS BASE EXCESS 1.2 mmol/L (0.0-2.0); VENOUS BLOOD GAS PO2 44 mm/Hg (30-55); VENOUS BLOOD PH 7.39 (7.32-7.43)
[2018-05-13] MEDS ORDERED: cefTRIAXone 1 gm 1 GM/100 ML BAG IVPB STA (02:44)
[2018-05-13 05:25] VITALS: BMI 21.9
--- NOTE | 2018-05-13 11:09 | PN ---
DATE: 05/13/2018 SUBJECTIVE: The patient is in bed, in no acute distress, nontoxic. PHYSICAL EXAMINATION: VITAL SIGNS: On exam, temperature is 97, blood pressure is 120/60, respiratory rate of 20. HEENT: Examination of HEENT is unremarkable. NECK: Supple. LUNGS: Have decreased breath sounds. HEART: Normal S1, S2. ABDOMEN: Soft, nontender. LABORATORY DATA: Laboratory examination reveals a white count of 11,500, hemoglobin of 11, platelets of 241. Chemistries reveals a BUN of 64, creatinine of 7. Urinalysis is noted. ASSESSMENT AND PLAN: A 27-year-old male with Down syndrome, autism, urinary catheter, dialysis. Presented to the emergency room complaining of fever and cough. Temperature of 102. In the emergency room, tachycardia with systemic inflammatory response syndrome. Unable to find an x-ray. The only information available is the emergency room chart. We will cover for empiric nosocomial coverage with full consult to follow. Bernardino Booth MD
--- NOTE | 2018-05-13 13:30 | CP.PCM.CON ---
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 Consulted for ESRD , normally TTS due for HD today. Denies SOB. Fever slight improved. Started on abx by ER/Primary team ROS: pt unable to provide due to MR. núñez hx from mom - per mom ROS negative Physical Examination: General Appearance: Comfortable, in no acute respiratory distress Vitals reviewed and noted as below Head; Atraumatic, normocephalic ENT: no ulcers no thrush. Tongue is midline. Oropharynx: no rash or ulcers. EYES: Pupils are equal, round and reactive to light accommodation. Eye muscles and extraocular movement intact. Sclera is anicteric. Neck; supple no lymphadenopathy, no thyromegaly or bruit Lungs: Normal respiratory rate/effort. Breath sounds bilateral equal and clear Heart: Normal rate. s1s2 normal. No rub or gallop. Extremities: no edema. No varicose veins Neurological: Patient is alert, awake, has severe MR, non communicative, non verbal Skin: Warm and dry. Normal turgor. No rash. Palpitation: Normal elasticity for age Abdomen: unable as pt not allowing Psych: no insight MSK: no joint tenderness or swelling. Digits and nails normal, no deformity : has britt access: permacath Labs/imaging reviewed. Past medical history, past surgical history, family history, social history, allergy reviewed and noted as below Family hx: no hx of CKD. Rest non-contributory Past Patient History - Infectious Disease Hx of Infectious Diseases: None - Tetanus Immunizations Tetanus Immunization: Unknown - Past Medical History & Family History Past Medical History?: Yes - Past Social History Smoking Status: Unknown If Ever Smoked - CARDIAC Hx Hypertension: Yes - PULMONARY Hx Respiratory Disorders: No - NEUROLOGICAL Other/Comment: AUTISTIC, DOWN SYNDROME, NON-VERBAL - HEENT Hx HEENT Problems: No - RENAL Hx Dialysis: Yes Hx Kidney Stones: Yes Other/Comment: CKD, ESRD DIALYSIS T,TH,SAT - ENDOCRINE/METABOLIC Hx Endocrine Disorders: No - HEMATOLOGICAL/ONCOLOGICAL Hx Blood Disorders: No - INTEGUMENTARY Hx Dermatological Problems: Yes Hx Eczema: Yes - MUSCULOSKELETAL/RHEUMATOLOGICAL Hx Falls: (UNKNOWN) - GASTROINTESTINAL Hx Gastrointestinal Disorders: No - GENITOURINARY/GYNECOLOGICAL Hx Genitourinary Disorders: Yes Other/Comment: BRITT since aug 2017. last changed Mar 31, 2018 - PSYCHIATRIC Hx Psychophysiologic Disorder: No Hx Substance Use: No - SURGICAL HISTORY Hx Vascular Access Device: Yes Other/Comment: CYSTOSCOPY. NEPHROSTOMY TUBES, YISEL.- removed. kidney stent ? - ANESTHESIA Hx Anesthesia: Yes Hx Anesthesia Reactions: No Hx Malignant Hyperthermia: No Meds Allergies/Adverse Reactions: Allergies Allergy/AdvReac Type Severity Reaction Status Date / Time No Known Allergies Allergy Verified 05/12/18 23:11 - Medications Medications: Current Medications Calcium Acetate (Phoslo) 667 mg PO DAILY [facility] Carvedilol (Coreg) 3.125 mg PO DAILY [facility] Famotidine (Pepcid) 20 mg PO DAILY [facility] Cefepime HCl (Maxipime 1gm) 1 gm in 100 mls @ 100 mls/hr IVPB Q24H [facility] PRN Reason: Protocol Stop: 05/22/18 11:46 Non-Formulary Medication (Folic Acid/Vit B Complex And C [Anne Marie-Will Tablet]) 1 tab PO DAILY [facility] Vitamin B Complex/Vit C/Folic Acid (Nephro-Will) 1 tab PO DAILY [facility] Warfarin Sodium (Coumadin) 4 mg PO 1800 [facility] Results - Vital Signs Recent Vital Signs: Last Vital Signs Temp 97.8 F 05/13/18 06:00 Pulse 97 H 05/13/18 06:00 Resp 20 05/13/18 06:00 BP 120/62 05/13/18 06:00 Pulse Ox 98 05/13/18 06:00 - Labs Result Diagrams: 05/13/18 00:25 05/13/18 00:25
[2018-05-13] MEDS: Cefepime 1gm in NS 100ml 1 GM/100 ML BAG IVPB SCH (13:36)
--- NOTE | 2018-05-13 16:39 | CON ---
DATE: 05/13/2018 LOCATION: The patient is seen earlier today in [facility]. CHIEF COMPLAINT: Fever x1 day duration. HISTORY OF PRESENT ILLNESS: A 27-year-old male with cerebral palsy, Down syndrome, autism, urinary catheter, chronic renal failure, on dialysis, admitted with a fever. The patient's the emergency room chart is reviewed. The patient's mother is at the bedside who gives the history. There has been some cough. No chest pain. No hemoptysis. There is no abdominal pain, diarrhea or constipation. No headaches or blurred vision. REVIEW OF SYSTEMS: A 12-point review of systems is performed. PAST MEDICAL HISTORY: Significant for Klebsiella urinary tract infection, hydronephrosis, chronic renal failure, on hemodialysis, acute femoral vein DVT and cystitis with urinary retention and Pseudomonas urinary tract infection. The patient also with cerebral palsy and Down syndrome. The patient also with hypertension and he gets dialysis on Tuesdays, and Saturdays. PAST SURGICAL HISTORY: Significant for a nephrostomy tube placement in the past and dialysis vascular access. ALLERGIES: THE PATIENT HAS NO KNOWN ALLERGIES. MEDICATIONS AT HOME: Reviewed. PHYSICAL EXAMINATION: GENERAL: On exam, the patient is in bed, in no acute distress. VITAL SIGNS: Temperature of 98, T-max is 102.5; respiratory rate of 20; heart rate of 100, it was up to 100, down to 97; blood pressure is 126/50, it was down to 91/40 and the patient's saturation is 98% on room air. HEENT: Examination of HEENT is unremarkable. NECK: Supple. LUNGS: Have decreased breath sounds. HEART: Normal S1, S2. ABDOMEN: Soft, nontender. No organomegaly. No rebound. No guarding. No masses. LABORATORY DATA: Laboratory examination reveals a white count of 11,500, hemoglobin of 11, platelets of 241 and 78% granulocytosis. Chemistries reveals a BUN of 64, creatinine of 7, ALT is 101. Urinalysis is noted, had too numerous to count rbc's, there are 25-30 wbc's. Urine cultures and blood cultures have been ordered. The patient was given a dose of Cipro in the emergency room and chest x-ray has been ordered. ASSESSMENT AND PLAN: A 27-year-old male with history of multiple urinary tract infections with Klebsiella at one time, Pseudomonas at another; history of hydronephrosis; history of nephrostomy tube; history of renal failure, on dialysis; history of cystitis and urinary retention; chronic renal failure and cerebral palsy with Down syndrome and autism; history of acute femoral vein deep venous thrombosis; now presents with fever, tachycardia, mild leukocytosis, positive urinalysis. #1 is sepsis, urine as the source. We will treat the patient with Maxipime. Pending panculture results and chest x-ray results. May consider a CAT scan of the abdomen and pelvis. We will follow closely with you. Bernardino Booth MD
--- NOTE | 2018-05-14 00:49 | HP ---
HISTORY OF PRESENT ILLNESS: I know Garret well from multiple stays in the hospital. He comes back again with urinary tract infection. This is a 27-year-old man with histories include Down syndrome; autism; he is nonverbal, he just looks at the urinary catheter and dialysis; had dialysis yesterday for end-stage kidney disease; he also had a fever as high as 102, it is 102.4 in the ER. He has done this before. He has also been on vancomycin IV at dialysis and he is getting worse with failed outpatient treatment. He has got hypertension, Down syndrome, and autism. He is nonverbal. He has end-stage renal disease, on dialysis. He has eczema. He is a 27-year-old. He had Zelaya since 08/2017, last changed on 03/31. He has cystoscopy and nephrostomy tubes bilaterally. Removed kidney stents. FAMILY HISTORY: Unknown family history. SOCIAL HISTORY: Never smoked, no alcohol, no drugs. ALLERGIES: NO KNOWN DRUG ALLERGIES. MEDICATIONS: He is on multiple vitamins and blood pressure medications. REVIEW OF SYSTEMS: Very difficult to get that information secondary to him nonverbal. He did have some lower abdominal discomfort, said the mother. PHYSICAL EXAMINATION: GENERAL: He is well-appearing, a little toxic, little uncomfortable, alert x1. VITAL SIGNS: His temperature was 102.5 in the ER with 100 pulse, 19 respiratory rate, 110/60 blood pressure, 98% O2 sat. HEENT: Head is atraumatic and normocephalic. Extraocular muscles are intact. Pupils are equal and reactive to light. Throat is dry. NECK: Supple. HEART: Regular rate. Normal S1 and S2. LUNGS: Clear to auscultation bilaterally with decreased breath sounds. No wheezes, rhonchi, or rales. ABDOMEN: Soft and nontender. Positive bowel sounds. Mild lower abdominal maybe discomfort. He does not like me poking down there. He pushed my hand away. EXTREMITIES: No edema, but the lower extremities are weak, thin and frail NEUROLOGIC: GCS is 15. Cranial nerves II through XII are grossly intact. He has no speech. SKIN: For the most part, warm and dry that I could tell no apparent rashes. PSYCHIATRIC: He is alert x1. LYMPHATICS: Thyroid midline. No palpable appreciable lymphadenopathy. LABORATORY DATA: He had multiple tests. He has 11.5 white count, 11.6 hemoglobin, 35.1 hematocrit with 241 platelets. Calcium is 82.5. Potassium 3.6. Glucose 102. Lactate 1. Sodium is 132. He had large leukocyte esterase in the urine, large blood in the urine, moderate bacteria seen. IMPRESSION AND PLAN: He was on the Cipro in the emergency room. We will call Infectious Disease, Urology, and his kidney doctor. Continue with his medications. Check his labs tomorrow. I put him on IV antibiotics, he is on IV ceftriaxone and cefepime. We will continue aggressive treatment and care with failed outpatient treatment for urinary tract infection and he will be changed with inpatient also. Lawrence Merlos DO [email or web address]
[2018-05-14] MEDS ORDERED: Sodium Chloride 0.9% 250 ML IV SCH (07:15)
[2018-05-14] MEDS ORDERED: Sodium Chloride 0.9% 250 ML IV ONE (07:30)
[2018-05-14 08:02] LABS: HEMOGLOBIN 11.5 g/dL (14.0-18.0); MEAN CELL VOLUME 89.6 fl (80.0-105.0); MEAN CORPUSCULAR HEMOGLOBIN 29.1 pg (25.0-35.0); MEAN CORPUSCULAR HGB CONC 32.5 g/dl (31.0-37.0); MEAN PLATELET VOLUME 9.3 fl (7.0-11.0); RBC 3.95 10^6/uL (3.5-6.1); RED CELL DISTRIBUTION WIDTH 16.4 % (11.5-14.5); WHITE BLOOD COUNT 11.2 10^3/ul (4.5-11.0)
[2018-05-14 08:12] LABS: INR 2.84; PROTHROMBIN TIME 33.4 SECONDS (9.4-12.5)
[2018-05-14 08:23] LABS: ALB/GLOB RATIO 0.9 (1.1-1.8); ALBUMIN 3.5 g/dL (3.0-4.8); CALCIUM 8.3 mg/dL (8.4-10.5)
[2018-05-14] MEDS ORDERED: CALCIUM ACETATE 667 MG PO SCH (10:00)
[2018-05-14] MEDS ORDERED: Non Formulary Medication (Folic Acid/Vit B Complex And C [Rena-Vite Tablet] 1 TAB) PO SCH (10:00)
[2018-05-14] MEDS ORDERED: Multivitamin Vitamin B Complex (Nephro-Vite) Tab PO SCH (10:00)
[2018-05-14] MEDS: Multivitamin Vitamin B Complex (Nephro-Vite) Tab PO SCH (10:02)
[2018-05-14] MEDS: Non Formulary Medication (Folic Acid/Vit B Complex And C [Rena-Vite Tablet] 1 TAB) PO SCH (10:03)
--- NOTE | 2018-05-14 10:13 | PN ---
DATE: 05/14/2018 SUBJECTIVE: He is sitting up in bed. His mother is feeding him. He is alert. He is also nonverbal. He was a little more comfortable today than yesterday, the mother says. MEDICATIONS: He is on Coreg, Coumadin, vitamins, Maxipime, Nephro-Will, Pepcid and PhosLo. PHYSICAL EXAMINATION: VITAL SIGNS: He has a 98.7 temp; 97 pulse; 84/51 blood pressure, I gave him a fluid rider for the low blood pressure; 18 respiratory rate; 99% O2 sat on room air. HEENT: His head is atraumatic, normocephalic. HEART: Regular rate. LUNGS: Decreased breath sounds, but clear. ABDOMEN: Soft. EXTREMITIES: No edema. LABORATORY DATA: He has an 11.2 white count, a little bit better than yesterday; 11.5 hemoglobin; 35.4 hematocrit with 233 platelets. His INR is 2.84, on Coumadin, which is good. He has a 138 sodium; potassium 3.8; BUN 54; creatinine 6.7, he is on dialysis; GFR is 10; sugar is 96; calcium is 8.3; total bili is 0.3; AST is 31; ALT is 66; alk phos 72; total protein 7.7; albumin is 3.5. ASSESSMENT AND PLAN: We will continue with the aggressive treatment and care with IV antibiotics. He is being seen by Renal and Infectious Disease. He is starting to get a little bit better. Waiting for Urology to come in. We will check his labs tomorrow. I will make sure he continues to improve. Garret Byrd who has a urinary tract infection, he has had it before. He has systemic inflammatory response syndrome, also history of autism, Down's, end-stage renal disease with hemodialysis. Lawrence Merlos DO
[2018-05-14] MEDS: Cefepime 1gm in NS 100ml 1 GM/100 ML BAG IVPB SCH (11:58)
--- NOTE | 2018-05-14 12:01 | CP.PCM.PN ---
Subjective - Date & Time of Evaluation Date of Evaluation: 05/14/18 Time of Evaluation: 12:00 - Subjective Subjective: Nephrology Consultation Note: Assessment: stable Fever UTI ESRD on HD via permacath (TTS) hx of b/l massive hydronephrosis and loss of renal cortex Anemia, hx of MR vit D def with secondary hyperparathyroidism CHF obstructive uropathy hyperphosphatemia Plan HD TTS per usual schedule continue with nephrovite 1 tab/day f/u ID and culture results abx per primary team/id dose for esrd on phos binder, phos ordered for tomorow no need for YULIANA defer britt to S: no complaints today Physical Examination: General Appearance: Comfortable, in no acute respiratory distress Vitals reviewed and noted as below Head; Atraumatic, normocephalic ENT: no ulcers no thrush. Tongue is midline. Oropharynx: no rash or ulcers. EYES: Pupils are equal, round and reactive to light accommodation. Eye muscles and extraocular movement intact. Sclera is anicteric. Neck; supple no lymphadenopathy, no thyromegaly or bruit Lungs: Normal respiratory rate/effort. Breath sounds bilateral equal and clear Heart: Normal rate. s1s2 normal. No rub or gallop. Extremities: no edema. No varicose veins Neurological: Patient is alert, awake, has severe MR, non communicative, non verbal Skin: Warm and dry. Normal turgor. No rash. Palpitation: Normal elasticity for age Abdomen: soft nt/nd no appreciable organomegaly Psych: no insight MSK: no joint tenderness or swelling. Digits and nails normal, no deformity : has britt access: permacath Objective - Vital Signs/Intake and Output Vital Signs (last 24 hours): Temp Pulse Resp BP Pulse Ox 98.7 F 88 18 90/50 L 99 05/14/18 06:00 05/14/18 09:00 05/14/18 09:00 05/14/18 09:00 05/14/18 06:00 Intake and Output: 05/14/18 05/14/18 06:59 18:59 Output Total 200 Balance -200 - Medications Medications: Current Medications Calcium Acetate (Phoslo) 667 mg PO DAILY [facility] Last Admin: 05/14/18 10:03 Dose: 667 mg Carvedilol (Coreg) 3.125 mg PO DAILY [facility] Last Admin: 05/14/18 09:58 Dose: Not Given Famotidine (Pepcid) 20 mg PO DAILY [facility] Last Admin: 05/14/18 10:03 Dose: 20 mg Cefepime HCl (Maxipime 1gm) 1 gm in 100 mls @ 100 mls/hr IVPB Q24H [facility] PRN Reason: Protocol Stop: 05/22/18 11:46 Last Admin: 05/13/18 13:36 Dose: 100 mls/hr Non-Formulary Medication (Folic Acid/Vit B Complex And C [Anne Marie-Will Tablet]) 1 tab PO DAILY [facility] Last Admin: 05/14/18 10:03 Dose: Not Given Vitamin B Complex/Vit C/Folic Acid (Nephro-Will) 1 tab PO DAILY [facility] Last Admin: 05/14/18 10:02 Dose: 1 tab Warfarin Sodium (Coumadin) 4 mg PO 1800 [facility] Last Admin: 05/13/18 17:54 Dose: 4 mg - Labs Labs: 05/14/18 07:00 05/14/18 07:00 PT 33.4 SECONDS (9.4-12.5) H 05/14/18 06:00 INR 2.84 05/14/18 06:00
--- NOTE | 2018-05-14 14:37 | PN ---
DATE: 05/14/2018 SUBJECTIVE: The patient is in bed, in no acute distress, nontoxic. OBJECTIVE: VITAL SIGNS: On exam, temperature is 98, blood pressure is 90/50, respiratory rate of 18, heart rate of 97. HEENT: Examination is unremarkable. NECK: Supple. LUNGS: Have decreased breath sounds. HEART: Normal S1, S2. ABDOMEN: Soft. DATA: Laboratory examination reveals a white count 11,200, hemoglobin of 11, platelets of 233. Chemistries reveals a BUN of 54, creatinine of 6.7. Urinalysis is noted. Blood cultures are negative. Urine cultures are negative. ASSESSMENT AND PLAN: This is a 27-year-old male with history of multiple urinary tract infections, Klebsiella one time, Pseudomonas another time; urinary tract infection; history of hydronephrosis; history of nephrostomy tube; history of renal failure, on dialysis; history of cystitis; urinary retention; history of cerebral palsy and Down syndrome and autism, history of acute femoral vein deep venous thrombosis; on this admission, presents with fever, tachycardia, leukocytosis, positive urinalysis. Sepsis with urine as the source, currently on Maxipime. Although the urinalysis is significant, urine culture is reported to be negative. Unfortunately, urine culture is obtained after antibiotics were given and we will check on the repeat urine culture and final blood cultures, on cefepime, day #2 of cefepime. Bernardino Booth MD
--- NOTE | 2018-05-14 19:49 | CP.PCM.CON ---
History of Present Illness - History of Present Illness History of Present Illness: UROLOGY CONSULTATION IMP: UTI RETENTION RENAL FAILURE HYDRONEPHROSIS FULL NOTE TBD ys Past Patient History - Infectious Disease Hx of Infectious Diseases: None - Tetanus Immunizations Tetanus Immunization: Unknown - Past Medical History & Family History Past Medical History?: Yes - Past Social History Smoking Status: Unknown If Ever Smoked - CARDIAC Hx Hypertension: Yes - PULMONARY Hx Respiratory Disorders: No - NEUROLOGICAL Other/Comment: AUTISTIC, DOWN SYNDROME, NON-VERBAL - HEENT Hx HEENT Problems: No - RENAL Hx Dialysis: Yes Hx Kidney Stones: Yes Other/Comment: CKD, ESRD DIALYSIS T,,SAT - ENDOCRINE/METABOLIC Hx Endocrine Disorders: No - HEMATOLOGICAL/ONCOLOGICAL Hx Blood Disorders: No - INTEGUMENTARY Hx Dermatological Problems: Yes Hx Eczema: Yes - MUSCULOSKELETAL/RHEUMATOLOGICAL Hx Falls: (UNKNOWN) - GASTROINTESTINAL Hx Gastrointestinal Disorders: No - GENITOURINARY/GYNECOLOGICAL Hx Genitourinary Disorders: Yes Other/Comment: JUDY since aug 2017. last changed Mar 31, 2018 - PSYCHIATRIC Hx Psychophysiologic Disorder: No Hx Substance Use: No - SURGICAL HISTORY Hx Vascular Access Device: Yes Other/Comment: CYSTOSCOPY. NEPHROSTOMY TUBES, YISEL.- removed. kidney stent ? - ANESTHESIA Hx Anesthesia: Yes Hx Anesthesia Reactions: No Hx Malignant Hyperthermia: No Meds Allergies/Adverse Reactions: Allergies Allergy/AdvReac Type Severity Reaction Status Date / Time No Known Allergies Allergy Verified 05/12/18 23:11 - Medications Medications: Current Medications Calcium Acetate (Phoslo) 667 mg PO DAILY [facility] Last Admin: 05/14/18 10:03 Dose: 667 mg Carvedilol (Coreg) 3.125 mg PO DAILY [facility] Last Admin: 05/14/18 09:58 Dose: Not Given Famotidine (Pepcid) 20 mg PO DAILY [facility] Last Admin: 05/14/18 10:03 Dose: 20 mg Cefepime HCl (Maxipime 1gm) 1 gm in 100 mls @ 100 mls/hr IVPB Q24H [facility] PRN Reason: Protocol Stop: 05/22/18 11:46 Last Admin: 05/14/18 11:58 Dose: 100 mls/hr Non-Formulary Medication (Folic Acid/Vit B Complex And C [Anne Marie-Will Tablet]) 1 tab PO DAILY [facility] Last Admin: 05/14/18 10:03 Dose: Not Given Vitamin B Complex/Vit C/Folic Acid (Nephro-Will) 1 tab PO DAILY [facility] Last Admin: 05/14/18 10:02 Dose: 1 tab Warfarin Sodium (Coumadin) 4 mg PO 1800 [facility] Last Admin: 05/14/18 17:31 Dose: 4 mg Results - Vital Signs Recent Vital Signs: Last Vital Signs Temp 98.3 F 05/14/18 16:26 Pulse 95 H 05/14/18 16:26 Resp 20 05/14/18 16:26 BP 106/62 05/14/18 16:26 Pulse Ox 92 L 05/14/18 16:26 - Labs Result Diagrams: 05/14/18 07:00 05/14/18 07:00 Labs: Laboratory Results - last 24 hr 05/14/18 05/14/18 05/14/18 06:00 07:00 07:00 WBC 11.2 H RBC 3.95 Hgb 11.5 L Hct 35.4 L MCV 89.6 MCH 29.1 MCHC 32.5 RDW 16.4 H Plt Count 233 MPV 9.3 PT 33.4 H INR 2.84 Sodium 138 Potassium 3.8 Chloride 103 Carbon Dioxide 22 Anion Gap 17 BUN 54 H Creatinine 6.7 H Est GFR ( Amer) 12 Est GFR (Non-Af Amer) 10 Random Glucose 96 Calcium 8.3 L Total Bilirubin 0.3 AST 31 ALT 66 H Alkaline Phosphatase 72 Total Protein 7.7 Albumin 3.5 Globulin 4.1 Albumin/Globulin Ratio 0.9 L Assessment & Plan - Date & Time Date: 05/14/18 Time: 18:40
[2018-05-15 08:39] LABS: HEMOGLOBIN 10.6 g/dL (14.0-18.0); MEAN CELL VOLUME 89.2 fl (80.0-105.0); MEAN CORPUSCULAR HEMOGLOBIN 29.4 pg (25.0-35.0); MEAN CORPUSCULAR HGB CONC 32.9 g/dl (31.0-37.0); MEAN PLATELET VOLUME 9.1 fl (7.0-11.0); RBC 3.61 10^6/uL (3.5-6.1); RED CELL DISTRIBUTION WIDTH 16.6 % (11.5-14.5); WHITE BLOOD COUNT 10.6 10^3/ul (4.5-11.0)
[2018-05-15 08:51] LABS: INR 2.24; PROTHROMBIN TIME 26.2 SECONDS (9.4-12.5)
[2018-05-15 09:00] LABS: ALB/GLOB RATIO 0.9 (1.1-1.8); ALBUMIN 3.7 g/dL (3.0-4.8); CALCIUM 8.7 mg/dL (8.4-10.5)
--- NOTE | 2018-05-15 09:16 | PN ---
DATE: 05/15/2018 SUBJECTIVE: He is an autistic, Down syndrome 27-year-old that is nonverbal and his mother is really the only one that feeds him and have any blood tests that she is not here this morning. He is sitting up in bed, grinding his teeth. He is a little bit nervous. He had dialysis yesterday. PHYSICAL EXAMINATION: VITAL SIGNS: He has a 98 temp, 78 pulse, 116/62 blood pressure, 100% O2 sat on nasal cannula. He came in with very high temperatures of 102.5, so I think the antibiotics are working. Clinically, he looks a little bit better. He is on Coreg, Coumadin, vitamins, Maxipime, Nephro-Will, Pepcid and PhosLo. HEENT: His head is atraumatic, normocephalic. HEART: Regular rate. LUNGS: Decreased breath sounds. ABDOMEN: Soft. EXTREMITIES: No edema. ASSESSMENT AND PLAN: He is on dialysis. He is on IV antibiotics. He has improvement. Urology saw him. They did not give us any plan. Infectious Disease has continued with the antibiotics. He is starting to really turn the corner. We will see what they want to do as far as cultures, but there is no doubt the antibiotics have made a difference clinically and his temperatures are down. Continue aggressive treatment and care on Garret. He has a urinary tract infection. He is on dialysis. He has autism, Down's, nonverbal, systemic inflammatory response syndrome. Lawrence Merlos DO MTDD
[2018-05-15] MEDS: Multivitamin Vitamin B Complex (Nephro-Vite) Tab PO SCH (09:41)
[2018-05-15] MEDS: Non Formulary Medication (Folic Acid/Vit B Complex And C [Rena-Vite Tablet] 1 TAB) PO SCH (09:41)
[2018-05-15] MEDS: Cefepime 1gm in NS 100ml 1 GM/100 ML BAG IVPB SCH (11:46)
--- NOTE | 2018-05-15 12:44 | CP.PCM.PN ---
Subjective - Date & Time of Evaluation Date of Evaluation: 05/15/18 Time of Evaluation: 10:40 - Subjective Subjective: Comfortable in bed, no fevers, not in distress, no diarrhea or vomiting. Objective - Vital Signs/Intake and Output Vital Signs (last 24 hours): Temp Pulse Resp BP Pulse Ox 98 F 78 18 116/62 100 05/15/18 07:42 05/15/18 09:39 05/15/18 07:42 05/15/18 07:42 05/15/18 07:42 - Medications Medications: Current Medications Calcium Acetate (Phoslo) 667 mg PO DAILY [facility] Last Admin: 05/15/18 09:44 Dose: 667 mg Carvedilol (Coreg) 3.125 mg PO DAILY [facility] Last Admin: 05/15/18 09:39 Dose: 3.125 mg Famotidine (Pepcid) 20 mg PO DAILY [facility] Last Admin: 05/15/18 09:41 Dose: 20 mg Cefepime HCl (Maxipime 1gm) 1 gm in 100 mls @ 100 mls/hr IVPB Q24H [facility] PRN Reason: Protocol Stop: 05/22/18 11:46 Last Admin: 05/14/18 11:58 Dose: 100 mls/hr Non-Formulary Medication (Folic Acid/Vit B Complex And C [Anne Marie-Will Tablet]) 1 tab PO DAILY [facility] Last Admin: 05/15/18 09:41 Dose: Not Given Vitamin B Complex/Vit C/Folic Acid (Nephro-Will) 1 tab PO DAILY [facility] Last Admin: 05/15/18 09:41 Dose: 1 tab Warfarin Sodium (Coumadin) 4 mg PO 1800 [facility] Last Admin: 05/14/18 17:31 Dose: 4 mg - Labs Labs: 05/15/18 08:30 05/15/18 08:30 PT 26.2 SECONDS (9.4-12.5) H 05/15/18 08:30 INR 2.24 05/15/18 08:30 - Constitutional Appears: No Acute Distress, Chronically Ill - Head Exam Head Exam: NORMAL INSPECTION - ENT Exam ENT Exam: Mucous Membranes Moist - Respiratory Exam Respiratory Exam: Decreased Breath Sounds - Cardiovascular Exam Cardiovascular Exam: +S1, +S2 - GI/Abdominal Exam GI & Abdominal Exam: Soft. absent: Tenderness Assessment and Plan - Assessment and Plan (Free Text) Plan: Assessment consider complicated UTI in this patient with chronic renal failure and urinary anatomic abnormalities history of UTI with Pseudomonas aeruginosa in this patient with chronic Zelaya catheter use (complicated UTI) S/P severe sepsis due to UTI from Klebsiella in a patient with hydronephrosis and hydroureter and acute on chronic renal failure, S/P nephrostomy tube placement and now on dialysis (ESRD) history of acute femoral vein DVT mental disability down syndrome Plan continue Cefepime day 3 - urine cultures were taken after Cefepime was initiated will continue to monitor clinically
--- NOTE | 2018-05-15 15:17 | CP.PCM.PN ---
Subjective - Date & Time of Evaluation Date of Evaluation: 05/15/18 Time of Evaluation: 15:15 - Subjective Subjective: Nephrology Consultation Note: Assessment: stable UTI ESRD on HD via permacath (TTS) hx of b/l massive hydronephrosis and loss of renal cortex s/p b/l nephrostomy now s/p ureteral stent and britt left femoral DVT. neg for HIT/hypercoag work up Anemia, hx of MR vit D def with secondary hyperparathyroidism chronic systolic CHF with LVEF 35% now LVEF normal on latest echo february 2018 s/p bilateral ureteral stents 03/07/18 Transient Hep B antigenemia due to Hep B Vaccination Plan Plan for dialysis tomorrow as TTS schedule. continue with nephrovite 1 tab/day not on RAAS donavan due to low BP. latest LVEF normal pt was on systemic a/c with oral coumadin due to hx of DVT last Hb 10.6 on q 2 week mircera as outpt continue with phos binders ID and following Dose meds/antibiotics for dialysis status. Avoid fleets enema/magnesium based laxatives. Avoid nephrotoxins/NSAIDs Glycemic control Further work up/management as per primary team. Thanks for allowing me to participate in care of your patient. Will follow patient with you. Please call if any Qs. had d/w team Dr Olegario Lyons Office: [phone] CC: unable to obtain reason for consult; ESRD HPI: Pt is a 27 M with MR and chronic obstructive uropathy and progressive CKD as a result of obstruction, now ESRD on HD (TTS) @ [place] unit, CHF, DVT came with cloudy urine and found to have UTI renal consult for ESRD management hx provided by mother, pt now better had b/l nephrostomy tubes which were changed to indwelling catheter with b/l ureteral stents ROS: pt unable to provide due to MR. overnight events noted Physical Examination: General Appearance: Comfortable, in no acute respiratory distress Vitals reviewed and noted as below Head; Atraumatic, normocephalic ENT: no ulcers no thrush. Tongue is midline. Oropharynx: no rash or ulcers. EYES: Pupils are equal, round and reactive to light accommodation. Eye muscles and extraocular movement intact. Sclera is anicteric. Neck; supple no lymphadenopathy, no thyromegaly or bruit Lungs: Normal respiratory rate/effort. Breath sounds bilateral equal and clear Heart: Normal rate. s1s2 normal. No rub or gallop. Extremities: no edema. No varicose veins Neurological: Patient is alert, awake, has severe MR, non communicative, non verbal Skin: Warm and dry. Normal turgor. No rash. Palpitation: Normal elasticity for age Abdomen: unable as pt not allowing Psych: no insight MSK: no joint tenderness or swelling. Digits and nails normal, no deformity : has britt access: permacath Labs/imaging reviewed. Past medical history, past surgical history, family history, social history, allergy reviewed and noted as below Family hx: no hx of CKD. Rest non-contributory Objective - Vital Signs/Intake and Output Vital Signs (last 24 hours): Temp Pulse Resp BP Pulse Ox 98 F 78 18 116/62 100 05/15/18 07:42 05/15/18 09:39 05/15/18 07:42 05/15/18 07:42 05/15/18 07:42 - Medications Medications: Current Medications Calcium Acetate (Phoslo) 667 mg PO DAILY [facility] Last Admin: 05/15/18 09:44 Dose: 667 mg Carvedilol (Coreg) 3.125 mg PO DAILY [facility] Last Admin: 05/15/18 09:39 Dose: 3.125 mg Famotidine (Pepcid) 20 mg PO DAILY [facility] Last Admin: 05/15/18 09:41 Dose: 20 mg Cefepime HCl (Maxipime 1gm) 1 gm in 100 mls @ 100 mls/hr IVPB Q24H [facility] PRN Reason: Protocol Stop: 05/22/18 11:46 Last Admin: 05/15/18 11:46 Dose: 100 mls/hr Non-Formulary Medication (Folic Acid/Vit B Complex And C [Anne Marie-Will Tablet]) 1 tab PO DAILY [facility] Last Admin: 05/15/18 09:41 Dose: Not Given Vitamin B Complex/Vit C/Folic Acid (Nephro-Will) 1 tab PO DAILY [facility] Last Admin: 05/15/18 09:41 Dose: 1 tab Warfarin Sodium (Coumadin) 4 mg PO 1800 [facility] Last Admin: 05/14/18 17:31 Dose: 4 mg - Labs Labs: 05/15/18 08:30 05/15/18 08:30 PT 26.2 SECONDS (9.4-12.5) H 05/15/18 08:30 INR 2.24 05/15/18 08:30
[2018-05-16 07:59] VITALS: PULSE 66; RESP 19; TEMP 97.8; O2SAT 98
[2018-05-16 09:01] LABS: MEAN CORPUSCULAR HEMOGLOBIN 29.1 pg (25.0-35.0); MEAN CORPUSCULAR HGB CONC 32.7 g/dl (31.0-37.0); RBC 3.44 10^6/uL (3.5-6.1); RED CELL DISTRIBUTION WIDTH 16.7 % (11.5-14.5); WHITE BLOOD COUNT 9.2 10^3/ul (4.5-11.0)
[2018-05-16 09:17] LABS: INR 2.53; PROTHROMBIN TIME 29.7 SECONDS (9.4-12.5)
[2018-05-16 09:21] LABS: ALB/GLOB RATIO 0.8 (1.1-1.8); ALBUMIN 3.6 g/dL (3.0-4.8); CALCIUM 8.6 mg/dL (8.4-10.5)
--- NOTE | 2018-05-16 09:23 | PN ---
DATE: 05/16/2018 SUBJECTIVE: He is sitting up in bed. His mother is not with him this morning. He is smiling and actually laughing with me this morning. PHYSICAL EXAMINATION: VITAL SIGNS: He has a 97.8 temp, 66 pulse, 80/58 blood pressure, 98/60 blood pressure, 19 respiratory rate, 98% O2 sat on room air. HEENT: His head is atraumatic, normocephalic. GENERAL: He is looking at me, smiling. He is also grinding his teeth. He is also laughing with me. He has not done that in a long time. HEART: Regular rate. LUNGS: Decreased breath sounds, but clear. ABDOMEN: Soft. EXTREMITIES: No edema. MEDICATIONS: He is currently on Coreg, warfarin, vitamins, Maxipime, Nephro-Will, Pepcid and PhosLo. ASSESSMENT AND PLAN: He is being seen by Renal, Infectious Disease and Urology. We will take directions from Infectious Disease. If we could discharge him and do outpatient IV antibiotics at dialysis that would be wonderful. I will see if can possibly do that today. He is here for urinary tract infection. He is on IV antibiotics. Lawrence Merlos DO
[2018-05-16] MEDS: Non Formulary Medication (Folic Acid/Vit B Complex And C [Rena-Vite Tablet] 1 TAB) PO SCH (09:34)
[2018-05-16] MEDS: Multivitamin Vitamin B Complex (Nephro-Vite) Tab PO SCH (09:40)
[2018-05-16 09:41] VITALS: BP 90/58
[2018-05-16] MEDS: Cefepime 1gm in NS 100ml 1 GM/100 ML BAG IVPB SCH (11:22)
--- NOTE | 2018-05-16 11:31 | CP.PCM.PN ---
Subjective - Date & Time of Evaluation Date of Evaluation: 05/16/18 Time of Evaluation: 11:30 - Subjective Subjective: Nephrology Consultation Note: Assessment: stable UTI ESRD on HD via permacath (TTS) hx of b/l massive hydronephrosis and loss of renal cortex s/p b/l nephrostomy now s/p ureteral stent and britt left femoral DVT. neg for HIT/hypercoag work up Anemia, hx of MR vit D def with secondary hyperparathyroidism chronic systolic CHF with LVEF 35% now LVEF normal on latest echo february 2018 s/p bilateral ureteral stents 03/07/18 Transient Hep B antigenemia due to Hep B Vaccination Plan Plan for dialysis toDAY as TTS schedule. continue with nephrovite 1 tab/day not on RAAS donavan due to low BP. latest LVEF normal. COREG MWF DAYS DOSE ORDERED pt was on systemic a/c with oral coumadin due to hx of DVT last Hb 10.6 on q 2 week mircera as outpt continue with phos binders ID and following Dose meds/antibiotics for dialysis status. Avoid fleets enema/magnesium based laxatives. Avoid nephrotoxins/NSAIDs Glycemic control Further work up/management as per primary team. Thanks for allowing me to participate in care of your patient. Will follow patient with you. Please call if any Qs. had d/w team and mother Dr Olegario Lyons Office: [phone] CC: unable to obtain reason for consult; ESRD HPI: Pt is a 27 M with MR and chronic obstructive uropathy and progressive CKD as a result of obstruction, now ESRD on HD (TTS) @ [place] unit, CHF, DVT came with cloudy urine and found to have UTI renal consult for ESRD management hx provided by mother, pt now better had b/l nephrostomy tubes which were changed to indwelling catheter with b/l ureteral stents ROS: pt unable to provide due to MR. overnight events noted Physical Examination: General Appearance: Comfortable, in no acute respiratory distress Vitals reviewed and noted as below Head; Atraumatic, normocephalic ENT: no ulcers no thrush. Tongue is midline. Oropharynx: no rash or ulcers. EYES: Pupils are equal, round and reactive to light accommodation. Eye muscles and extraocular movement intact. Sclera is anicteric. Neck; supple no lymphadenopathy, no thyromegaly or bruit Lungs: Normal respiratory rate/effort. Breath sounds bilateral equal and clear Heart: Normal rate. s1s2 normal. No rub or gallop. Extremities: no edema. No varicose veins Neurological: Patient is alert, awake, has severe MR, non communicative, non verbal Skin: Warm and dry. Normal turgor. No rash. Palpitation: Normal elasticity for age Abdomen: unable as pt not allowing Psych: no insight MSK: no joint tenderness or swelling. Digits and nails normal, no deformity : has britt access: permacath Labs/imaging reviewed. Past medical history, past surgical history, family history, social history, allergy reviewed and noted as below Family hx: no hx of CKD. Rest non-contributory Objective - Vital Signs/Intake and Output Vital Signs (last 24 hours): Temp Pulse Resp BP Pulse Ox 97.8 F 66 19 90/58 L 98 05/16/18 07:58 05/16/18 09:32 05/16/18 07:58 05/16/18 09:32 05/16/18 07:58 - Medications Medications: Current Medications Calcium Acetate (Phoslo) 667 mg PO DAILY [facility] Last Admin: 05/16/18 09:40 Dose: 667 mg Carvedilol (Coreg) 3.125 mg PO MWF [facility] Famotidine (Pepcid) 20 mg PO DAILY [facility] Last Admin: 05/16/18 09:40 Dose: 20 mg Cefepime HCl (Maxipime 1gm) 1 gm in 100 mls @ 100 mls/hr IVPB Q24H [facility] PRN Reason: Protocol Stop: 05/22/18 11:46 Last Admin: 05/16/18 11:22 Dose: 100 mls/hr Non-Formulary Medication (Folic Acid/Vit B Complex And C [Anne Marie-Will Tablet]) 1 tab PO DAILY [facility] Last Admin: 05/16/18 09:34 Dose: Not Given Vitamin B Complex/Vit C/Folic Acid (Nephro-Will) 1 tab PO DAILY [facility] Last Admin: 05/16/18 09:40 Dose: 1 tab Warfarin Sodium (Coumadin) 4 mg PO 1800 [facility] Last Admin: 05/15/18 17:06 Dose: 4 mg - Labs Labs: 05/16/18 08:50 09/18/18 08:50 PT 29.7 SECONDS (9.4-12.5) H 05/16/18 08:50 INR 2.53 05/16/18 08:50
[2018-05-16] MEDS ORDERED: Cefpodoxime (Vantin) 100 mg Tab PO SCH (11:45)
--- NOTE | 2018-05-16 19:40 | PN ---
DATE: 05/16/2018 SUBJECTIVE: The patient is in bed, in no acute distress. PHYSICAL EXAMINATION: VITAL SIGNS: Temperature is 97, blood pressure is 100/50, respiratory rate of 16. HEENT: Unremarkable. NECK: Supple. LUNGS: Decreased breath sounds. HEART: Normal S1, S2. ABDOMEN: Soft, nontender. LABORATORY EXAMINATION: Reveals a white count of 9.2. Coagulation is noted. Chemistries are noted. Creatinine is 8.3. Urinalysis is noted. Serology is negative. Blood culture and urine cultures are negative. ASSESSMENT AND PLAN: A 27-year-old male with complicated urinary tract infection, chronic renal failure, urinary anatomic abnormalities, history of urinary tract infection and Pseudomonas aeruginosa in a patient status post severe sepsis, history of Klebsiella, hydronephrosis, hydroureter, [id number] renal failure, status post history of nephrostomy tube placement, now on dialysis. Patient with Down syndrome and mental disability, and day #4 of antibiotics, was switched to p.o. Vantin. Bernardino Booth MD
--- NOTE | 2018-05-16 21:19 | RAD ---
Date of service: 05/13/2018 HISTORY: Fever COMPARISON: 02/09/2018 FINDINGS: LUNGS: No active pulmonary disease. PLEURA: No significant pleural effusion identified, no pneumothorax apparent. CARDIOVASCULAR: Normal. OSSEOUS STRUCTURES: No significant abnormalities. VISUALIZED UPPER ABDOMEN: Normal. OTHER FINDINGS: Right-sided dialysis catheter IMPRESSION: No active disease.
--- NOTE | 2018-05-18 07:13 | CON ---
DATE: <05/17/2018> UROLOGY CONSULTATION Urology consultation is requested by Dr. Lawrence Merlos. Urology consultation is filled by Dr. Marlene Andres. REASON FOR CONSULTATION: Urinary retention. Hydronephrosis. HISTORY OF PRESENT ILLNESS: The patient is a 27-year-old male with an indwelling Zelaya catheter for urinary retention. Patient is otherwise fair to poor health. Patient has a history of Down syndrome and autism. Patient has markedly impaired cognitive function. Patient has a history of renal failure secondary to bilateral hydronephrosis. The patient has an indwelling Zelaya catheter. Patient also has ureteral stents in place. Patient presented to the emergency room with fever. Patient recently had a Zelaya catheter changed. The patient lives with his mother who cares for him. No recent hematuria. No pain in evidence. Overall, patient is not able to report specific pain. Patient has had Nephrology consultation during this admission. Patient has a history of renal failure and secondary hyperparathyroidism. The patient is improving since admission. PHYSICAL EXAMINATION: GENERAL: Patient is a well-developed, well-nourished young adult male. Patient is awake. Patient is in bed and in no apparent distress. Patient is afebrile. ABDOMEN: Soft, nontender, and nondistended. No mass or organomegaly. BACK: No CVA tenderness. GENITALIA: Without inflammation. The urine is clear via the Zelaya catheter. IMPRESSION: Fever. Urinary tract infection. Indwelling Zelaya. Indwelling ureteral stents. RECOMMENDATION AND PLAN: Continue antibiotic therapy. Monitor urine output. Monitor urine culture. Further therapy to follow according to urine culture results. Patient is improving according to the report by patient's mother who is in attendance. The patient's mother also informed that he is scheduled for cystoscopy and stent exchange next month. Thank you for recommending the patient for Urology consultation. Marlene Andres MD cc: DO Rod Coronel MD
== END 2018-05-16 19:29 | disposition home or self-care (01) | DRG 698 ==
LOC: ED 23:04 → ERH 05-13 02:59 → 3RNO 05-13 04:03 → OBSVTOIN 05-13 13:07
PROVIDERS: ADMIT Family Medicine; ATTEND Family Medicine
PROC: 5A1D70Z Performance of Urinary Filtration, Intermittent, Less than 6 Hours Per Day (ICD-10-PCS; principal; 2018-05-13)
PROC: 5A1D70Z Performance of Urinary Filtration, Intermittent, Less than 6 Hours Per Day (ICD-10-PCS; 2018-05-16)
DX: T83.518A Infection and inflammatory reaction due to other urinary catheter, initial encounter (principal); N18.6 End stage renal disease; N39.0 Urinary tract infection, site not specified; I13.2 Hypertensive heart and chronic kidney disease with heart failure and with stage 5 chronic kidney disease, or end stage renal disease; I50.22 Chronic systolic (congestive) heart failure; F84.0 Autistic disorder; N25.81 Secondary hyperparathyroidism of renal origin; G80.9 Cerebral palsy, unspecified; E55.9 Vitamin D deficiency, unspecified; D64.9 Anemia, unspecified; E83.39 Other disorders of phosphorus metabolism; R33.9 Retention of urine, unspecified; Z99.2 Dependence on renal dialysis; Q90.9 Down syndrome, unspecified; Z87.440 Personal history of urinary (tract) infections; Z86.718 Personal history of other venous thrombosis and embolism; Z93.6 Other artificial openings of urinary tract status

== ENCOUNTER 2018-05-17 22:15 | Inpatient (IN) | payer OTHER ==
[2018-05-17 22:58] VITALS: BMI 21.1
--- NOTE | 2018-05-17 23:27 | ED PDOC ---
Arrival/HPI - General Chief Complaint: Fever Time Seen by Provider: 05/17/18 22:58 Historian: Patient - History of Present Illness Narrative History of Present Illness (Text): 05/17/18 23:27 Garret Byrd is a 27 year old male, whose past medical history includes Down syndrome, autism, ESRD on hemodiaysis, multiple UTIs, nephrostomy tube placement, hydronephrosis, DVT, and hypertension, who presents to the Emergency department brought in by mother complaining of fever. Patient was recently discharged from the hospital yesterday following treatment for a UTI with IV antibiotics. Mother reports patient was discharged home on Cefpodoxime but developed cloudy urine and fever yesterday after he was discharged. Mother reports max temperature of 102F. Mother also notes decreased appetite today. Limited HPI and ROS as patient is non-verbal secondary to Down syndrome/autism. Time/Duration: 24 hours Symptom Onset: Gradual Symptom Course: Unchanged Activities at Onset: Light Context: Home Past Medical History - Provider Review Nursing Documentation Reviewed: Yes - Infectious Disease Hx of Infectious Diseases: None - Tetanus Immunization Tetanus Immunization: Unknown - Cardiac Hx Cardiac Disorders: Yes Hx Hypertension: Yes - Pulmonary Hx Respiratory Disorders: No - Neurological Hx Neurological Disorder: Yes (DOWN'S SYNDROME AUTISM NON VERBAL) - HEENT Hx HEENT Disorder: No - Renal Hx Renal Disorder: Yes (on dialysis ) - Endocrine/Metabolic Hx Endocrine Disorders: No - Hematological/Oncological Hx Blood Disorders: No - Integumentary Hx Dermatological Disorder: Yes Hx Eczema: Yes - Musculoskeletal/Rheumatological Hx Musculoskeletal Disorders: No - Gastrointestinal Hx Gastrointestinal Disorders: No - Genitourinary/Gynecological Hx Genitourinary Disorders: Yes Other/Comment: JUDY since aug 2017. last changed Mar 31, 2018 - Psychiatric Hx Psychophysiologic Disorder: No Hx Substance Use: No - Surgical History Hx Vascular Access Device: Yes Other/Comment: CYSTOSCOPY. NEPHROSTOMY TUBES, YISEL.- removed. kidney stent ? - Anesthesia Hx Anesthesia: Yes Hx Anesthesia Reactions: No Hx Malignant Hyperthermia: No - Suicidal Assessment Feels Threatened In Home Enviroment: No Family/Social History - Physician Review Nursing Documentation Reviewed: Yes Family/Social History: Unknown Family HX Smoking Status: Never Smoked Hx Alcohol Use: No Hx Substance Use: No Allergies/Home Meds Allergies/Adverse Reactions: Allergies No Known Allergies Allergy (Verified 05/17/18 23:00) Home Medications: Home Meds Medication Instructions Recorded Confirmed Vit B Comp No.3/Folic/C/Biotin 1 tab PO DAILY 12/07/17 05/17/18 [Anne [facility]-Will Rx Tablet] Calcium Acetate 667 mg PO DAILY 04/21/18 05/17/18 Folic Acid/Vit B Complex and C 1 tab PO DAILY 04/21/18 05/17/18 [Anne Marie-Will Tablet] Review of Systems - Review of Systems Systems not reviewed;Unavailable: Other (history of down syndrome, autism, non- verbal) Constitutional: Fevers Genitourinary Male: Urinary Output Changes (+cloudy urine) Physical Exam Vital Signs Reviewed: Yes Vital Signs Temp Pulse Resp BP Pulse Ox 05/18/18 04:54 99.3 F 85 18 100 05/18/18 02:00 83 18 118/86 98 05/17/18 22:58 99.3 F 92 H 18 110/76 100 Temperature: Afebrile Blood Pressure: Normal Pulse: Regular Respiratory Rate: Normal Appearance: Positive for: Well-Appearing, Non-Toxic, Other (Down syndrome stigmata) Pain Distress: None Mental Status: Positive for: other (Alert, non-verbal at baseline secondary to Down syndrome) - Systems Exam Head: Present: Atraumatic, Normocephalic Pupils: Present: PERRL Extroacular Muscles: Present: EOMI Conjunctiva: Present: Normal Mouth: Present: Moist Mucous Membranes Neck: Present: Normal Range of Motion Respiratory/Chest: Present: Clear to Auscultation, Good Air Exchange. No: Respiratory Distress, Accessory Muscle Use Cardiovascular: Present: Regular Rate and Rhythm, Normal S1, S2. No: Murmurs Abdomen: No: Tenderness, Distention, Peritoneal Signs Back: Present: Normal Inspection. No: CVA Tenderness, Midline Tenderness, Paraspinal Tenderness Upper Extremity: Present: Normal Inspection. No: Cyanosis, Edema Lower Extremity: Present: Normal Inspection. No: Edema Neurological: Present: GCS=15, CN II-XII Intact Skin: Present: Warm, Dry, Normal Color. No: Rashes Psychiatric: Present: Alert Medical Decision Making ED Course and Treatment: 05/17/18 23:27 Impression: 27 year old male brought in for fever and cloudy urine. Plan: -- Labs, blood cultures -- UA, urine cultures -- reassess and disposition Prior Visits: Notes and results from pervious visits were reviewed. Progress Notes: 05/18/18 06:06 Case was discussed with who accepted to his service. - Lab Interpretations Lab Results: 05/18/18 00:15 05/18/18 00:15 Lab Results 05/18/18 00:30: Urine Color Yellow, Urine Appearance Cloudy, Urine pH 6.5, Ur Specific Callaway 1.025, Urine Protein >=300 H, Urine Glucose (UA) Negative, Urine Ketones Negative, Urine Blood Large H, Urine Nitrate Negative, Urine Bilirubin Negative, Urine Urobilinogen 0.2, Ur Leukocyte Esterase Large H, Urine RBC 1 - 3, Urine WBC Tntc, Ur Epithelial Cells 0 - 2, Urine Bacteria Many 05/18/18 00:15: WBC 8.0, RBC 3.33 L, Hgb 9.7 L, Hct 29.2 L, MCV 87.7, MCH 29.1, MCHC 33.2, RDW 16.3 H, Plt Count 251, MPV 9.3 05/18/18 00:15: Sodium 136, Potassium 3.9, Chloride 97 L, Carbon Dioxide 25, Anion Gap 17, BUN 80 H, Creatinine 6.9 H, Est GFR ( Amer) 12, Est GFR ( Non-Af Amer) 10, Random Glucose 99, Calcium 8.4, Total Bilirubin 0.2, AST 67 H D , ALT 50, Alkaline Phosphatase 56, Total Protein 7.8, Albumin 3.4, Globulin 4.3 , Albumin/Globulin Ratio 0.8 L - Medication Orders Current Medication Orders: Acetaminophen (Tylenol 325mg Tab) 650 mg PO Q4H PRN PRN Reason: Pain, Mild (1-3) Stop: 05/18/18 13:00 Discontinued Medications Cefepime HCl (Maxipime 1gm) 1 gm in 100 mls @ 100 mls/hr IVPB STAT STA Stop: 05/18/18 02:54 Last Admin: 05/18/18 02:21 Dose: 100 mls/hr eMAR Start Stop Document 05/18/18 02:21 AD (Rec: 05/18/18 02:21 AD [id number]) Intravenous Solution Start Date 05/18/18 Start Time 02:21 - Scribe Statement The provider has reviewed the documentation as recorded by the Scribe Marlen Jose Antonio All medical record entries made by the Paddy were at my direction and personally dictated by me. I have reviewed the chart and agree that the record accurately reflects my personal performance of the history, physical exam, medical decision making, and the department course for this patient. I have also personally directed, reviewed, and agree with the discharge instructions and disposition. Disposition/Present on Arrival - Present on Arrival Any Indicators Present on Arrival: No History of DVT/PE: No History of Uncontrolled Diabetes: No Urinary Catheter: Yes (britt cath) History of Decub. Ulcer: No History Surgical Site Infection Following: None - Disposition Have Diagnosis and Disposition been Completed?: Yes Diagnosis: UTI (urinary tract infection), Fever, Down syndrome Disposition: HOSPITALIZED Disposition Time: 03:38 Patient Problems: Current Active Problems Problem Status Onset Down syndrome Acute Fever Acute UTI (urinary tract infection) Acute Condition: STABLE
[2018-05-18 00:46] LABS: HEMOGLOBIN 9.7 g/dL (14.0-18.0); MEAN CELL VOLUME 87.7 fl (80.0-105.0); MEAN CORPUSCULAR HEMOGLOBIN 29.1 pg (25.0-35.0); MEAN CORPUSCULAR HGB CONC 33.2 g/dl (31.0-37.0); MEAN PLATELET VOLUME 9.3 fl (7.0-11.0); RBC 3.33 10^6/uL (3.5-6.1); RED CELL DISTRIBUTION WIDTH 16.3 % (11.5-14.5)
[2018-05-18 00:47] LABS: PH,URINE 6.5 (4.7-8.0); URINE BILIRUBIN NEGATIVE (NEGATIVE); URINE BLOOD LARGE (NEGATIVE); URINE GLUCOSE (UA) NEGATIVE (NEGATIVE); URINE LEUKOCYTE ESTERASE LARGE Leu/uL (NEGATIVE); URINE PROTEIN >=300 mg/dL (<30 mg/dL); URINE UROBILINOGEN 0.2 E.U./dL (<1 E.U./dL)
[2018-05-18 00:48] LABS: URINE APPEARANCE CLOUDY (CLEAR); URINE COLOR YELLOW (YELLOW)
[2018-05-18 00:54] LABS: URINE BACTERIA MANY (NEG); URINE EPITHELIAL CELLS 0 - 2 /hpf (0-5); URINE WBC TNTC /hpf (0-6)
[2018-05-18 01:14] LABS: ALB/GLOB RATIO 0.8 (1.1-1.8); ALBUMIN 3.4 g/dL (3.0-4.8); CALCIUM 8.4 mg/dL (8.4-10.5)
[2018-05-18] MEDS ORDERED: Cefepime (Maxipime) 1 g Inj IVPB ONE (01:52)
[2018-05-18] MEDS ORDERED: Cefepime 1gm in NS 100ml 1 GM/100 ML BAG IVPB STA (01:55)
--- NOTE | 2018-05-18 08:57 | RAD ---
Date of service: 05/18/2018 HISTORY: rule out pneumonia COMPARISON: 05/13/2018. FINDINGS: The right-sided double-lumen dialysis catheter terminates in the right atrium. LUNGS: The lungs are well inflated. There is mild pulmonary venous congestion. No focal consolidation. PLEURA: No significant pleural effusion identified, no pneumothorax apparent. CARDIOVASCULAR: Mild cardiomegaly. OSSEOUS STRUCTURES: No significant abnormalities. VISUALIZED UPPER ABDOMEN: Normal. OTHER FINDINGS: None. IMPRESSION: Stable position of right-sided dialysis catheter. No interval change.
--- NOTE | 2018-05-18 10:41 | US ---
Date of service: 05/18/2018 PROCEDURE: Ultrasound of the Kidneys HISTORY: rule out hydronephrosis COMPARISON: CT abdomen and pelvis from 12/07/2017 TECHNIQUE: Grayscale imaging was performed. FINDINGS: RIGHT KIDNEY: Measures: 26.0 cm. Normal in size, contour and echogenicity. There is severe right hydronephrosis with loss of renal cortex. No stone, visualized. LEFT KIDNEY: Measures: 11.8 cm. Normal in size, contour and echogenicity. There is mild hydronephrosis and cortical increased echogenicity and cortical irregularity OTHER FINDINGS: None. IMPRESSION: 1. Severe right hydronephrosis with loss of renal cortex. 2. Mild left hydronephrosis and evidence of chronic renal parenchymal disease and cortical irregularity.
[2018-05-18 16:05] LABS: HEPATITIS B CORE AB NEGATIVE (NEGATIVE); HEPATITIS B SURFACE AG Negative (NEGATIVE)
--- NOTE | 2018-05-18 17:05 | CP.PCM.CON ---
History of Present Illness - History of Present Illness History of Present Illness: 27 year old male with PMH of severe sepsis due to UTI from Klebsiella in a patient with hydronephrosis and hydroureter and acute on chronic renal failure, S/P nephrostomy tube placement and now on dialysis (ESRD), history of acute femoral vein DVT, , mental disability, down syndrome was recently admitted in [facility] [place] for probable complicated UTI and was initially on CEfepime and discharged on PO Vantin. He was doing ok at home, until apparently yesterday where he was having intermittent elevated temperatures, slight lethargy. There was no note of vomiting, no convlusions, no diarrhea as per the mother. Infectious Diseases consult is requested to further evaluate and manage. Review of Systems - Review of Systems All systems: reviewed and no additional remarkable complaints except Past Patient History - Infectious Disease Hx of Infectious Diseases: None - Tetanus Immunizations Tetanus Immunization: Unknown - Past Medical History & Family History Past Medical History?: Yes - Past Social History Smoking Status: Never Smoked - CARDIAC Hx Cardiac Disorders: Yes Hx Hypertension: Yes - PULMONARY Hx Respiratory Disorders: No - NEUROLOGICAL Hx Neurological Disorder: Yes (DOWN'S SYNDROME AUTISM NON VERBAL) - HEENT Hx HEENT Problems: No - RENAL Hx Chronic Kidney Disease: Yes (on dialysis T--) - ENDOCRINE/METABOLIC Hx Endocrine Disorders: No - HEMATOLOGICAL/ONCOLOGICAL Hx Blood Disorders: No - INTEGUMENTARY Hx Dermatological Problems: Yes Hx Eczema: Yes - MUSCULOSKELETAL/RHEUMATOLOGICAL Hx Musculoskeletal Disorders: No - GASTROINTESTINAL Hx Gastrointestinal Disorders: No - GENITOURINARY/GYNECOLOGICAL Hx Genitourinary Disorders: Yes Other/Comment: JUDY since aug 2017. last changed Mar 31, 2018 - PSYCHIATRIC Hx Psychophysiologic Disorder: No Hx Substance Use: No - SURGICAL HISTORY Hx Vascular Access Device: Yes Other/Comment: CYSTOSCOPY. NEPHROSTOMY TUBES, YISEL.- removed. kidney stent ? - ANESTHESIA Hx Anesthesia: Yes Hx Anesthesia Reactions: No Hx Malignant Hyperthermia: No Meds Allergies/Adverse Reactions: Allergies Allergy/AdvReac Type Severity Reaction Status Date / Time No Known Allergies Allergy Verified 05/17/18 23:00 - Medications Medications: Current Medications Acetaminophen (Tylenol 325mg Tab) 650 mg PO Q4H PRN PRN Reason: Pain, Mild (1-3) Stop: 05/18/18 13:00 Physical Exam - Constitutional Appears: Chronically Ill - Head Exam Head Exam: NORMAL INSPECTION - ENT Exam ENT Exam: Mucous Membranes Moist - Neck Exam Neck exam: Negative for: Meningismus - Respiratory Exam Respiratory Exam: Decreased Breath Sounds - Cardiovascular Exam Cardiovascular Exam: +S1, +S2 - GI/Abdominal Exam GI & Abdominal Exam: Soft. absent: Tenderness Results - Vital Signs Recent Vital Signs: Last Vital Signs Temp 99.3 F 05/18/18 04:54 Pulse 85 05/18/18 05:45 Resp 16 05/18/18 05:45 BP 112/82 05/18/18 05:45 Pulse Ox 100 05/18/18 05:45 - Labs Result Diagrams: 05/18/18 00:15 05/18/18 00:15 Assessment & Plan - Assessment and Plan (Free Text) Plan: Assessment R/O complicated UTI in this patient with chronic renal failure and urinary anatomic abnormalities history of UTI with Pseudomonas aeruginosa in this patient with chronic Zelaya catheter use (complicated UTI) S/P severe sepsis due to UTI from Klebsiella in a patient with hydronephrosis and hydroureter and acute on chronic renal failure, S/P nephrostomy tube placement and now on dialysis (ESRD) history of acute femoral vein DVT mental disability down syndrome Plan started Merrem pending blood and urine cx, check CXR, PCT, renal ultrasound and will monitor clinically
--- NOTE | 2018-05-19 06:21 | HP ---
DATE OF EXAM: 05/18/2018 HISTORY OF PRESENT ILLNESS: I saw him in bed. He was just discharged the other with a bad urinary tract infections. He was supposed to go home on IV antibiotics with dialysis, not sure what happened. He came in again with high temperatures. This is a 27-year-old man who had a past medical history of Down syndrome, autism, end-stage renal disease on hemodialysis, multiple UTIs, nephrostomy tube placement, hydronephrosis, DVT, hypertension was brought again back to the emergency room with a very high temperature, it was 102 to 103 the mother was telling us and this has happened 3 days earlier and it got better and now he is back. PAST MEDICAL HISTORY: He has hypertension, Down syndrome, autism, he is totally nonverbal. Mother takes complete care of him, he goes to dialysis Tuesday, , Tuesday. He has eczema. He has had Zelaya since 09/15/2017, was changed on 03/31/2018, cystoscopy and nephrostomy tubes bilaterally. FAMILY HISTORY: Hypertension in the family, never smoked. No alcohol. No drugs. ALLERGIES: NO KNOWN DRUG ALLERGIES. MEDICATIONS: He was on IV antibiotics, he was on biotin, calcium, Renovite. REVIEW OF SYSTEMS: He is nonverbal, very difficult to do a review of systems, but I know him and today he was not laughing or smiling. He was definitely off anything because he is septic again. He did have cloudy urine. PHYSICAL EXAMINATION GENERAL: He is alert, looking at me, little lethargic for him. He has got Down syndrome. VITAL SIGNS: He has a 99.3 temperature, 85 pulse, 18 respiratory rate, 118/86 blood pressure, 100% O2 sat. They said he had a 102 temperature and was given Tylenol, may be that is why it is down. HEENT: Head is atraumatic, normocephalic. Extraocular muscles are intact. Throat is moist. NECK: Supple. HEART: Regular rate. Normal S1, S2. LUNGS: Decreased breath sounds, but clear to auscultation. No wheezes, rhonchi or rales. ABDOMEN: Soft, nontender. Positive bowel sounds. No guarding, rebound or CVA tenderness. EXTREMITIES: No edema. NEUROLOGIC: GCS Cranial nerves are II through XII grossly intact. He is alert, that is his baseline. SKIN: Warm and dry. No apparent rashes. LABORATORY DATA: He had multiple tests. He had a white count of 8, hemoglobin 9.7, hematocrit 29.2, platelet 251. He has 136 sodium, potassium of 3.9, BUN 80, creatinine 6.9, on dialysis. GFR is 10. Sugar is 99, calcium is 8.4, total bili is 0.2, AST is 67, ALT is 50, alk phos 56, total protein 7.8, albumin is 3.4. Procalcitonin was high at 2.54. Urine was large leukocytes, many bacteria, too numerous to count white cells, large blood, greater than 300 protein. IMPRESSION AND PLAN: He is being seen by Infectious Disease. There were consults for Renal and Neurology. He will be on Merrem IV, Coreg, Coumadin, Pepcid. We will continue with aggressive treatment and care, IV antibiotics. We will check his labs tomorrow. Hopefully, he will improve. Continue with aggressive treatment and care and Zofran as with extensive urinary tract infections, sepsis, most probably was systemic inflammatory response syndrome. Lawrence Merlos DO [email or web address]
[2018-05-19 08:26] LABS: HEMOGLOBIN 10.2 g/dL (14.0-18.0); MEAN CELL VOLUME 87.7 fl (80.0-105.0); MEAN CORPUSCULAR HEMOGLOBIN 28.6 pg (25.0-35.0); MEAN CORPUSCULAR HGB CONC 32.6 g/dl (31.0-37.0); MEAN PLATELET VOLUME 9.4 fl (7.0-11.0); RBC 3.57 10^6/uL (3.5-6.1); RED CELL DISTRIBUTION WIDTH 16.2 % (11.5-14.5); WHITE BLOOD COUNT 8.1 10^3/ul (4.5-11.0)
[2018-05-19 08:37] LABS: INR 1.6; PROTHROMBIN TIME 18.6 SECONDS (9.4-12.5)
[2018-05-19 08:53] LABS: ALB/GLOB RATIO 0.8 (1.1-1.8); ALBUMIN 3.6 g/dL (3.0-4.8); CALCIUM 8.5 mg/dL (8.4-10.5)
[2018-05-19] MEDS: Multivitamin Vitamin B Complex (Nephro-Vite) Tab PO SCH (09:47)
--- NOTE | 2018-05-19 11:51 | CP.PCM.PN ---
Subjective - Date & Time of Evaluation Date of Evaluation: 05/19/18 Time of Evaluation: 11:49 - Subjective Subjective: Patient in bed Not in acute distress Sitting up Chest pain No chills Objective - Vital Signs/Intake and Output Vital Signs (last 24 hours): Temp Pulse Resp BP Pulse Ox 98.3 F 67 20 104/67 99 05/19/18 06:00 05/19/18 09:44 05/19/18 06:00 05/19/18 09:44 05/19/18 06:00 Intake and Output: 05/19/18 05/19/18 06:59 18:59 Intake Total 360 Output Total 200 Balance 160 - Medications Medications: Current Medications Calcium Acetate (Phoslo) 667 mg PO DAILY [facility] Last Admin: 05/19/18 09:47 Dose: 667 mg Carvedilol (Coreg) 3.125 mg PO DAILY [facility] Last Admin: 05/19/18 09:47 Dose: 3.125 mg Famotidine (Pepcid) 20 mg PO DAILY [facility] Last Admin: 05/19/18 09:48 Dose: 20 mg Meropenem 250 mg/ Sodium (Chloride) 100 mls @ 100 mls/hr IVPB Q12H [facility] PRN Reason: Protocol Stop: 05/25/18 08:01 Last Admin: 05/19/18 08:19 Dose: 100 mls/hr Vitamin B Complex/Vit C/Folic Acid (Nephro-Will) 1 tab PO DAILY [facility] Last Admin: 05/19/18 09:47 Dose: 1 tab Warfarin Sodium (Coumadin) 4 mg PO 1800 [facility] PRN Reason: Protocol - Labs Labs: 05/19/18 08:00 05/19/18 08:00 PT 18.6 SECONDS (9.4-12.5) H 05/19/18 08:00 INR 1.60 05/19/18 08:00 - Constitutional Appears: No Acute Distress - Eye Exam Eye Exam: Conjunctival injection - ENT Exam ENT Exam: Mucous Membranes Moist - Neck Exam Neck Exam: absent: Lymphadenopathy - Respiratory Exam Respiratory Exam: NORMAL BREATHING PATTERN. absent: Chest Wall Tenderness - Cardiovascular Exam Cardiovascular Exam: absent: Gallop, Rubs - GI/Abdominal Exam GI & Abdominal Exam: Soft, Normal Bowel Sounds - Extremities Exam Extremities Exam: absent: Calf Tenderness - Back Exam Back Exam: absent: CVA tenderness (L), CVA tenderness (R) - Neurological Exam Neurological Exam: Awake - Skin Skin Exam: absent: Cyanosis Assessment and Plan (1) Fever Assessment & Plan: UTI ESRD on HD via permacath (TTS) hx of b/l massive hydronephrosis and loss of renal cortex s/p b/l nephrostomy now s/p ureteral stent and britt left femoral DVT. neg for HIT/hypercoag work up Anemia, hx of MR vit D def with secondary hyperparathyroidism chronic systolic CHF with LVEF 35% now LVEF normal on latest echo february 2018 s/p bilateral ureteral stents 03/07/18 the plan Antibiotics as per primary team Patient completed hemodialysis yesterday and scheduled for tomorrow Status: Acute (2) UTI (urinary tract infection) Status: Acute
--- NOTE | 2018-05-19 15:57 | PN ---
DATE: 05/19/2018 SUBJECTIVE: He is a 27-year-old nice man. He is sitting up in bed, may be a little bit better than yesterday. His mother is present. He is currently on Coreg, warfarin, cefepime, Just continues back on Merrem, vitamins, PhosLo, and Pepcid. He came in with a very high temperature. It is now down to 100.8. It was 102 at dialysis. It is now 100.8, it has been down to 98 up to 100.8. He is on antibiotics. PHYSICAL EXAMINATION GENERAL: He is alert, he does not talk. He looks a little bit washed out. VITAL SIGNS: He has a 100.8 temperature, 97 pulse, 99/68 blood pressure, the temperature is now 98.3, 99% O2 sat on room air. HEENT: His head is atraumatic, normocephalic. HEART: Regular rate. LUNGS: Clear to auscultation with decreased breath sounds. ABDOMEN: Soft. EXTREMITIES: No edema. LABORATORY DATA: White count 8.1, hemoglobin 10.2, hematocrit 31.3, platelets of 270. INR is 1.6. Currently back on his Coumadin. He has 139 sodium, potassium 4.2, BUN 56, creatinine 6.4. He is on dialysis. GFR is 11. Sugar is 109. Calcium is 8.5, total bili is 0.6. AST is 42, ALT is 41, alkaline phosphatase 53, total protein is 8.1. His procalcitonin is high at 2.54. His urine has large leukocytes, many bacteria, large blood, positive for hepatitis S antibody. We then continue with IV antibiotics. Continues on inpatient status. Infectious Disease feels that he has had more than two overnights for IV antibiotics. Lawrence Merlos DO
--- NOTE | 2018-05-19 16:24 | CP.PCM.PN ---
Subjective - Date & Time of Evaluation Date of Evaluation: 05/19/18 Time of Evaluation: 11:20 - Subjective Subjective: Comfortable in bed, no fevers, no vomiting, no diarrhea. Objective - Vital Signs/Intake and Output Vital Signs (last 24 hours): Temp Pulse Resp BP Pulse Ox 100.8 F H 97 H 16 99/68 L 99 05/18/18 23:14 05/18/18 23:14 05/18/18 23:14 05/18/18 23:14 05/18/18 14:00 Intake and Output: 05/19/18 05/19/18 06:59 18:59 Intake Total 360 Output Total 200 Balance 160 - Medications Medications: Current Medications Calcium Acetate (Phoslo) 667 mg PO DAILY [facility] Carvedilol (Coreg) 3.125 mg PO DAILY [facility] Famotidine (Pepcid) 20 mg PO DAILY [facility] Meropenem 250 mg/ Sodium (Chloride) 100 mls @ 100 mls/hr IVPB Q12H [facility] PRN Reason: Protocol Stop: 05/25/18 08:01 Last Admin: 05/19/18 08:19 Dose: 100 mls/hr Vitamin B Complex/Vit C/Folic Acid (Nephro-Will) 1 tab PO DAILY [facility] Warfarin Sodium (Coumadin) 4 mg PO 1800 [facility] PRN Reason: Protocol - Constitutional Appears: No Acute Distress, Chronically Ill - Head Exam Head Exam: NORMAL INSPECTION - Respiratory Exam Respiratory Exam: Decreased Breath Sounds - Cardiovascular Exam Cardiovascular Exam: +S1, +S2 - GI/Abdominal Exam GI & Abdominal Exam: Soft. absent: Tenderness Assessment and Plan - Assessment and Plan (Free Text) Plan: Assessment R/O complicated UTI in this patient with chronic renal failure and urinary anatomic abnormalities history of UTI with Pseudomonas aeruginosa in this patient with chronic Zelaya catheter use (complicated UTI) S/P severe sepsis due to UTI from Klebsiella in a patient with hydronephrosis and hydroureter and acute on chronic renal failure, S/P nephrostomy tube placement and now on dialysis (ESRD) history of acute femoral vein DVT mental disability down syndrome Plan continue Merrem day 2 pending urine cx, blood cx are negative; CXR is clear will continue to monitor clinically
--- NOTE | 2018-05-19 17:29 | CP.PCM.CON ---
Past Patient History - Infectious Disease Hx of Infectious Diseases: None - Tetanus Immunizations Tetanus Immunization: Unknown - Past Medical History & Family History Past Medical History?: Yes - Past Social History Smoking Status: Never Smoked - CARDIAC Hx Cardiac Disorders: Yes Hx Hypertension: Yes - PULMONARY Hx Respiratory Disorders: No - NEUROLOGICAL Hx Neurological Disorder: Yes (DOWN'S SYNDROME AUTISM NON VERBAL) - HEENT Hx HEENT Problems: No - RENAL Hx Chronic Kidney Disease: Yes (on dialysis --) - ENDOCRINE/METABOLIC Hx Endocrine Disorders: No - HEMATOLOGICAL/ONCOLOGICAL Hx Blood Disorders: No - INTEGUMENTARY Hx Dermatological Problems: Yes Hx Eczema: Yes - MUSCULOSKELETAL/RHEUMATOLOGICAL Hx Musculoskeletal Disorders: No - GASTROINTESTINAL Hx Gastrointestinal Disorders: No - GENITOURINARY/GYNECOLOGICAL Hx Genitourinary Disorders: Yes Other/Comment: JUDY since aug 2017. last changed Mar 31, 2018 - PSYCHIATRIC Hx Psychophysiologic Disorder: No Hx Substance Use: No - SURGICAL HISTORY Hx Vascular Access Device: Yes Other/Comment: CYSTOSCOPY. NEPHROSTOMY TUBES, YISEL.- removed. kidney stent ? - ANESTHESIA Hx Anesthesia: Yes Hx Anesthesia Reactions: No Hx Malignant Hyperthermia: No Meds Allergies/Adverse Reactions: Allergies Allergy/AdvReac Type Severity Reaction Status Date / Time No Known Allergies Allergy Verified 05/17/18 23:00 - Medications Medications: Current Medications Calcium Acetate (Phoslo) 667 mg PO DAILY [facility] Last Admin: 05/19/18 09:47 Dose: 667 mg Carvedilol (Coreg) 3.125 mg PO DAILY [facility] Last Admin: 05/19/18 09:47 Dose: 3.125 mg Famotidine (Pepcid) 20 mg PO DAILY [facility] Last Admin: 05/19/18 09:48 Dose: 20 mg Meropenem 250 mg/ Sodium (Chloride) 100 mls @ 100 mls/hr IVPB Q12H TONY PRN Reason: Protocol Stop: 05/25/18 08:01 Last Admin: 05/19/18 08:19 Dose: 100 mls/hr Vitamin B Complex/Vit C/Folic Acid (Nephro-Will) 1 tab PO DAILY [facility] Last Admin: 05/19/18 09:47 Dose: 1 tab Warfarin Sodium (Coumadin) 4 mg PO 1800 TONY PRN Reason: Protocol Last Admin: 05/19/18 16:58 Dose: 4 mg Results - Vital Signs Recent Vital Signs: Last Vital Signs Temp 98.1 F 05/19/18 14:00 Pulse 89 05/19/18 14:00 Resp 20 05/19/18 14:00 BP 91/62 L 05/19/18 14:00 Pulse Ox 97 05/19/18 14:00 - Labs Result Diagrams: 05/19/18 08:00 05/19/18 08:00 Assessment & Plan - Assessment and Plan (Free Text) Assessment: IMP: UTI ESRD, ON HD HYDRONEPHROSIS RETENTION DOWN'S SYNDROME - Date & Time Date: 05/19/18 Time: 17:28
[2018-05-20 08:58] LABS: HEMOGLOBIN 9.5 g/dL (14.0-18.0); MEAN CELL VOLUME 87.3 fl (80.0-105.0); MEAN CORPUSCULAR HEMOGLOBIN 28.7 pg (25.0-35.0); MEAN CORPUSCULAR HGB CONC 32.9 g/dl (31.0-37.0); MEAN PLATELET VOLUME 9.3 fl (7.0-11.0); RBC 3.31 10^6/uL (3.5-6.1); RED CELL DISTRIBUTION WIDTH 16.2 % (11.5-14.5)
[2018-05-20 09:30] LABS: ALB/GLOB RATIO 0.8 (1.1-1.8); ALBUMIN 3.4 g/dL (3.0-4.8); CALCIUM 8.6 mg/dL (8.4-10.5)
[2018-05-20] MEDS: Multivitamin Vitamin B Complex (Nephro-Vite) Tab PO SCH (10:29)
--- NOTE | 2018-05-20 17:19 | PN ---
Copied To: Bernardino Booth MD Attending MD: Bernardino Booth MD DATE: 05/20/2018 SUBJECTIVE: The patient seen earlier today, in no acute distress, nontoxic. PHYSICAL EXAMINATION: VITAL SIGNS: Temperature is 97, T-max is 100.8, blood pressure is 102/50, respiratory rate of 20, heart rate of 94. HEENT: Unremarkable. NECK: Supple. LUNGS: Decreased breath sounds. HEART: Normal S1, S2. ABDOMEN: Soft, nontender. LABORATORY EXAMINATION: Reveals a white count of 8, hemoglobin of 9, and platelets of 267. BUN of 80, creatinine of 6.9. Procalcitonin is 2.5. Urinalysis is noted. Serology is noted. Microbiology: Blood cultures negative and urine cultures negative. Review of orders reveals the patient to be on meropenem. ASSESSMENT AND PLAN: This is a 27-year-old male with a complicated urinary tract infection with chronic renal failure and urinary anatomic abnormalities with a history of Pseudomonas urinary tract infection. The patient with a chronic Zelaya catheter and day #3 of meropenem with negative urine cultures, negative blood cultures, chest x-rays negative. The patient did has have mental disability and Down syndrome with a history of [id number] renal failure and history of acute femoral vein deep venous thrombosis. The patient did have nephrostomy tube. Currently on dialysis. We will follow with you. I will speak with Dr. Andres from Urology, who is on the case. Bernardino Booth MD
--- NOTE | 2018-05-20 23:16 | PN ---
DATE: 05/20/2018 SUBJECTIVE: I saw him in dialysis today, sitting up in his bed. He is comfortable. He is starting to look better. He is nonverbal. His mother feeds him too. PHYSICAL EXAMINATION VITAL SIGNS: He has a 97.3 temp, 94 pulse, 138/86 blood pressure, 20 respiratory rate, 99% O2 sat on room air. HEENT: His head is atraumatic and normocephalic. HEART: Regular rate. LUNGS: Decreased breath sounds, but clear. ABDOMEN: Soft, nontender. Positive bowel sounds. EXTREMITIES: No edema. MEDICATIONS: He is currently on Coreg, Coumadin, Merrem IV, vitamins, Pepcid, PhosLo. LABORATORY DATA: He has 8 white count, 9.5 hemoglobin, 28.9 hematocrit with 267 platelets. Sodium 136, potassium 4.5, BUN 90, creatinine 9.1, going to dialysis. GFR is 70. Sugar is 114, calcium is 8.6, total bili is 0.4. AST is 28, ALT is 32, alkaline phosphatase 53, total protein 7.7, procalcitonin was high at 2.54. Urine shows large leukocytes, many bacteria, large blood. ASSESSMENT AND PLAN: He is being seen by Urology, Infectious Disease and Renal. He is here for bad urinary tract infection. He was in sepsis about three days ago. Continue with the IV antibiotics as per Infectious Disease, probably could change it to tablets and discharge him, but presently he needs the IV antibiotics. We will discuss going to dialysis and do the IV antibiotics there. His temp is 97.3. Lawrence Merlos DO
[2018-05-21 08:59] LABS: HEMOGLOBIN 9.1 g/dL (14.0-18.0); MEAN CELL VOLUME 88.3 fl (80.0-105.0); MEAN CORPUSCULAR HEMOGLOBIN 28.8 pg (25.0-35.0); MEAN CORPUSCULAR HGB CONC 32.6 g/dl (31.0-37.0); MEAN PLATELET VOLUME 9.3 fl (7.0-11.0); RBC 3.16 10^6/uL (3.5-6.1); RED CELL DISTRIBUTION WIDTH 16.2 % (11.5-14.5); WHITE BLOOD COUNT 6.2 10^3/ul (4.5-11.0)
[2018-05-21 09:11] LABS: ALB/GLOB RATIO 0.7 (1.1-1.8); ALBUMIN 3.1 g/dL (3.0-4.8); CALCIUM 8.1 mg/dL (8.4-10.5)
[2018-05-21] MEDS: Multivitamin Vitamin B Complex (Nephro-Vite) Tab PO SCH (11:29)
--- NOTE | 2018-05-21 15:08 | PN ---
DATE: 05/21/2018 SUBJECTIVE: Garret is resting comfortably in bed, sitting up. He is playing with his toys. He is nonverbal. His mother is present in the room. He is on IV antibiotics. He is clinically stable. MEDICATIONS: He is on Coreg, Coumadin, Merrem IV, Nephro-Will, Pepcid and PhosLo. VITAL SIGNS: He has a 97.9 temp, 72 pulse, 100/58 blood pressure, 18 respiratory rate, 97% O2 sat on room air. HEENT: His head is atraumatic, normocephalic. HEART: Regular rate. LUNGS: Clear to auscultation. ABDOMEN: Soft. EXTREMITIES: No edema. LABORATORY DATA: He has a 6.2 white count, 9.1 hemoglobin, 27.9 hematocrit with 255 platelets. He has a 138 sodium, potassium 4.2, BUN is 49, creatinine 6.9 after dialysis, GFR is up to 10, sugar is 104, calcium is 8.1, total bili is 0.3, AST is 27, ALT is 28, alk phos 50, total protein 7.2. ASSESSMENT AND PLAN: He did have a urinary tract infection. The urine showed no growth. The blood cultures have no growth. He is on IV antibiotics as per Infectious Disease. Urology did not tell us if they are going to change anything or not. We will continue with the IV antibiotics as per Infectious Disease until I could change it to tablets and they will let me know. We will check his PT, PTT, INR. He is currently on Coumadin and we will continue aggressive treatment and care as per Infectious Disease. He is here for urinary tract infection, systemic inflammatory response syndrome. Lawrence Merlos DO
--- NOTE | 2018-05-21 15:18 | CON ---
DATE: 05/21/2018 UROLOGY CONSULTATION Urology consultation is requested by Dr. Lawrence Merlos. Urology consultation is filled by Dr. Marlene Andres. REASON FOR CONSULTATION: Urinary tract infection. HISTORY OF PRESENT ILLNESS: The patient is a 27-year-old male with urinary tract infection. The patient has had recurrent urinary tract infection. The patient has history of mental retardation. He has history of multiple sclerosis. The patient has history of end-stage renal disease secondary to bilateral hydronephrosis. The patient has history of urinary retention. Mr. Byrd is cared for at home by his mother. He has ureteral stents in place. He has Zelaya catheter in place. The patient has had recurrent urinary tract infections. He is currently admitted with fever. The patient has no recent rigors. The patient is on hemodialysis. The patient has had no recent hematuria. There is no nausea or vomiting. The patient presented to the emergency room on 05/17/2018. He previously had nephrostomy tubes in place. He has history of deep vein thrombosis. The patient was discharged from the hospital this week. He had been hospitalized for urinary tract infection. He now returns with fever report of 102 degrees Fahrenheit. The history is obtained from the patient's mother as well as obtained from the chart. There is no apparent pain reported according to the patient's mother. PHYSICAL EXAMINATION: GENERAL: The patient is a well-developed young adult male, appearing younger than his stated age. ABDOMEN: Soft, nontender, nondistended. No mass or organomegaly. BACK: No CVA tenderness. GENITALIA: Without inflammation. The urine is clear via the Zelaya catheter. LABORATORY DATA: Reviewed. The patient is now afebrile. Renal ultrasound reveals severe right hydronephrosis. There is mild left hydronephrosis as well. IMPRESSION: Urinary tract infection. End-stage renal disease. Mental retardation. Down syndrome. RECOMMENDATION AND PLAN: Urine culture is pending. Blood culture is pending. Continue antibiotic therapy. The patient has been started on meropenem. Continue antibiotic therapy. The patient is on meropenem. Further therapy to follow according to the patient's clinical course. The patient will need urologic care including cystoscopy. Findings discussed with the patient's mother as well as with attending physician. The patient's medications include carvedilol, Coumadin, Pepcid, vitamins, PhosLo. [place] MD Dmitry cc: Lawrence Merlos DO [facility] # [id number]
--- NOTE | 2018-05-21 17:31 | PN ---
DATE: 05/21/2018 SUBJECTIVE: The patient is seen in bed in no acute distress. PHYSICAL EXAMINATION: VITAL SIGNS: Temperature of 97, blood pressure is 100/50, respiratory rate of 20. HEENT: Unremarkable. NECK: Supple. LUNGS: Have decreased breath sounds. HEART: Normal S1, S2. ABDOMEN: Soft. LABORATORY EXAMINATION: Reveals a white count of 6.2, hemoglobin of 9 and the chemistries reveals a BUN of 49, creatinine of 6.9. Procalcitonin is 2.5. Urinalysis is noted and serology is noted. Microbiology reveals the blood cultures negative, urine cultures negative. ASSESSMENT AND PLAN: This is a 27-year-old male was seen earlier today in 572, bed 2 with complicated urinary tract infection, chronic renal failure and urinary anatomic abnormalities, history of Pseudomonas urinary tract infection. The patient with a chronic Zelaya catheter, day #4 of meropenem, although the blood and urine cultures are negative. Chest x-ray is negative. The patient with mental disability, Down syndrome and [id number] renal failure with history of acute femoral vein deep venous thrombosis, nephrostomy tube, on dialysis. Dr. Andres's consultation is reviewed. Case discussed with Dr. Lawrence Merlos. Bernardino Booth MD
[2018-05-22 07:59] LABS: HEMOGLOBIN 9.4 g/dL (14.0-18.0); MEAN CELL VOLUME 86.7 fl (80.0-105.0); MEAN CORPUSCULAR HEMOGLOBIN 28.3 pg (25.0-35.0); MEAN CORPUSCULAR HGB CONC 32.6 g/dl (31.0-37.0); MEAN PLATELET VOLUME 9.9 fl (7.0-11.0); RBC 3.32 10^6/uL (3.5-6.1); RED CELL DISTRIBUTION WIDTH 16.3 % (11.5-14.5); WHITE BLOOD COUNT 6.7 10^3/ul (4.5-11.0)
[2018-05-22 08:07] LABS: INR 1.46; PROTHROMBIN TIME 16.9 SECONDS (9.4-12.5)
[2018-05-22 08:31] LABS: ALB/GLOB RATIO 0.7 (1.1-1.8); ALBUMIN 3.2 g/dL (3.0-4.8); CALCIUM 8.5 mg/dL (8.4-10.5)
[2018-05-22 09:52] VITALS: BP 97/63; PULSE 90; RESP 20; TEMP 98.4; O2SAT 98
[2018-05-22] MEDS: Multivitamin Vitamin B Complex (Nephro-Vite) Tab PO SCH (10:34)
--- NOTE | 2018-05-22 13:49 | CP.PCM.CON ---
History of Present Illness - History of Present Illness History of Present Illness: Nephrology Consultation Note: Assessment: stable UTI ESRD on HD via permacath (TTS) hx of b/l massive hydronephrosis and loss of renal cortex s/p b/l nephrostomy now s/p ureteral stent and britt left femoral DVT. neg for HIT/hypercoag work up Anemia, hx of MR vit D def with secondary hyperparathyroidism chronic systolic CHF with LVEF 35% now LVEF normal on latest echo february 2018 s/p bilateral ureteral stents 03/07/18 Transient Hep B antigenemia due to Hep B Vaccination Plan Plan for dialysis as TTS schedule. continue with nephrovite 1 tab/day not on RAAS donavan due to low BP. latest LVEF normal. COREG MWF DAYS DOSE ORDERED pt was on systemic a/c with oral coumadin due to hx of DVT last Hb 10.6 on q 2 week mircera as outpt continue with phos binders ID and following Dose meds/antibiotics for dialysis status. Avoid fleets enema/magnesium based laxatives. Avoid nephrotoxins/NSAIDs Glycemic control Further work up/management as per primary team. Thanks for allowing me to participate in care of your patient. Will follow patient with you. Please call if any Qs. had d/w team and mother Dr Olegario Lyons Office: [phone] CC: unable to obtain reason for consult; ESRD HPI: Pt is a 27 M with MR and chronic obstructive uropathy and progressive CKD as a result of obstruction, now ESRD on HD (TTS) @ [place] unit, CHF, DVT came with cloudy urine/fever and found to have UTI renal consult for ESRD management hx provided by mother, pt now better had b/l nephrostomy tubes which were changed to indwelling catheter with b/l ureteral stents ROS: pt unable to provide due to MR. overnight events noted Physical Examination: General Appearance: Comfortable, in no acute respiratory distress Vitals reviewed and noted as below Head; Atraumatic, normocephalic ENT: no ulcers no thrush. Tongue is midline. Oropharynx: no rash or ulcers. EYES: Pupils are equal, round and reactive to light accommodation. Eye muscles and extraocular movement intact. Sclera is anicteric. Neck; supple no lymphadenopathy, no thyromegaly or bruit Lungs: Normal respiratory rate/effort. Breath sounds bilateral equal and clear Heart: Normal rate. s1s2 normal. No rub or gallop. Extremities: no edema. No varicose veins Neurological: Patient is alert, awake, has severe MR, non communicative, non verbal Skin: Warm and dry. Normal turgor. No rash. Palpitation: Normal elasticity for age Abdomen: unable as pt not allowing Psych: no insight MSK: no joint tenderness or swelling. Digits and nails normal, no deformity : has britt access: permacath Labs/imaging reviewed. Past medical history, past surgical history, family history, social history, allergy reviewed and noted as below Family hx: no hx of CKD. Rest non-contributory Past Patient History - Infectious Disease Hx of Infectious Diseases: None - Tetanus Immunizations Tetanus Immunization: Unknown - Past Medical History & Family History Past Medical History?: Yes - Past Social History Smoking Status: Never Smoked - CARDIAC Hx Cardiac Disorders: Yes Hx Hypertension: Yes - PULMONARY Hx Respiratory Disorders: No - NEUROLOGICAL Hx Neurological Disorder: Yes (DOWN'S SYNDROME AUTISM NON VERBAL) - HEENT Hx HEENT Problems: No - RENAL Hx Chronic Kidney Disease: Yes (on dialysis T-Th-) - ENDOCRINE/METABOLIC Hx Endocrine Disorders: No - HEMATOLOGICAL/ONCOLOGICAL Hx Blood Disorders: No - INTEGUMENTARY Hx Dermatological Problems: Yes Hx Eczema: Yes - MUSCULOSKELETAL/RHEUMATOLOGICAL Hx Musculoskeletal Disorders: No - GASTROINTESTINAL Hx Gastrointestinal Disorders: No - GENITOURINARY/GYNECOLOGICAL Hx Genitourinary Disorders: Yes Other/Comment: BRITT since aug 2017. last changed Mar 31, 2018 - PSYCHIATRIC Hx Psychophysiologic Disorder: No Hx Substance Use: No - SURGICAL HISTORY Hx Vascular Access Device: Yes Other/Comment: CYSTOSCOPY. NEPHROSTOMY TUBES, YISEL.- removed. kidney stent ? - ANESTHESIA Hx Anesthesia: Yes Hx Anesthesia Reactions: No Hx Malignant Hyperthermia: No Meds Allergies/Adverse Reactions: Allergies Allergy/AdvReac Type Severity Reaction Status Date / Time No Known Allergies Allergy Verified 05/17/18 23:00 - Medications Medications: Current Medications Acetaminophen (Tylenol 325mg Tab) 650 mg PO Q4H PRN PRN Reason: Pain, Mild (1-3) Stop: 05/18/18 13:00 Meropenem 250 mg/ Sodium (Chloride) 100 mls @ 100 mls/hr IVPB Q12H TONY PRN Reason: Protocol Stop: 05/25/18 08:01 Last Admin: 05/18/18 09:45 Dose: 100 mls/hr Results - Vital Signs Recent Vital Signs: Last Vital Signs Temp 98.6 F 05/18/18 06:10 Pulse 92 H 05/18/18 06:10 Resp 18 05/18/18 06:10 BP 101/64 05/18/18 06:10 Pulse Ox 99 05/18/18 06:10 - Labs Result Diagrams: 05/22/18 07:30 05/22/18 07:30
--- NOTE | 2018-05-23 08:52 | DS ---
HISTORY OF PRESENT ILLNESS: He is a 27-year-old with Down syndrome who does not speak with autism, who came in with fever and elevated white count. His white count today is 6.7, hemoglobin 9.4, hematocrit 28.8, platelet is 282. Sodium 138, potassium 4.7, BUN is 71, creatinine 8.4, on dialysis, GFR is 8, sugar is 87, calcium is 8.5, total bilirubin is 0.3, AST is 42, ALT is 23, alk phos 53. I discussed this with Infectious Disease. He had a urinary tract infection. He had sepsis or systemic inflammatory response syndrome as per Infectious Disease. He is on end-stage renal disease, on hemodialysis. He will be going home on Vantin 200 twice a day. Discussed with Infectious Disease. Lawrence Merlos DO
== END 2018-05-22 13:13 | disposition home or self-care (01) | DRG 698 ==
LOC: ED 22:15 → ERH 05-18 03:40 → 5RSO 05-18 06:00 → OBSVTOIN 05-19 11:55
PROVIDERS: ADMIT Family Medicine; ATTEND Family Medicine
PROC: 5A1D70Z Performance of Urinary Filtration, Intermittent, Less than 6 Hours Per Day (ICD-10-PCS; principal; 2018-05-20)
DX: T83.511A Infection and inflammatory reaction due to indwelling urethral catheter, initial encounter (principal); N13.6 Pyonephrosis; N18.6 End stage renal disease; F84.0 Autistic disorder; I50.22 Chronic systolic (congestive) heart failure; I13.2 Hypertensive heart and chronic kidney disease with heart failure and with stage 5 chronic kidney disease, or end stage renal disease; N25.81 Secondary hyperparathyroidism of renal origin; R33.9 Retention of urine, unspecified; E55.9 Vitamin D deficiency, unspecified; D64.9 Anemia, unspecified; Q90.9 Down syndrome, unspecified; Z99.2 Dependence on renal dialysis; Z87.440 Personal history of urinary (tract) infections; Z86.718 Personal history of other venous thrombosis and embolism

== ENCOUNTER 2018-10-11 13:55 | Outpatient (CLI) | payer OTHER | END 2018-10-11 13:56 | disposition home or self-care (01) | LOC: OPLAB 13:55 ==

== ENCOUNTER 2018-10-23 16:16 | Outpatient (CLI) | payer OTHER | END 2018-10-23 16:17 | disposition home or self-care (01) | LOC: OPLAB 16:16 ==

== ENCOUNTER 2018-11-08 16:26 | Outpatient (CLI) | payer OTHER | END 2018-11-08 16:27 | disposition home or self-care (01) | LOC: OPLAB 16:26 ==

== ENCOUNTER 2018-12-13 14:59 | Outpatient (CLI) | payer OTHER | END 2018-12-13 15:00 | disposition home or self-care (01) | LOC: OPLAB 14:59 ==

== ENCOUNTER 2018-12-14 17:47 | Inpatient (IN) | payer OTHER ==
[2018-12-14] MEDS ORDERED: cefTRIAXone 1 gm 1 GM/100 ML BAG IVPB STA (18:32)
[2018-12-14 18:56] LABS: VENOUS BLOOD GAS BASE EXCESS 13.7 mmol/L (0.0-2.0); VENOUS BLOOD GAS PO2 24 mm/Hg (30-55)
[2018-12-14 18:59] LABS: BASO # 0.04 K/mm3 (0.0-2.0); BASO % 0.3 % (0.0-3.0); EOS # 0.1 (0.0-0.7); EOS % 0.9 % (1.5-5.0); HEMOGLOBIN 10.9 g/dL (14.0-18.0); LYMPH # 1.4 (1.2-3.4); LYMPH % 11.8 % (22.0-35.0); MEAN CELL VOLUME 90.7 fl (80.0-105.0); MEAN CORPUSCULAR HEMOGLOBIN 29.9 pg (25.0-35.0); MEAN PLATELET VOLUME 9.3 fl (7.0-11.0); MONO # 1.5 (0.1-0.6); MONO % 12.3 % (1.0-6.0); RBC 3.64 10^6/uL (3.5-6.1); RED CELL DISTRIBUTION WIDTH 16.1 % (11.5-14.5); WHITE BLOOD COUNT 11.9 10^3/uL (4.5-11.0)
--- NOTE | 2018-12-14 19:01 | RAD ---
HISTORY: Sepsis Patient COMPARISON: Chest x-ray performed 05/18/18 TECHNIQUE: Chest, one view. FINDINGS: Right-sided double-lumen dialysis catheter terminates in the cavoatrial junction/right atrium. LUNGS: No focal consolidation. Please note that chest x-ray has limited sensitivity for the detection of pulmonary masses. PLEURA: No significant pleural effusion identified. No definite pneumothorax . CARDIOVASCULAR: Mild cardiomegaly. No significant atherosclerotic calcification present. OSSEOUS STRUCTURES: No acute osseous abnormality identified. VISUALIZED UPPER ABDOMEN: Partially imaged bilateral ureteral stents. OTHER FINDINGS: None. IMPRESSION: Right-sided double-lumen dialysis catheter terminates at the cavoatrial junction/right atrium. Mild cardiomegaly. Partially imaged bilateral ureteral stents.
--- NOTE | 2018-12-14 19:05 | ED PDOC ---
Arrival/HPI - General Chief Complaint: Male Genitourinary Historian: Patient - History of Present Illness Narrative History of Present Illness (Text): 12/14/18 19:02 Patient is a 28 yo male with past medical history of ESRD, dialysis tuesday, , tuesday, presents with history of fever since yesterday as reported by mother. Patient has history of recent suprapubic catheter placement as well as having a britt catheter. No change in baseline behavior. He has not been coughing. He has not expressed abdominal pain. No vomiting, no new rashes reported. Past Medical History - Infectious Disease Hx of Infectious Diseases: None - Tetanus Immunization Tetanus Immunization: Unknown - Cardiac Hx Cardiac Disorders: Yes Hx Hypotension: Yes Other/Comment: DVTS - Neurological Hx Neurological Disorder: Yes (DOWN'S SYNDROME AUTISM NON VERBAL) - Renal Hx Renal Disorder: Yes Date of Last Dialysis Treatment: 12/14/18 Hx Kidney Stones: Yes Hx Renal Failure: Yes Other/Comment: HX: HYDRONEPHROSIS - Hematological/Oncological Hx Blood Disorders: Yes Hx Anemia: Yes - Integumentary Hx Dermatological Disorder: Yes Hx Eczema: Yes - Musculoskeletal/Rheumatological Hx Musculoskeletal Disorders: Yes Hx Falls: Yes Hx Unsteady Gait: Yes - Gastrointestinal Hx Gastrointestinal Disorders: Yes Hx Gastritis: Yes - Genitourinary/Gynecological Hx Genitourinary Disorders: Yes Hx Hematuria: Yes Hx Urinary Tract Infection: Yes Other/Comment: JUDY. changed monthly by Dr Andres- - Psychiatric Hx Psychophysiologic Disorder: Yes Hx Substance Use: No Other/Comment: DOWN'S SYNDROME, AUTISM - Surgical History Hx Arteriovenous Shunt: Yes (FISTULA) Hx Vascular Access Device: Yes (PERMA CATH RIGHT CHEST) Other/Comment: CYSTOSCOPY. NEPHROSTOMY TUBES, YISEL.- removed. kidney stent. Dialysis cath, upper anterior chest, right - Anesthesia Hx Anesthesia: Yes Hx Anesthesia Reactions: Yes (HYPOTENSION) Hx Malignant Hyperthermia: No - Suicidal Assessment Feels Threatened In Home Enviroment: No Family/Social History Smoking Status: Never Smoked Hx Alcohol Use: No Hx Substance Use: No Allergies/Home Meds Allergies/Adverse Reactions: Allergies No Known Allergies Allergy (Verified 06/30/18 11:54) Home Medications: Home Meds Medication Instructions Recorded Confirmed Midodrine [Proamatine] 5 mg PO BID 04/12/19 04/12/19 Review of Systems - Review of Systems Systems not reviewed;Unavailable: Other (hx of developmental delay) Constitutional: Fevers Respiratory: absent: SOB Cardiovascular: absent: Chest Pain Gastrointestinal: absent: Abdominal Pain Genitourinary Male: Other (hx of suprapubic catheter and britt catheter) Neurological: absent: Focal Weakness Physical Exam Vital Signs Reviewed: Yes Vital Signs Temp Pulse Resp BP Pulse Ox 12/14/18 18:54 101.9 F H 12/14/18 17:48 101.9 F H 91 H 18 102/52 L 97 Temperature: Febrile Blood Pressure: Hypotensive Appearance: Positive for: Non-Toxic Mental Status: Positive for: other (at baseline as per mother) - Systems Exam Head: Present: Atraumatic Mouth: Present: Dry Pharnyx: No: Strider Neck: No: Meningeal Signs Respiratory/Chest: Present: Clear to Auscultation. No: Respiratory Distress Cardiovascular: Present: Tachycardic Abdomen: Present: Other (suprapubic catheter). No: Tenderness Genitourinary Male: Present: Other (britt catheter, hypospadias) Back: No: CVA Tenderness Upper Extremity: No: Edema Lower Extremity: No: Edema Neurological: Present: Motor Func Grossly Intact Skin: No: Erythematous Psychiatric: Present: Alert Medical Decision Making ED Course and Treatment: 12/14/18 20:26 Patient febrile on exam. Hx of fever and recent suprapubic cath, has unremarkable lacate. Repeat HR is 90. BP stable. He is dialysis patient. case d/w Dr. Andres and Dr. Merlos. CT pending. Case endorsed to Dr. Wong pending CT results. - Lab Interpretations Lab Results: pO2 24 mm/Hg (30-55) L 12/14/18 18:45 VBG pH 7.50 (7.32-7.43) H 12/14/18 18:45 VBG pCO2 50.0 (40-60) 12/14/18 18:45 VBG HCO3 39.0 mmol/l (21-28) H 12/14/18 18:45 VBG Total CO2 40.5 mmol.L (22-28) H 12/14/18 18:45 VBG O2 Sat (Calc) 51.2 % (40-65) 12/14/18 18:45 VBG Base Excess 13.7 mmol/L (0.0-2.0) H 12/14/18 18:45 VBG Potassium 3.3 mmol/L (3.6-5.2) L 12/14/18 18:45 Sodium 137.0 mmol/L (132-148) 12/14/18 18:45 Chloride 101.0 mmol/L (98-107) 12/14/18 18:45 Glucose 107 mg/dl (75-110) 12/14/18 18:45 Lactate 0.9 mmol/L (0.7-2.1) 12/14/18 18:45 FiO2 21.0 % 12/14/18 18:45 - RAD Interpretation Narrative RAD Interpretations (Text): 12/14/18 18:57 Chest X-ray reviewed by Dr. Elizabeth Sharif MD, shows: Right-sided double-lumen dialysis catheter terminates at the cavoatrial junction/right atrium. Mild cardiomegaly. Partially imaged bilateral ureteral stents. 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 No Vitals Temperature (97.6 F-99.6 F) 101.9 F Temperature Source Rectal Ceftriaxone Sodium (Rocephin 1 Gram Ivpb) 1 gm in 100 mls @ 200 mls/hr IVPB STAT STA; Protocol Stop: 12/14/18 19:01 Disposition/Present on Arrival - Present on Arrival Any Indicators Present on Arrival: Yes History of DVT/PE: No History of Uncontrolled Diabetes: Yes Urinary Catheter: Yes History of Decub. Ulcer: No History Surgical Site Infection Following: None - Disposition Have Diagnosis and Disposition been Completed?: Yes Diagnosis: Fever, UTI (urinary tract infection), ESRD (end stage renal disease) on dialysis Disposition Time: 20:00 Patient Plan: Admission Condition: FAIR Forms: [facility] (Kyrgyz)
[2018-12-14 19:06] LABS: INR 1.18; PARTIAL THROMBOPLASTIN TIME 27.3 Seconds (26.9-38.3); PROTHROMBIN TIME 13.1 SECONDS (9.4-12.5)
[2018-12-14 19:08] LABS: ALB/GLOB RATIO 0.9 (1.1-1.8); ALBUMIN 3.8 g/dL (3.0-4.8); CALCIUM 8.8 mg/dL (8.4-10.5)
[2018-12-14 20:37] LABS: URINE APPEARANCE SLIGHT-CLOUDY (CLEAR); URINE BILIRUBIN NEGATIVE (NEGATIVE); URINE BLOOD MODERATE (NEGATIVE); URINE COLOR LIGHT YELLOW (YELLOW); URINE GLUCOSE (UA) NEGATIVE (NEGATIVE); URINE LEUKOCYTE ESTERASE LARGE Leu/uL (NEGATIVE); URINE PROTEIN 100 mg/dL (<30 mg/dL); URINE UROBILINOGEN 0.2 E.U./dL (<1 E.U./dL)
[2018-12-14 20:46] LABS: URINE BACTERIA LARGE /hpf
--- NOTE | 2018-12-14 23:58 | HP ---
DATE OF EXAM: 12/14/2018 HISTORY OF PRESENT ILLNESS: I saw Garret in the emergency room at [facility]. I have seen him many times in the past. He is a 28-year-old white man with a history of having a suprapubic catheter placement as well as a Zelaya catheter and he has been started having fevers, has not been doing well for the past few days. PAST MEDICAL HISTORY: Down's syndrome, autism, he is nonverbal. He is taken care of by his mother. He has end-stage renal disease on dialysis Tuesday, , Tuesday. He is having a fever since yesterday after the suprapubic catheter was placed. He had dialysis today, the 12/14/2018. He has history of kidney stones, renal failure, hydronephrosis, anemia, eczema, falls, gait instability, gastritis, hematuria, urinary tract infections. He has a Zelaya catheter that gets changed with Dr. Campos monthly. He has Down's syndrome and autism. He has a fistula. He has a Permacath right chest, cystoscopy, nephrostomy tubes bilaterally, in and out they have removed kidney stents, dialysis catheter upper anterior chest, he has hypotension. SOCIAL HISTORY: Never smoked. No alcohol. No drugs. ALLERGIES: NO KNOWN DRUG ALLERGIES. MEDICATIONS: He is on a few medications, midodrine and vitamins, Anne Marie-Will. REVIEW OF SYSTEMS: He is nonverbal. He is developmentally delayed. He has fevers. No apparent short of breath. No chest pain. No abdominal pain. He has a new suprapubic catheter and Zelaya catheter. PHYSICAL EXAMINATION VITAL SIGNS: Temperature 101.9, pulse 91, respiratory rate 18, blood pressure 102/52, and O2 saturation 97% on room air. GENERAL: He is alert at his baseline. He just looks you. His mother basically takes full care of him 24x7. HEENT: Head is atraumatic. Skin is dry. Throat is moist. NECK: No JVD. LUNGS: Clear to auscultation bilaterally. HEART: Regular rate, but tachycardic. ABDOMEN: Suprapubic catheter. No tenderness. Positive bowel sounds. Hypospadias. No CVA tenderness. No apparent problems. No abdominal discomfort. EXTREMITIES: No edema. Very weak lower extremities. SKIN: Fair turgor. No apparent rashes that I could tell. LABORATORY DATA: He had multiple tests done. His urine showed large leukocyte esterase, large bacteria, moderate blood, positive nitrites. Sodium 138, potassium is 3.2, we will replace his potassium, BUN 24, creatinine 3.4 he on dialysis, GFR is 22, sugar 102, calcium is 8.8, phosphorous 2.6, magnesium 1.8, total bili is 0.3, AST is 31, ALT is 11, alk phos is 64, total protein is 8.1, albumin is 3.8. His lactate was 0.9. He has a INR 1.18. He has a white count 11.9, hemoglobin 10.9, hematocrit 33, with platelets 203. His chest x-ray is showing right-sided double-lumen dialysis catheter that terminates at the right atrium, mild cardiomegaly, partially imaged bilateral ureteral stents. IMPRESSION AND PLAN: He will have consult with the urologist or kidney doctor for dialysis with Infectious Disease. He will be put back on his calcium acetate, Coumadin, Anne Marie-Will, Pepcid, Proamatine. He will get a dose of Rocephin in the ER, Tylenol. He has a CAT scan of the abdomen and pelvis that is pending. Labs for tomorrow morning. He is here for an end-stage renal disease picture with a 100 plus temperature, urinary tract infection most probably. He will hopefully improve. Lawrence Merlos DO
[2018-12-15] MEDS ORDERED: Vancomycin 1.5 GM in Sodium Chloride 0.9% 500 ML IVPB ONE (00:08)
[2018-12-15 00:37] VITALS: BMI 21.4
[2018-12-15] MEDS: MEROPENEM 500 MG in NS 500 MG/50 ML BAG IVPB SCH ×2 (02:26→22:45)
[2018-12-15 07:37] LABS: HEMOGLOBIN 10.3 g/dL (14.0-18.0); MEAN CELL VOLUME 91.2 fl (80.0-105.0); MEAN CORPUSCULAR HEMOGLOBIN 29.3 pg (25.0-35.0); MEAN CORPUSCULAR HGB CONC 32.1 g/dl (31.0-37.0); MEAN PLATELET VOLUME 8.8 fl (7.0-11.0); RBC 3.52 10^6/uL (3.5-6.1); RED CELL DISTRIBUTION WIDTH 16.3 % (11.5-14.5); WHITE BLOOD COUNT 9.9 10^3/uL (4.5-11.0)
[2018-12-15 07:42] LABS: INR 1.28; PROTHROMBIN TIME 14.5 SECONDS (9.4-12.5)
[2018-12-15 08:10] LABS: ALB/GLOB RATIO 0.8 (1.1-1.8); ALBUMIN 3.4 g/dL (3.0-4.8); CALCIUM 8.2 mg/dL (8.4-10.5)
--- NOTE | 2018-12-15 09:18 | PCM.URO ---
Urology Progress Note - Subjective Weak Stream: Yes (no gu internention/) Other: gu plans: antibiotics, await official ct ,. maintain britt and spt. and regarding the stents they are for a future date. full note to be dictated - Objective Lab Results Last 24 Hours: Laboratory Results - last 24 hr 12/14/18 12/14/18 12/14/18 18:45 18:51 18:51 WBC 11.9 H RBC 3.64 Hgb 10.9 L Hct 33.0 L MCV 90.7 D MCH 29.9 MCHC 33.0 RDW 16.1 H Plt Count 203 MPV 9.3 Neut % (Auto) 74.7 H Lymph % (Auto) 11.8 L [place] % (Auto) 12.3 H Eos % (Auto) 0.9 L Baso % (Auto) 0.3 Lymph # (Auto) 1.4 [place] # (Auto) 1.5 H Eos # (Auto) 0.1 Baso # (Auto) 0.04 Absolute Neuts (auto) 8.89 H PT 13.1 H INR 1.18 APTT 27.3 pO2 24 L VBG pH 7.50 H VBG pCO2 50.0 VBG HCO3 39.0 H VBG Total CO2 40.5 H VBG O2 Sat (Calc) 51.2 VBG Base Excess 13.7 H VBG Potassium 3.3 L Sodium 137.0 Chloride 101.0 Glucose 107 Lactate 0.9 FiO2 21.0 Potassium Carbon Dioxide Anion Gap BUN Creatinine Est GFR ( Amer) Est GFR (Non-Af Amer) Random Glucose Calcium Phosphorus Magnesium Total Bilirubin AST ALT Alkaline Phosphatase Total Protein Albumin Globulin Albumin/Globulin Ratio Venous Blood Potassium 3.3 L Urine Color Urine Appearance Urine pH Ur Specific [place] Urine Protein Urine Glucose (UA) Urine Ketones Urine Blood Urine Nitrate Urine Bilirubin Urine Urobilinogen Ur Leukocyte Esterase Urine RBC Urine WBC Ur Epithelial Cells Urine Bacteria 12/14/18 12/14/18 12/15/18 18:51 20:25 07:00 WBC 9.9 RBC 3.52 Hgb 10.3 L Hct 32.1 L MCV 91.2 MCH 29.3 MCHC 32.1 RDW 16.3 H Plt Count 169 MPV 8.8 Neut % (Auto) Lymph % (Auto) [place] % (Auto) Eos % (Auto) Baso % (Auto) Lymph # (Auto) [place] # (Auto) Eos # (Auto) Baso # (Auto) Absolute Neuts (auto) PT INR APTT pO2 VBG pH VBG pCO2 VBG HCO3 VBG Total CO2 VBG O2 Sat (Calc) VBG Base Excess VBG Potassium Sodium 138 Chloride 95 L Glucose Lactate FiO2 Potassium 3.3 L Carbon Dioxide 34 H Anion Gap 13 BUN 24 H Creatinine 3.4 H Est GFR ( Amer) 27 Est GFR (Non-Af Amer) 22 Random Glucose 102 Calcium 8.8 Phosphorus 2.6 Magnesium 1.8 Total Bilirubin 0.3 AST 31 ALT 11 Alkaline Phosphatase 64 Total Protein 8.1 Albumin 3.8 Globulin 4.3 Albumin/Globulin Ratio 0.9 L Venous Blood Potassium Urine Color Light yellow Urine Appearance Slight-cloudy Urine pH 7.0 Ur Specific [place] 1.010 Urine Protein 100 H Urine Glucose (UA) Negative Urine Ketones Negative Urine Blood Moderate H Urine Nitrate Positive H Urine Bilirubin Negative Urine Urobilinogen 0.2 Ur Leukocyte Esterase Large H Urine RBC 5 - 10 H Urine WBC 5 - 10 H Ur Epithelial Cells None Urine Bacteria Large 12/15/18 12/15/18 07:00 07:00 WBC RBC Hgb Hct MCV MCH MCHC RDW Plt Count MPV Neut % (Auto) Lymph % (Auto) [place] % (Auto) Eos % (Auto) Baso % (Auto) Lymph # (Auto) [place] # (Auto) Eos # (Auto) Baso # (Auto) Absolute Neuts (auto) PT 14.5 H INR 1.28 APTT pO2 VBG pH VBG pCO2 VBG HCO3 VBG Total CO2 VBG O2 Sat (Calc) VBG Base Excess VBG Potassium Sodium 137 Chloride 98 Glucose Lactate FiO2 Potassium 3.8 Carbon Dioxide 31 Anion Gap 11 BUN 38 H Creatinine 4.9 H Est GFR ( Amer) 17 Est GFR (Non-Af Amer) 14 Random Glucose 95 Calcium 8.2 L Phosphorus Magnesium Total Bilirubin 0.3 AST 35 ALT 11 Alkaline Phosphatase 57 Total Protein 7.5 Albumin 3.4 Globulin 4.1 Albumin/Globulin Ratio 0.8 L Venous Blood Potassium Urine Color Urine Appearance Urine pH Ur Specific [place] Urine Protein Urine Glucose (UA) Urine Ketones Urine Blood Urine Nitrate Urine Bilirubin Urine Urobilinogen Ur Leukocyte Esterase Urine RBC Urine WBC Ur Epithelial Cells Urine Bacteria Intake & Output: Intake & Output 04/12/15/18 12/15/18 18:59 06:59 18:59 Weight 109 lb 2.061 oz 109 lb 2.061 oz Vital Signs: Vital Signs - 24 hr 12/14/18 12/14/18 12/14/18 17:48 18:54 20:34 Temperature 101.9 F H 101.9 F H 101.3 F H Pulse Rate 91 H 113 H Respiratory 18 18 Rate Blood Pressure 102/52 L 91/57 L O2 Sat by Pulse 97 95 Oximetry 12/14/18 12/14/18 12/14/18 22:54 23:15 23:37 Temperature 98.4 F 98.4 F Pulse Rate 99 H Respiratory 20 14 Rate Blood Pressure 102/64 O2 Sat by Pulse 97 Oximetry 12/14/18 23:47 Temperature 99.0 F Pulse Rate 100 H Respiratory 20 Rate Blood Pressure 111/67 O2 Sat by Pulse Oximetry
[2018-12-15] MEDS: Multivitamin Vitamin B Complex (Nephro-Vite) Tab PO SCH (10:40)
--- NOTE | 2018-12-15 12:32 | CP.PCM.CON ---
History of Present Illness - History of Present Illness History of Present Illness: 28 year old male with PMH of history of UTI with Pseudomonas aeruginosa in this patient with chronic Kim catheter use (complicated UTI), S/P severe sepsis due to UTI from Klebsiella in a patient with hydronephrosis and hydroureter and acute on chronic renal failure, S/P nephrostomy tube placement and now on dialysis (ESRD), history of acute femoral vein DVT, mental disability, down syndrome [place] [facility] [place]. There is no note of coughing, no diarrhea, no vomiting. Full ROS is unobtainable because of the patient's medical condition. The patient does have an indwelling Kim catheter and suprapubic catheter. Infectious Diseases consult is requested to further evaluate and manage. Review of Systems - Review of Systems All systems: reviewed and no additional remarkable complaints except (as per HPI) Past Patient History - Infectious Disease Hx of Infectious Diseases: None - Tetanus Immunizations Tetanus Immunization: Unknown - Past Medical History & Family History Past Medical History?: Yes - Past Social History Smoking Status: Never Smoked - CARDIAC Hx Cardiac Disorders: Yes Hx Hypotension: Yes Other/Comment: DVTS - NEUROLOGICAL Hx Neurological Disorder: Yes (DOWN'S SYNDROME AUTISM NON VERBAL) - RENAL Hx Chronic Kidney Disease: Yes Date of Last Dialysis Treatment: 12/14/18 Hx Kidney Stones: Yes Hx Renal Failure: Yes Other/Comment: HX: HYDRONEPHROSIS - HEMATOLOGICAL/ONCOLOGICAL Hx Blood Disorders: Yes Hx Anemia: Yes - INTEGUMENTARY Hx Dermatological Problems: Yes Hx Eczema: Yes - MUSCULOSKELETAL/RHEUMATOLOGICAL Hx Musculoskeletal Disorders: Yes Hx Falls: Yes Hx Unsteady Gait: Yes - GASTROINTESTINAL Hx Gastrointestinal Disorders: Yes Hx Gastritis: Yes - GENITOURINARY/GYNECOLOGICAL Hx Genitourinary Disorders: Yes Hx Hematuria: Yes Hx Urinary Tract Infection: Yes Other/Comment: KIM. changed monthly by Dr Andres- - PSYCHIATRIC Hx Psychophysiologic Disorder: Yes Hx Substance Use: No Other/Comment: DOWN'S SYNDROME, AUTISM - SURGICAL HISTORY Hx Arteriovenous Shunt: Yes (FISTULA) Hx Vascular Access Device: Yes (PERMA CATH RIGHT CHEST) Other/Comment: CYSTOSCOPY. NEPHROSTOMY TUBES, YISEL.- removed. kidney stent. Dialysis cath, upper anterior chest, right - ANESTHESIA Hx Anesthesia: Yes Hx Anesthesia Reactions: Yes (HYPOTENSION) Hx Malignant Hyperthermia: No Meds Allergies/Adverse Reactions: Allergies Allergy/AdvReac Type Severity Reaction Status Date / Time No Known Allergies Allergy Verified 06/30/18 11:54 - Medications Medications: Current Medications Acetaminophen (Tylenol 650 Mg Supp) 650 mg RC Q4H PRN PRN Reason: Fever >100.4 F Calcium Acetate (Phoslo) 667 mg PO BRKDIN TONY Famotidine (Pepcid) 20 mg PO DAILY TONY Midodrine (Proamatine) 5 mg PO BID [facility] Vitamin B Complex/Vit C/Folic Acid (Nephro-Will) 1 tab PO DAILY TONY Warfarin Sodium (Coumadin) 4 mg PO 1800 TONY; Protocol Physical Exam - Constitutional Appears: No Acute Distress, Chronically Ill - Head Exam Head Exam: NORMAL INSPECTION - Respiratory Exam Respiratory Exam: Decreased Breath Sounds - Cardiovascular Exam Cardiovascular Exam: +S1, +S2 - GI/Abdominal Exam GI & Abdominal Exam: Soft. absent: Tenderness Results - Vital Signs Recent Vital Signs: Last Vital Signs Temp 98.4 F 12/14/18 23:15 Pulse 99 H 12/14/18 23:15 Resp 20 12/14/18 23:15 BP 102/64 12/14/18 23:15 Pulse Ox 97 12/14/18 23:15 - Labs Result Diagrams: 12/15/18 07:00 12/15/18 07:00 Labs: Laboratory Results - last 24 hr 12/14/18 12/14/18 12/14/18 18:45 18:51 18:51 WBC 11.9 H RBC 3.64 Hgb 10.9 L Hct 33.0 L MCV 90.7 D MCH 29.9 MCHC 33.0 RDW 16.1 H Plt Count 203 MPV 9.3 Neut % (Auto) 74.7 H Lymph % (Auto) 11.8 L [place] % (Auto) 12.3 H Eos % (Auto) 0.9 L Baso % (Auto) 0.3 Lymph # (Auto) 1.4 [place] # (Auto) 1.5 H Eos # (Auto) 0.1 Baso # (Auto) 0.04 Absolute Neuts (auto) 8.89 H PT 13.1 H INR 1.18 APTT 27.3 pO2 24 L VBG pH 7.50 H VBG pCO2 50.0 VBG HCO3 39.0 H VBG Total CO2 40.5 H VBG O2 Sat (Calc) 51.2 VBG Base Excess 13.7 H VBG Potassium 3.3 L Sodium 137.0 Chloride 101.0 Glucose 107 Lactate 0.9 FiO2 21.0 Potassium Carbon Dioxide Anion Gap BUN Creatinine Est GFR ( Amer) Est GFR (Non-Af Amer) Random Glucose Calcium Phosphorus Magnesium Total Bilirubin AST ALT Alkaline Phosphatase Total Protein Albumin Globulin Albumin/Globulin Ratio Venous Blood Potassium 3.3 L Urine Color Urine Appearance Urine pH Ur Specific [place] Urine Protein Urine Glucose (UA) Urine Ketones Urine Blood Urine Nitrate Urine Bilirubin Urine Urobilinogen Ur Leukocyte Esterase Urine RBC Urine WBC Ur Epithelial Cells Urine Bacteria 12/14/18 12/14/18 18:51 20:25 WBC RBC Hgb Hct MCV MCH MCHC RDW Plt Count MPV Neut % (Auto) Lymph % (Auto) [place] % (Auto) Eos % (Auto) Baso % (Auto) Lymph # (Auto) [place] # (Auto) Eos # (Auto) Baso # (Auto) Absolute Neuts (auto) PT INR APTT pO2 VBG pH VBG pCO2 VBG HCO3 VBG Total CO2 VBG O2 Sat (Calc) VBG Base Excess VBG Potassium Sodium 138 Chloride 95 L Glucose Lactate FiO2 Potassium 3.3 L Carbon Dioxide 34 H Anion Gap 13 BUN 24 H Creatinine 3.4 H Est GFR ( Amer) 27 Est GFR (Non-Af Amer) 22 Random Glucose 102 Calcium 8.8 Phosphorus 2.6 Magnesium 1.8 Total Bilirubin 0.3 AST 31 ALT 11 Alkaline Phosphatase 64 Total Protein 8.1 Albumin 3.8 Globulin 4.3 Albumin/Globulin Ratio 0.9 L Venous Blood Potassium Urine Color Light yellow Urine Appearance Slight-cloudy Urine pH 7.0 Ur Specific [place] 1.010 Urine Protein 100 H Urine Glucose (UA) Negative Urine Ketones Negative Urine Blood Moderate H Urine Nitrate Positive H Urine Bilirubin Negative Urine Urobilinogen 0.2 Ur Leukocyte Esterase Large H Urine RBC 5 - 10 H Urine WBC 5 - 10 H Ur Epithelial Cells None Urine Bacteria Large Assessment & Plan - Assessment and Plan (Free Text) Plan: Assessment SIRS R/O sepsis from omplicated UTI in this patient with chronic renal failure and urinary anatomic abnormalities with chronic indwelling Kim catheter and suprapubic catheter history of UTI with Pseudomonas aeruginosa in this patient with chronic Kim catheter use (complicated UTI) S/P severe sepsis due to UTI from Klebsiella in a patient with hydronephrosis and hydroureter and acute on chronic renal failure, S/P nephrostomy tube placement and now on dialysis (ESRD) history of acute femoral vein DVT mental disability down syndrome Plan gave a dose of IV Vancomycin and started Merrem pending urine cx, blood cx follow up Urology evaluation will monitor clinically
--- NOTE | 2018-12-15 13:03 | CT ---
PROCEDURE: CT Abdomen and Pelvis without Oral or IV contrast. HISTORY: hx of suprapubic and urethral britt, fever/sepsis COMPARISON: Renal US performed 05/18/18, CT abdomen pelvis without contrast performed 12/07/17 TECHNIQUE: Contiguous axial images of the abdomen and pelvis. No oral or IV contrast administered. Coronal and Sagittal reformats generated and reviewed. Radiation dose: Total exam DLP = 234.89 mGy-cm. This CT exam was performed using one or more of the following dose reduction techniques: Automated exposure control, adjustment of the mA and/or kV according to patient size, and/or use of iterative reconstruction technique. FINDINGS: There is limited evaluation of the solid organs without the administration of IV contrast. LOWER THORAX: No visible consolidation, pleural effusion, or pneumothorax. Small partially imaged pericardial fluid. LIVER: Unremarkable. GALLBLADDER AND BILE DUCTS: Decompressed. PANCREAS: Unremarkable. SPLEEN: Unremarkable. ADRENALS: Unremarkable. KIDNEYS AND URETERS: 2 right-sided ureteral stents; migration of the right ureteral stent superiorly, recommend repositioning. One left-sided ureteral stent. Severe right-sided hydronephrosis. Bilateral cortical atrophy and lobulated renal contour/scarring. Atrophic left kidney. BLADDER: Suprapubic catheter present. Decompressed urinary bladder also demonstrates presence of a Britt catheter present. REPRODUCTIVE: Heterogeneous lobulated prostate gland. APPENDIX: The appendix is not identified. BOWEL: The stomach is nondistended. Lack of oral contrast limits evaluation for bowel pathology. The bowel loops appear within normal limits of caliber without evidence of intestinal obstruction. PERITONEUM: No significant free fluid. Small foci of pneumoperitoneum within the pelvis may be related to suprapubic catheter placement; correlate clinically. LYMPH NODES: No bulky lymphadenopathy identified. VASCULATURE: No aortic aneurysm. BONES: Sclerotic appearance of the osseous structures may be related to renal osteodystrophy. OTHER FINDINGS: None. IMPRESSION: 2 right-sided ureteral stents; migration of the right ureteral stent superiorly, recommend repositioning. One left-sided ureteral stent. Severe right-sided hydronephrosis. Bilateral cortical atrophy and lobulated renal contour/scarring. Atrophic left kidney. Small foci of pneumoperitoneum within the pelvis may be related to suprapubic catheter placement; correlate clinically. Suprapubic and Britt catheter present within a decompressed urinary bladder. Heterogeneous lobulated prostate gland. Recommend correlation with PSA. Small partially imaged pericardial fluid. Sclerotic appearance of the osseous structures may be related to renal osteodystrophy. Preliminary impression was provided by [place] book. Study marked for PA review.
--- NOTE | 2018-12-15 13:19 | CP.PCM.CON ---
History of Present Illness - History of Present Illness History of Present Illness: Nephrology Consultation Note: Assessment: stable Sepsis ? UTI. also to evaluate permacath related infection ESRD on HD via permacath (TTS) hx of b/l massive hydronephrosis and loss of renal cortex s/p b/l nephrostomy now s/p ureteral stent 03/07/18 and SP catheter left femoral DVT. neg for HIT/hypercoag work up Anemia, hx of MR vit D def with secondary hyperparathyroidism chronic systolic CHF with LVEF 35% now LVEF normal on latest echo february 2018 Plan Plan for dialysis as TTS schedule. continue with nephrovite 1 tab/day not on RAAS donavan due to low BP. latest LVEF normal. continue with phos binders as phoslo low dose aransep with HD as last Hb 10.3 Dose meds/antibiotics for dialysis status. Avoid fleets enema/magnesium based laxatives. Avoid nephrotoxins/NSAIDs Glycemic control Further work up/management as per primary team. ID urology following Thanks for allowing me to participate in care of your patient. Will follow patient with you. Please call if any Qs. 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 He was noted to have fever at home x 1-2 day with reduced oral intake hence sent to ER after HD yesterday. renal consult for ESRD management ROS: pt unable to provide due to MR. overnight events noted Physical Examination: General Appearance: Comfortable, in no acute respiratory distress Vitals reviewed and noted as below Head; Atraumatic, normocephalic ENT: no ulcers no thrush. Tongue is midline. Oropharynx: no rash or ulcers. EYES: Pupils are equal, round and reactive to light accommodation. Sclera is anicteric. Neck; supple no lymphadenopathy, no thyromegaly or bruit Lungs: Normal respiratory rate/effort. Breath sounds bilateral equal and clear Heart: Normal rate. s1s2 normal. No rub or gallop. Extremities: no edema. No varicose veins Neurological: Patient is alert, awake, has severe MR, non communicative, non verbal Skin: Warm and dry. Normal turgor. No rash. Palpitation: Normal elasticity for age Abdomen: unable as pt not allowing Psych: no insight MSK: no joint tenderness or swelling. Digits and nails normal, no deformity : has britt access: permacath. s/p left radial AVF: failed. s/o left brachiocephalic AVF with good thrill and bruit Labs/imaging reviewed. Past medical history, past surgical history, family history, social history, allergy reviewed and noted as below Family hx: no hx of CKD. 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 changed monthly by Dr Andres- - PSYCHIATRIC Hx Psychophysiologic Disorder: Yes Hx Substance Use: No Other/Comment: DOWN'S SYNDROME, AUTISM - SURGICAL HISTORY Hx Arteriovenous Shunt: Yes (FISTULA) Hx Vascular Access Device: Yes (PERMA CATH RIGHT CHEST) Other/Comment: CYSTOSCOPY. NEPHROSTOMY TUBES, YISEL.- removed. kidney stent. Dialysis cath, upper anterior chest, right - ANESTHESIA Hx Anesthesia: Yes Hx Anesthesia Reactions: Yes (HYPOTENSION) Hx Malignant Hyperthermia: No Meds Allergies/Adverse Reactions: Allergies Allergy/AdvReac Type Severity Reaction Status Date / Time No Known Allergies Allergy Verified 06/30/18 11:54 - Medications Medications: Current Medications Acetaminophen (Tylenol 650 Mg Supp) 650 mg RC Q4H PRN PRN Reason: Fever >100.4 F Calcium Acetate (Phoslo) 667 mg PO BRKDIN [facility] Last Admin: 12/15/18 07:42 Dose: 667 mg Darbepoetin Jorden (Aranesp) 25 mcg IVP QWK [facility] Famotidine (Pepcid) 20 mg PO DAILY [facility] Last Admin: 12/15/18 10:41 Dose: 20 mg Meropenem/Sodium Chloride (Merrem Iv 500 Mg/Ns 50 Ml) 500 mg in 50 mls @ 100 mls/hr IVPB Q12 [facility]; Protocol Stop: 12/22/18 00:16 Last Admin: 12/15/18 02:26 Dose: 100 mls/hr Midodrine (Proamatine) 5 mg PO BID [facility] Last Admin: 12/15/18 10:43 Dose: 5 mg Vitamin B Complex/Vit C/Folic Acid (Nephro-Will) 1 tab PO DAILY [facility] Last Admin: 12/15/18 10:40 Dose: 1 tab Warfarin Sodium (Coumadin) 4 mg PO 1800 [facility]; Protocol Results - Vital Signs Recent Vital Signs: Last Vital Signs Temp 99.7 F H 12/15/18 06:00 Pulse 106 H 12/15/18 06:00 Resp 20 12/15/18 06:00 BP 91/51 L 12/15/18 06:00 Pulse Ox 97 12/14/18 23:15 - Labs Result Diagrams: 12/15/18 07:00 12/15/18 07:00 Labs: Laboratory Results - last 24 hr 12/14/18 12/14/18 12/14/18 18:45 18:51 18:51 WBC 11.9 H RBC 3.64 Hgb 10.9 L Hct 33.0 L MCV 90.7 D MCH 29.9 MCHC 33.0 RDW 16.1 H Plt Count 203 MPV 9.3 Neut % (Auto) 74.7 H Lymph % (Auto) 11.8 L [place] % (Auto) 12.3 H Eos % (Auto) 0.9 L Baso % (Auto) 0.3 Lymph # (Auto) 1.4 [place] # (Auto) 1.5 H Eos # (Auto) 0.1 Baso # (Auto) 0.04 Absolute Neuts (auto) 8.89 H PT 13.1 H INR 1.18 APTT 27.3 pO2 24 L VBG pH 7.50 H VBG pCO2 50.0 VBG HCO3 39.0 H VBG Total CO2 40.5 H VBG O2 Sat (Calc) 51.2 VBG Base Excess 13.7 H VBG Potassium 3.3 L Sodium 137.0 Chloride 101.0 Glucose 107 Lactate 0.9 FiO2 21.0 Potassium Carbon Dioxide Anion Gap BUN Creatinine Est GFR ( Amer) Est GFR (Non-Af Amer) Random Glucose Calcium Phosphorus Magnesium Total Bilirubin AST ALT Alkaline Phosphatase Total Protein Albumin Globulin Albumin/Globulin Ratio Venous Blood Potassium 3.3 L Urine Color Urine Appearance Urine pH Ur Specific [place] Urine Protein Urine Glucose (UA) Urine Ketones Urine Blood Urine Nitrate Urine Bilirubin Urine Urobilinogen Ur Leukocyte Esterase Urine RBC Urine WBC Ur Epithelial Cells Urine Bacteria 12/14/18 12/14/18 12/15/18 18:51 20:25 07:00 WBC 9.9 RBC 3.52 Hgb 10.3 L Hct 32.1 L MCV 91.2 MCH 29.3 MCHC 32.1 RDW 16.3 H Plt Count 169 MPV 8.8 Neut % (Auto) Lymph % (Auto) [place] % (Auto) Eos % (Auto) Baso % (Auto) Lymph # (Auto) [place] # (Auto) Eos # (Auto) Baso # (Auto) Absolute Neuts (auto) PT INR APTT pO2 VBG pH VBG pCO2 VBG HCO3 VBG Total CO2 VBG O2 Sat (Calc) VBG Base Excess VBG Potassium Sodium 138 Chloride 95 L Glucose Lactate FiO2 Potassium 3.3 L Carbon Dioxide 34 H Anion Gap 13 BUN 24 H Creatinine 3.4 H Est GFR ( Amer) 27 Est GFR (Non-Af Amer) 22 Random Glucose 102 Calcium 8.8 Phosphorus 2.6 Magnesium 1.8 Total Bilirubin 0.3 AST 31 ALT 11 Alkaline Phosphatase 64 Total Protein 8.1 Albumin 3.8 Globulin 4.3 Albumin/Globulin Ratio 0.9 L Venous Blood Potassium Urine Color Light yellow Urine Appearance Slight-cloudy Urine pH 7.0 Ur Specific [place] 1.010 Urine Protein 100 H Urine Glucose (UA) Negative Urine Ketones Negative Urine Blood Moderate H Urine Nitrate Positive H Urine Bilirubin Negative Urine Urobilinogen 0.2 Ur Leukocyte Esterase Large H Urine RBC 5 - 10 H Urine WBC 5 - 10 H Ur Epithelial Cells None Urine Bacteria Large 12/15/18 12/15/18 07:00 07:00 WBC RBC Hgb Hct MCV MCH MCHC RDW Plt Count MPV Neut % (Auto) Lymph % (Auto) [place] % (Auto) Eos % (Auto) Baso % (Auto) Lymph # (Auto) [place] # (Auto) Eos # (Auto) Baso # (Auto) Absolute Neuts (auto) PT 14.5 H INR 1.28 APTT pO2 VBG pH VBG pCO2 VBG HCO3 VBG Total CO2 VBG O2 Sat (Calc) VBG Base Excess VBG Potassium Sodium 137 Chloride 98 Glucose Lactate FiO2 Potassium 3.8 Carbon Dioxide 31 Anion Gap 11 BUN 38 H Creatinine 4.9 H Est GFR ( Amer) 17 Est GFR (Non-Af Amer) 14 Random Glucose 95 Calcium 8.2 L Phosphorus Magnesium Total Bilirubin 0.3 AST 35 ALT 11 Alkaline Phosphatase 57 Total Protein 7.5 Albumin 3.4 Globulin 4.1 Albumin/Globulin Ratio 0.8 L Venous Blood Potassium Urine Color Urine Appearance Urine pH Ur Specific [place] Urine Protein Urine Glucose (UA) Urine Ketones Urine Blood Urine Nitrate Urine Bilirubin Urine Urobilinogen Ur Leukocyte Esterase Urine RBC Urine WBC Ur Epithelial Cells Urine Bacteria
--- NOTE | 2018-12-15 14:29 | PN ---
DATE: 12/15/2018 SUBJECTIVE: He was sitting up in bed this morning. He is doing much better than yesterday. He appears much better than yesterday. His face is brighter. He is on Coumadin, Merrem, vitamin B, Pepcid, PhosLo, ProAmatine, and Tylenol. He was on Rocephin and vancomycin. He is down on Merrem by Infectious Disease. PHYSICAL EXAMINATION: VITAL SIGNS: He has 99 temp, was as high as 101.3; 100 pulse; 111/67 blood pressure; 20 respiratory rate; 97% O2 sat. HEENT: His head is atraumatic, normocephalic. Throat is moist. NECK: Supple. HEART: Regular rate. LUNGS: Decreased breath sounds. ABDOMEN: Soft. EXTREMITIES: No edema. LABORATORY DATA: He has a 9.9 white count, came down, it was 11.9; hemoglobin 10.3; hematocrit 32.1, platelets of 169. He has a 137 sodium, potassium 3.8, BUN 38, creatinine 4.9 on dialysis. GFR is 14. Sugar is 95. Calcium is 8.2. Total bili is 0.3, AST is 35, ALT is 11, alk phos is 57, total protein is 7.5. Urine was slight dirty, but large leukocytes, large bacteria, positive nitrites, moderate blood. ASSESSMENT AND PLAN: He is going to be seen by Infectious Disease, Urology, and Renal for dialysis. Hopefully, he will improve. He is already starting to look a little bit better. I will continue aggressive treatment and care for his end-stage renal disease, urinary tract infection, systemic inflammatory response syndrome picture. Lawrence Merlos DO
--- NOTE | 2018-12-16 00:01 | CARD ---
APPROVED REPORT Date of service: 12/14/2018 EKG Measurement Heart [id number] <Conclusion> Sinus tachycardia Otherwise normal ECG
[2018-12-16 06:58] LABS: HEMOGLOBIN 10.6 g/dL (14.0-18.0); MEAN CELL VOLUME 92.2 fl (80.0-105.0); MEAN CORPUSCULAR HEMOGLOBIN 29.4 pg (25.0-35.0); MEAN CORPUSCULAR HGB CONC 31.9 g/dl (31.0-37.0); MEAN PLATELET VOLUME 9.1 fl (7.0-11.0); RBC 3.6 10^6/uL (3.5-6.1); RED CELL DISTRIBUTION WIDTH 16.3 % (11.5-14.5); WHITE BLOOD COUNT 9.6 10^3/uL (4.5-11.0)
[2018-12-16 07:27] LABS: ALB/GLOB RATIO 0.8 (1.1-1.8); ALBUMIN 3.5 g/dL (3.0-4.8); CALCIUM 8.7 mg/dL (8.4-10.5)
[2018-12-16] MEDS ORDERED: Darbepoetin Alfa 25 mcg/ml Inj IVP SCH (10:00)
--- NOTE | 2018-12-16 11:56 | CP.PCM.PN ---
Subjective - Date & Time of Evaluation Date of Evaluation: 12/16/18 Time of Evaluation: 08:30 - Subjective Subjective: For dialysis today, no fevers. Objective - Vital Signs/Intake and Output Vital Signs (last 24 hours): Temp Pulse Resp BP Pulse Ox 99.7 F H 106 H 20 91/51 L 97 12/15/18 06:00 12/15/18 06:00 12/15/18 06:00 12/15/18 06:00 12/14/18 23:15 - Medications Medications: Current Medications Acetaminophen (Tylenol 650 Mg Supp) 650 mg RC Q4H PRN PRN Reason: Fever >100.4 F Calcium Acetate (Phoslo) 667 mg PO BRKDIN [facility] Last Admin: 12/15/18 07:42 Dose: 667 mg Darbepoetin Jorden (Aranesp) 25 mcg IVP QWK [facility] Famotidine (Pepcid) 20 mg PO DAILY [facility] Last Admin: 12/15/18 10:41 Dose: 20 mg Meropenem/Sodium Chloride (Merrem Iv 500 Mg/Ns 50 Ml) 500 mg in 50 mls @ 100 mls/hr IVPB Q12 [facility]; Protocol Stop: 12/22/18 00:16 Last Admin: 12/15/18 02:26 Dose: 100 mls/hr Midodrine (Proamatine) 5 mg PO BID [facility] Last Admin: 12/15/18 10:43 Dose: 5 mg Vitamin B Complex/Vit C/Folic Acid (Nephro-Will) 1 tab PO DAILY [facility] Last Admin: 12/15/18 10:40 Dose: 1 tab Warfarin Sodium (Coumadin) 4 mg PO 1800 [facility]; Protocol - Labs Labs: 12/15/18 07:00 12/15/18 07:00 PT 14.5 SECONDS (9.4-12.5) H 12/15/18 07:00 INR 1.28 12/15/18 07:00 APTT 27.3 Seconds (26.9-38.3) 12/14/18 18:51 - Constitutional Appears: Chronically Ill - Head Exam Head Exam: NORMAL INSPECTION - Respiratory Exam Respiratory Exam: Decreased Breath Sounds - Cardiovascular Exam Cardiovascular Exam: +S1, +S2 - GI/Abdominal Exam GI & Abdominal Exam: Soft. absent: Tenderness Assessment and Plan - Assessment and Plan (Free Text) Plan: Assessment SIRS consider sepsis from complicated UTI in this patient with chronic renal rai lure and urinary anatomic abnormalities with chronic indwelling Zelaya catheter and suprapubic catheter history of UTI with Pseudomonas aeruginosa in this patient with chronic Zelaya catheter use (complicated UTI) S/P severe sepsis due to UTI from Klebsiella in a patient with hydronephrosis and hydroureter and acute on chronic renal failure, S/P nephrostomy tube placement and now on dialysis (ESRD) history of acute femoral vein DVT mental disability down syndrome Plan gave a dose of IV Vancomycin and continue Merrem pending final urine cx results, blood cx are negative follow up Urology evaluation will continue to monitor clinically
[2018-12-16] MEDS: MEROPENEM 500 MG in NS 500 MG/50 ML BAG IVPB SCH ×2 (12:04→21:38)
[2018-12-16] MEDS: Multivitamin Vitamin B Complex (Nephro-Vite) Tab PO SCH (12:04)
--- NOTE | 2018-12-16 12:35 | CP.PCM.PN ---
Subjective - Date & Time of Evaluation Date of Evaluation: 12/16/18 Time of Evaluation: 12:34 - Subjective Subjective: Nephrology Consultation Note: Assessment: stable Sepsis ? UTI. also to evaluate permacath related infection ESRD on HD via permacath (TTS) hx of b/l massive hydronephrosis and loss of renal cortex s/p b/l nephrostomy now s/p ureteral stent 03/07/18 and SP catheter left femoral DVT. neg for HIT/hypercoag work up Anemia, hx of MR vit D def with secondary hyperparathyroidism chronic systolic CHF with LVEF 35% now LVEF normal on latest echo february 2018 Plan Plan for dialysis as TTS schedule. continue with nephrovite 1 tab/day not on RAAS donavan due to low BP. latest LVEF normal. continue with phos binders as phoslo low dose aransep with HD as last Hb 10.3 Dose meds/antibiotics for dialysis status. Avoid fleets enema/magnesium based laxatives. Avoid nephrotoxins/NSAIDs Glycemic control Further work up/management as per primary team. ID urology following Thanks for allowing me to participate in care of your patient. Will follow patient with you. Please call if any Qs. 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 He was noted to have fever at home x 1-2 day with reduced oral intake hence sent to ER after HD yesterday. renal consult for ESRD management ROS: pt unable to provide due to MR. overnight events noted Physical Examination: General Appearance: Comfortable, in no acute respiratory distress Vitals reviewed and noted as below Head; Atraumatic, normocephalic ENT: no ulcers no thrush. Tongue is midline. Oropharynx: no rash or ulcers. EYES: Pupils are equal, round and reactive to light accommodation. Sclera is anicteric. Neck; supple no lymphadenopathy, no thyromegaly or bruit Lungs: Normal respiratory rate/effort. Breath sounds bilateral equal and clear Heart: Normal rate. s1s2 normal. No rub or gallop. Extremities: no edema. No varicose veins Neurological: Patient is alert, awake, has severe MR, non communicative, non verbal Skin: Warm and dry. Normal turgor. No rash. Palpitation: Normal elasticity for age Abdomen: unable as pt not allowing Psych: no insight MSK: no joint tenderness or swelling. Digits and nails normal, no deformity : has britt access: permacath. s/p left radial AVF: failed. s/o left brachiocephalic AVF with good thrill and bruit Labs/imaging reviewed. Past medical history, past surgical history, family history, social history, allergy reviewed and noted as below Family hx: no hx of CKD. Rest non-contributory Objective - Vital Signs/Intake and Output Vital Signs (last 24 hours): Temp Pulse Resp BP Pulse Ox 98.2 F 79 16 106/71 95 12/16/18 08:53 12/16/18 08:53 12/16/18 08:53 12/16/18 08:53 12/16/18 08:53 Intake and Output: 12/16/18 12/16/18 06:59 18:59 Intake Total 1320 Output Total 225 Balance 1095 - Medications Medications: Current Medications Acetaminophen (Tylenol 650 Mg Supp) 650 mg RC Q4H PRN PRN Reason: Fever >100.4 F Albumin Human (Albumin Human 25% (25 Gm/100 Ml)) 25 gm IV TTS PRN PRN Reason: Other Calcium Acetate (Phoslo) 667 mg PO BRKDIN [facility] Last Admin: 12/16/18 08:18 Dose: Not Given Darbepoetin Jorden (Aranesp) 25 mcg IVP QWK [facility] Last Admin: 12/16/18 09:49 Dose: 25 mcg Famotidine (Pepcid) 20 mg PO DAILY [facility] Last Admin: 12/16/18 12:04 Dose: 20 mg Meropenem/Sodium Chloride (Merrem Iv 500 Mg/Ns 50 Ml) 500 mg in 50 mls @ 100 mls/hr IVPB Q12 [facility]; Protocol Stop: 12/22/18 00:16 Last Admin: 12/16/18 12:04 Dose: 100 mls/hr Midodrine (Proamatine) 5 mg PO BID [facility] Last Admin: 12/16/18 08:00 Dose: 5 mg Vitamin B Complex/Vit C/Folic Acid (Nephro-Will) 1 tab PO DAILY [facility] Last Admin: 12/16/18 12:04 Dose: 1 tab Warfarin Sodium (Coumadin) 4 mg PO 1800 [facility]; Protocol Last Admin: 12/15/18 17:13 Dose: 4 mg - Labs Labs: 12/16/18 06:10 12/16/18 06:10 PT 14.5 SECONDS (9.4-12.5) H 12/15/18 07:00 INR 1.28 12/15/18 07:00 APTT 27.3 Seconds (26.9-38.3) 12/14/18 18:51
[2018-12-16] MEDS ORDERED: Albumin Human 25% (25 gm/100 ml) IV PRN (13:19)
--- NOTE | 2018-12-16 17:53 | PN ---
DATE: 12/16/2018 SUBJECTIVE: I saw him in the Renal dialysis. He is getting dialysis. As I see him he is much more alert. He is looking at me, he is smiling. He is comfortable. He is almost back to his baseline. MEDICATIONS: He is on albumin, Aranesp, Coumadin, heparin, Merrem IV, Nephro-Will, Pepcid, PhosLo, ProAmatine, and Tylenol. PHYSICAL EXAMINATION: VITAL SIGNS: He has 98.2 temp, 79 pulse, 106/71 blood pressure, 16 respiratory rate, 95% O2 sat on room air. HEAD: Atraumatic, normocephalic. HEART: Regular rate. LUNGS: Decreased breath sounds, but clear. ABDOMEN: Soft. EXTREMITIES: No edema. NEUROLOGIC: His face is much brighter and he is much more alert and comfortable, in no acute distress. LABORATORY DATA: He has 9.6 white count, still coming down a little bit; hemoglobin 10.6; hematocrit 33.2; platelets of 208. INR is 1.28, on Coumadin coming up. He has 140 sodium, potassium 3.9, BUN 69, creatinine 7.1, on dialysis. GFR is 9. Sugar is 85. Calcium is 8.7, total bili is 0.28. AST is 47, ALT is 14, alk phos is 56, total protein is 7.7. He had a bad urinary tract infection with Gram-positive cocci in the urine. ASSESSMENT AND PLAN: He is being seen by Renal, Infectious Disease, and Urology. He has suprapubic catheter in place and he is improving. We will check his bloods tomorrow. Continue as per Infectious Disease, Urology, and Renal and I am happy to say that he is getting better. Lawrence Merlos DO
[2018-12-17 07:08] LABS: HEMOGLOBIN 9.9 g/dL (14.0-18.0); MEAN CELL VOLUME 90.8 fl (80.0-105.0); MEAN CORPUSCULAR HEMOGLOBIN 29.3 pg (25.0-35.0); MEAN CORPUSCULAR HGB CONC 32.2 g/dl (31.0-37.0); MEAN PLATELET VOLUME 9.1 fl (7.0-11.0); RBC 3.38 10^6/uL (3.5-6.1); RED CELL DISTRIBUTION WIDTH 16.3 % (11.5-14.5); WHITE BLOOD COUNT 7.9 10^3/uL (4.5-11.0)
[2018-12-17 07:31] LABS: ALB/GLOB RATIO 0.8 (1.1-1.8); ALBUMIN 3.5 g/dL (3.0-4.8); CALCIUM 8.5 mg/dL (8.4-10.5)
[2018-12-17] MEDS: MEROPENEM 500 MG in NS 500 MG/50 ML BAG IVPB SCH ×2 (10:29→21:36)
[2018-12-17] MEDS: Multivitamin Vitamin B Complex (Nephro-Vite) Tab PO SCH (10:30)
--- NOTE | 2018-12-17 11:53 | CP.PCM.PN ---
Subjective - Date & Time of Evaluation Date of Evaluation: 12/17/18 Time of Evaluation: 11:53 - Subjective Subjective: Nephrology Consultation Note: Assessment: stable Sepsis with UTI ESRD on HD via permacath (TTS) hx of b/l massive hydronephrosis and loss of renal cortex s/p b/l nephrostomy now s/p ureteral stent 03/07/18 and SP catheter left femoral DVT. neg for HIT/hypercoag work up Anemia, hx of MR vit D def with secondary hyperparathyroidism chronic systolic CHF with LVEF 35% now LVEF normal on latest echo february 2018 Plan Plan for dialysis as TTS schedule. continue with nephrovite 1 tab/day not on RAAS donavan due to low BP. latest LVEF normal. continue with phos binders as phoslo low dose aransep with HD as last Hb 9.9 Dose meds/antibiotics for dialysis status. Avoid fleets enema/magnesium based laxatives. Avoid nephrotoxins/NSAIDs Glycemic control Further work up/management as per primary team. ID urology following Thanks for allowing me to participate in care of your patient. Will follow patient with you. Please call if any Qs. had d/w team and mother Dr Olegario Lyons Office: [phone] CC: unable to obtain reason for consult; ESRD HPI: Pt is a 28 M with MR and chronic obstructive uropathy and progressive CKD as a result of obstruction, now ESRD on HD (TTS) @ [place] unit, hx of sCHF now normal lvef, DVT, hx of b/l massive hydronephrosis and loss of renal cortex s/p b/l nephrostomy now s/p ureteral stent recently had suprapubic catheter placement. He was noted to have fever at home x 1-2 day with reduced oral intake hence sent to ER after HD yesterday. renal consult for ESRD management ROS: pt unable to provide due to MR. overnight events noted Physical Examination: General Appearance: Comfortable, in no acute respiratory distress Vitals reviewed and noted as below Head; Atraumatic, normocephalic ENT: no ulcers no thrush. Tongue is midline. Oropharynx: no rash or ulcers. EYES: Pupils are equal, round and reactive to light accommodation. Sclera is anicteric. Neck; supple no lymphadenopathy, no thyromegaly or bruit Lungs: Normal respiratory rate/effort. Breath sounds bilateral equal and clear Heart: Normal rate. s1s2 normal. No rub or gallop. Extremities: no edema. No varicose veins Neurological: Patient is alert, awake, has severe MR, non communicative, non v erbal Skin: Warm and dry. Normal turgor. No rash. Palpitation: Normal elasticity for age Abdomen: unable as pt not allowing Psych: no insight MSK: no joint tenderness or swelling. Digits and nails normal, no deformity : has britt access: permacath. s/p left radial AVF: failed. s/o left brachiocephalic AVF with good thrill and bruit Labs/imaging reviewed. Past medical history, past surgical history, family history, social history, allergy reviewed and noted as below Family hx: no hx of CKD. Rest non-contributory Objective - Vital Signs/Intake and Output Vital Signs (last 24 hours): Temp Pulse Resp BP Pulse Ox 98.2 F 88 20 99/64 L 98 12/17/18 08:50 12/17/18 08:50 12/17/18 08:50 12/17/18 08:50 12/16/18 16:48 - Medications Medications: Current Medications Acetaminophen (Tylenol 650 Mg Supp) 650 mg RC Q4H PRN PRN Reason: Fever >100.4 F Albumin Human (Albumin Human 25% (25 Gm/100 Ml)) 25 gm IV TTS PRN PRN Reason: Other Calcium Acetate (Phoslo) 667 mg PO BRKDIN [facility] Last Admin: 12/17/18 10:30 Dose: 667 mg Darbepoetin Jorden (Aranesp) 25 mcg IVP QWK [facility] Last Admin: 12/16/18 09:49 Dose: 25 mcg Famotidine (Pepcid) 20 mg PO DAILY [facility] Last Admin: 12/17/18 10:30 Dose: 20 mg Meropenem/Sodium Chloride (Merrem Iv 500 Mg/Ns 50 Ml) 500 mg in 50 mls @ 100 mls/hr IVPB Q12 [facility]; Protocol Stop: 12/22/18 00:16 Last Admin: 12/17/18 10:29 Dose: 100 mls/hr Midodrine (Proamatine) 5 mg PO BID [facility] Last Admin: 12/17/18 10:30 Dose: 5 mg Vitamin B Complex/Vit C/Folic Acid (Nephro-Will) 1 tab PO DAILY [facility] Last Admin: 12/17/18 10:30 Dose: 1 tab Warfarin Sodium (Coumadin) 4 mg PO 1800 [facility]; Protocol Last Admin: 12/16/18 18:42 Dose: 4 mg - Labs Labs: 12/17/18 06:00 12/17/18 06:00 PT 14.5 SECONDS (9.4-12.5) H 12/15/18 07:00 INR 1.28 12/15/18 07:00 APTT 27.3 Seconds (26.9-38.3) 12/14/18 18:51
--- NOTE | 2018-12-17 16:27 | PN ---
DATE: 12/17/2018 SUBJECTIVE: He was sitting up in bed. His mother is present. He is developmentally delayed, she takes care of him. He had a suprapubic catheter placed. He is on dialysis. He came in with a UTI sepsis picture. He is being seen by Renal, Infectious Disease, and Urology. He is doing much better. He is improving. He is more alert, not lethargic. PHYSICAL EXAMINATION: VITAL SIGNS: He has 98.2 temp, 88 pulse, 99/64 blood pressure, 20 respiratory rate, 90% O2 sat on room air. HEAD: Atraumatic, normocephalic. HEART: Regular rate. LUNGS: Clear to auscultation. ABDOMEN: Soft. EXTREMITIES: No edema. MEDICATIONS: Currently, he is on albumin, Aranesp, Coumadin, Merrem IV, vitamins, Pepcid, calcium, ProAmatine, and Tylenol. LABORATORY DATA: He has 7.9 white count, 9.9 hemoglobin, 30.7 hematocrit with 217 platelets. He has 138 sodium, potassium 4.2, BUN 58, creatinine 6, GFR is 11, sugar is 85. Calcium is 8.5, total bili is 0.2. AST is 59, ALT is 13, alk phos is 58, total protein is 7.7. ASSESSMENT AND PLAN: He has a coagulase-negative Staph aureus in the urine. Intravenous antibiotics as per Infectious Disease. When they can change him to , I will discharge him possibly tomorrow. He is definitely improving. We will watch his labs. End-stage renal disease, on hemodialysis as per Infectious Disease. Discussed with his mother. Lawrence Merlos DO MTDD
[2018-12-17 16:49] VITALS: RESP 20
--- NOTE | 2018-12-17 23:50 | PN ---
DATE: 12/17/2018 SUBJECTIVE: The patient is in bed, in no acute distress, nontoxic. PHYSICAL EXAMINATION: VITAL SIGNS: Temperature is 97, blood pressure is 99/50, respiratory rate 20. HEENT: Unremarkable. NECK: Supple. LUNGS: Decreased breath sounds. HEART: Normal S1 and S2. ABDOMEN: Soft. LABORATORY DATA: Reveals a white count of 7.9. Chemistries reveal a creatinine of 6. Urinalysis is noted. Toxicology is noted. Vancomycin trough level of 30. Microbiology is coag negative staph and urine and blood cultures are negative. Review of orders reveals the patient is on meropenem. ASSESSMENT AND PLAN: He is a 28-year-old with (SIRS) severe systemic inflammatory response syndrome, sepsis, complicated urinary tract infection, chronic renal failure, urinary anatomic abnormalities, chronic indwelling Zelaya catheter. The patient is on intermittent vancomycin and meropenem. Today is day #3. We will complete a short course of antibiotics. Bernardino Booth MD
[2018-12-18 07:32] LABS: MEAN CELL VOLUME 90.9 fl (80.0-105.0); MEAN CORPUSCULAR HEMOGLOBIN 29.3 pg (25.0-35.0); MEAN CORPUSCULAR HGB CONC 32.3 g/dl (31.0-37.0); MEAN PLATELET VOLUME 9.1 fl (7.0-11.0); RBC 3.41 10^6/uL (3.5-6.1); RED CELL DISTRIBUTION WIDTH 16.3 % (11.5-14.5); WHITE BLOOD COUNT 7.3 10^3/uL (4.5-11.0)
[2018-12-18 07:49] LABS: ALB/GLOB RATIO 0.8 (1.1-1.8); ALBUMIN 3.4 g/dL (3.0-4.8); CALCIUM 8.5 mg/dL (8.4-10.5)
[2018-12-18 09:01] VITALS: BP 92/55; PULSE 77; TEMP 97; O2SAT 97
[2018-12-18] MEDS: MEROPENEM 500 MG in NS 500 MG/50 ML BAG IVPB SCH (09:25)
[2018-12-18] MEDS: Multivitamin Vitamin B Complex (Nephro-Vite) Tab PO SCH (09:26)
--- NOTE | 2018-12-18 09:56 | PN ---
DATE: 12/18/2018 SUBJECTIVE: He is sitting up in bed. His mother is present with him. He is in no acute distress. On albumin, Aranesp, Coumadin, Merrem, Nephro-Will, Pepcid, PhosLo, ProAmatine and Tylenol. This is his baseline, nonverbal and he is out with his mom. He is 28 with developmentally delayed. PHYSICAL EXAMINATION: VITAL SIGNS: Temperature 97.3, 87 pulse, 99/55 blood pressure, 20 respiratory rate, 98% O2 sat on room air. HEAD: Atraumatic, normocephalic. HEART: Regular rate. LUNGS: Decreased breath sounds. ABDOMEN: Soft. EXTREMITIES: Weak, no edema. LABORATORY DATA: He has a 7.3 white count, 10 hemoglobin, 31 hematocrit with 221 platelets. INR is up to 1.28. He has a 141 sodium, potassium 4.2, BUN is 82, creatinine 7.3 on dialysis, GFR is 9, sugar 91, calcium 8.5, total bili is 0.1. AST is 46, ALT is 14, alk phos 57, total protein 7.6. He has a large bacterial UTI, coagulase-negative Staph aureus. He is being seen by Renal, Infectious Disease, Urology. He has a suprapubic catheter placed. He has SIRS, sepsis, complicated UTI, chronic renal failure, chronic indwelling Zelaya catheter. When they tell me I could discharge him, I will discharge him. He is now 3 days of Merrem and might need a few more days as per Infectious Disease. They will let me know when I could discharge him. The patient has a very bad UTI. Lawrence Merlos DO
--- NOTE | 2018-12-18 12:29 | CP.PCM.PN ---
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 neg for HIT/hypercoag work up Anemia, hx of MR vit D def with secondary hyperparathyroidism chronic systolic CHF with LVEF 35% now LVEF normal on latest echo february 2018 Plan Plan for dialysis as TTS schedule. continue with nephrovite 1 tab/day not on RAAS donavan due to low BP. latest LVEF normal. continue with phos binders as phoslo low dose aransep with HD as last Hb 9.9 Dose meds/antibiotics for dialysis status. Avoid fleets enema/magnesium based laxatives. Avoid nephrotoxins/NSAIDs Glycemic control Further work up/management as per primary team. ID urology following d/c planning Thanks for allowing me to participate in care of your patient. Will follow patient with you. Please call if any Qs. 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 He was noted to have fever at home x 1-2 day with reduced oral intake hence sent to ER after HD yesterday. renal consult for ESRD management ROS: pt unable to provide due to MR. overnight events noted per mother, he is doing well, happy, eating well and at baseline. Physical Examination: General Appearance: Comfortable, in no acute respiratory distress Vitals reviewed and noted as below Head; Atraumatic, normocephalic ENT: no ulcers no thrush. Tongue is midline. Oropharynx: no rash or ulcers. EYES: Pupils are equal, round and reactive to light accommodation. Sclera is anicteric. Neck; supple no lymphadenopathy, no thyromegaly or bruit Lungs: Normal respiratory rate/effort. Breath sounds bilateral equal and clear Heart: Normal rate. s1s2 normal. No rub or gallop. Extremities: no edema. No varicose veins Neurological: Patient is alert, awake, has severe MR, non communicative, non verbal Skin: Warm and dry. Normal turgor. No rash. Palpitation: Normal elasticity for age Abdomen: unable as pt not allowing Psych: no insight MSK: no joint tenderness or swelling. Digits and nails normal, no deformity : has britt access: permacath. s/p left radial AVF: failed. s/o left brachiocephalic AVF with good thrill and bruit Labs/imaging reviewed. Past medical history, past surgical history, family history, social history, allergy reviewed and noted as below Family hx: no hx of CKD. Rest non-contributory Objective - Vital Signs/Intake and Output Vital Signs (last 24 hours): Temp Pulse Resp BP Pulse Ox 97 F L 77 20 92/55 L 97 12/18/18 09:00 12/18/18 09:00 12/18/18 09:00 12/18/18 09:00 12/18/18 09:00 Intake and Output: 12/18/18 12/18/18 06:59 18:59 Intake Total 120 Output Total 100 Balance 20 - Medications Medications: Current Medications Acetaminophen (Tylenol 650 Mg Supp) 650 mg RC Q4H PRN PRN Reason: Fever >100.4 F Albumin Human (Albumin Human 25% (25 Gm/100 Ml)) 25 gm IV TTS PRN PRN Reason: Other Calcium Acetate (Phoslo) 667 mg PO BRKDIN [facility] Last Admin: 12/18/18 08:00 Dose: 667 mg Darbepoetin Jorden (Aranesp) 25 mcg IVP QWK [facility] Last Admin: 12/16/18 09:49 Dose: 25 mcg Famotidine (Pepcid) 20 mg PO DAILY [facility] Last Admin: 12/18/18 09:26 Dose: 20 mg Meropenem/Sodium Chloride (Merrem Iv 500 Mg/Ns 50 Ml) 500 mg in 50 mls @ 100 mls/hr IVPB Q12 [facility]; Protocol Stop: 12/22/18 00:16 Last Admin: 12/18/18 09:25 Dose: 100 mls/hr Midodrine (Proamatine) 5 mg PO BID [facility] Last Admin: 12/18/18 09:26 Dose: 5 mg Vitamin B Complex/Vit C/Folic Acid (Nephro-Will) 1 tab PO DAILY [facility] Last Admin: 12/18/18 09:26 Dose: 1 tab Warfarin Sodium (Coumadin) 4 mg PO 1800 [facility]; Protocol Last Admin: 12/17/18 17:16 Dose: 4 mg - Labs Labs: 12/18/18 05:30 12/18/18 05:30 PT 14.5 SECONDS (9.4-12.5) H 12/15/18 07:00 INR 1.28 12/15/18 07:00 APTT 27.3 Seconds (26.9-38.3) 12/14/18 18:51
--- NOTE | 2018-12-18 16:58 | PN ---
DATE: 12/18/2018 SUBJECTIVE: The patient seen in room 377, bed 1. No fevers, no chills. No nausea, no vomiting. OBJECTIVE: VITAL SIGNS: On exam, temperature is 98, blood pressure is 92/55, respiratory 20, heart rate of 77. HEENT: Unremarkable. NECK: Supple. LUNGS: Have decreased breath sounds. HEART: Normal S1 and S2. ABDOMEN: Soft, nontender. LABORATORY DATA: Laboratory examination reveals the patient's white count of 7.3, hemoglobin is 10, creatinine 7.3. Urinalysis is noted. [place] random level on the was 30. Microbiology is coag-negative staph in the urine. Blood cultures are negative. ASSESSMENT AND PLAN: He is a 28-year-old male who was seen earlier today in 377, bed 1 with sepsis and with coag-negative staph, complicated urinary tract infection, today is day #4 of antibiotics. We will discontinue the meropenem, the patient's vancomycin level on the , was 30, which should be adequate enough to treat for a total of 5 days of therapy and adequate dosing of vancomycin. We will discontinue the meropenem, no further antibiotics at this point. Bernardino Booth MD
== END 2018-12-18 16:20 | disposition home or self-care (01) | DRG 698 ==
LOC: ED 17:47 → ERH 22:07 → 3RSO 23:32
PROVIDERS: ADMIT Family Medicine; ATTEND Family Medicine
PROC: 5A1D70Z Performance of Urinary Filtration, Intermittent, Less than 6 Hours Per Day (ICD-10-PCS; principal; 2018-12-16)
DX: T83.518A Infection and inflammatory reaction due to other urinary catheter, initial encounter (principal); A41.9 Sepsis, unspecified organism; N13.6 Pyonephrosis; N18.6 End stage renal disease; I50.22 Chronic systolic (congestive) heart failure; N17.9 Acute kidney failure, unspecified; F84.0 Autistic disorder; N25.81 Secondary hyperparathyroidism of renal origin; Q90.9 Down syndrome, unspecified; F81.9 Developmental disorder of scholastic skills, unspecified; D64.9 Anemia, unspecified; E55.9 Vitamin D deficiency, unspecified; Z99.2 Dependence on renal dialysis; Z87.440 Personal history of urinary (tract) infections; Z93.6 Other artificial openings of urinary tract status; Z86.718 Personal history of other venous thrombosis and embolism

== ENCOUNTER 2019-01-10 15:21 | Outpatient (CLI) | payer OTHER | END 2019-01-10 15:22 | disposition home or self-care (01) | LOC: OPLAB 15:21 ==